=== PATIENT | female | born 1945 | race Caucasian/White ===

== ENCOUNTER 2020-04-30 08:28 | Outpatient (REF) | payer MEDICARE, SELFPAY ==
--- NOTE | 2020-04-30 08:34 | MM_ITS ---
EXAMINATION: MM SCREENING DIGITAL BREAST TOMOSYNTHESIS, BILATERAL CLINICAL INFORMATION: Screening. Asymptomatic. The lifetime risk of breast cancer based on the Tyrer-Cuzick Model is 4.3%. COMPARISON: Mammography: April 25, 2019 and studies dating back to August 03, 2013 TECHNIQUE: Digital breast tomosynthesis is performed in both the craniocaudal and mediolateral oblique views along with computer-aided detection (CAD). Synthesized 2D images are generated from the tomosynthesis. FINDINGS: There are scattered areas of fibroglandular density (ACR BI-RADS breast composition Category b). There are no significant masses, abnormal calcifications, or other abnormalities. MM/MM tomosynthesis screening BI IMPRESSION: There are no significant changes from prior study. ASSESSMENT: BI-RADS 1: Negative RECOMMENDATION: Routine annual mammography screening. This patient's information was entered into a reminder system with a target due date for their next mammogram.
== END 2020-04-30 08:29 | disposition home or self-care (01) ==
LOC: HO.MAMMO 08:28
PROVIDERS: PCP Internal Medicine; Visit Provider Internal Medicine
DX: Z12.31 Encounter for screening mammogram for malignant neoplasm of breast (principal)
CPT/HCPCS: 77063; 77067

== ENCOUNTER 2020-06-18 11:23 | Outpatient (REF) | payer MEDICARE, SELFPAY ==
[2020-06-18 13:55] LABS: Glucose Urine UA NEG (NEG); Leukocyte Esterase Urine NEG (NEG); Nitrite Urine NEG (NEG); Urine Blood NEG (NEG); Urine Ketones NEG (NEG); Urine Protein NEG (NEG-TRACE)
[2020-06-18 14:02] LABS: Appearance Urine CLEAR; Color Urine YELLOW
[2020-06-18 14:17] LABS: Estimated Average Glucose 148 mg/dL; Hemoglobin A1c % 6.8 %
[2020-06-18 14:21] LABS: Alanine Aminotransferase 30 U/L (0-31); Alkaline Phosphatase 80 U/L (39-117); Anion Gap 12 (12-20); Aspartate Amino Transferase 22 U/L (5-31); Bilirubin Total 0.5 mg/dL (0.0-1.0); Blood Urea Nitrogen 14 mg/dL (9-16); Calcium 9.3 mg/dL (8.4-10.2); Carbon Dioxide 28 mmol/L (22-29); Chloride 100 mmol/L (96-108); Estimated Glomerular Filt Rate > 60; Glucose Random 136 mg/dL (60-115); Potassium 4.3 mmol/l (3.3-5.1); Sodium 136 mmol/L (135-145); Total Protein 6.4 g/dL (6.5-8.0)
[2020-06-18 14:22] LABS: Creatinine Urine 66.71 mg/dL; Microalbum/Creatinine Ratio Ur 8.9 ug/mg cr
== END 2020-06-18 11:24 | disposition home or self-care (01) ==
LOC: HO.10HDL 11:23
PROVIDERS: PCP Internal Medicine; Visit Provider Internal Medicine
DX: E11.9 Type 2 diabetes mellitus without complications (principal); I10 Essential (primary) hypertension; I25.10 Atherosclerotic heart disease of native coronary artery without angina pectoris; N39.0 Urinary tract infection, site not specified
CPT/HCPCS: 80053; 81003; 82043; 83036; 87086

== ENCOUNTER 2020-07-08 09:41 | Outpatient (REF) | payer MEDICARE, SELFPAY ==
--- NOTE | 2020-07-08 | US_ITS ---
EXAMINATION: US RETROPERITONEAL COMPLETE (RENAL) CLINICAL INFORMATION: Urinary tract infection. COMPARISON: Renal ultrasound 03/27/2019 TECHNIQUE: Real-time imaging of the kidneys and bladder. FINDINGS: RIGHT KIDNEY: 14.6 x 5.1 x 5.3 cm (SAG x AP x TRV). The right kidney is larger than the left. The similar to previous exam. 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 Renal cortical thickness and echogenicity is normal. No calculi or focal parenchymal lesions. No hydronephrosis. LEFT KIDNEY: 11.7 x 5.4 x 5.0 cm (SAG x AP x TRV). The kidney is normal in size, contour, and echogenicity. Renal cortical thickness is normal. No calculi or focal parenchymal lesions. No hydronephrosis. BLADDER: Well distended and normal. Bilateral ureteral jets are demonstrated. Prevoid bladder volume is 220 mL. Postvoid bladder volume is 11.9 mL. 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 Otherwise unremarkable exam.
== END 2020-07-08 09:42 | disposition home or self-care (01) ==
LOC: HO.US 09:41
PROVIDERS: PCP Internal Medicine; Visit Provider Internal Medicine
DX: N39.0 Urinary tract infection, site not specified (principal)
CPT/HCPCS: 76770

== ENCOUNTER 2021-03-04 08:34 | Outpatient (REF) | payer MEDICARE, SELFPAY ==
[2021-03-04 11:34] LABS: MANUAL DIFF FLAG NO
[2021-03-04 11:50] LABS: Basophils Absolute Auto 0.1 X10*3/uL (0.0-0.2); Basophils Percent Auto 0.7 % (0-2); Eosinophils Absolute Auto 0.4 X10*3/uL (0.0-0.4); Eosinophils Percent Auto 5.5 % (0-4); Hematocrit 37.9 % (37-47); Hemoglobin 12.7 g/dl (12.0-16.0); Imm Gran Abs Auto 0.03 X10*3/uL (0.00-0.03); Imm Gran Pct Auto 0.4 % (0.0-0.4); Lymphocytes Absolute Auto 1.5 X10*3/uL (1.2-4.9); Lymphocytes Percent Auto 21.2 % (20-40); Mean Corpuscular HGB Conc 33.5 g/dl (31.0-35.0); Mean Corpuscular Hemoglobin 32.5 pg (27.0-33.0); Mean Corpuscular Volume 96.9 fL (80-98); Mean Platelet Volume 10.2 fL (9.4-12.3); Monocytes Absolute Auto 0.7 X10*3/uL (0.1-1.2); Monocytes Percent Auto 9.4 % (2-11); Neutrophils Absolute Auto 4.3 X10*3/uL (2.0-8.3); Neutrophils Percent Auto 62.8 % (45-73); Platelet Count 246 X10*3/uL (160-400); Red Blood Count 3.91 X10*6/uL (4.20-5.50); Red Cell Distribution Width 12.2 % (11.0-16.0); White Blood Count 6.9 X10*3/uL (4.8-10.8)
[2021-03-04 12:24] LABS: Alanine Aminotransferase 26 U/L (0-31); Alkaline Phosphatase 69 U/L (39-117); Anion Gap 12 (12-20); Aspartate Amino Transferase 20 U/L (5-31); Bilirubin Total 0.4 mg/dL (0.0-1.0); Blood Urea Nitrogen 17 mg/dL (9-16); Carbon Dioxide 26 mmol/L (22-29); Chloride 104 mmol/L (96-108); Cholesterol 113 mg/dL; Estimated Glomerular Filt Rate > 60; Glucose Fasting 147 mg/dL (60-99); HDL Cholesterol 42 mg/dL; LDL Cholesterol Calculated 55 mg/dl; Potassium 4.2 mmol/L (3.3-5.1); Sodium 138 mmol/L (135-145); Total Protein 6.4 g/dL (6.5-8.0); Triglycerides 81 mg/dL
[2021-03-04 12:54] LABS: Creatinine Urine 89.33 mg/dL; Microalbum/Creatinine Ratio Ur 43.6 ug/mg cr
[2021-03-04 13:22] LABS: Estimated Average Glucose 160 mg/dL; Hemoglobin A1c % 7.2 %
== END 2021-03-04 08:35 | disposition home or self-care (01) ==
LOC: HO.HMGCLDS 08:34
PROVIDERS: PCP Internal Medicine; Visit Provider Internal Medicine
DX: I10 Essential (primary) hypertension (principal); E78.00 Pure hypercholesterolemia, unspecified; E11.9 Type 2 diabetes mellitus without complications; M19.90 Unspecified osteoarthritis, unspecified site
CPT/HCPCS: 36415; 80053; 80061; 82043; 83036; 85025

== ENCOUNTER 2021-07-31 10:38 | Outpatient (REF) | payer MEDICARE, SELFPAY ==
[2021-07-31 14:17] LABS: Estimated Average Glucose 163 mg/dL; Hemoglobin A1c % 7.3 %
[2021-07-31 14:19] LABS: Alanine Aminotransferase 21 U/L (0-31); Alkaline Phosphatase 76 U/L (39-117); Anion Gap 12 (12-20); Aspartate Amino Transferase 17 U/L (5-31); Bilirubin Total 0.6 mg/dL (0.0-1.0); Blood Urea Nitrogen 16 mg/dL (9-16); Calcium 9.4 mg/dL (8.4-10.2); Carbon Dioxide 26 mmol/L (22-29); Chloride 102 mmol/L (96-108); Estimated Glomerular Filt Rate > 60; Glucose Random 144 mg/dL (60-115); Potassium 4.3 mmol/L (3.3-5.1); Sodium 136 mmol/L (135-145); Total Protein 6.6 g/dL (6.5-8.0)
[2021-07-31 14:47] LABS: Creatinine Urine 122.14 mg/dL; Microalbum/Creatinine Ratio Ur 30.2 ug/mg cr
== END 2021-07-31 10:39 | disposition home or self-care (01) ==
LOC: HO.HMGCLDS 10:38
PROVIDERS: PCP Internal Medicine; Visit Provider Internal Medicine
DX: E11.9 Type 2 diabetes mellitus without complications (principal); I25.10 Atherosclerotic heart disease of native coronary artery without angina pectoris; I10 Essential (primary) hypertension; K21.9 Gastro-esophageal reflux disease without esophagitis; E78.00 Pure hypercholesterolemia, unspecified
CPT/HCPCS: 36415; 80053; 82043; 83036

== ENCOUNTER 2021-11-17 11:20 | Outpatient (REF) | payer MEDICARE, SELFPAY ==
[2021-11-17 13:18] LABS: Appearance Urine HAZY; Color Urine STRAW; Glucose Urine UA NEG (NEG); Leukocyte Esterase Urine 3+ (NEG); Nitrite Urine POS (NEG); PH 5.5 (5.0-8.0); Specific Gravity - Urine 1.015 (1.005-1.025); UACC Culture Trigger YES; Urine Blood 2+ (NEG); Urine Ketones NEG (NEG); Urine Protein TRACE MG/DL (NEG-TRACE)
[2021-11-17 13:26] LABS: Anion Gap 14 (12-20); Blood Urea Nitrogen 15 mg/dL (9-16); Calcium 9.3 mg/dL (8.4-10.2); Carbon Dioxide 25 mmol/L (22-29); Chloride 100 mmol/L (96-108); Estimated Average Glucose 171 mg/dL; Estimated Glomerular Filt Rate > 60; Glucose Random 227 mg/dL (60-115); Hemoglobin A1c % 7.6 %; Potassium 4.4 mmol/L (3.3-5.1); Sodium 135 mmol/L (135-145)
[2021-11-17 14:13] LABS: Creatinine Urine 51.88 mg/dL; Microalbum/Creatinine Ratio Ur 204.3 ug/mg cr; WBC Urine TNTC /HPF (0-4)
[2021-11-17 14:14] LABS: Bacteria Urine 2+ /LPF
== END 2021-11-17 11:21 | disposition home or self-care (01) ==
LOC: HO.10HDL 11:20
PROVIDERS: Visit Provider Internal Medicine
DX: R30.0 Dysuria (principal); I10 Essential (primary) hypertension; E11.9 Type 2 diabetes mellitus without complications
CPT/HCPCS: 36415; 80048; 81001; 82043; 83036; 87086; 87088; 87186

== ENCOUNTER 2021-12-14 08:00 | Inpatient (IN) | payer MEDICARE, SELFPAY ==
[2021-12-14] VITALS (8 sets, daily range): BP systolic 160–205; BP diastolic 59–86; PULSE 59–84; RESP 15–18; TEMP 36.4–36.8; O2SAT 92–98; BMI 28.3
--- NOTE | ~2021-12-14 | MR_ITS ---
EXAMINATION: MR BRAIN WITHOUT CONTRAST CLINICAL INFORMATION: Vertigo. COMPARISON: Head CT 12/14/2021. TECHNIQUE: Multiplanar, multisequence imaging of the brain was performed without intravenous contrast. FINDINGS: There is no acute infarction, mass, hemorrhage, or extra-axial collection. The ventricles and sulci are commensurate with mild degree of brain parenchymal volume loss. Moderate patchy T2/FLAIR hyperintensity seen within the cerebral white matter, presumably reflecting chronic microangiopathy. No cerebellopontine angle lesion is seen. Small chronic lacunar infarcts are seen within the left and right cerebellar hemispheres. Chronic basal ganglia lacunar infarcts are also noted. The flow voids of the major intracranial arteries appear intact. The bones and extracranial soft tissues are unremarkable. Bilateral lens replacements are noted. MR/MR head/brain wo con IMPRESSION: No acute infarct, mass lesion, intracranial hemorrhage, or evidence of hydrocephalus. Chronic lacunar infarcts in the bilateral cerebellar hemispheres and basal ganglia. Background changes of moderate chronic microangiopathy.
--- NOTE | ~2021-12-14 | XR_ITS ---
EXAMINATION: XR KNEE, RIGHT CLINICAL INFORMATION: Knee pain COMPARISON: None TECHNIQUE: Four views of the right knee. FINDINGS: There is no visible acute fracture, dislocation or subluxation. There is diffuse osteopenia with heterogenous bone marrow involving the distal femur and proximal tibia. There is mild calcification of the menisci. The soft tissues are normal. There is soft tissue calcification mild joint effusion the suprapatellar bursa XR/XR knee RT 4V IMPRESSION: No acute fracture or dislocation. Mild degenerative calcification of the menisci. Heterogeneous bone marrow involving distal femur and proximal tibia likely significant osteoporosis or osteopenia. Soft tissue calcification in the suprapatellar bursa with mild suprapatellar joint effusion.
--- NOTE | ~2021-12-14 | CT_ITS ---
EXAMINATION: CT HEAD WITHOUT CONTRAST CLINICAL INFORMATION: Dizziness. COMPARISON: None TECHNIQUE: Contiguous axial imaging was performed from the skull base to vertex without intravenous administration of contrast. This CT examination was performed using dose optimization techniques as appropriate, variously including the following: *Automated exposure control *Adjustment of mA and/or kV according to patient size (this includes techniques or standardized protocols for targeted exams where dose is matched to indication/reason for exam; i.e. extremities or head) *Use of iterative reconstruction technique DLP: 685 mGy-cm FINDINGS: There is no evidence of acute intracranial hemorrhage or territorial infarction. No abnormal mass effect or midline shift is seen. Gomez to white matter differentiation is well preserved. No extra-axial fluid collections are identified. The ventricles are normal in size. Hypoattenuation of the periventricular white matter consistent with chronic microvascular ischemic disease. Subcutaneous hyperdense cyst overlying the left frontal lobe measuring 0.9 cm. The osseous structures and soft tissues are otherwise unremarkable. The mastoid air cells and visualized portions of the paranasal sinuses are well aerated. CT/CT head/brain wo con IMPRESSION: No acute intracranial hemorrhage or mass effect. Findings consistent with chronic microvascular ischemic disease.
--- NOTE | ~2021-12-14 | XR_ITS ---
EXAMINATION: XR CHEST CLINICAL INFORMATION: Dizziness. COMPARISON: Chest radiograph dated 08/08/2013. TECHNIQUE: 2 views of the chest were obtained. FINDINGS: Mild hypoinflation of the lungs without focal airspace consolidation. No pleural effusion or pneumothorax. Sternal wires and mediastinal surgical clips. Unremarkable cardiomediastinal silhouette. XR/XR chest 2V IMPRESSION: No acute cardiopulmonary findings.
--- NOTE | 2021-12-14 08:12 | ECG_ITS ---
Test Reason : DIZZINESS Blood Pressure : / mmHG Vent. Rate : 076 BPM Atrial Rate : 076 BPM P-R Int : 200 ms QRS Dur : 076 ms QT Int : 402 ms P-R-T Axes : 080 004 037 degrees QTc Int : 452 ms Normal sinus rhythm Cannot rule out Inferior infarct (cited on or before 08-SEP-2012) Abnormal ECG When compared with ECG of 08-SEP-2012 06:21, No significant change was found Referred By: Tammy Urrutia Electronically Signed By:Jerry Covington
--- NOTE | 2021-12-14 08:12 | ED.GENADULT ---
HPI - General Adult General Chief complaint: Dizziness Stated complaint: DIZZY THIS MORNING,RECENT DX UTI Time Seen by Provider: 12/14/21 08:11 Source: patient and EMS Mode of arrival: EMS Limitations: no limitations History of Present Illness HPI narrative: Patient is a 76 year old female presenting to the emergency department today with dizziness and nausea. Patient states that at 3am today, she woke up with dizziness and nausea. Patient states that the dizziness only occurs when she moves her head and is not present at all times. Patient denies any history of vertigo. Patient denies any lightheadedness, abdominal pain, vomiting, fever, chills, blurry vision, double vision, loss of vision, chest pain, difficulty breathing, shortness of breath, back pain, night sweats, pain with urination, increased urinary frequency, increased urinary urgency, blood in her urine or stool, syncope or a near syncopal episode, recent trauma or falls, bowel incontinence, bladder incontinence, bowel retention, bladder retention, or any other complaints at this time. Patient states that she has a history of high blood pressure and diabetes for which she has not taken either of her medications. Patient states that she was diagnosed with a UTI a few days ago and just started her antibiotic for it. Onset (ago): hour(s) Severity: mild Severity scale (1-10): 4 Relieving factors: none Exacerbating factors: movement Associated symptoms: nausea/vomiting Treatments prior to arrival: none Related Data Home Medications Medication Instructions Recorded Confirmed ascorbic acid (vitamin C) 500 mg 500 mg PO DAILY 12/14/21 12/14/21 tablet (Vitamin C) atorvastatin 80 mg tablet 1 tab PO BEDTIME 12/14/21 12/14/21 calcium carbonate 500 mg calcium 500 mg PO DAILY 12/14/21 12/14/21 (1,250 mg) tablet glucosamine sulfate 500 mg tablet 500 mg PO BID 12/14/21 12/14/21 (Glucosamine) metformin 500 mg tablet,extended 1 tab PO BID 12/14/21 12/14/21 release 24 hr metoprolol succinate 25 mg 1 tab PO DAILY 12/14/21 12/14/21 tablet,extended release 24 hr omeprazole 20 mg capsule,delayed 1 cap PO DAILY 12/14/21 12/14/21 release vit C 250 mg-E 90 mg-zinc 40 1 tab PO BID 12/14/21 12/14/21 mg-copper 1 gl-[id number] chew tablet (PreserVision AREDS-2) zolpidem 5 mg tablet 1 tab PO BEDTIME PRN Sleep 12/14/21 12/14/21 Allergies Allergy/AdvReac Type Severity Reaction Status Date / Time egg [Egg] Allergy Mild RASH Verified 12/14/21 08:11 Sulfa (Sulfonamide Allergy Unknown N/V Verified 12/14/21 08:11 Antibiotics) TACHYCARDIC Review of Systems Constitutional: Constitutional: Reports no additional constitutional complaints, Denies chills, Denies fever(s) and Denies night sweats Eyes: Eyes: Reports no additional eye complaints, Denies blurry vision, Denies change in vision, Denies diplopia, Denies eye discharge, Denies loss of vision and Denies eye pain ENT: Reports dizziness Cardiovascular: Cardiovascular: Reports no additional cardiovascular complaints, Denies chest pain, Denies lightheadedness, Denies Loss of Consciousness and Denies dyspnea Respiratory: Respiratory: Reports no additional respiratory complaints and Denies dyspnea Gastrointestinal: Gastrointestinal: Reports no additional gastrointestinal complaints, Denies abdominal pain, Denies melena, Denies hematochezia, Denies change in bowel habits, Denies change in stool character, Reports nausea and Reports vomiting Genitourinary: Genitourinary: Denies hematuria, Denies urinary frequency, Denies dysuria, Denies urinary incontinence, Denies urinary hesitancy and Denies urinary urgency Musculoskeletal: Musculoskeletal: Reports no additional musculoskeletal complaints, Denies numbness and Denies tingling Neurologic: Reports dizziness, Denies loss of vision, Denies numbness and Denies tingling Psychiatric: Psychiatric: Reports no additional psychiatric complaints Endocrine: Endocrine: Reports no additional endocrine complaints Hematologic/Lymphatic: Hematologic/Lymphatic: Reports no additional hematologic/lymphatic complaints Allergic/Immunologic: Allergic/Immunologic: Reports no additional allergic/immunologic complaints [facility] Past Medical History Attestation statement: The following information was validated with the patient. Source: old records reviewed Medical History HTN (hypertension) Surgical History History of quadruple bypass Social History Social History Alcohol intake: current Alcohol intake frequency: a few times a month Patient Tobacco Use Status: Never used Tobacco Use of substances other than those prescribed or required for medical reasons: No Advance Directives: Yes Advance Directives Information Provided: No Advance Directives on File: No Physical Exam ED Vital Signs: Vital Signs - 24 hr 12/14/21 08:12 12/14/21 09:02 12/14/21 10:12 Temperature 98.3 F 97.6 F Pulse Rate 83 78 59 Respiratory Rate 18 18 18 Blood Pressure 205/86 H 186/78 H 174/69 H Pulse Oximetry 98 95 96 Oxygen Delivery Method Room Air Room Air Room Air 12/14/21 12:00 12/14/21 13:51 Temperature 97.6 F 98.1 F Pulse Rate 75 76 Respiratory Rate 15 18 Blood Pressure 167/77 H 160/65 H Pulse Oximetry 94 95 Oxygen Delivery Method Room Air Room Air BMI result Body Mass Index 28.3 Const General: cooperative, no acute distress, alert and awake Nutritional Appearance: well nourished Orientation/consciousness: patient oriented x3 Limitations: no limitations HENMT Head: Yes normal to inspection and Yes atraumatic Ears: hearing grossly normal bilaterally and external ears normal General nose exam: Normal external nose present, no nasal discharge noted and no epistaxis Face and sinus: Yes normal facial exam, No abrasion and No laceration Mouth: Normal oral and palatal mucosa present, no drooling and no muffled voice Eyes General: appearance normal, both eyes and all related structures Periorbital: periorbital findings normal Eyelids: Yes eyelids normal Conjunctivae: conjunctivae normal Pupils: Equal, round and reactive pupils present EOM: EOMs intact bilaterally Neck Neck: Yes normal visual inspection, Yes full ROM and Yes no lymphadenopathy Chest Chest palpation & inspection: normal inspection of the chest Resp Effort & Inspection: normal respiratory effort and able to speak in complete sentences Auscultation: clear to auscultation bilaterally Cardio Rate: regular rate Rhythm: regular rhythm GI Inspection: Yes normal to inspection Neuro General: patient oriented x3 and moves all extremities Cranial nerves: Yes Equal, round and reactive pupils present Cognition (Neuro): normal cognition Motor exam (neuro): 5/5 motor strength present throughout Sensory Exam: Normal double simultaneous stimulation for sensation Coordination: [id number] test normal Extrem General: Yes normal to inspection, Yes full ROM and Yes capillary refill normal Psych Appearance: grossly normal Mental Status: mental status grossly normal Affect: normal affect Attitude: cooperative Thought process: Normal thought process present Thought content: Normal thought content present Insight: Good insight present (Psych) Medical Decision Making MDM Narrative Medical decision making narrative: Patient is a 76 year old female presenting to the emergency department today with dizziness. Patient's physical exam showed inability to ambulate secondary to profound dizziness but was otherwise unremarkable. Patient's blood work was unremarkable. Patient's EKG was unremarkable. Patient's chest x-ray and head CT showed no acute process. MRI machine currently being serviced and it is unclear when it will come back online. I explained my physical exam findings as well as all test results to the patient. I answered all questions asked by the patient. Patient received IV fluids and PO antivert however, she was still unable to ambulate secondary to the profound dizziness. I spoke to Dr. Martinez who agreed to hospital admission. Patient verbalized agreement and understanding with this treatment plan and admission. Differential Diagnosis Differential Diagnosis: BPPV, CVA, dizziness Medical Records Medical records reviewed: Yes I reviewed the patient's medical records. Lab Data Lab results reviewed: Yes I reviewed the patient's lab results. Result diagrams: 12/14/21 10:02 12/14/21 10:02 Labs: Lab Results 12/14/21 12/14/21 12/14/21 Range/Units 10:02 10:02 10:02 WBC 8.3 (4.8-10.8) X10*3/uL RBC 4.16 L (4.20-5.50) X10*6/uL Hgb 13.2 (12.0-16.0) g/dl Hct 38.8 (37.0-47.0) % MCV 93.3 (80.0-98.0) fL MCH 31.7 (27.0-33.0) pg MCHC 34.0 (31.0-35.0) g/dl RDW 12.2 (11.0-16.0) % Plt Count 246 (160-400) X10*3/uL MPV 9.7 (9.4-12.3) fL Immature Gran % (Auto) 0.5 H (0.0-0.4) % Neut % (Auto) 82.2 H (45-73) % Lymph % (Auto) 9.4 L (20-40) % [place] % (Auto) 6.2 (2-11) % Eos % (Auto) 1.3 (0-4) % Baso % (Auto) 0.4 (0-2) % Lymph # (Auto) 0.8 L (1.2-4.9) X10*3/uL [place] # (Auto) 0.5 (0.1-1.2) X10*3/uL Eos # (Auto) 0.1 (0.0-0.4) X10*3/uL Baso # (Auto) 0.0 (0.0-0.2) X10*3/uL Abs Immat Gran (auto) 0.04 H (0.00-0.03) X10*3/uL Absolute Neuts (auto) 6.8 (2.0-8.3) x10*3/uL Absolute Nucleated RBC 0.000 (0.0-0.012) X10*3/uL Nucleated RBC % (auto) 0.0 (0.0-0.2) /100WBC Sodium 135 (135-145) mmol/L Potassium 4.8 (3.3-5.1) mmol/L Chloride 101 (96-108) mmol/L Carbon Dioxide 26 (22-29) mmol/L Anion Gap 13 (12-20) BUN 16 (9-16) mg/dL Creatinine 0.72 (0.5-1.4) mg/dL Estim Creat Clear Calc 66.8 Estimated GFR > 60 Random Glucose 278 H (60-115) mg/dL Lactic Acid 1.5 (0.5-2.0) mmol/L Calcium 8.7 D (8.4-10.2) mg/dL Magnesium 2.1 (1.6-2.6) mg/dL Total Bilirubin 0.8 (0.0-1.0) mg/dL AST 16 (5-31) U/L ALT 24 (0-31) U/L Alkaline Phosphatase 87 (39-117) U/L Troponin I High Sens (<3.5-17.0) ng/L Total Protein 6.7 (6.5-8.0) g/dL Albumin 4.0 (3.5-5.0) g/dL COVID-19 ([facility]) (Negative) COVID-19 Clin Com Influenza Type A ([facility]) (Negative) Influenza Type B ([facility]) (Negative) Influenza A & B Note 12/14/21 12/14/21 12/14/21 Range/Units 10:02 10:04 10:04 WBC (4.8-10.8) X10*3/uL RBC (4.20-5.50) X10*6/uL Hgb (12.0-16.0) g/dl Hct (37.0-47.0) % MCV (80.0-98.0) fL MCH (27.0-33.0) pg MCHC (31.0-35.0) g/dl RDW (11.0-16.0) % Plt Count (160-400) X10*3/uL MPV (9.4-12.3) fL Immature Gran % (Auto) (0.0-0.4) % Neut % (Auto) (45-73) % Lymph % (Auto) (20-40) % [place] % (Auto) (2-11) % Eos % (Auto) (0-4) % Baso % (Auto) (0-2) % Lymph # (Auto) (1.2-4.9) X10*3/uL [place] # (Auto) (0.1-1.2) X10*3/uL Eos # (Auto) (0.0-0.4) X10*3/uL Baso # (Auto) (0.0-0.2) X10*3/uL Abs Immat Gran (auto) (0.00-0.03) X10*3/uL Absolute Neuts (auto) (2.0-8.3) x10*3/uL Absolute Nucleated RBC (0.0-0.012) X10*3/uL Nucleated RBC % (auto) (0.0-0.2) /100WBC Sodium (135-145) mmol/L Potassium (3.3-5.1) mmol/L Chloride (96-108) mmol/L Carbon Dioxide (22-29) mmol/L Anion Gap (12-20) BUN (9-16) mg/dL Creatinine (0.5-1.4) mg/dL Estim Creat Clear Calc Estimated GFR Random Glucose (60-115) mg/dL Lactic Acid (0.5-2.0) mmol/L Calcium (8.4-10.2) mg/dL Magnesium (1.6-2.6) mg/dL Total Bilirubin (0.0-1.0) mg/dL AST (5-31) U/L ALT (0-31) U/L Alkaline Phosphatase (39-117) U/L Troponin I High Sens < 3.5 (<3.5-17.0) ng/L Total Protein (6.5-8.0) g/dL Albumin (3.5-5.0) g/dL COVID-19 ([facility]) Negative (Negative) COVID-19 Clin Com See Note Influenza Type A ([facility]) Negative (Negative) Influenza Type B ([facility]) Negative (Negative) Influenza A & B Note See Note Imaging Data CT scan - head: Attestation: I personally reviewed and interpreted this imaging study as follows: My impression: No acute process. Radiologist's impression: EXAMINATION: CT HEAD WITHOUT CONTRAST CLINICAL INFORMATION: Dizziness.? COMPARISON: None TECHNIQUE: Contiguous axial imaging was performed from the skull base to vertex without intravenous administration of contrast. This CT examination was performed using dose optimization techniques as appropriate, variously including the following: *Automated exposure control *Adjustment of mA and/or kV according to patient size (this includes techniques or standardized protocols for targeted exams where dose is matched to indication/reason for exam; i.e. extremities or head) *Use of iterative reconstruction technique DLP: 685 mGy-cm FINDINGS: There is no evidence of acute intracranial hemorrhage or territorial infarction. No abnormal mass effect or midline shift is seen. Gomez to white matter differentiation is well preserved. No extra-axial fluid collections are identified. The ventricles are normal in size. Hypoattenuation of the periventricular white matter consistent with chronic microvascular ischemic disease. Subcutaneous hyperdense cyst overlying the left frontal lobe measuring 0.9 cm. The osseous structures and soft tissues are otherwise unremarkable. The mastoid air cells and visualized portions of the paranasal sinuses are well aerated. ? CT/CT head/brain wo con IMPRESSION: No acute intracranial hemorrhage or mass effect. ? Findings consistent with chronic microvascular ischemic disease. Dictated By: Zacarias Olivares MD Signed By: Electronically signed by Zacarias Olivares MD 12/14/21 0849 Chest x-ray: Attestation: I personally reviewed and interpreted this imaging study as follows: My impression: No acute process. Radiologist's impression: EXAMINATION: XR CHEST CLINICAL INFORMATION: Dizziness. COMPARISON: Chest radiograph dated 08/08/2013. TECHNIQUE: 2 views of the chest were obtained. FINDINGS: Mild hypoinflation of the lungs without focal airspace consolidation. No pleural effusion or pneumothorax. Sternal wires and mediastinal surgical clips. Unremarkable cardiomediastinal silhouette. XR/XR chest 2V IMPRESSION: No acute cardiopulmonary findings. Dictated By: Zacarias Olivares MD Signed By: Electronically signed by Zacarias Olivares MD 12/14/21 0849 ECG Data Attestation: I personally reviewed and interpreted this ECG as follows: Prior ECG tracings: available for review Interpretation: Vent. Rate: 076 BPM ? ? Atrial Rate: 076 BPM P-R Int: 200 ms? QRS Dur: 076 ms QT Int: 402 ms ? ? ? P-R-T Axes: 080 004 037 degrees QTc Int: 452 ms ? Normal sinus rhythm Cannot rule out Inferior infarct (cited on or before 08-SEP-2012) Abnormal ECG When compared with ECG of 08-SEP-2012 06:21, No significant change was found DD/ [id number] Discharge Plan Discharge Clinical Impression: Benign paroxysmal positional vertigo, Nausea & vomiting Patient Disposition: Admitted As Inpatient Prescriptions: No Action atorvastatin 80 mg tablet 1 tab PO BEDTIME omeprazole 20 mg capsule,delayed release(DR/EC) 1 cap PO DAILY zolpidem 5 mg tablet 1 tab PO BEDTIME PRN (Reason: Sleep) metoprolol succinate 25 mg tablet extended release 24 hr 1 tab PO DAILY metformin 500 mg tablet extended release 24 hr 1 tab PO BID glucosamine sulfate [Glucosamine] 500 mg Tablet 500 mg PO BID Rx Instructions: administer with meals calcium carbonate [Calcium 500] 500 mg calcium (1,250 mg) Tablet 500 mg PO DAILY ascorbic acid (vitamin C) [Vitamin C] 500 mg Tablet 500 mg PO DAILY PreserVision AREDS-2 250-90-40-1 mg Tablet,Chewable 1 tab PO BID Print Language: Andorran
[2021-12-14] MEDS: ondansetron HCL 4 MG/2 ML VIAL IVPUSH (08:59)
[2021-12-14] MEDS: Meclizine HCl 25 MG TABLET PO (09:01)
[2021-12-14] MEDS: Metoprolol Tartrate 25 MG TABLET PO (09:01)
--- NOTE | 2021-12-14 10:13 | PC.NURSE ---
pt unable to tolerate orthos. Too dizzy to sit on bedside. states headache remains unchanged but dizziness is slightly better.
[2021-12-14] MEDS: 0.9 % Sodium Chloride 1,000 ML 999 ML IVCONT (10:17)
[2021-12-14 10:18] LABS: MANUAL DIFF FLAG NO
[2021-12-14 10:19] LABS: Basophils Percent Auto 0.4 % (0-2); Eosinophils Absolute Auto 0.1 X10*3/uL (0.0-0.4); Eosinophils Percent Auto 1.3 % (0-4); Hematocrit 38.8 % (37.0-47.0); Hemoglobin 13.2 g/dl (12.0-16.0); Imm Gran Abs Auto 0.04 X10*3/uL (0.00-0.03); Imm Gran Pct Auto 0.5 % (0.0-0.4); Lymphocytes Absolute Auto 0.8 X10*3/uL (1.2-4.9); Lymphocytes Percent Auto 9.4 % (20-40); Mean Corpuscular Hemoglobin 31.7 pg (27.0-33.0); Mean Corpuscular Volume 93.3 fL (80.0-98.0); Mean Platelet Volume 9.7 fL (9.4-12.3); Monocytes Absolute Auto 0.5 X10*3/uL (0.1-1.2); Monocytes Percent Auto 6.2 % (2-11); Neutrophils Absolute Auto 6.8 x10*3/uL (2.0-8.3); Neutrophils Percent Auto 82.2 % (45-73); Platelet Count 246 X10*3/uL (160-400); Red Blood Count 4.16 X10*6/uL (4.20-5.50); Red Cell Distribution Width 12.2 % (11.0-16.0); White Blood Count 8.3 X10*3/uL (4.8-10.8)
[2021-12-14 10:34] LABS: Lactic Acid 1.5 mmol/L (0.5-2.0)
[2021-12-14 10:38] LABS: IDNOW Serial# 16C4AD1C; Influenza A Negative (Negative)
[2021-12-14 10:39] LABS: COVID-19 Test Negative (Negative); IDNOW Serial# 16C4AD1C; Influenza B2 Negative (Negative)
[2021-12-14 10:40] LABS: Alanine Aminotransferase 24 U/L (0-31); Alkaline Phosphatase 87 U/L (39-117); Anion Gap 13 (12-20); Aspartate Amino Transferase 16 U/L (5-31); Bilirubin Total 0.8 mg/dL (0.0-1.0); Blood Urea Nitrogen 16 mg/dL (9-16); Calcium 8.7 mg/dL (8.4-10.2); Carbon Dioxide 26 mmol/L (22-29); Chloride 101 mmol/L (96-108); Creatinine Clr Calc Pharmacy 66.8; Estimated Glomerular Filt Rate > 60; Glucose Random 278 mg/dL (60-115); Magnesium 2.1 mg/dL (1.6-2.6); Potassium 4.8 mmol/L (3.3-5.1); Sodium 135 mmol/L (135-145); Total Protein 6.7 g/dL (6.5-8.0)
[2021-12-14 10:43] LABS: Troponin-I High Sensitivity < 3.5 ng/L (<3.5-17.0)
[2021-12-14] MEDS: Metoclopramide HCl 10 MG/2 ML VIAL IVPUSH (12:02)
--- NOTE | 2021-12-14 12:08 | PC.NURSE ---
Addendum entered by Elise Rodriguez RN 12/14/21 12:11: marcos martin applied Original Note: patient a&ox3, was assisted oob to wheelchair with tech pt began having acute dizziness and feeling as if she wanted to vomit, pt was unable to use iman steady to go into bathroom or to return to bed, it took a 3 person assist to help the patient back into bed standing/pivot. 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
--- NOTE | 2021-12-14 13:13 | PHA.MEDREC ---
Pharmacy Consult ? Medication Reconciliation Pharmacy has completed the medication reconciliation.
--- NOTE | 2021-12-14 13:51 | PC.NURSE ---
patient a&ox3, vss, teletypesetter monitor nsr 70s, pure wick intact, call aparicio within reach will continue to monitor.
--- NOTE | 2021-12-14 15:42 | PM.IMHP ---
History of Present Illness Date of Service: 12/14/21 Attending physician on admission: Kusum Boyd Chief Complaint: vertiago 76-year-old female with history of diabetes, hypertension, hyperlipidemia, CABG, history of a flutter(2007) in the past which was treated with ablation and subsequently off anticoagulation( her banner painter is Dr. mitchell), patient came to the hospital because started to having dizziness episode this morning around 03:00 o'clock when she went to the bathroom, she says that she never had dizziness before in his her life, she described dizziness as spinning sensation, denies any headache or any blurry vision or lightheadedness or any seizure-like activities. patient was in [place] recently came last Wednesday and was feeling better until yesterday she noticed some burning sensation with the urine and discoloration and started her antibiotics. she has some nausea but no vomiting, no fever or abdominal pain or cough or phlegm or any weakness or numbness we tried to walk her she could able to take few steps but feels very unsteady. she denies any tinnitus or ear pain or any URI like symptoms. labs arzate: Hemoglobin 13.2 hematocrit 38 ,WBC 8.3, platelet 246 BUN 16 creatinine 0.72 fingersticks are running between 140-[address] head and chest x-ray negative,, MRI added in ED: Patient received Reglan, meclizine, Fioricet and subsequently was feeling slightly better- because they patient is still significantly unsteady so recommended admission for vertigo unclear etiology differential diagnosis from benign positional vertigo to posterior circulation CVA. social history: Lives alone, independent ADL arzate, no smoking or recreational drug use, ETOH use once or twice a week occasionally Surgical history: CABG 6 year ago Knee and shoulder surgery long time ago. Review of Systems Review of Systems: as above. Yes all other systems are reviewed and are negative [facility] Medical History HTN (hypertension) Pertinent family history: Patient lives alone, ADL independent family history: Has strong family history of cardiac disease, she has CABG 6 years ago. Also diabetes run in the family Surgical History History of quadruple bypass Social History Alcohol intake: current Alcohol intake frequency: a few times a month Patient Tobacco Use Status: Never used Tobacco Use of substances other than those prescribed or required for medical reasons: No Advance Directives: Yes Advance Directives Information Provided: No Advance Directives on File: No Meds Allergies Allergy/AdvReac Type Severity Reaction Status Date / Time egg [Egg] Allergy Mild RASH Verified 12/14/21 08:11 Sulfa (Sulfonamide Allergy Unknown N/V Verified 12/14/21 08:11 Antibiotics) TACHYCARDIC Active Medications: Current Medications Ascorbic Acid (Ascorbic Acid 500 Mg Tablet) 500 mg PO DAILY [facility] Aspirin (Aspirin Enteric Coated 81 Mg Tablet.) 81 mg PO DAILY [facility] Atorvastatin Calcium (Atorvastatin Calcium 80 Mg Tablet) 80 mg PO BEDTIME [facility] Calcium Carbonate (Calcium Carbonate 500 Mg Tablet) 500 mg PO DAILY [facility] Cefuroxime Axetil (Cefuroxime Axetil 250 Mg Tablet) 250 mg PO Q12H [facility] Meclizine HCl (Meclizine Hcl 12.5 Mg Tablet) 12.5 mg PO Q6H PRN PRN Reason: dizziness Metoprolol Succinate (Metoprolol Succinate Er 25 Mg Tab.Er.24h) 25 mg PO DAILY [facility]; Protocol Multivitamins/Vitamin C (Multivitamin Tablet) 1 tab PO DAILY [facility] Omeprazole (Omeprazole 20 Mg Capsule.) 20 mg PO DAILY@0630 [facility] Pharmacy Consult (Consult Rx Perform Med Rec) 1 each MISCELLANE ONCE PRN PRN Reason: Consult order Sodium Chloride (0.9 % Sodium Chloride Flush 3 Ml Syringe) 3 ml IVFLUSH QSHIFT [facility] Zolpidem Tartrate (Zolpidem Tartrate 5 Mg Tablet) 5 mg PO BEDTIME PRN PRN Reason: Sleep Home Medications Medication Instructions Recorded Confirmed Last Taken Type ascorbic acid (vitamin C) 500 mg 500 mg PO DAILY 12/14/21 12/14/21 Unknown History tablet (Vitamin C) atorvastatin 80 mg tablet 1 tab PO BEDTIME 12/14/21 12/14/21 12/13/21 History calcium carbonate 500 mg calcium 500 mg PO DAILY 12/14/21 12/14/21 12/13/21 History (1,250 mg) tablet glucosamine sulfate 500 mg tablet 500 mg PO BID 12/14/21 12/14/21 12/13/21 History (Glucosamine) metformin 500 mg tablet,extended 1 tab PO BID 12/14/21 12/14/21 12/13/21 History release 24 hr metoprolol succinate 25 mg 1 tab PO DAILY 12/14/21 12/14/21 12/13/21 History tablet,extended release 24 hr omeprazole 20 mg capsule,delayed 1 cap PO DAILY 12/14/21 12/14/21 12/13/21 History release vit C 250 mg-E 90 mg-zinc 40 1 tab PO BID 12/14/21 12/14/21 12/13/21 History mg-copper 1 [id number]-[id number] chew tablet (PreserVision AREDS-2) zolpidem 5 mg tablet 1 tab PO BEDTIME PRN Sleep 12/14/21 12/14/21 12/13/21 History Physical Exam Vital Signs and Narrative: Vital Signs: Last Vital Signs Temp 98.1 F 12/14/21 13:51 Pulse 76 12/14/21 13:51 Resp 18 12/14/21 13:51 BP 160/65 H 12/14/21 13:51 Pulse Ox 95 12/14/21 13:51 O2 Del Method 12/14/21 13:51 BMI result Body Mass Index 28.3 Appearance: Alert.? Oriented X3.? not in distress.? Eyes: Pupils equal, round and reactive to light.? Sclera nonicteric.? ENT: Pharynx normal.? Moist mucous membranes. cvs: rrr, [id number] , no murmur res: clear to auscultation ,no rhonchii or wheezing abd: no rebound or guarding ,nt, bs present. ext pulses present , no cyanosis. neuro: axo3 , nonfocal eomi perrla no nystgmus face symmetrical, hand to nose testfine motor and sensation intact, DTR also fine very unsteady with few steps. Results Labs CBC and Chem 7: 12/14/21 10:02 12/14/21 10:02 Labs: Laboratory Results - last 24 hr 12/14/21 12/14/21 12/14/21 10:02 10:02 10:02 MCV 93.3 MCH 31.7 MCHC 34.0 RDW 12.2 Plt Count 246 MPV 9.7 Immature Gran % (Auto) 0.5 H Neut % (Auto) 82.2 H Lymph % (Auto) 9.4 L Mcdowell % (Auto) 6.2 Eos % (Auto) 1.3 Baso % (Auto) 0.4 Lymph # (Auto) 0.8 L Mcdowell # (Auto) 0.5 Eos # (Auto) 0.1 Baso # (Auto) 0.0 Abs Immat Gran (auto) 0.04 H Absolute Neuts (auto) 6.8 Absolute Nucleated RBC 0.000 Nucleated RBC % (auto) 0.0 Anion Gap 13 Estim Creat Clear Calc 66.8 Estimated GFR > 60 Random Glucose 278 H Lactic Acid 1.5 Calcium 8.7 D Magnesium 2.1 Total Bilirubin 0.8 AST 16 ALT 24 Alkaline Phosphatase 87 Troponin I High Sens Total Protein 6.7 Albumin 4.0 COVID-19 ([facility]) COVID-19 Clin Com Influenza Type A ([facility]) Influenza Type B ([facility]) Influenza A & B Note 12/14/21 12/14/21 12/14/21 10:02 10:04 10:04 MCV MCH MCHC RDW Plt Count MPV Immature Gran % (Auto) Neut % (Auto) Lymph % (Auto) Mcdowell % (Auto) Eos % (Auto) Baso % (Auto) Lymph # (Auto) Mcdowell # (Auto) Eos # (Auto) Baso # (Auto) Abs Immat Gran (auto) Absolute Neuts (auto) Absolute Nucleated RBC Nucleated RBC % (auto) Anion Gap Estim Creat Clear Calc Estimated GFR Random Glucose Lactic Acid Calcium Magnesium Total Bilirubin AST ALT Alkaline Phosphatase Troponin I High Sens < 3.5 Total Protein Albumin COVID-19 ([facility]) Negative COVID-19 Clin Com See Note Influenza Type A ([facility]) Negative Influenza Type B ([facility]) Negative Influenza A & B Note See Note ECG Attestation: I personally reviewed and interpreted this ECG as follows: (nsr) Imaging Radiologist's Impressions: Impressions Chest X-Ray 12/14/21 08:29 IMPRESSION: No acute cardiopulmonary findings. Head CT 12/14/21 08:30 IMPRESSION: No acute intracranial hemorrhage or mass effect. Findings consistent with chronic microvascular ischemic disease. Assessment and Plan (1) Benign paroxysmal positional vertigo: Status: Acute (2) Nausea & vomiting: Status: Acute Plan 76-year-old female with history of diabetes, hypertension, hyperlipidemia, CABG, history of a flutter(2006) in the past which was treated with ablation and subsequently off anticoagulation( her banner painter is Dr. mitchell) came with with severe vertigo-unclear etiology. severe vertigo-unclear etiology. differential diagnosis: possible benign positional vertigo versus vestibular neuritis versus posterior circulation CVA monitor neuro checks, on tele EKG NSR added prn meclizine will add aspirin, lipid panel in the morning continue statin. CT head negative, MRI added neuro evaluation diabetes: Fingersticks running 180-220 range diabetes with sliding scale coverage hypertension: Continue home medication- metoprolol. History of CABG: added aspirin, continue statin and beta-criag history of a flutter status post ablation 6 years ago, off ac after ablation monitor on tele. hlp: continue statin dvt prophylax: s/c lovenox above management discussed the patient in detail length she understand and in agreement with above plan, time spent 70 minute, patient is DNR DNI. Due to severe vertigo and workup as well as neuro evaluation- may need 2 midnight stay. Quality Stroke Does the patient have a stroke diagnosis?: No VTE Prior VTE?: No VTE Risk Level:: Medical - moderate - high VTE Device Contraindication: N/A - Device Ordered VTE Drug Contraindication: N/A - Med Ordered
--- NOTE | 2021-12-14 15:45 | PC.NURSE ---
mri screening form completed and faxed to mri
[2021-12-14] MEDS: Aspirin Enteric Coated 81 MG TABLET.DR PO (16:31)
[2021-12-14] MEDS: Butalb/Acetamin/Caff 50/325/40 TABLET 1 TAB PO (16:31)
[2021-12-14] MEDS: 0.9 % Sodium Chloride Flush 3 ML SYRINGE IVFLUSH ×2 (16:32→22:09)
--- NOTE | 2021-12-14 16:34 | PC.NURSE ---
pt medicated per order
--- NOTE | 2021-12-14 18:24 | PC.NURSE ---
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
[2021-12-14] MEDS: Heparin Sodium,Porcine 5,000 UNIT/ML VIAL 5000 UNIT SUBCUT (19:13)
--- NOTE | 2021-12-14 20:14 | PC.NURSE ---
called floor to give report, nurse to call us back
[2021-12-14 21:28] LABS: Glucose, Whole Blood 229 mg/dL (60-115)
[2021-12-14] MEDS: Insulin Lispro 100 UNIT/ML 3 ML VIAL SUBCUT (22:08)
[2021-12-14] MEDS: Atorvastatin Calcium 80 MG TABLET PO (22:08)
[2021-12-15] VITALS (8 sets, daily range): BP systolic 145–188; BP diastolic 63–90; PULSE 66–87; RESP 16–19; TEMP 36.4–36.9; O2SAT 92–95
[2021-12-15] MEDS: Omeprazole 20 MG CAPSULE.DR PO (04:41)
[2021-12-15] MEDS: Heparin Sodium,Porcine 5,000 UNIT/ML VIAL 5000 UNIT SUBCUT ×2 (04:41→17:30)
[2021-12-15 05:26] LABS: Cholesterol 145 mg/dL; HDL Cholesterol 44 mg/dL; LDL Cholesterol Calculated 85 mg/dl; Triglycerides 84 mg/dL
[2021-12-15 07:13] LABS: Glucose, Whole Blood 200 mg/dL (60-115)
[2021-12-15] MEDS: 0.9 % Sodium Chloride Flush 3 ML SYRINGE IVFLUSH ×2 (08:29→16:48)
[2021-12-15] MEDS: Insulin Lispro 100 UNIT/ML 3 ML VIAL SUBCUT ×4 (08:30→21:58)
[2021-12-15] MEDS: Aspirin Enteric Coated 81 MG TABLET.DR PO (08:30)
[2021-12-15] MEDS: Metoprolol Succinate ER 25 MG TAB.ER.24H PO (08:31)
[2021-12-15] MEDS: Ascorbic Acid 500 MG TABLET PO (08:31)
[2021-12-15] MEDS: Multivitamin TABLET 1 TAB PO (08:31)
--- NOTE | 2021-12-15 09:59 | MHC.CM.PN ---
met with pt who lives alone pt had no services is independent and drives she does not anticipate needing servceis when dcd she may need assistance with transportation home pt is vax x4
--- NOTE | 2021-12-15 10:27 | P.CNNE_ITS ---
History of Present Illness Data of Consult Service Date: 12/15/21 Primary Care Provider: Kalin Salamanca MD [facility] Reason for consult: Dizziness 76 years old woman with hypertension who was in usual state of health recently came from [facility] and found herself dizzy or unsteady. There was no obvious cold or flu-like symptom or change in bowel bladder pattern abdominal pain or fall. There was no change in her speech or any focal weakness or numbness or visual symptom. Dizziness was described as unsteadiness. Review of Systems Review of Systems: As per HPI [facility] Past Medical History Medical History HTN (hypertension) Surgical History Surgical History History of quadruple bypass Social History Social History Household Members: None [facility] Do you presently have visiting nurse or other home services: No Alcohol intake: current Alcohol intake frequency: a few times a month Patient Tobacco Use Status: Never used Tobacco Advance Directives Date on File: 12/14/21 Meds Allergies Allergy/AdvReac Type Severity Reaction Status Date / Time egg [Egg] Allergy Mild RASH Verified 12/14/21 08:11 Sulfa (Sulfonamide Allergy Unknown N/V Verified 12/14/21 08:11 Antibiotics) TACHYCARDIC Active Medications: Current Medications Ascorbic Acid (Ascorbic Acid 500 Mg Tablet) 500 mg PO DAILY [facility] Last Admin: 12/15/21 08:31 Dose: 500 mg Aspirin (Aspirin Enteric Coated 81 Mg Tablet.) 81 mg PO DAILY [facility] Last Admin: 12/15/21 08:30 Dose: 81 mg Atorvastatin Calcium (Atorvastatin Calcium 80 Mg Tablet) 80 mg PO BEDTIME [facility] Last Admin: 12/14/21 22:08 Dose: 80 mg Calcium Carbonate (Calcium Carbonate 500 Mg Tablet) 500 mg PO DAILY [facility] Last Admin: 12/15/21 08:31 Dose: 500 mg Cefuroxime Axetil (Cefuroxime Axetil 250 Mg Tablet) 250 mg PO Q12H [facility] Last Admin: 12/15/21 04:41 Dose: 250 mg Dextrose (Dextrose 50 % 25 Gm/50 Ml Syringe) 25 gm IVPUSH Q15M PRN; Protocol PRN Reason: per Hypoglycemia Standing Ord. Glucose (Glucose Gel 15 Gm Gel..Gram.) 15 gm PO Q15M PRN; Protocol PRN Reason: per Hypoglycemia Standing Ord. Heparin Sodium (Porcine) (Heparin Sodium,Porcine 5,000 Unit/Ml Vial) 5,000 unit SUBCUT Q12H [facility] Last Admin: 12/15/21 04:41 Dose: 5,000 unit Insulin Human Lispro (Insulin Lispro 100 Unit/Ml 3 Ml Vial) 0 unit SUBCUT QIDACHS [facility]; Protocol Last Admin: 12/15/21 08:30 Dose: 2 unit Meclizine HCl (Meclizine Hcl 12.5 Mg Tablet) 12.5 mg PO Q6H PRN PRN Reason: dizziness Metoprolol Succinate (Metoprolol Succinate Er 50 Mg Tab.Er.24h) 50 mg PO DAILY [facility]; Protocol Multivitamins/Vitamin C (Multivitamin Tablet) 1 tab PO DAILY [facility] Last Admin: 12/15/21 08:31 Dose: 1 tab Omeprazole (Omeprazole 20 Mg Capsule.Dr) 20 mg PO DAILY@0630 [facility] Last Admin: 12/15/21 04:41 Dose: 20 mg Pharmacy Consult (Consult Rx Perform Med Rec) 1 each MISCELLANE ONCE PRN PRN Reason: Consult order Sodium Chloride (0.9 % Sodium Chloride Flush 3 Ml Syringe) 3 ml IVFLUSH QSHIFT [facility] Last Admin: 12/15/21 08:29 Dose: 3 ml Zolpidem Tartrate (Zolpidem Tartrate 5 Mg Tablet) 5 mg PO BEDTIME PRN PRN Reason: Sleep Home Medications Medication Instructions Recorded Confirmed Last Taken Type ascorbic acid (vitamin C) 500 mg 500 mg PO DAILY 12/14/21 12/14/21 Unknown History tablet (Vitamin C) atorvastatin 80 mg tablet 1 tab PO BEDTIME 12/14/21 12/14/21 12/13/21 History calcium carbonate 500 mg calcium 500 mg PO DAILY 12/14/21 12/14/21 12/13/21 History (1,250 mg) tablet glucosamine sulfate 500 mg tablet 500 mg PO BID 12/14/21 12/14/21 12/13/21 History (Glucosamine) metformin 500 mg tablet,extended 1 tab PO BID 12/14/21 12/14/21 12/13/21 History release 24 hr metoprolol succinate 25 mg 1 tab PO DAILY 12/14/21 12/14/21 12/13/21 History tablet,extended release 24 hr omeprazole 20 mg capsule,delayed 1 cap PO DAILY 12/14/21 12/14/21 12/13/21 History release vit C 250 mg-E 90 mg-zinc 40 1 tab PO BID 12/14/21 12/14/21 12/13/21 History mg-copper 1 jv-iwfony-wfvcst chew tablet (PreserVision AREDS-2) zolpidem 5 mg tablet 1 tab PO BEDTIME PRN Sleep 12/14/21 12/14/21 12/13/21 History Physical Exam Vital Signs: Vital Signs: Last Vital Signs Temp 97.6 F 12/15/21 07:29 Pulse 81 12/15/21 07:29 Resp 16 12/15/21 07:29 BP 175/75 H 12/15/21 07:29 Pulse Ox 92 12/15/21 07:29 O2 Del Method 12/15/21 07:29 BMI result Body Mass Index 28.3 Neuro: Other: She was alert and awake with normal spontaneity of speech fluency comprehension and affect. Pupils were 3 mm round reactive to light. Extraocular muscles were intact. Visual manning are full to confrontation. Face was symmetrical. Tongue was midline. There was no pronator drift though she had difficulty with left arm due to shoulder pain. [id number] testing was okay. Deep tendon reflexes were trace with flexor plantars. Speech was normal Results Labs CBC & Chem 7: 12/14/21 10:02 12/14/21 10:02 Labs: BMP 12/14/21 10:02 Sodium 135 Potassium 4.8 Chloride 101 Carbon Dioxide 26 BUN 16 Creatinine 0.72 Calcium 8.7 D Liver Function 12/14/21 Range/Units 10:02 Total Bilirubin 0.8 (0.0-1.0) mg/dL AST 16 (5-31) U/L ALT 24 (0-31) U/L Alkaline Phosphatase 87 (39-117) U/L Albumin 4.0 (3.5-5.0) g/dL Head CT revealed chronic moderately severe microvascular disease. Assessment and Plan (1) Dizziness: Status: Acute 76 years old woman with hypertension uncertain onset of unsteadiness with possibility of stroke. She has significant microvascular hypertension related disease on CT scan of brain. A noncontrast MRI of brain is recommended but otherwise treatment is blood pressure control, anti-platelet agent and statin. Procedures Date of Service Date of Service: 12/15/21
[2021-12-15 11:10] LABS: Glucose, Whole Blood 243 mg/dL (60-115)
--- NOTE | 2021-12-15 11:18 | HO.PM.IMPN ---
Subjective Subjective Date of Service: 12/15/21 Interval History: dizziness ? spining sensation vs lightheadness Review of Systems still symptomtaic denies any chest pain or shortness of breath or abdominal pain or fever chills Physical Exam Vital Signs: Vital Signs: Last Vital Signs Temp 97.6 F 12/15/21 07:29 Pulse 87 12/15/21 10:29 Resp 16 12/15/21 07:29 BP 188/90 H 12/15/21 10:29 Pulse Ox 92 12/15/21 07:29 O2 Del Method 12/15/21 07:29 BMI result Body Mass Index 28.3 Appearance: Alert.? Oriented X3.? not in distress.? Eyes: Pupils equal, round and reactive to light.? Sclera nonicteric.? ENT: Pharynx normal.? Moist mucous membranes. cvs: rrr, [id number] , no murmur res: clear to auscultation ,no rhonchii or wheezing abd: no rebound or guarding ,nt, bs present. ext pulses present , no cyanosis. neuro: axo3 , nonfocal eomi perrla no nystgmus ?face symmetrical, hand to nose testfine ? motor and sensation intact, DTR also fine ?very unsteady Objective Data Active Medications Ascorbic Acid (Ascorbic Acid 500 Mg Tablet) 500 mg PO DAILY COUNT [facility]CLUDES [facility] Last Admin: 12/15/21 08:31 Dose: 500 mg Documented By: JUAN A Aspirin (Aspirin Enteric Coated 81 Mg Tablet.) 81 mg PO DAILY COUNT INCLUDES [facility] Last Admin: 12/15/21 08:30 Dose: 81 mg Documented By: JUAN A Atorvastatin Calcium (Atorvastatin Calcium 80 Mg Tablet) 80 mg PO BEDTIME COUNT INCLUDES [facility] Last Admin: 12/14/21 22:08 Dose: 80 mg Documented By: KANDI Calcium Carbonate (Calcium Carbonate 500 Mg Tablet) 500 mg PO DAILY COUNT [facility]CLUDES [facility] Last Admin: 12/15/21 08:31 Dose: 500 mg Documented By: JUAN A Cefuroxime Axetil (Cefuroxime Axetil 250 Mg Tablet) 250 mg PO Q12H COUNT [facility]CLUDES [facility] Last Admin: 12/15/21 04:41 Dose: 250 mg Documented By: KANDI Dextrose (Dextrose 50 % 25 Gm/50 Ml Syringe) 25 gm IVPUSH Q15M PRN; Protocol PRN Reason: per Hypoglycemia Standing Ord. Glucose (Glucose Gel 15 Gm Gel..Gram.) 15 gm PO Q15M PRN; Protocol PRN Reason: per Hypoglycemia Standing Ord. Heparin Sodium (Porcine) (Heparin Sodium,Porcine 5,000 Unit/Ml Vial) 5,000 unit SUBCUT Q12H COUNT INCLUDES [facility] Last Admin: 12/15/21 04:41 Dose: 5,000 unit Documented By: KANDI Insulin Human Lispro (Insulin Lispro 100 Unit/Ml 3 Ml Vial) 0 unit SUBCUT QIDACHS COUNT INCLUDES [facility]; Protocol Last Admin: 12/15/21 08:30 Dose: 2 unit Documented By: JUAN A Meclizine HCl (Meclizine Hcl 12.5 Mg Tablet) 12.5 mg PO Q6H PRN PRN Reason: dizziness Metoprolol Succinate (Metoprolol Succinate Er 50 Mg Tab.Er.24h) 50 mg PO DAILY COUNT [facility]CLUDES [facility]; Protocol Multivitamins/Vitamin C (Multivitamin Tablet) 1 tab PO DAILY COUNT [facility]CLUDES [facility] Last Admin: 12/15/21 08:31 Dose: 1 tab Documented By: JUAN A Omeprazole (Omeprazole 20 Mg Capsule.Dr) 20 mg PO DAILY@0630 [facility] Last Admin: 12/15/21 04:41 Dose: 20 mg Documented By: KANDI Pharmacy Consult (Consult Rx Perform Med Rec) 1 each MISCELLANE ONCE PRN PRN Reason: Consult order Sodium Chloride (0.9 % Sodium Chloride Flush 3 Ml Syringe) 3 ml IVFLUSH QSHIFT COUNT INCLUDES THE [facility] Last Admin: 12/15/21 08:29 Dose: 3 ml Documented By: JUAN A Zolpidem Tartrate (Zolpidem Tartrate 5 Mg Tablet) 5 mg PO BEDTIME PRN PRN Reason: Sleep Labs CBC & Chem 7: 12/14/21 10:02 12/14/21 10:02 Labs: Laboratory Results - last 24 hr 12/14/21 12/15/21 12/15/21 21:26 04:37 07:09 POC Glucose 229 H 200 H Triglycerides 84 Cholesterol 145 D LDL Cholesterol, Calc 85 HDL Cholesterol 44 12/15/21 11:07 POC Glucose 243 H Triglycerides Cholesterol LDL Cholesterol, Calc HDL Cholesterol Assessment and Plan (1) Dizziness: Status: Acute (2) Orthostasis: Status: Acute Plan 76-year-old female with history of diabetes, hypertension, hyperlipidemia, CABG, history of a flutter(2006) in the past which was treated with ablation and subsequently off anticoagulation( her surveyor helper is Dr. mitchell)? came with? with? severe vertigo-unclear etiology. severe dizziness -unclear etiology. possible orthostasis vs ? chronic changes infract (brain) ?monitor neuro checks, on tele ?EKG NSR, seems possible orthostasis positive echo continue aspirin, lipid panel noted - continue statin. ?CT head negative, MRI done-Chronic lacunar infarcts in the bilateral cerebellar hemispheres and basal ganglia.Background changes of moderate chronic microangiopathy. no acute cva. ?neuro evaluation pending ?diabetes: ? Fingersticks running 180-220 range ?diabetes with sliding scale coverage ?hypertension :? Continue home medication- metoprolol. blood pressure drop with sitting from 188 to [id number] mmhg addded miguel fraire nephrology eval for possible orthstasis with supine htn-might be contributing to above symptoms. ? History of CABG:? added aspirin, continue statin and beta-craig ?history of a flutter status post ablation 6 years ago, off ac after ablation ?monitor on tele. hlp: continue statin dvt prophylax: s/c lovenox need for inpatient:dizziness ,orthostasis with supine htn Quality Stroke Does the patient have a stroke diagnosis?: No VTE Prior VTE?: No VTE Risk Level:: Medical - moderate - high VTE Device Contraindication: N/A - Device Ordered VTE Drug Contraindication: N/A - Med Ordered
--- NOTE | 2021-12-15 11:49 | P.CNNE_ITS ---
History of Present Illness Data of Consult Service Date: 12/15/21 Primary Care Provider: Kalin Salamanca MD [facility] Past Medical History Medical History HTN (hypertension) Surgical History Surgical History History of quadruple bypass Social History Social History Household Members: None [facility] Do you presently have visiting nurse or other home services: No Alcohol intake: current Alcohol intake frequency: a few times a month Patient Tobacco Use Status: Never used Tobacco Advance Directives Date on File: 12/14/21 service: No Meds Allergies Allergy/AdvReac Type Severity Reaction Status Date / Time egg [Egg] Allergy Mild RASH Verified 12/14/21 08:11 Sulfa (Sulfonamide Allergy Unknown N/V Verified 12/14/21 08:11 Antibiotics) TACHYCARDIC Active Medications: Current Medications Ascorbic Acid (Ascorbic Acid 500 Mg Tablet) 500 mg PO DAILY [facility] Last Admin: 12/15/21 08:31 Dose: 500 mg Aspirin (Aspirin Enteric Coated 81 Mg Tablet.Dr) 81 mg PO DAILY [facility] Last Admin: 12/15/21 08:30 Dose: 81 mg Atorvastatin Calcium (Atorvastatin Calcium 80 Mg Tablet) 80 mg PO BEDTIME [facility] Last Admin: 12/14/21 22:08 Dose: 80 mg Calcium Carbonate (Calcium Carbonate 500 Mg Tablet) 500 mg PO DAILY [facility] Last Admin: 12/15/21 08:31 Dose: 500 mg Cefuroxime Axetil (Cefuroxime Axetil 250 Mg Tablet) 250 mg PO Q12H [facility] Last Admin: 12/15/21 04:41 Dose: 250 mg Dextrose (Dextrose 50 % 25 Gm/50 Ml Syringe) 25 gm IVPUSH Q15M PRN; Protocol PRN Reason: per Hypoglycemia Standing Ord. Glucose (Glucose Gel 15 Gm Gel..Gram.) 15 gm PO Q15M PRN; Protocol PRN Reason: per Hypoglycemia Standing Ord. Heparin Sodium (Porcine) (Heparin Sodium,Porcine 5,000 Unit/Ml Vial) 5,000 unit SUBCUT Q12H [facility] Last Admin: 12/15/21 04:41 Dose: 5,000 unit Insulin Human Lispro (Insulin Lispro 100 Unit/Ml 3 Ml Vial) 0 unit SUBCUT QIDACHS [facility]; Protocol Last Admin: 12/15/21 08:30 Dose: 2 unit Meclizine HCl (Meclizine Hcl 12.5 Mg Tablet) 12.5 mg PO Q6H PRN PRN Reason: dizziness Metoprolol Succinate (Metoprolol Succinate Er 50 Mg Tab.Er.24h) 50 mg PO DAILY [facility]; Protocol Multivitamins/Vitamin C (Multivitamin Tablet) 1 tab PO DAILY [facility] Last Admin: 12/15/21 08:31 Dose: 1 tab Omeprazole (Omeprazole 20 Mg Capsule.Dr) 20 mg PO DAILY@0630 [facility] Last Admin: 12/15/21 04:41 Dose: 20 mg Pharmacy Consult (Consult Rx Perform Med Rec) 1 each MISCELLANE ONCE PRN PRN Reason: Consult order Sodium Chloride (0.9 % Sodium Chloride Flush 3 Ml Syringe) 3 ml IVFLUSH QSHIFT [facility] Last Admin: 12/15/21 08:29 Dose: 3 ml Zolpidem Tartrate (Zolpidem Tartrate 5 Mg Tablet) 5 mg PO BEDTIME PRN PRN Reason: Sleep Home Medications Medication Instructions Recorded Confirmed Last Taken Type ascorbic acid (vitamin C) 500 mg 500 mg PO DAILY 12/14/21 12/14/21 Unknown History tablet (Vitamin C) atorvastatin 80 mg tablet 1 tab PO BEDTIME 12/14/21 12/14/21 12/13/21 History calcium carbonate 500 mg calcium 500 mg PO DAILY 12/14/21 12/14/21 12/13/21 History (1,250 mg) tablet glucosamine sulfate 500 mg tablet 500 mg PO BID 12/14/21 12/14/21 12/13/21 History (Glucosamine) metformin 500 mg tablet,extended 1 tab PO BID 12/14/21 12/14/21 12/13/21 History release 24 hr metoprolol succinate 25 mg 1 tab PO DAILY 12/14/21 12/14/21 12/13/21 History tablet,extended release 24 hr omeprazole 20 mg capsule,delayed 1 cap PO DAILY 12/14/21 12/14/21 12/13/21 History release vit C 250 mg-E 90 mg-zinc 40 1 tab PO BID 12/14/21 12/14/21 12/13/21 History mg-copper 1 [id number] chew tablet (PreserVision AREDS-2) zolpidem 5 mg tablet 1 tab PO BEDTIME PRN Sleep 12/14/21 12/14/21 12/13/21 History Physical Exam Vital Signs: Vital Signs: Last Vital Signs Temp 97.6 F 12/15/21 07:29 Pulse 87 12/15/21 10:29 Resp 16 12/15/21 07:29 BP 188/90 H 12/15/21 10:29 Pulse Ox 92 12/15/21 07:29 O2 Del Method 12/15/21 07:29 BMI result Body Mass Index 28.3 Results Labs CBC & Chem 7: 12/14/21 10:02 12/14/21 10:02
[2021-12-15] MEDS: oxyCODONE HCl Immed Release 5 MG TABLET PO ×2 (15:41→20:21)
[2021-12-15 16:24] LABS: Glucose, Whole Blood 241 mg/dL (60-115)
--- NOTE | 2021-12-15 17:00 | CA_ITS ---
Transthoracic Echocardiogram Patient (Last, First, Middle): Pati Drummond, Gender: Female Date of : 1945 Age: 76 Procedure Date: 12/15/2021 Procedure Type: Transthoracic Echocardiogram Location: [facility] [place] Height: 162.56 cm Weight: 74.39 kg BSA: 1.80 m2 Heart Rate: bpm BP: 175 / 75 mmHg National Insurance Officer: ROBERT Beal MD: Kusum Boyd MD Manager Fund: Kenneth Kim MD Symptoms: dizziness Study Quality: Technically Difficult ECG Rhythm: Sinus Conclusions: - 1. Normal LV systolic function with impaired relaxation filling pattern with mild asymmetric septal hypertrophy 2. Mildly dilated left atrium 3. Normal cardiac valvular Doppler 4. Normal RV systolic pressure 5. No pericardial effusion Findings Left Ventricle Normal left ventricular size, thickness, and systolic function. The visually estimated ejection fraction is between 60-65%. Spectral Doppler is indicative of an impaired relaxation filling pattern. E/E prime ratio is between 8 and 15 consistent with indeterminate filling pressures. There is mild septal asymmetric hypertrophy. Right Ventricle Normal right ventricular cavity size and systolic function. Atria The left atrium is mildly dilated. Interatrial shunt cannot be excluded. The right atrium is normal in size. Aortic Valve There is mild calcification of the aortic valve. There is mild thickening of the aortic valve. There is no aortic valve stenosis. There is no aortic valve regurgitation. Mitral Valve There is mild anterior and posterior mitral leaflet thickening. There is mild mitral annular calcification. There is trace mitral valve regurgitation. There is no mitral valve stenosis. Pulmonic Valve The pulmonic valve was not well visualized. Tricuspid Valve Likely normal tricuspid valve structure and function. There is mild tricuspid valve regurgitation. The right ventricular systolic pressure is normal. The right ventricular systolic pressure is 25 mmHg. Normal right atrial pressure. There is no evidence of pulmonary hypertension. Great Vessels All visible segments of the aorta are normal in size. The pulmonary artery was not well visualized. Venous The inferior vena cava is normal in size and collapses greater than 50% with inspiration. Pericardium/Pleural There is no evidence of pericardial effusion. Prior Study Comparison No significant change compared to prior study dated: 01/12/2007. Measurements 2D Linear Measurements IVSd: 1.35 0.6-0.9/0.6-1.0 cm LVIDd: 3.74 3.9-5.3/4.2-5.9 cm LVIDd Index: 2.08 2.4-3.2/2.2-3.1 cm/m2 LVIDs: 2.45 2.0-3.6 cm LVPWd: 1.06 0.7-1.1 cm LA Diam: 3.80 2.7-3.8/3.0-4.0 cm LAIDs Index: 2.11 1.5-2.3 cm/m2 LV Mass: 187.51 67-162/88-224 g LV Mass Index: 104.17 43-95/49-115 g/m2 LVOT Diam: 2.10 3.0+(-)1.3 cm Mitral Valve MV Pk E: 0.83 MV PK A: 0.58 MV Decel Time: 209.00 E/A: 1.40 E'Lateral: 7.62 E'Medial: 6.20 E/E' Med: 13.30 E/E' Lat: 10.90 PHT: 61.00 MVA PHT: 3.61 Decel Isabela: 3.96 Aortic Valve AoV Pk Austin: 1.43 AoV Mn [place]: 1.01 AoV VTI: 0.30 AoV Pk Grad: 8.00 Aov Mn Grad: 5.00 QUINTIN Cont.VTI: 2.44 LVOT LVOT Pk [place]: 0.78 LVOT Mn [place]: 0.56 LVOT VTI: 0.21 LVOT Pk Grad: 2.00 LVOT Mn Grad: 1.00 LVOT Diam: 2.10 LVOT Area: 3.46 Diastolic Function MV Pk E: 0.83 MV Pk A: 0.58 E/A: 1.40 E'Medial: 6.20 E/E' Med: 13.30 E' Laterial: 7.62 E/E' Lat: 10.90 Right Ventricle TAPSE (mm): 16.90 TVS' Austin: 9.36 Tricuspid Valve TR Pk Austin: 2.32 TR Pk Grad: 22.00 RA Press: 3.00 RVSP: 25.00 Great Vessels Aorta Sinus of Valsalva: 3.41 2.0-3.5 cm Ao Asc: 3.40 2.1-3.4 cm Ao Arch: 2.50 Updated in Other Vendor System with Status of Final Kenneth Kim MD electronically signed on 12/15/2021 5:32:40 PM with status of Final
[2021-12-15] MEDS: Lidocaine 4 % Patch ADH..PATCH 1 PATCH TRANSDERMA (17:31)
[2021-12-15] MEDS: Atorvastatin Calcium 80 MG TABLET PO (20:22)
[2021-12-15] MEDS: Acetaminophen 325 MG TABLET 650 MG PO (20:24)
[2021-12-15 20:33] LABS: Glucose, Whole Blood 231 mg/dL (60-115)
[2021-12-15] MEDS: Zolpidem Tartrate 5 MG TABLET PO (21:58)
[2021-12-15] MEDS: HYDROmorphone HCl 0.5 MG/0.5 ML SYRINGE IVPUSH (22:21)
--- NOTE | 2021-12-15 23:52 | PM.EVENT ---
Event Note Date of Service: 12/15/21 Event Note: Severe right knee pain: No erythema or swelling noted. Patient denies any fall or trauma. Reports he has history of arthritis. Hyperalgesic on palpation. X-ray showed chronic degenerative changes and small suprapatellar effusion. Dilaudid p.r.n. for pain If not improving will defer to the day team to follow-up with orthopedics.
[2021-12-16] VITALS (9 sets, daily range): BP systolic 102–170; BP diastolic 45–75; PULSE 73–90; RESP 15–20; TEMP 36.3–37.2; O2SAT 93–97
[2021-12-16] MEDS: LORazepam 0.5 MG TABLET PO (00:29)
[2021-12-16] MEDS: HYDROmorphone HCl 1 MG/ML SYRINGE IVPUSH (00:33)
[2021-12-16] MEDS: 0.9 % Sodium Chloride Flush 3 ML SYRINGE IVFLUSH ×3 (00:33→16:38)
[2021-12-16] MEDS: Heparin Sodium,Porcine 5,000 UNIT/ML VIAL 5000 UNIT SUBCUT ×2 (05:35→19:06)
[2021-12-16] MEDS: Omeprazole 20 MG CAPSULE.DR PO (05:37)
--- NOTE | 2021-12-16 06:38 | PC.NURSE ---
ASSUMED CARE OF PT AT 1900 AT WHICH TIME PT WAS CRYING IN PAIN IN RIGHT KNEE. SHE STATES IT IS PROBABLY DUE TO IMMOBILITY. RANGE OF MOTION EXERCISES DONE, ICE PACK APPLIED AND MD CONTACTED. PT RECEIVED OXYCODONE 5 MG PO AND TYLENOL 650MG POWITH NO EFFECT.IN FACT, THE PAINGOT WORSE. MD CONTACTED AGAIN AND DILAUDIDE .5MG IV GIVEN. STILL NO EFFECT ONPAIN. PT SENT FOR XRAY. DR BALLARD GIVEN RESULTS. PT CRYING HYSTERICALLY IN PAIN. DR SOLANO CAME TO SEE PT. DILAUDID 1 MG IV AND ATIVAN .5 MG PO GIVEN TO PT WITH GOOD EFFECT. SHE FELL ASLEEP. THIS MORNING SHE IS AWAKE AND HAS SOME KNEE PAIN BUT NOT BAD LAST NIGHT. SHE WAS TRYING TO GET UP WITHOUT CALLING FOR HELP. BED ALARM SOUNDED. PT INSTRUCTED TO CALL FOR HELP.
[2021-12-16 07:05] LABS: Glucose, Whole Blood 260 mg/dL (60-115)
[2021-12-16] MEDS: Lidocaine 4 % Patch ADH..PATCH 1 PATCH TRANSDERMA (07:50)
[2021-12-16] MEDS: Multivitamin TABLET 1 TAB PO (07:51)
[2021-12-16] MEDS: Aspirin Enteric Coated 81 MG TABLET.DR PO (07:51)
[2021-12-16] MEDS: Ascorbic Acid 500 MG TABLET PO (07:51)
[2021-12-16] MEDS: Insulin Lispro 100 UNIT/ML 3 ML VIAL SUBCUT ×4 (07:52→21:40)
[2021-12-16] MEDS: Metoprolol Succinate ER 50 MG TAB.ER.24H PO (08:10)
[2021-12-16 11:12] LABS: Glucose, Whole Blood 187 mg/dL (60-115)
--- NOTE | 2021-12-16 11:28 | HO.PM.IMPN ---
Subjective Subjective Date of Service: 12/16/21 <Cathie Paniagua NP - Last Filed: 12/16/21 12:25> 01/04/22 <Quirino Grider MD - Last Filed: 01/04/22 14:46> Review of Systems Follow up orthostatic hypotension Laying in bed <Cathie Paniagua NP - Last Filed: 12/16/21 12:25> Physical Exam Vital Signs: Vital Signs: Last Vital Signs Temp 98.0 F 12/16/21 11:27 Pulse 90 12/16/21 11:27 Resp 20 12/16/21 11:27 BP 170/75 H 12/16/21 11:27 Pulse Ox 93 12/16/21 11:27 O2 Del Method 12/16/21 11:27 BMI result Body Mass Index 28.3 <Cathie Paniagua NP - Last Filed: 12/16/21 12:25> Appearing in no acute distress lung sounds are clear to auscultation heart regular rate rhythm, clear S1, S2 positive bowel sounds, abdomen is soft, nontender neuro patient is alert x3, no focal deficits <Cathie Paniagua NP - Last Filed: 12/16/21 12:25> Objective Data Active Medications Acetaminophen (Acetaminophen 325 Mg Tablet) 650 mg PO Q6H PRN PRN Reason: Pain, Moderate (Pain Scale 4-6 Last Admin: 12/15/21 20:24 Dose: 650 mg Documented By: QUITA Ascorbic Acid (Ascorbic Acid 500 Mg Tablet) 500 mg PO DAILY [facility] Last Admin: 12/16/21 07:51 Dose: 500 mg Documented By: JUAN A Aspirin (Aspirin Enteric Coated 81 Mg Tablet.) 81 mg PO DAILY [facility] Last Admin: 12/16/21 07:51 Dose: 81 mg Documented By: JUAN A Atorvastatin Calcium (Atorvastatin Calcium 80 Mg Tablet) 80 mg PO BEDTIME [facility] Last Admin: 12/15/21 20:22 Dose: 80 mg Documented By: QUITA Calcium Carbonate (Calcium Carbonate 500 Mg Tablet) 500 mg PO DAILY [facility] Last Admin: 12/16/21 07:51 Dose: 500 mg Documented By: JUAN A Cefuroxime Axetil (Cefuroxime Axetil 250 Mg Tablet) 250 mg PO Q12H [facility] Last Admin: 12/16/21 05:37 Dose: 250 mg Documented By: QUITA Dextrose (Dextrose 50 % 25 Gm/50 Ml Syringe) 25 gm IVPUSH Q15M PRN; Protocol PRN Reason: per Hypoglycemia Standing Ord. Glucose (Glucose Gel 15 Gm Gel..Gram.) 15 gm PO Q15M PRN; Protocol PRN Reason: per Hypoglycemia Standing Ord. Heparin Sodium (Porcine) (Heparin Sodium,Porcine 5,000 Unit/Ml Vial) 5,000 unit SUBCUT Q12H [facility] Last Admin: 12/16/21 05:35 Dose: 5,000 unit Documented By: QUITA Insulin Human Lispro (Insulin Lispro 100 Unit/Ml 3 Ml Vial) 0 unit SUBCUT QIDACHS [facility]; Protocol Last Admin: 12/16/21 07:52 Dose: 6 unit Documented By: JUAN A Lidocaine (Lidocaine 4 % Patch Adh..Patch) 1 patch TRANSDERMA DAILY [facility]; Protocol Last Admin: 12/16/21 07:50 Dose: 1 patch Documented By: JUAN A Meclizine HCl (Meclizine Hcl 12.5 Mg Tablet) 12.5 mg PO Q6H PRN PRN Reason: dizziness Metoprolol Succinate (Metoprolol Succinate Er 50 Mg Tab.Er.24h) 50 mg PO DAILY [facility]; Protocol Last Admin: 12/16/21 08:10 Dose: 50 mg Documented By: JUAN A Multivitamins/Vitamin C (Multivitamin Tablet) 1 tab PO DAILY [facility] Last Admin: 12/16/21 07:51 Dose: 1 tab Documented By: JUAN A Omeprazole (Omeprazole 20 Mg Capsule.Dr) 20 mg PO DAILY@0630 [facility] Last Admin: 12/16/21 05:37 Dose: 20 mg Documented By: QUITA Pharmacy Consult (Consult Rx Perform Med Rec) 1 each MISCELLANE ONCE PRN PRN Reason: Consult order Sodium Chloride (0.9 % Sodium Chloride Flush 3 Ml Syringe) 3 ml IVFLUSH QSHIFT [facility] Last Admin: 12/16/21 07:51 Dose: 3 ml Documented By: JUAN A Trolamine Salicylate (Trolamine Salicylate 10 % Cream 85 Gm Tube) 1 appl TOPICAL BID PRN; Protocol PRN Reason: knee pain Zolpidem Tartrate (Zolpidem Tartrate 5 Mg Tablet) 5 mg PO BEDTIME PRN PRN Reason: Sleep Last Admin: 12/15/21 21:58 Dose: 5 mg Documented By: QUITA <Cathie Paniagua NP - Last Filed: 12/16/21 12:25> Labs CBC & Chem 7: : 12/18/21 05:58 12/18/21 05:58 <Cathie Paniagua NP - Last Filed: 12/16/21 12:25> Labs: Laboratory Results - last 24 hr 12/15/21 12/15/21 12/16/21 16:14 20:28 06:59 POC Glucose 241 H 231 H 260 H 12/16/21 11:08 POC Glucose 187 H <Cathie Paniagua NP - Last Filed: 12/16/21 12:25> Microbiology Microbiology Results: Microbiology 12/14/21 10:10 Blood Culture - Preliminary Blood - Venous No growth after 24 hours. 12/14/21 10:03 Blood Culture - Preliminary Blood - Venous No growth after 24 hours. 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 mitchell)? came with? with? severe vertigo-unclear etiology. Severe dizziness -unclear etiology. possible orthostasis vs ? chronic changes infract (brain) monitor neuro checks, on tele EKG NSR, seems possible orthostasis positive echo EF 60-65% normal LV systolic function Head CT showing Chronic lacunar infarcts neuro following Diabetes ss, ada diet Hypertension Continue home medication- metoprolol. blood pressure drop with sitting from 188 to standing 146 mmhg added miguel stockings nephrology eval for possible orthostasis with supine htn-might be contributing to above symptoms. History of CABG added aspirin, continue statin and beta-craig HLD continue statin dvt prophylax: s/c lovenox Attending Dr. Grider DNR need for inpatient:dizziness ,orthostasis with supine htn <Cathie Paniagua NP - Last Filed: 12/16/21 12:25> Quality Stroke Does the patient have a stroke diagnosis?: No <Cathie Paniagua NP - Last Filed: 12/16/21 12:25> VTE Prior VTE?: No <Cathie Paniagua NP - Last Filed: 12/16/21 12:25> VTE Risk Level:: Medical - moderate - high <Cathie Paniagua NP - Last Filed: 12/16/21 12:25> VTE Device Contraindication: N/A - Device Ordered <Cathie Paniagua NP - Last Filed: 12/16/21 12:25> VTE Drug Contraindication: N/A - Med Ordered <Cathie Paniagua NP - Last Filed: 12/16/21 12:25>
--- NOTE | 2021-12-16 11:44 | CONS_ITS ---
DATE OF SERVICE: 12/15/2021 REASON FOR CONSULTATION: I was called to see this patient to assist in the management of hypertension. HISTORY OF PRESENT ILLNESS: To summarize, Pati is a 76-year-old woman with history of hypertension, diabetes mellitus, hyperlipidemia, CABG, coronary artery disease, who comes in because of vertigo. She is doing well per Neurology. In the mean time, she was found to have orthostatic blood pressure change and hence this consultation. She has normal renal function. ONGOING MEDICAL PROBLEMS: Include as above. SURGICAL HISTORY: Includes CABG 6 years ago. SOCIAL HISTORY: No history of any smoking or alcohol abuse. ALLERGIES: SHE IS ALLERGIC TO SULFA. HOME MEDICATIONS: Included vitamin C, calcium carbonate, atorvastatin, glucosamine, metformin, metoprolol, omeprazole, vitamin C, zolpidem. REVIEW OF SYSTEMS: Positive for dizziness. No headache, nausea, or vomiting. No abdominal pain or constipation. No fever. No weight loss. No history of falls. PHYSICAL EXAMINATION: GENERAL: On examination, Pati is an elderly woman, who appears comfortable at rest. Not in distress. NECK: Supple. No JVD. HEENT: Pupils reactive to light. LUNGS: Air entry equal. No rales. HEART: S1, S2 heard. No gallop or rub. ABDOMEN: Soft, nontender. EXTREMITIES: No dependent edema. No rash. No clubbing. VITAL SIGNS: All the blood pressure readings were reviewed. Today, blood pressure is 172/72. IMPRESSION: A 76-year-old woman with history of hypertension, currently has vertigo and has unsteadiness, most likely from a stroke. She does have mild orthostatic blood pressure changes. She could have supine hypertension with orthostatic hypotension. RECOMMENDATIONS: My recommendation will be to use GRAZYNA stockings. Keep head end elevated at 30 degrees. Avoid rapid change of posture. The goal is to maintain systolic blood pressure between 130 mmHg to 150 mmHg. Avoid rapidly acting intravenous agents. If the supine blood pressure stays above 180 mmHg, we can add short-acting PEGGY inhibitor at bedtime. There is no indication for midodrine at this time. We will check the cortisol levels. Mark Martinez MD BPA/MODL / [id number]
[2021-12-16 15:56] LABS: Glucose, Whole Blood 207 mg/dL (60-115)
[2021-12-16] MEDS: Acetaminophen 325 MG TABLET 650 MG PO (16:43)
[2021-12-16 19:52] LABS: Glucose, Whole Blood 153 mg/dL (60-115)
[2021-12-16] MEDS: Atorvastatin Calcium 80 MG TABLET PO (21:40)
[2021-12-16] MEDS: Zolpidem Tartrate 5 MG TABLET PO (21:40)
[2021-12-17] MEDS: 0.9 % Sodium Chloride Flush 3 ML SYRINGE IVFLUSH (00:57)
[2021-12-17] MEDS: Acetaminophen 325 MG TABLET 650 MG PO (01:01)
[2021-12-17 03:51] VITALS: BP 162/65; PULSE 77; RESP 18; TEMP 36.2; O2SAT 95
[2021-12-17] MEDS: Heparin Sodium,Porcine 5,000 UNIT/ML VIAL 5000 UNIT SUBCUT ×2 (05:10→17:12)
[2021-12-17] MEDS: Omeprazole 20 MG CAPSULE.DR PO (05:10)
[2021-12-17 07:18] LABS: Glucose, Whole Blood 156 mg/dL (60-115)
[2021-12-17 07:42] VITALS: BP 120/64; PULSE 76; RESP 18; TEMP 36.6; O2SAT 92
--- NOTE | 2021-12-17 08:06 | PM.CNOR ---
History of Present Illness HPI Consult date: 12/17/21 Chief complaint: vertigo Narrative: Orthopedics was consulted when patient complained of bilateral knee pain for the past ?few? days. She states that she cannot quite remember when her knee pain began. However, she states that beginning yesterday she had a very difficult time moving either knee. She denies any injury or trauma. X-rays were obtained and revealed left knee osteoarthritis. Review of Systems Review of Systems: Yes all other systems are reviewed and are negative PMF Past Medical History Medical History HTN (hypertension) Surgical History Surgical History History of quadruple bypass Social History Social History Household Members: None [facility] Do you presently have visiting nurse or other home services: No Alcohol intake: current Alcohol intake frequency: a few times a month Patient Tobacco Use Status: Never used Tobacco Advance Directives Date on File: 12/14/21 service: No Meds Allergies Allergy/AdvReac Type Severity Reaction Status Date / Time egg [Egg] Allergy Mild RASH Verified 12/14/21 08:11 Sulfa (Sulfonamide Allergy Unknown N/V Verified 12/14/21 08:11 Antibiotics) TACHYCARDIC Active Medications: Current Medications Acetaminophen (Acetaminophen 325 Mg Tablet) 650 mg PO Q6H PRN PRN Reason: Pain, Moderate (Pain Scale 4-6 Last Admin: 12/17/21 01:01 Dose: 650 mg Ascorbic Acid (Ascorbic Acid 500 Mg Tablet) 500 mg PO DAILY [facility] Last Admin: 12/16/21 07:51 Dose: 500 mg Aspirin (Aspirin Enteric Coated 81 Mg Tablet.) 81 mg PO DAILY [facility] Last Admin: 12/16/21 07:51 Dose: 81 mg Atorvastatin Calcium (Atorvastatin Calcium 80 Mg Tablet) 80 mg PO BEDTIME [facility] Last Admin: 12/16/21 21:40 Dose: 80 mg Calcium Carbonate (Calcium Carbonate 500 Mg Tablet) 500 mg PO DAILY [facility] Last Admin: 12/16/21 07:51 Dose: 500 mg Cefuroxime Axetil (Cefuroxime Axetil 250 Mg Tablet) 250 mg PO Q12H [facility] Last Admin: 12/17/21 05:10 Dose: 250 mg Dextrose (Dextrose 50 % 25 Gm/50 Ml Syringe) 25 gm IVPUSH Q15M PRN; Protocol PRN Reason: per Hypoglycemia Standing Ord. Glucose (Glucose Gel 15 Gm Gel..Gram.) 15 gm PO Q15M PRN; Protocol PRN Reason: per Hypoglycemia Standing Ord. Heparin Sodium (Porcine) (Heparin Sodium,Porcine 5,000 Unit/Ml Vial) 5,000 unit SUBCUT Q12H [facility] Last Admin: 12/17/21 05:10 Dose: 5,000 unit Insulin Human Lispro (Insulin Lispro 100 Unit/Ml 3 Ml Vial) 0 unit SUBCUT QIDACHS [facility]; Protocol Last Admin: 12/16/21 21:40 Dose: 2 unit Lidocaine (Lidocaine 4 % Patch Adh..Patch) 1 patch TRANSDERMA DAILY [facility]; Protocol Last Admin: 12/16/21 07:50 Dose: 1 patch Meclizine HCl (Meclizine Hcl 12.5 Mg Tablet) 12.5 mg PO Q6H PRN PRN Reason: dizziness Metoprolol Succinate (Metoprolol Succinate Er 50 Mg Tab.Er.24h) 50 mg PO DAILY [facility]; Protocol Last Admin: 12/16/21 08:10 Dose: 50 mg Multivitamins/Vitamin C (Multivitamin Tablet) 1 tab PO DAILY [facility] Last Admin: 12/16/21 07:51 Dose: 1 tab Omeprazole (Omeprazole 20 Mg Capsule.Dr) 20 mg PO DAILY@0630 [facility] Last Admin: 12/17/21 05:10 Dose: 20 mg Pharmacy Consult (Consult Rx Perform Med Rec) 1 each MISCELLANE ONCE PRN PRN Reason: Consult order Sodium Chloride (0.9 % Sodium Chloride Flush 3 Ml Syringe) 3 ml IVFLUSH QSHIFT [facility] Last Admin: 12/17/21 00:57 Dose: 3 ml Trolamine Salicylate (Trolamine Salicylate 10 % Cream 85 Gm Tube) 1 appl TOPICAL BID PRN; Protocol PRN Reason: knee pain Zolpidem Tartrate (Zolpidem Tartrate 5 Mg Tablet) 5 mg PO BEDTIME PRN PRN Reason: Sleep Last Admin: 12/16/21 21:40 Dose: 5 mg Home Medications Medication Instructions Recorded Confirmed Last Taken Type ascorbic acid (vitamin C) 500 mg 500 mg PO DAILY 12/14/21 12/14/21 Unknown History tablet (Vitamin C) atorvastatin 80 mg tablet 1 tab PO BEDTIME 12/14/21 12/14/21 12/13/21 History calcium carbonate 500 mg calcium 500 mg PO DAILY 12/14/21 12/14/21 12/13/21 History (1,250 mg) tablet glucosamine sulfate 500 mg tablet 500 mg PO BID 12/14/21 12/14/21 12/13/21 History (Glucosamine) metformin 500 mg tablet,extended 1 tab PO BID 12/14/21 12/14/21 12/13/21 History release 24 hr metoprolol succinate 25 mg 1 tab PO DAILY 12/14/21 12/14/21 12/13/21 History tablet,extended release 24 hr omeprazole 20 mg capsule,delayed 1 cap PO DAILY 12/14/21 12/14/21 12/13/21 History release vit C 250 mg-E 90 mg-zinc 40 1 tab PO BID 12/14/21 12/14/21 12/13/21 History mg-copper 1 [id number]-[id number] chew tablet (PreserVision AREDS-2) zolpidem 5 mg tablet 1 tab PO BEDTIME PRN Sleep 12/14/21 12/14/21 12/13/21 History Physical Exam Vital Signs: Vital Signs: Last Vital Signs Temp 97.8 F 12/17/21 07:42 Pulse 76 12/17/21 07:42 Resp 18 12/17/21 07:42 BP 120/64 12/17/21 07:42 Pulse Ox 92 12/17/21 07:42 O2 Del Method 12/17/21 07:42 BMI result Body Mass Index 28.3 Const: General: cooperative, healthy appearing and no acute distress Resp: Effort & Inspection: normal respiratory effort and able to speak in complete sentences Cardio: Rate: regular rate Peripheral pulses: Peripheral pulses 2+ throughout GI: Palpation (GI): Soft to palpation Skin: Lesions: no lesions Rashes: no rashes Extrem: Other: Bilateral knees mild to moderate joint effusions. No ecchymosis or erythema. Patient has significant pain with any range of motion movements. However reported no pain when Flattening the foot portion of the bed a bent to straight position. Extreme tenderness to palpation over the medial and lateral joint lines. Sensation intact bilat. Pedal pulse intact ilat. Results Labs Result Diagrams: 12/14/21 10:02 12/14/21 10:02 Labs: Abnormal lab results 12/16/21 12/16/21 12/16/21 Range/Units 11:08 15:52 19:45 POC Glucose 187 H 207 H 153 H (60-115) mg/dL 12/17/21 Range/Units 07:11 POC Glucose 156 H (60-115) mg/dL H & H 12/14/21 Range/Units 10:02 Hgb 13.2 (12.0-16.0) g/dl Hct 38.8 (37.0-47.0) % All other labs normal. Assessment and Plan (1) Osteoarthritis of knees, bilateral: Status: Acute (2) Bilateral knee effusions: Status: Acute Plan Ms. Drummond is a 76-year-old female who complains of a few days of bilateral knee pain. She denies any injury or trauma. Patient was admitted to the hospital for BPPV. She is concerned that her joint pain is relation to a COVID exposure that she had while visiting family in [place]. She reports that beginning yesterday her bilateral knee pain began to become more significant. She has a very difficult time with any active range of motion due to pain. X-rays obtained yesterday of the left knee were negative for any acute fracture dislocation. However were significant for osteoarthritis with a mild joint effusion. Orthopedic plan is to perform aspiration with cortisone injection in hopes to alleviate some pain and inflammation. Procedure note to follow. Procedures Date of Service Date of Service: 12/17/21
[2021-12-17 11:03] LABS: Glucose, Whole Blood 251 mg/dL (60-115)
[2021-12-17] MEDS: Ascorbic Acid 500 MG TABLET PO (11:09)
[2021-12-17] MEDS: Aspirin Enteric Coated 81 MG TABLET.DR PO (11:09)
[2021-12-17] MEDS: Multivitamin TABLET 1 TAB PO (11:09)
[2021-12-17 11:10] LABS: Cortisol Random 18.4 ug/dL
[2021-12-17] MEDS: Metoprolol Succinate ER 50 MG TAB.ER.24H PO (11:10)
[2021-12-17] MEDS: Insulin Lispro 100 UNIT/ML 3 ML VIAL SUBCUT ×4 (11:10→20:57)
[2021-12-17] MEDS: Lidocaine 4 % Patch ADH..PATCH 1 PATCH TRANSDERMA (11:11)
--- NOTE | 2021-12-17 11:17 | MHC.CM.PN ---
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
[2021-12-17 11:24] VITALS: BP 136/65; PULSE 74; RESP 20; TEMP 36.6; O2SAT 94
--- NOTE | 2021-12-17 11:43 | HO.PM.IMPN ---
Subjective Subjective Date of Service: 12/17/21 <Cathie Paniagua NP - Last Filed: 12/17/21 17:02> 01/04/22 <Quirino Grider MD - Last Filed: 01/04/22 14:48> Review of Systems Follow up vertigo and knee pain Unable to ambulate due to knee pain <Cathie Paniagua NP - Last Filed: 12/17/21 17:02> Physical Exam Vital Signs: Vital Signs: Last Vital Signs Temp 97.9 F 12/17/21 11:24 Pulse 74 12/17/21 11:24 Resp 20 12/17/21 11:24 BP 136/65 12/17/21 11:24 Pulse Ox 94 12/17/21 11:24 O2 Del Method 12/17/21 11:24 BMI result Body Mass Index 28.3 <Cathie Paniagua NP - Last Filed: 12/17/21 17:02> Appearing in no acute distress lung sounds are clear to auscultation heart regular rate rhythm, clear S1, S2 positive bowel sounds, abdomen is soft, nontender neuro patient is alert x3, no focal deficits MSK knee swelling bilat <Cathie Paniagua NP - Last Filed: 12/17/21 17:02> Objective Data Active Medications Acetaminophen (Acetaminophen 325 Mg Tablet) 650 mg PO Q6H PRN PRN Reason: Pain, Moderate (Pain Scale 4-6 Last Admin: 12/17/21 01:01 Dose: 650 mg Documented By: JOSUE Ascorbic Acid (Ascorbic Acid 500 Mg Tablet) 500 mg PO DAILY [facility] Last Admin: 12/17/21 11:09 Dose: 500 mg Documented By: JORDYN Aspirin (Aspirin Enteric Coated 81 Mg Tablet.) 81 mg PO DAILY [facility] Last Admin: 12/17/21 11:09 Dose: 81 mg Documented By: JORDYN Atorvastatin Calcium (Atorvastatin Calcium 80 Mg Tablet) 80 mg PO BEDTIME [facility] Last Admin: 12/16/21 21:40 Dose: 80 mg Documented By: ANGELINE Bupivacaine HCl (Bupivacaine Mpf 0.5% 10 Ml Vial) 4 ml INTRAARTIC ONCE ONE Stop: 12/17/21 10:41 Calcium Carbonate (Calcium Carbonate 500 Mg Tablet) 500 mg PO DAILY [facility] Last Admin: 12/17/21 11:10 Dose: 500 mg Documented By: JORDYN Cefuroxime Axetil (Cefuroxime Axetil 250 Mg Tablet) 250 mg PO Q12H [facility] Last Admin: 12/17/21 05:10 Dose: 250 mg Documented By: JOSUE Dextrose (Dextrose 50 % 25 Gm/50 Ml Syringe) 25 gm IVPUSH Q15M PRN; Protocol PRN Reason: per Hypoglycemia Standing Ord. Glucose (Glucose Gel 15 Gm Gel..Gram.) 15 gm PO Q15M PRN; Protocol PRN Reason: per Hypoglycemia Standing Ord. Heparin Sodium (Porcine) (Heparin Sodium,Porcine 5,000 Unit/Ml Vial) 5,000 unit SUBCUT Q12H [facility] Last Admin: 12/17/21 05:10 Dose: 5,000 unit Documented By: JOSUE Insulin Human Lispro (Insulin Lispro 100 Unit/Ml 3 Ml Vial) 0 unit SUBCUT QIDACHS [facility]; Protocol Last Admin: 12/17/21 11:10 Dose: 2 unit Documented By: JORDYN Lidocaine (Lidocaine 4 % Patch Adh..Patch) 1 patch TRANSDERMA DAILY [facility]; Protocol Last Admin: 12/17/21 11:11 Dose: 1 patch Documented By: JORDYN Meclizine HCl (Meclizine Hcl 12.5 Mg Tablet) 12.5 mg PO Q6H PRN PRN Reason: dizziness Metoprolol Succinate (Metoprolol Succinate Er 50 Mg Tab.Er.24h) 50 mg PO DAILY [facility]; Protocol Last Admin: 12/17/21 11:10 Dose: 50 mg Documented By: JORDYN Multivitamins/Vitamin C (Multivitamin Tablet) 1 tab PO DAILY [facility] Last Admin: 12/17/21 11:09 Dose: 1 tab Documented By: JORDYN Omeprazole (Omeprazole 20 Mg Capsule.Dr) 20 mg PO DAILY@0630 [facility] Last Admin: 12/17/21 05:10 Dose: 20 mg Documented By: JOSUE Pharmacy Consult (Consult Rx Perform Med Rec) 1 each MISCELLANE ONCE PRN PRN Reason: Consult order Sodium Chloride (0.9 % Sodium Chloride Flush 3 Ml Syringe) 3 ml IVFLUSH QSHIFT [facility] Last Admin: 12/17/21 11:10 Dose: Not Given Documented By: HO.N-SOFFA Non-Admin Reason: assessed Trolamine Salicylate (Trolamine Salicylate 10 % Cream 85 Gm Tube) 1 appl TOPICAL BID PRN; Protocol PRN Reason: knee pain Zolpidem Tartrate (Zolpidem Tartrate 5 Mg Tablet) 5 mg PO BEDTIME PRN PRN Reason: Sleep Last Admin: 12/16/21 21:40 Dose: 5 mg Documented By: ANGELINE <Cathie Paniagua NP - Last Filed: 12/17/21 17:02> Labs CBC & Chem 7: : 12/18/21 05:58 12/18/21 05:58 <Cathie Paniagua NP - Last Filed: 12/17/21 17:02> Labs: Laboratory Results - last 24 hr 12/16/21 12/16/21 12/17/21 15:52 19:45 07:11 POC Glucose 207 H 153 H 156 H Random Cortisol 12/17/21 12/17/21 10:05 10:56 POC Glucose 251 H Random Cortisol 18.4 <Cathie Paniagua NP - Last Filed: 12/17/21 17:02> Microbiology Microbiology Results: Microbiology 12/14/21 10:10 Blood Culture - Preliminary Blood - Venous No growth after 48 hours. 12/14/21 10:03 Blood Culture - Preliminary Blood - Venous No growth after 48 hours. 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 mitchell)? came with? with? severe vertigo-unclear etiology. Knee pain mild joint effusion Ortho to perform aspiration with cortisone injection Severe dizziness with supine htn and orthostasis monitor neuro checks, on tele EKG NSR, seems possible orthostasis positive echo EF 60-65% normal LV systolic function Head CT showing Chronic lacunar infarcts neuro following Diabetes ss, ada diet Hypertension Continue home medication- metoprolol. blood pressure drop with sitting from 188 to standing 146 mmhg added miguel franco nephrology rec HOB 30*, keep BP goal 130-150, if supine BP stays above 180 consider starting short acting PEGGY at bedtime, check cortisol History of CABG added aspirin, continue statin and beta-craig HLD continue statin dvt prophylax: s/c lovenox Attending Dr. Grider DNR ? need for inpatient:dizziness ,orthostasis with supine htn <Cathie Paniagua NP - Last Filed: 12/17/21 17:02> Quality Stroke Does the patient have a stroke diagnosis?: No <Cathie Paniagua NP - Last Filed: 12/17/21 17:02> VTE Prior VTE?: No <Cathie Paniagua NP - Last Filed: 12/17/21 17:02> VTE Risk Level:: Medical - moderate - high <Cathie Paniagua NP - Last Filed: 12/17/21 17:02> VTE Device Contraindication: N/A - Device Ordered <Cathie Paniagua NP - Last Filed: 12/17/21 17:02> VTE Drug Contraindication: N/A - Med Ordered <Cathie Paniagua NP - Last Filed: 12/17/21 17:02>
[2021-12-17] MEDS: Lidocaine HCl 1 % 20 ML VIAL SUBCUT (12:22)
[2021-12-17] MEDS: methylPREDNISolone acetate 40 MG VIAL INTRAARTIC (12:22)
--- NOTE | 2021-12-17 12:43 | PM.PRCOR ---
Brief Operative Note Date of procedure: 12/17/21 Pre-op diagnosis: bilat knee efussion Procedure: bilateral knee aspiration with cortisone injection. Aseptic technique used. Right knee 60cc hazy cloudy yellow aspirate obtained. Injection 8CC 1% plain lido with 40mg depomedrol Left knee 60cc hazy cloudy yellow aspirate obtained. Injection 8CC 1% plain lido with 40mg depomedrol Patient tolerated the procedure well with pain. No complications. Crown Assembly Machine Set Up Mechanic: Vicenta Hunter Condition: stable Disposition: no change
--- NOTE | 2021-12-17 13:54 | MHC.CM.PN ---
per rounds pt not ready for dc pt being mfollowed by cody negro pt being seenb by ortho due to knee pain
[2021-12-17 14:32] VITALS: BP 136/65; PULSE 74; O2SAT 94
[2021-12-17 14:56] VITALS: BP 118/74; PULSE 76; RESP 18; TEMP 36.2; O2SAT 94
[2021-12-17 16:19] LABS: Glucose, Whole Blood 164 mg/dL (60-115)
--- NOTE | 2021-12-17 18:51 | PC.NURSE ---
Pt c/o pain with movement and when knees are touched. Ortho ordered meds, meds were given to ortho and MD/PA administered to pt. per md placed absorbing dressing over drainage sites on b/l knees. pt having straw colored, bloody drainage from knees. specimen sent to lab per ortho order. safety and fall precautions maintained. call aparicio within reach. poc's maintianed. pt repo'ed q2.
[2021-12-17 20:04] LABS: Glucose, Whole Blood 251 mg/dL (60-115)
[2021-12-17] MEDS: Atorvastatin Calcium 80 MG TABLET PO (20:57)
[2021-12-17 23:39] VITALS: BP 160/78; PULSE 85; RESP 18; TEMP 36.6; O2SAT 92
[2021-12-18] MEDS: 0.9 % Sodium Chloride Flush 3 ML SYRINGE IVFLUSH (00:34)
[2021-12-18] MEDS: Zolpidem Tartrate 5 MG TABLET PO (00:34)
[2021-12-18 03:24] VITALS: BP 160/74; PULSE 83; RESP 18; TEMP 36.1; O2SAT 91
[2021-12-18 06:24] LABS: Hemoglobin 13.2 g/dl (12.0-16.0); Mean Corpuscular HGB Conc 34.7 g/dl (31.0-35.0); Mean Corpuscular Volume 92.2 fL (80.0-98.0); Mean Platelet Volume 9.9 fL (9.4-12.3); Platelet Count 240 X10*3/uL (160-400); Red Blood Count 4.12 X10*6/uL (4.20-5.50); Red Cell Distribution Width 12.1 % (11.0-16.0); White Blood Count 10.4 X10*3/uL (4.8-10.8)
[2021-12-18] MEDS: Heparin Sodium,Porcine 5,000 UNIT/ML VIAL 5000 UNIT SUBCUT (06:24)
[2021-12-18] MEDS: Omeprazole 20 MG CAPSULE.DR PO (06:24)
[2021-12-18 06:27] LABS: Anion Gap 13 (12-20); Blood Urea Nitrogen 17 mg/dL (9-16); Carbon Dioxide 24 mmol/L (22-29); Chloride 102 mmol/L (96-108); Creatinine Clr Calc Pharmacy 70.7; Estimated Glomerular Filt Rate > 60; Glucose Random 227 mg/dL (60-115); Potassium 4.4 mmol/L (3.3-5.1); Sodium 135 mmol/L (135-145)
[2021-12-18 07:46] LABS: Glucose, Whole Blood 225 mg/dL (60-115)
[2021-12-18 08:00] VITALS: BP 141/72; PULSE 84; RESP 20; TEMP 36.3; O2SAT 92
--- NOTE | 2021-12-18 08:49 | PM.EVENT ---
Event Note Date of Service: 12/18/21 Event Note: Joint fluid analysis of the right knee came back positive for gout. Patient is doing much better this morning after aspiration and cortisone injection in bilateral knees. She reports she is able to flex and extend both knees with much less discomfort. No further orthopedic treatment needed at this time. Patient should follow-up with PCP for possible future gout prevention medications after discharge.
[2021-12-18] MEDS: Multivitamin TABLET 1 TAB PO (09:06)
[2021-12-18] MEDS: Insulin Lispro 100 UNIT/ML 3 ML VIAL SUBCUT ×3 (09:06→17:10)
[2021-12-18] MEDS: Aspirin Enteric Coated 81 MG TABLET.DR PO (09:06)
[2021-12-18] MEDS: Metoprolol Succinate ER 50 MG TAB.ER.24H PO (09:06)
[2021-12-18] MEDS: Ascorbic Acid 500 MG TABLET PO (09:06)
[2021-12-18 09:34] VITALS: BP 141/72; PULSE 84; O2SAT 92
[2021-12-18 11:07] LABS: Glucose, Whole Blood 349 mg/dL (60-115)
[2021-12-18 12:00] VITALS: BP 141/72; PULSE 67; RESP 18; TEMP 36.4; O2SAT 93
--- NOTE | 2021-12-18 12:26 | PM.DS ---
DS: Providers Provider Date of Service: 12/18/21 Date of admission: 12/14/21 15:12 Date of discharge: 12/18/21 Primary care physician: Kalin Salamanca MD Consults: 12/14/21 15:13 Consult to Neurology Routine Consulting Provider: [facility] Reason for consultation: vertiago -possible posterior circulation cva Has provider been notified: No 12/15/21 10:52 Consult to Nephrology Routine Consulting Provider: Mark Martinez Reason for consultation: orthostatic hypotension with supine htn -symptomtaic Has provider been notified: No 12/15/21 23:54 Consult to Orthopedics Routine Consulting Provider: Rashi Patterson Reason for consultation: knee pain Attending physician on discharge: Rena Rodriguez Discharging clinician: Love Woodard DS: Diagnosis Discharge Diagnosis (1) Bilateral knee effusions: Status: Acute (2) Orthostasis: Status: Acute DS: Summary Hospital Course Hospital Course: From H&P on day of admission 76-year-old female with history of diabetes, hypertension, hyperlipidemia, CABG, history of a flutter(2006) in the past which was treated with ablation and subsequently off anticoagulation( 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 mitchell), patient came to the hospital because started to having dizziness episode this morning around 03:00 o'clock when she went to the bathroom, she says that she never had dizziness before in his her life, she described dizziness as spinning sensation, denies any headache or any blurry vision or lightheadedness or any seizure-like activities. ?patient was in [place] recently came last Wednesday and was feeling better until yesterday she noticed some burning sensation with the urine and discoloration and started her antibiotics. ?she has some nausea but no vomiting, no fever or abdominal pain or cough or phlegm or any weakness or numbness ?we tried to walk her she could able to take few steps but feels very unsteady. she denies any tinnitus or ear pain or any URI like symptoms. ?labs arzate:? Hemoglobin 13.2 hematocrit 38 ,WBC 8.3, platelet 246 ?BUN 16 creatinine 0.72 ?fingersticks are running between 140-220 range ?CT head and chest x-ray negative,, MRI added ?in ED:? Patient received Reglan, meclizine, Fioricet and subsequently was feeling slightly better-? because they patient is still significantly unsteady so recommended admission for vertigo unclear etiology differential diagnosis from benign positional vertigo to posterior circulation CVA. social history:? Lives alone, independent ADL arzate,? no smoking or recreational drug use, ETOH use once or twice a week occasionally Surgical history:? CABG 6 year ago Knee and shoulder surgery long time ago. Dizziness secondary to orthostatic hypotension. Initial brain CT showed no intracranial hemorrhage or mass effect, findings consistent with chronic microvascular ischemic disease. MRI of the brain was also obtained which showed chronic lacunar infarcts in the bilateral cerebellar hemispheres and basal ganglia as well as background changes of moderate chronic microangiopathy. She was seen in consultation by Neurology who recommended anti-platelet agent as well as statin. She was continued on her home dose of aspirin and statin. Due to positive orthostatic blood pressures she was seen by Nephrology who recommended had stockings, elevated head of bed and goal blood pressure of 130-150 systolic. Her dose of metoprolol was increased from 25 mg daily to 50 mg daily with adequate blood pressure control. Orthostatics on day of discharge have improved. She was evaluated by Physical therapy who recommended short-term rehab. Knee pain. Patient was noted to have bilateral knee pain and associated effusion. She was seen by Orthopedic surgery, both knees were aspirated and injected with cortisone. Aspirate grew intracellular calcium pyrophosphate crystals consistent with pseudogout. Her pain and range of motion in both knees improved significantly and she was able to tolerate ambulation better. Time Spent with Patient Time attestation: Total time spent providing and/or coordinating discharge services: Discharge coordination time: Greater than 30 minutes Quality: Safe Use of Opioids Does Pt have an Active Cancer Diagnosis on the Problem List?: No Quality: Stroke Does the patient have a stroke diagnosis?: No Physical Exam Vital Signs: Vital Signs: Last Vital Signs Temp 97.3 F 12/18/21 08:00 Pulse 84 12/18/21 09:34 Resp 20 12/18/21 08:00 BP 141/72 H 12/18/21 09:34 Pulse Ox 92 12/18/21 09:34 O2 Del Method 12/18/21 08:00 BMI result Body Mass Index 28.3 Const: General: cooperative, comfortable, no acute distress, alert and awake Nutritional Appearance: average body habitus Orientation/consciousness: patient oriented x3 Resp: Effort & Inspection: normal respiratory effort and able to speak in complete sentences Cardio: Rate: regular rate Heart sounds: S1 normal heart sound present and S2 normal heart sound present GI: Palpation (GI): Soft to palpation and nontender Neuro: General: patient oriented x3 Extrem: General: Yes no pedal edema DS: Data Data Completed and Pending Labs on day of discharge: Laboratory Results - last 24 hr 12/17/21 12/17/21 12/18/21 16:14 19:59 05:58 WBC 10.4 RBC 4.12 L Hgb 13.2 Hct 38.0 MCV 92.2 MCH 32.0 MCHC 34.7 RDW 12.1 Plt Count 240 MPV 9.9 Absolute Nucleated RBC 0.000 Nucleated RBC % (auto) 0.0 Sodium Potassium Chloride Carbon Dioxide Anion Gap BUN Creatinine Estim Creat Clear Calc Estimated GFR POC Glucose 164 H 251 H Random Glucose Calcium 12/18/21 12/18/21 12/18/21 05:58 07:40 11:00 WBC RBC Hgb Hct MCV MCH MCHC RDW Plt Count MPV Absolute Nucleated RBC Nucleated RBC % (auto) Sodium 135 Potassium 4.4 Chloride 102 Carbon Dioxide 24 Anion Gap 13 BUN 17 H Creatinine 0.68 Estim Creat Clear Calc 70.7 Estimated GFR > 60 POC Glucose 225 H 349 H Random Glucose 227 H Calcium 9.0 Preliminary micro results at discharge 12/17/21 12:10 Joint Fluid Culture - Preliminary Knee aspirate No growth after 1 day 12/14/21 10:10 Blood Culture - Preliminary Blood - Venous No growth after 48 hours. 12/14/21 10:03 Blood Culture - Preliminary Blood - Venous No growth after 48 hours. Discharge Plan Discharge Patient Disposition: [facility] Discharge Diagnosis: Orthostatic hypotension Supine hypertension Dizziness Pseudogout Referrals: [facility] [Other] - 1 Week Marlon Hayes [Outside] - 1 Week Kalin Salamanca MD [Primary Care Provider] - 1 Week Discharge Medications: New metoprolol succinate 50 mg Tablet Extended Release 24 Hr 50 mg PO DAILY Qty: 30 0RF Protocol: Hold for SBP/HR < HOLD for SBP < : 90 HOLD for HR < : 60 Continued atorvastatin 80 mg tablet 1 tab PO BEDTIME omeprazole 20 mg capsule,delayed release(DR/EC) 1 cap PO DAILY zolpidem 5 mg tablet 1 tab PO BEDTIME PRN (Reason: Sleep) metformin 500 mg tablet extended release 24 hr 1 tab PO BID glucosamine sulfate [Glucosamine] 500 mg Tablet 500 mg PO BID Rx Instructions: administer with meals calcium carbonate 500 mg calcium (1,250 mg) Tablet 500 mg PO DAILY ascorbic acid (vitamin C) [Vitamin C] 500 mg Tablet 500 mg PO DAILY PreserVision AREDS-2 250-90-40-1 mg Tablet,Chewable 1 tab PO BID Discontinued metoprolol succinate 25 mg tablet extended release 24 hr 1 tab PO DAILY Discharge Orders: Discharge Order (Routine); Ordered 12/18/21 Ordered By: Love Woodard Activity on Discharge: As tolerated Stand Alone Forms: Patient Portal Discharge page Print Language: Ecuadorean Care Plan Goals: See below Health Concerns: Orthostatic hypotension Supine hypertension Pseudogout Plan of Treatment: Goal to maintain systolic blood pressure between 130 and 150 systolic No indication for midodrine at this time Continue Santos stockings Recommend to keep HOB at 30 degrees Dose of metoprolol was increased to 50 mg daily Assessment: See discharge summary Discharge Date/Time: 12/18/21 17:45
[2021-12-18 12:27] VITALS: BP 131/65; BP 141/72; BP 149/104; PULSE 65; PULSE 67; PULSE 73
[2021-12-18 15:26] VITALS: BP 137/68; PULSE 76; RESP 18; TEMP 36.4; O2SAT 94
[2021-12-18 16:10] LABS: Glucose, Whole Blood 309 mg/dL (60-115)
--- NOTE | 2021-12-18 16:24 | MHC.CM.PN ---
PT CLEARED TO DC TO [facility] TODAY CM MET WITH PT AND INFORMED HER OF BED OFFERS SHE IS AWARE HER PREFERRED SNF, [facility], DID NOT OFFER AFTER DISCUSSING CHOICES, SHE HAS ACCEPTED [facility]. PT WILL DC TO [facility] TODAY AT 1730 HOURS VIA BLS
--- NOTE | 2021-12-18 18:09 | PC.NURSE ---
Addendum entered by Victor Manuel Cox RN 12/18/21 18:10: pt educated on discharge paperwork, discharge singed by pt Original Note: report given to RN prior to pt xfer to outside facility. EMS given paperwork and report. IV d/c'ed. All belongings with pt
== END 2021-12-18 17:45 | disposition skilled nursing facility (03) | DRG 312 ==
LOC: HO.ED 14:28 → HO.EDOVER 15:17 → HO.IMC 19:45
PROVIDERS: Internal Medicine; Nurse Practitioner Acute Care; Physician Assistant Medical; Admitting Provider Internal Medicine; Emergency Provider Emergency Medicine Emergency Medical Services; PCP Internal Medicine; Responsible Provider Physician Assistant Medical; Visit Provider Hospitalist
DX: I95.1 Orthostatic hypotension (principal); I10 Essential (primary) hypertension; E11.9 Type 2 diabetes mellitus without complications; Z66 Do not resuscitate; M10.9 Gout, unspecified; M17.0 Bilateral primary osteoarthritis of knee; I25.10 Atherosclerotic heart disease of native coronary artery without angina pectoris; E78.5 Hyperlipidemia, unspecified; Z20.822 Contact with and (suspected) exposure to COVID-19; Z95.1 Presence of aortocoronary bypass graft; Z88.2 Allergy status to sulfonamides; Z79.84 Long term (current) use of oral hypoglycemic drugs; Z79.899 Other long term (current) drug therapy
CPT/HCPCS: 36415; 70450; 70551; 71046; 73564; 80048; 80053; 80061; 82533; 82947; 83605; 83735; 84484; 85025; 85027; 87040; 87071; 87073; 87205; 87502; 87635; 89060; 93005; 93306; 96361; 96374; 96375; 97110; 97116; 97162; 97530; 99285; J1020; J1170; J2405; J2765

== ENCOUNTER 2022-02-24 10:33 | Outpatient (REF) | payer MEDICARE, SELFPAY ==
[2022-02-24 14:02] LABS: Estimated Average Glucose 200 mg/dL; Hemoglobin A1c % 8.6 %
[2022-02-24 14:02] LABS: Appearance Urine Clear; Color Urine Yellow; Glucose Urine UA Negative (Negative); Leukocyte Esterase Urine Small (1+) (Negative); Nitrite Urine Negative (Negative); PH 5.5 (5.0-9.0); Specific Gravity - Urine 1.015 (1.005-1.025); Urine Blood Negative (Negative); Urine Ketones Negative (Negative); Urine Protein Negative (Neg-Trace)
[2022-02-24 14:06] LABS: Alanine Aminotransferase 21 U/L (0-31); Alkaline Phosphatase 75 U/L (39-117); Anion Gap 15 (12-20); Aspartate Amino Transferase 15 U/L (5-31); Bilirubin Total 0.5 mg/dL (0.0-1.0); Blood Urea Nitrogen 13 mg/dL (9-16); Calcium 9.1 mg/dL (8.4-10.2); Carbon Dioxide 26 mmol/L (22-29); Chloride 100 mmol/L (96-108); Estimated Glomerular Filt Rate > 60; Glucose Random 237 mg/dL (60-115); Potassium 4.3 mmol/L (3.3-5.1); Sodium 137 mmol/L (135-145); Total Protein 6.6 g/dL (6.5-8.0)
[2022-02-24 14:28] LABS: Bacteria Urine None Seen (None Seen); Hyaline Casts Urine 0-2 /LPF (0-2); RBC Urine 0-2 /HPF (0-2); UACC Culture Trigger YES; WBC Urine 0-5 /HPF (0-5)
== END 2022-02-24 10:34 | disposition home or self-care (01) ==
LOC: HO.10HDL 10:33
PROVIDERS: Visit Provider Internal Medicine
DX: R30.0 Dysuria (principal); E11.9 Type 2 diabetes mellitus without complications; I10 Essential (primary) hypertension; I25.10 Atherosclerotic heart disease of native coronary artery without angina pectoris
CPT/HCPCS: 36415; 80053; 81001; 81003; 83036; 87086; 87147

== ENCOUNTER 2022-08-22 06:55 | Outpatient (REF) | payer MEDICARE, SELFPAY ==
[2022-08-22 11:10] LABS: MANUAL DIFF FLAG NO
[2022-08-22 12:14] LABS: Estimated Average Glucose 269 mg/dL
[2022-08-22 12:42] LABS: Basophils Absolute Auto 0.1 X10*3/uL (0.0-0.2); Basophils Percent Auto 0.9 % (0-2); Eosinophils Absolute Auto 0.5 X10*3/uL (0.0-0.4); Eosinophils Percent Auto 8.2 % (0-4); Hematocrit 40.5 % (37.0-47.0); Hemoglobin 13.7 g/dl (12.0-16.0); Imm Gran Abs Auto 0.02 X10*3/uL (0.00-0.03); Imm Gran Pct Auto 0.3 % (0.0-0.4); Lymphocytes Absolute Auto 1.8 X10*3/uL (1.2-4.9); Lymphocytes Percent Auto 31.9 % (20-40); Mean Corpuscular HGB Conc 33.8 g/dl (31.0-35.0); Mean Corpuscular Hemoglobin 32.1 pg (27.0-33.0); Mean Corpuscular Volume 94.8 fL (80.0-98.0); Mean Platelet Volume 10.6 fL (9.4-12.3); Monocytes Absolute Auto 0.5 X10*3/uL (0.1-1.2); Neutrophils Absolute Auto 2.9 x10*3/uL (2.0-8.3); Neutrophils Percent Auto 50.7 % (45-73); Platelet Count 249 X10*3/uL (160-400); Red Blood Count 4.27 X10*6/uL (4.20-5.50); Red Cell Distribution Width 12.3 % (11.0-16.0); White Blood Count 5.7 X10*3/uL (4.8-10.8)
[2022-08-22 13:03] LABS: Alanine Aminotransferase 24 U/L (0-31); Albumin Level 3.9 g/dL (3.5-5.0); Alkaline Phosphatase 72 U/L (39-117); Anion Gap 14 (12-20); Aspartate Amino Transferase 16 U/L (5-31); Bilirubin Total 0.9 mg/dL (0.0-1.0); Blood Urea Nitrogen 12 mg/dL (9-16); Calcium 9.3 mg/dL (8.4-10.2); Carbon Dioxide 28 mmol/L (22-29); Chloride 101 mmol/L (96-108); Cholesterol 130 mg/dL; Estimated Glomerular Filt Rate > 60; Glucose Fasting 305 mg/dL (60-99); HDL Cholesterol 41 mg/dL; LDL Cholesterol Calculated 70 mg/dl; Potassium 4.2 mmol/L (3.3-5.1); Sodium 139 mmol/L (135-145); Total Protein 6.1 g/dL (6.5-8.0); Triglycerides 95 mg/dL
[2022-08-22 13:17] LABS: Creatinine Urine 85.73 mg/dL; Microalbum/Creatinine Ratio Ur 15.1 ug/mg cr
== END 2022-08-22 06:56 | disposition home or self-care (01) ==
LOC: HO.HMGCLDS 06:55
PROVIDERS: PCP Internal Medicine; Visit Provider Internal Medicine
DX: Z00.00 Encounter for general adult medical examination without abnormal findings (principal); E11.9 Type 2 diabetes mellitus without complications
CPT/HCPCS: 36415; 80053; 80061; 82043; 83036; 85025

== ENCOUNTER 2022-09-28 13:29 | Outpatient (REF) | payer MEDICARE, SELFPAY ==
[2022-09-28 14:47] LABS: Estimated Average Glucose 209 mg/dL; Hemoglobin A1c % 8.9 %
[2022-09-28 14:52] LABS: Anion Gap 13 (12-20); Blood Urea Nitrogen 16 mg/dL (9-16); Calcium 9.2 mg/dL (8.4-10.2); Carbon Dioxide 26 mmol/L (22-29); Chloride 100 mmol/L (96-108); Estimated Glomerular Filt Rate > 60; Glucose Random 148 mg/dL (60-115); Potassium 4.2 mmol/L (3.3-5.1); Sodium 135 mmol/L (135-145)
== END 2022-09-28 13:30 | disposition home or self-care (01) ==
LOC: HO.HMGCLDS 13:29
PROVIDERS: PCP Internal Medicine; Visit Provider Internal Medicine
DX: E11.9 Type 2 diabetes mellitus without complications (principal); I10 Essential (primary) hypertension
CPT/HCPCS: 36415; 80048; 83036

== ENCOUNTER 2022-12-07 10:21 | Outpatient (REF) | payer MEDICARE, SELFPAY ==
[2022-12-07 13:32] LABS: Anion Gap 13 (12-20); Blood Urea Nitrogen 18 mg/dL (9-16); Calcium 9.4 mg/dL (8.4-10.2); Carbon Dioxide 26 mmol/L (22-29); Chloride 101 mmol/L (96-108); Estimated Glomerular Filt Rate > 60; Glucose Random 117 mg/dL (60-115); Potassium 4.4 mmol/L (3.3-5.1); Sodium 136 mmol/L (135-145)
[2022-12-07 13:54] LABS: Estimated Average Glucose 137 mg/dL; Hemoglobin A1c % 6.4 %
== END 2022-12-07 10:22 | disposition home or self-care (01) ==
LOC: HO.10HDL 10:21
PROVIDERS: Visit Provider Internal Medicine
DX: I10 Essential (primary) hypertension (principal); E11.9 Type 2 diabetes mellitus without complications
CPT/HCPCS: 36415; 80048; 83036

== ENCOUNTER 2022-12-22 11:41 | Outpatient (REF) | payer MEDICARE, SELFPAY ==
--- NOTE | ~2022-12-22 | XR_ITS ---
EXAMINATION: XR HAND, RIGHT CLINICAL INFORMATION: Right hand pain COMPARISON: 04/22/2012 TECHNIQUE: PA, lateral, and oblique views of the right hand. FINDINGS: There is no evidence of acute fracture or dislocation of the right hand. There has been progression in degenerative change involving the 1st carpometacarpal joint as well as the triscaphe joint. There is osteopenia of visualized bones of the hand. There has been some progression in degenerative change of the distal interphalangeal joints of the 4th and 5th fingers. There is question of an old healed scaphoid waist fracture. There is some calcification noted about the 1st metacarpal phalangeal joint no significant erosive changes are appreciated. XR/XR hand RT min 3V IMPRESSION: 1. Progression in degenerative change of the 1st carpometacarpal joint and triscaphe joint as well as 4th and 5th distal interphalangeal joints. 2. Question old healed fracture of the scaphoid waist.
[2022-12-22 13:47] LABS: Erythrocyte Sedimentation Rate 9 MM/HR (0-20)
[2022-12-22 13:49] LABS: C Reactive Protein < 0.04 mg/dL (< or = 0.50); Uric Acid 4.7 mg/dL (2.4-5.7)
== END 2022-12-22 11:42 | disposition home or self-care (01) ==
LOC: HO.XRAY 11:41
PROVIDERS: PCP Internal Medicine; Visit Provider Internal Medicine
DX: M79.641 Pain in right hand (principal)
CPT/HCPCS: 36415; 73130; 84550; 85652; 86140

== ENCOUNTER 2023-01-15 08:44 | Outpatient (AMB) | payer MEDICARE, SELFPAY ==
--- NOTE | 2023-01-15 08:47 | A.OFFVIS_ITS ---
Intake Intake Visit Reasons: mass on top of head Intake Note: Patient is seen in office for evaluation and treatment of a mass on top of the head. Patient c/o: onset a year, had some in the past removed by Dr Navarro, denies redness, discoloration, swelling, discharge, uncomfortable when bruising the hair Documentation Nurse Required: No Accompanied by: Self / Same As Patient Allergies egg [Egg] Allergy (Mild, Verified 01/15/23 09:03) RASH Sulfa (Sulfonamide Antibiotics) Allergy (Unknown, Verified 01/15/23 09:03) N/V TACHYCARDIC Medication List - Last Reconciled 01/15/23 by Roderick Martinez MD ascorbic acid (vitamin C) (Vitamin C) 500 mg PO DAILY aspirin (Adult Low Dose Aspirin) 81 mg PO DAILY atorvastatin 1 tab PO BEDTIME calcium carbonate 500 mg PO DAILY glipizide ER 5 mg PO BID glucosamine sulfate (Glucosamine) 500 mg PO BID metformin ER 1 tab PO BID metoprolol succinate ER 50 mg See Protocol PO DAILY omeprazole 1 cap PO DAILY vit C,K-Ig-zdmuf-lutein-zeaxan 250-90-40-1 mg (PreserVision AREDS-2) 1 tab PO BID zolpidem 1 tab PO BEDTIME PRN HPI HPI Comments History of Present Illness Details 78-year-old female patient presenting with a scalp lump noted to the left of midline in the frontal scalp. This is been present for several years and has gradually increased in size. She reports a previous history of scalp Pilar cyst which were excised by Dr. Navarro. She denies any bleeding, pain or other symptoms. She is requesting excision. [facility] Medical History HTN (hypertension) Osteoarthritis of knees, bilateral Surgical History History of eye surgery (2001) History of quadruple bypass History of total hysterectomy (07/15/01) S/P tonsillectomy and adenoidectomy Social History Household Members: None Housing: Condominium Do you presently have visiting nurse or other home services: No Alcohol intake: current Alcohol intake frequency: a few times a month Patient Tobacco Use Status: Never used Tobacco Advance Directives Date on File: 12/14/21 service: No Review of Systems Const All systems reviewed & are unremarkable except as noted in HPI and below Physical Exam HEENT Head images: 1. 1.5 cm Pilar cyst left frontal parietal scalp with a small blister noted on the surface of the skin. Assessment & Plan Assessment & Plan (1) Pilar cyst: Code(s): L72.11 - Pilar cyst Plan 78-year-old female patient presenting with a 1.5 cm Pilar cyst in the left scalp which is gradually increasing in size. Patient is requested excision and I recommended an excision under local anesthesia. After discussion of the procedure, risks, and alternatives, she consents to the surgery. Coding Level of Care Code New Pt Level 4 (31432) Diagnoses Pilar cyst L72.11
== END 2023-01-15 09:10 | disposition home or self-care (01) ==
PROVIDERS: PCP Internal Medicine; Visit Provider Surgery
DX: L72.11 Pilar cyst (principal)
CPT/HCPCS: 99204

== ENCOUNTER → 2023-01-15 08:44 | Outpatient (BNVA) | payer MEDICARE, SELFPAY | PROVIDERS: PCP Internal Medicine; Visit Provider Surgery | DX: L72.11 Pilar cyst (principal) | CPT/HCPCS: 99202 ==

== ENCOUNTER 2023-01-28 08:35 | Outpatient (REF) | payer MEDICARE, SELFPAY ==
--- NOTE | 2023-01-28 | EMG_ITS ---
Right median and ulnar motor and sensory studies were performed. Right radial sensory study was performed and paraspinal muscles were tested with a needle. IMPRESSION: 1. Aywk-dp-kbsgelbm right median neuropathy across carpal tunnel. 2. Xwra-cb-pmqrbtwh right ulnar neuropathy across cubital tunnel. MD BRYNN Thornton/TEJAS / [id number]
== END 2023-01-28 08:36 | disposition home or self-care (01) ==
LOC: HO.NEURO 08:35
PROVIDERS: PCP Internal Medicine; Visit Provider Internal Medicine
DX: M79.641 Pain in right hand (principal)
CPT/HCPCS: 95860; 95886; 95907; 95909

== ENCOUNTER 2023-02-01 11:42 | Outpatient (REF) | payer MEDICARE, SELFPAY ==
[2023-02-01 14:12] LABS: Appearance Urine Turbid; Color Urine Yellow; Glucose Urine UA >=1000 mg/dL (Negative); Leukocyte Esterase Urine Moderate (2+) (Negative); Nitrite Urine Negative (Negative); UMIC TRIGGER UACC YES; Urine Blood Small (1+) (Negative); Urine Ketones Negative (Negative); Urine Protein Trace mg/dL (Neg-Trace)
[2023-02-01 14:14] LABS: Bacteria Urine 4+ (None Seen); Hyaline Casts Urine 0-2 /LPF (0-2); Squamous Epithelial Cell Urine 0-2 /HPF (0-2); UACC Culture Trigger YES; WBC Urine >50 /HPF (0-5)
== END 2023-02-01 11:43 | disposition home or self-care (01) ==
LOC: HO.10HDL 11:42
PROVIDERS: Visit Provider Internal Medicine
DX: R30.0 Dysuria (principal)
CPT/HCPCS: 81001; 87086; 87088; 87186

== ENCOUNTER 2023-02-02 12:25 | Outpatient (REF) | payer MEDICARE, SELFPAY ==
[2023-02-02 12:46] VITALS: BP 177/74; PULSE 93; RESP 16; TEMP 36.4; O2SAT 98
[2023-02-02 12:51] VITALS: BMI 28.1
[2023-02-02 13:32] VITALS: BP 165/74; PULSE 93; RESP 16; O2SAT 94
--- NOTE | 2023-02-02 14:05 | P.OP_ITS ---
Operative Note Operative Note Date of Service: 02/02/23 Narrative: Preoperative diagnosis: Pilar cyst left scalp Postoperative diagnosis: Same Procedure: Excision of Pilar cyst left scalp Surgeon: Roderick Martinez MD Battery Assembler Dry Cell: None Anesthesia: Local Indications for procedure: 78-year-old female patient with a prior history of a scalp Pilar cyst in the left frontal scalp now with recurrent cyst at the same location. Cyst measures approximately 1.5 cm in diameter. Operative findings: Pilar cyst left frontal scalp. Specimen: Pilar cyst left scalp Estimated blood loss: 2 mL Complications: None Procedure details: Patient was brought to the minor surgery suite and placed in a sitting position. The site of surgery was confirmed by the patient in the left scalp. After assuring informed consent the skin was prepped with Betadine and draped in a sterile fashion. Local anesthesia was then infiltrated circumferentially around the cyst. Incision was then made with a scalpel an elliptical fashion oriented transversely. This carried out through subcutaneous tissue and around the cyst wall. Lesion was completely excised and sent to pathology for further examination. After assuring adequate hemostasis, the skin was closed using interrupted 3-0 Prolene sutures. Bacitracin was applied to the incision. The patient tolerated the procedure well. She was discharged to home in stable condition.
== END 2023-02-02 12:26 | disposition home or self-care (01) ==
LOC: HO.MS 12:25
PROVIDERS: PCP Internal Medicine; Visit Provider Surgery
PROC: (CPT 11422; principal; 2023-02-02 13:00)
DX: L72.11 Pilar cyst (principal)
CPT/HCPCS: 11422; 88304

== ENCOUNTER → 2023-02-02 12:25 | Outpatient (BNV) | payer MEDICARE, SELFPAY | PROVIDERS: PCP Internal Medicine; Visit Provider Surgery | DX: L72.11 Pilar cyst (principal) | CPT/HCPCS: 11421 ==

== ENCOUNTER 2023-02-12 08:44 | Outpatient (AMB) | payer MEDICARE, SELFPAY ==
--- NOTE | 2023-02-12 08:55 | MHC.OFFVIS ---
Intake Vital Signs 02/12/23 09:14 Height 5 ft Weight 161 lb 4 oz BMI 31.5 BP 166/72 H Blood Pressure Location Lt brachial Position Sitting Pulse 90 Intake Visit Reasons: S/P pilar cyst left scalp Intake Note: Patient is seen in office for post op assessment post excision of pilar cyst of the left scalp. 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 Accompanied by: Self / Same As Patient Allergies egg [Egg] Allergy (Mild, Verified 02/12/23 09:13) RASH Sulfa (Sulfonamide Antibiotics) Allergy (Unknown, Verified 02/12/23 09:13) N/V TACHYCARDIC environmental allergies Adverse Reaction (Verified 02/12/23 09:13) Cough Medication List - Last Reconciled 02/12/23 by Roderick Martinez MD ascorbic acid (vitamin C) (Vitamin C) 500 mg PO DAILY aspirin (Adult Low Dose Aspirin) 81 mg PO DAILY atorvastatin 1 tab PO BEDTIME calcium carbonate 500 mg PO DAILY glipizide ER 5 mg PO BID glucosamine sulfate (Glucosamine) 500 mg PO BID metformin ER 1 tab PO BID metoprolol succinate ER 50 mg See Protocol PO DAILY omeprazole 1 cap PO DAILY vit C,Y-Xy-pfukx-lutein-zeaxan 250-90-40-1 mg (PreserVision AREDS-2) 1 tab PO BID zolpidem 1 tab PO BEDTIME PRN HPI HPI Comments History of Present Illness Details Patient returns 1 week following excision of a left scalp Pilar cyst. Pathology confirmed a Pilar cyst. She denies any problems after the surgery and feels well today. She returns today for suture removal. ON LICENSE OF [facility] Medical History HTN (hypertension) Osteoarthritis of knees, bilateral Surgical History History of arthroscopy of left knee (03/08/03) History of arthroscopy of right knee (02/03/07) History of excision of mass (02/02/23) History of eye surgery (2001) History of quadruple bypass (05/22/15) History of total hysterectomy (07/15/01) S/P tonsillectomy and adenoidectomy Social History Household Members: None Housing: Condominium Do you presently have visiting nurse or other home services: No Alcohol intake: current Alcohol intake frequency: a few times a month Patient Tobacco Use Status: Never used Tobacco Advance Directives Date on File: 12/14/21 service: No Physical Exam Const General: no acute distress Nutritional Appearance: well nourished Orientation/consciousness: patient oriented x3 HEENT Other: Excision site in the left frontal scalp is clean, dry, and intact. Sutures removed the wounds found to be well healed. Head images: 1. 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 She returns today 1 week following excision. Pathology confirmed a Pilar cyst. Wounds are now well healed with no evidence of infection. She should follow up as needed. Coding Level of Care Code Global (59132) Diagnoses Pilar cyst L72.11
[2023-02-12 09:14] VITALS: BP 166/72; PULSE 90; BMI 31.5
== END 2023-02-12 09:16 | disposition home or self-care (01) ==
PROVIDERS: PCP Internal Medicine; Visit Provider Surgery
DX: L72.11 Pilar cyst (principal)
CPT/HCPCS: 99024

== ENCOUNTER → 2023-02-12 08:44 | Outpatient (BNVA) | payer MEDICARE, SELFPAY | PROVIDERS: PCP Internal Medicine; Visit Provider Surgery ==

== ENCOUNTER 2023-02-16 09:35 | Outpatient (AMB) | payer MEDICARE, SELFPAY ==
--- NOTE | 2023-02-16 10:02 | MHC.OFFVIS ---
Intake Vital Signs 02/16/23 10:03 Height 5 ft Weight 161 lb BMI 31.4 Intake Visit Reasons: New Problem RT Hand pain Intake Note: Pati 78 yr old right hand dominant female presents today for new problem visit for her right hand pain. States pain is mainly in her middle and ring finger. States she woke up with pain some time in December 2022 and had severe pain in her middle and ring finger. Seen with her PCP who Rx'd her Prednisone and ordered patient to have an EMG. Currently reports its a lot better today.No injury she can recall. EMG done. Allergies egg [Egg] Allergy (Mild, Verified 02/16/23 10:33) RASH Sulfa (Sulfonamide Antibiotics) Allergy (Unknown, Verified 02/16/23 10:33) N/V TACHYCARDIC environmental allergies Adverse Reaction (Verified 02/16/23 10:33) Cough HPI New Problem RT Hand pain HPI Details Pati is a 78 year old right hand dominant woman who presents with complaints of right middle & ring finger pain & a NCS. She says initially she had pain in her middle & ring fingers since 12/2022. She says she woke up with this pain and denies any known injury or swelling. Her PCP prescribed prednisone and ordered a NCS. Her symptoms improved within 5 days of starting her prednisone Dosepak Currently she says her pain has improved and she has no complaints today She denies any numbness or tingling and says she had no locking or catching. She is a Diabetic [facility] Medical History HTN (hypertension) Osteoarthritis of knees, bilateral Surgical History History of arthroscopy of left knee (03/08/03) History of arthroscopy of right knee (02/03/07) History of excision of mass (02/02/23) History of eye surgery (2001) History of quadruple bypass (05/22/15) History of total hysterectomy (07/15/01) S/P tonsillectomy and adenoidectomy Social History (Updated 02/16/23 @ 10:34 by Tati Barrett [facility] Household Members: None Housing: Condominium Do you presently have visiting nurse or other home services: No Alcohol intake: current Alcohol intake frequency: a few times a month Patient Tobacco Use Status: Never used Tobacco Advance Directives Date on File: 12/14/21 service: No Current occupational status: retired 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 Review of Systems Const All systems reviewed & are unremarkable except as noted in HPI and below Physical Exam Vital Signs: BMI result Body Mass Index 31.4 Const General: cooperative, healthy appearing and no acute distress Orientation/consciousness: patient oriented x3 HEENT Head: Yes normocephalic and Yes atraumatic Eyes EOM: EOMs intact bilaterally Resp Effort & Inspection: normal respiratory effort and able to speak in complete sentences Cardio Jugular venous distension: no JVD Skin General skin exam: turgor normal Rashes: no rashes Neuro General: patient oriented x3 Extrem Other: Evaluation of Right Upper Extremity: The patient is alert, oriented, and in no acute distress Neuro: Median, Ulnar, Radial nerves motor and sensory intact and sensation is normal to the tips of all digits Vascular: Cap refill brisk ROM: She can make a fist and extend all her digits No locking or catching Skin: No lacerations or abrasions. General: No Ecchymosis. No Erythema or evidence of infection. Radiographs: 3 views of the right hand were taken and viewed by me today in clinic. They show no fractures or dislocations. There is some middle & small finger DIP joint OA, as well as some basal joint OA. Nerve Conduction Study: IMPRESSION:? 1. Pzrt-vz-qrjconka right median neuropathy across carpal tunnel. 2. Yuiu-ie-rggkfpnp right ulnar neuropathy across cubital tunnel. Dakota Hill MD 01/28/2023 Psych Appearance: grossly normal Affect: normal affect Attitude: cooperative Assessment & Plan Assessment & Plan (1) Carpal tunnel syndrome of right wrist: Code(s): G56.01 - Carpal tunnel syndrome, right upper limb (2) Cubital tunnel syndrome on right: Code(s): G56.21 - Lesion of ulnar nerve, right upper limb (3) Pain of right middle finger: Code(s): M79.644 - Pain in right finger(s) (4) Pain in finger of right hand: Comment: Ring Code(s): M79.644 - Pain in right finger(s) Plan Assessment & Plan: 1. Right middle & ring finger pain Onset 12/2022 Resolved with a short course of Prednisone prescribed by her PCP No complains of pain today No complaints of locking, catching, or swelling No intervention warranted 2. Right Carpal tunnel syndrome, mild-moderate 3. Right Cubital tunnel syndrome, mild-moderate Relatively asymptomatic at this time I educated her about this condition, if she develops any numbness or tingling in her fingers that is intermittent, but daily, she can follow up to discuss treatment options No intervention indicated at this time She is happy with the current plan. She can follow up prn Scribed for Muriel Madison MD by Jimenez Sanches, emergency medical dispatcher, on 02/16/23 at 11:00 AM, EST. Coding Level of Care Code New Pt Level 3 (92867) Diagnoses Carpal tunnel syndrome of right wrist G56.01 Cubital tunnel syndrome on right G56.21 Pain of right middle finger M79.644 Pain in finger of right hand M79.644
[2023-02-16 10:03] VITALS: BMI 31.4
== END 2023-02-16 11:09 | disposition home or self-care (01) ==
PROVIDERS: PCP Internal Medicine; Visit Provider Orthopaedic Surgery
DX: G56.01 Carpal tunnel syndrome, right upper limb (principal); G56.21 Lesion of ulnar nerve, right upper limb; M79.644 Pain in right finger(s)
CPT/HCPCS: 99203

== ENCOUNTER → 2023-02-16 09:35 | Outpatient (BNVA) | payer MEDICARE, SELFPAY | PROVIDERS: PCP Internal Medicine; Visit Provider Orthopaedic Surgery | DX: G56.01 Carpal tunnel syndrome, right upper limb (principal); G56.21 Lesion of ulnar nerve, right upper limb; M79.644 Pain in right finger(s) | CPT/HCPCS: 99202 ==

== ENCOUNTER 2023-05-10 10:15 | Outpatient (REF) | payer MEDICARE, SELFPAY ==
[2023-05-10 10:39] LABS: MANUAL DIFF FLAG NO
[2023-05-10 10:48] LABS: Basophils Percent Auto 0.6 % (0-2); Eosinophils Absolute Auto 0.4 X10*3/uL (0.0-0.4); Hematocrit 36.9 % (37.0-47.0); Hemoglobin 12.4 g/dl (12.0-16.0); Imm Gran Abs Auto 0.02 X10*3/uL (0.00-0.03); Imm Gran Pct Auto 0.3 % (0.0-0.4); Lymphocytes Absolute Auto 1.7 X10*3/uL (1.2-4.9); Mean Corpuscular HGB Conc 33.6 g/dl (31.0-35.0); Mean Corpuscular Hemoglobin 32.2 pg (27.0-33.0); Mean Corpuscular Volume 95.8 fL (80.0-98.0); Mean Platelet Volume 9.6 fL (9.4-12.3); Monocytes Absolute Auto 0.6 X10*3/uL (0.1-1.2); Monocytes Percent Auto 8.6 % (2-11); Neutrophils Percent Auto 59.5 % (45-73); Platelet Count 238 X10*3/uL (160-400); Red Blood Count 3.85 X10*6/uL (4.20-5.50); White Blood Count 6.7 X10*3/uL (4.8-10.8)
[2023-05-10 10:51] LABS: Estimated Average Glucose 140 mg/dL; Hemoglobin A1C 152.3973 umol/L; Hemoglobin A1c % 6.5 % (<6.0)
[2023-05-10 11:20] LABS: Alanine Aminotransferase 18 U/L (0-31); Albumin Level 3.9 g/dL (3.5-5.0); Alkaline Phosphatase 58 U/L (39-117); Anion Gap 13 (12-20); Aspartate Amino Transferase 16 U/L (5-31); Bilirubin Total 0.4 mg/dL (0.0-1.0); Blood Urea Nitrogen 22 mg/dL (9-16); Calcium 9.3 mg/dL (8.4-10.2); Carbon Dioxide 26 mmol/L (22-29); Chloride 101 mmol/L (96-108); Estimated Glomerular Filt Rate > 60; Glucose Random 138 mg/dL (60-115); Potassium 4.1 mmol/L (3.3-5.1); Sodium 136 mmol/L (135-145); Total Protein 6.7 g/dL (6.5-8.0)
[2023-05-10 14:05] LABS: Creatinine Urine 203.75 mg/dL; Microalbum/Creatinine Ratio Ur 19.6 ug/mg cr (<30)
== END 2023-05-10 10:16 | disposition home or self-care (01) ==
LOC: HO.10HDL 10:15
PROVIDERS: Visit Provider Internal Medicine
DX: E11.9 Type 2 diabetes mellitus without complications (principal); I10 Essential (primary) hypertension; M19.90 Unspecified osteoarthritis, unspecified site; Z86.79 Personal history of other diseases of the circulatory system
CPT/HCPCS: 36415; 80053; 82043; 82550; 82570; 83036; 85025

== ENCOUNTER 2023-06-01 11:02 | Outpatient (REF) | payer MEDICARE, SELFPAY ==
--- NOTE | ~2023-06-01 | US_ITS ---
EXAMINATION: US EXTRACRANIAL CAROTID DUPLEX, BILATERAL CLINICAL INFORMATION: Right carotid nodule COMPARISON: None available. TECHNIQUE: Real-time ultrasound and Doppler techniques (integrating B-mode 2-D vascular images, Doppler spectral analysis and color-flow Doppler imaging) were utilized to interrogate the extracranial carotid arteries, the vertebral arteries and proximal subclavian arteries bilaterally. The degree of stenosis is determined by criteria similar to NASCET. FINDINGS: Right Side: 1. There is mild atherosclerotic plaque seen in the bifurcation/proximal ICA region. 2. The common carotid artery PSV proximally is 68 cm/s and distally 93 cm/s. 3. The proximal internal carotid artery velocities are 66 cm/s systolic and 13 cm/s diastolic. 4. The proximal external carotid artery PSV is 150 cm/s. 5. The vertebral artery shows antegrade flow. 6. The subclavian artery waveforms are normal. Left Side: 1. There is mild atherosclerotic plaque seen in the bifurcation/proximal ICA region. 2. The common carotid artery PSV proximally is 68 cm/s and distally 68 cm/s. 3. The proximal internal carotid artery velocities are 117 cm/s systolic and 17 cm/s diastolic. 4. The proximal external carotid artery PSV is 178 cm/s. 5. The vertebral artery shows antegrade flow. 6. The subclavian artery waveforms are normal. No abnormal mass lesion visualized. Area of clinical concern in the right neck appears to correlate with the right distal common carotid artery. US/US carotid duplex BI IMPRESSION: 1. RIGHT: Minimal, non-hemodynamically significant stenosis of the proximal right internal carotid artery corresponding to a 0-49% stenosis by velocity criteria. 2. LEFT: Minimal, non-hemodynamically significant stenosis of the proximal left internal carotid artery corresponding to a 0-49% stenosis by velocity criteria.
== END 2023-06-01 11:03 | disposition home or self-care (01) ==
LOC: HO.US 11:02
PROVIDERS: PCP Internal Medicine; Visit Provider Internal Medicine
DX: I65.21 Occlusion and stenosis of right carotid artery (principal)
CPT/HCPCS: 93880

== ENCOUNTER 2023-06-08 09:41 | Outpatient (REF) | payer MEDICARE, SELFPAY ==
[2023-06-08 14:10] LABS: Appearance Urine Turbid; Color Urine Yellow; Glucose Urine UA Negative (Negative); Leukocyte Esterase Urine Large (3+) (Negative); Nitrite Urine Negative (Negative); Specific Gravity - Urine 1.015 (1.005-1.025); UMIC TRIGGER UACC YES; Urine Blood Moderate (2+) (Negative); Urine Ketones Negative (Negative); Urine Protein 30 (1+) mg/dL (Neg-Trace)
[2023-06-08 14:17] LABS: Bacteria Urine None Seen (None Seen); Hyaline Casts Urine 0-2 /LPF (0-2); UACC Culture Trigger YES; WBC Urine >50 /HPF (0-5)
== END 2023-06-08 09:42 | disposition home or self-care (01) ==
LOC: HO.HMGCLDS 09:41
PROVIDERS: PCP Internal Medicine; Visit Provider Internal Medicine
DX: R30.0 Dysuria (principal)
CPT/HCPCS: 81001; 81003; 87086

== ENCOUNTER 2023-08-23 09:00 | Outpatient (RCR) | payer MEDICARE, SELFPAY ==
--- NOTE | 2023-08-09 13:34 | MHC.PT.EP ---
[facility] [place] Office [place] Office [place] Office [address] [phone] F: [phone] F: [phone] F: [phone] F: [phone] Physical Therapy Plan of Care Date of Evaluation: 08/09/23 Date of Surgery: Diagnosis: vertigo Assessment: Pt is a 78yo female who was referred to PT for BPPV, tested to be + for L BPPV and treated during session. Neck stiffness and reduced ROM is a complication during treatment of vertigo and may also need to be addressed as appropriate. Pt is motivated to participate and help reduce her dizziness. Frequency and Duration: The patient will be seen 2x/week, x 4 weeks Short Term Goals: 1. In 2 weeks, patient will have -Adi Hallpike test on left. 2. In 2 weeks, patient will be able to use gaze stabilization to complete transitional movements independently. 3. In 2 weeks, patient will be able to actively turns head 40 degrees rotation to the L. Fpc Goals: 1. In 4 weeks, patient will report minimal dizziness when walking and turning her head left and right. 2. In 4 weeks, patient will be I with VOR habituation exercises. 3. In 4 weeks, patient will score WNL for DGI. Treatment Plan: Modalities to reduce pain, spasms and effusion. Manual therapy to restore motion and function. Therapeutic exercise to improve strength and flexibility. Neuromuscular re-education for posture and balance. Therapeutic activities to return to functional activities of daily living. Electronically signed by: Corina Paige, PT, DPT Please sign and return to therapist. Thank you for your referral.
--- NOTE | 2024-01-19 11:03 | MHC.PT.DC ---
[facility] [place] Office [place] Office [place] Office [address] [phone] F: [phone] F: [phone] F: [phone] F: [phone] Physical Therapy Discharge Report Diagnosis: vertigo Date of Surgery: Date of Evaluation: 08/09/23 Date of Discharge: 08/23/23 Treatments to Date: 4 Cancellations to Date: No Shows to Date: Discharge Status: Achieved Goals Improved Function Independent with HEP Discharge Summary: Pt participated in Skilled PT for BPPV. Pt reports significantly improved function and decreased vertigo. Pt in agreement to have PT put on hold x 2 weeks, and she will call if she has any reoccurrence of vertigo. Pt did not have recurrence and will be D/C at this time with recommendation to continue vestibular exercises PRN. Electronically signed by: Corina Paige PT, DPT Please sign and return to therapist. Thank you for your referral.
== END 2024-01-19 11:04 | disposition home or self-care (01) ==
LOC: HO.PT 09:00
PROVIDERS: PCP Internal Medicine; Visit Provider Internal Medicine
DX: H81.13 Benign paroxysmal vertigo, bilateral (principal)
CPT/HCPCS: 95992; 97110; 97140; 97161

== ENCOUNTER 2024-01-12 10:01 | Outpatient (REF) | payer MEDICARE, SELFPAY ==
[2024-01-12 12:12] LABS: Appearance Urine Turbid; Color Urine Yellow; Glucose Urine UA Negative (Negative); Leukocyte Esterase Urine Large (3+) (Negative); Nitrite Urine Positive (Negative); PH 5.5 (5.0-9.0); UMIC TRIGGER UACC YES; Urine Blood Trace (Negative); Urine Ketones Trace mg/dL (Negative); Urine Protein 30 (1+) mg/dL (Neg-Trace)
[2024-01-12 13:18] LABS: Bacteria Urine 3+ (None Seen); Hyaline Casts Urine 0-2 /LPF (0-2); UACC Culture Trigger YES; WBC Urine >50 /HPF (0-5)
== END 2024-01-12 10:02 | disposition home or self-care (01) ==
LOC: HO.10HDLNP 10:01
PROVIDERS: Visit Provider Internal Medicine
DX: R30.0 Dysuria (principal)
CPT/HCPCS: 81001; 87086; 87088; 87186

== ENCOUNTER 2024-02-01 06:49 | Outpatient (REF) | payer MEDICARE, SELFPAY ==
[2024-02-01 10:20] LABS: MANUAL DIFF FLAG NO
[2024-02-01 10:24] LABS: Appearance Urine Turbid; Basophils Percent Auto 0.7 % (0-2); Color Urine Yellow; Eosinophils Absolute Auto 0.3 X10*3/uL (0.0-0.4); Eosinophils Percent Auto 5.4 % (0-4); Glucose Urine UA Negative (Negative); Hematocrit 37.1 % (37.0-47.0); Hemoglobin 12.8 g/dl (12.0-16.0); Imm Gran Abs Auto 0.02 X10*3/uL (0.00-0.03); Imm Gran Pct Auto 0.3 % (0.0-0.4); Leukocyte Esterase Urine Large (3+) (Negative); Lymphocytes Absolute Auto 1.9 X10*3/uL (1.2-4.9); Lymphocytes Percent Auto 31.4 % (20-40); Mean Corpuscular HGB Conc 34.5 g/dl (31.0-35.0); Mean Corpuscular Hemoglobin 32.7 pg (27.0-33.0); Mean Corpuscular Volume 94.9 fL (80.0-98.0); Mean Platelet Volume 10.1 fL (9.4-12.3); Monocytes Absolute Auto 0.5 X10*3/uL (0.1-1.2); Monocytes Percent Auto 8.5 % (2-11); Neutrophils Absolute Auto 3.3 x10*3/uL (2.0-8.3); Neutrophils Percent Auto 53.7 % (45-73); Nitrite Urine Negative (Negative); PH 6.5 (5.0-9.0); Platelet Count 249 X10*3/uL (160-400); Red Blood Count 3.91 X10*6/uL (4.20-5.50); Red Cell Distribution Width 12.5 % (11.0-16.0); UMIC TRIGGER UA YES; Urine Blood Trace (Negative); Urine Ketones Negative (Negative); Urine Protein 30 (1+) mg/dL (Neg-Trace); White Blood Count 6.1 X10*3/uL (4.8-10.8)
[2024-02-01 10:47] LABS: Bacteria Urine 4+ (None Seen); Squamous Epithelial Cell Urine 0-2 /HPF (0-2); WBC Urine >50 /HPF (0-5)
[2024-02-01 11:00] LABS: Alanine Aminotransferase 23 U/L (0-31); Albumin Level 4.1 g/dL (3.5-5.0); Alkaline Phosphatase 66 U/L (39-117); Anion Gap 15 (12-20); Aspartate Amino Transferase 18 U/L (5-31); Bilirubin Total 0.7 mg/dL (0.0-1.0); Blood Urea Nitrogen 13 mg/dL (9-16); Calcium 9.4 mg/dL (8.4-10.2); Carbon Dioxide 26 mmol/L (22-29); Chloride 103 mmol/L (96-108); Cholesterol 122 mg/dL (<200); Estimated Glomerular Filt Rate > 60; Glucose Fasting 162 mg/dL (60-99); HDL Cholesterol 40 mg/dL (>40); LDL Cholesterol Calculated 67 mg/dL (<100); Potassium 4.1 mmol/L (3.3-5.1); Sodium 140 mmol/L (135-145); Total Protein 6.8 g/dL (6.5-8.0); Triglycerides 78 mg/dL (<150)
[2024-02-01 11:14] LABS: Estimated Average Glucose 146 mg/dL; Hemoglobin A1c % 6.7 % (<6.0)
[2024-02-01 11:34] LABS: Creatinine Urine 89.81 mg/dL; Microalbum/Creatinine Ratio Ur 321.7 ug/mg cr (<30)
== END 2024-02-01 06:50 | disposition home or self-care (01) ==
LOC: HO.HMGCLDS 06:49
PROVIDERS: PCP Internal Medicine; Visit Provider Internal Medicine
DX: I25.10 Atherosclerotic heart disease of native coronary artery without angina pectoris (principal); I10 Essential (primary) hypertension; E11.9 Type 2 diabetes mellitus without complications; E78.00 Pure hypercholesterolemia, unspecified
CPT/HCPCS: 36415; 80053; 80061; 81001; 82043; 82570; 83036; 85025

== ENCOUNTER 2024-02-04 08:30 | Outpatient (RCR) | payer MEDICARE, SELFPAY ==
[2024-01-19 09:08] VITALS: BP 120/54; PULSE 65
--- NOTE | 2024-01-19 10:51 | MHC.PT.EP ---
[facility] [place] Office [place] Office [place] Office [address] [phone] F: [phone] F: [phone] F: [phone] F: [phone] Physical Therapy Plan of Care Date of Evaluation: 01/19/24 Date of Surgery: Diagnosis: Vertigo Assessment: Pt is a 79yo female returning to PT for treatment of BPPV. PT exam reveals + [place] Hallpike on L, treated with Erna maneuver. Skilled PT indicated for canalith repositioning, as well as oculomotor training, and habituation exercises to overall improve her dizziness symptoms, and reduce risk for falls. Frequency and Duration: The patient will be seen 2x/week, x 4 weeks Short Term Goals: 1. Negative Adi Hallpike bilaterally in 2 weeks. 2. Pt will complete daily HEP including oculomotor and VOR uptraining with use of handout, >75% compliance. Hand Candy Dipper Goals: 1. Pt will be able to ambulate x 40 feet with head turns both directions and no major LOB. 2. Pt will report reduction in bouncing off fernandez by 50% in 4 weeks. Treatment Plan: Modalities to reduce pain, spasms and effusion. Manual therapy to restore motion and function. Therapeutic exercise to improve strength and flexibility. Neuromuscular re-education for posture and balance. Therapeutic activities to return to functional activities of daily living. Electronically signed by: Corina Paige PT, DPT Please sign and return to therapist. Thank you for your referral.
--- NOTE | 2024-04-26 12:40 | MHC.PT.DC ---
[facility] [place] Office [place] Office [place] Office [address] [phone] F: [phone] F: [phone] F: [phone] F: [phone] Physical Therapy Discharge Report Diagnosis: Vertigo Date of Surgery: Date of Evaluation: 01/19/24 Date of Discharge: 04/26/24 Treatments to Date: 3 Cancellations to Date: No Shows to Date: Discharge Status: Achieved Goals Improved Function Patient Elected to Stop Discharge Summary: Pt is a 79yo female who was referred to PT for dizziness. Treated with canalith repositioning maneuvers, VOR uptraining and habituation exercises. Pt did not require additional treatments following 3rd session on 02/04/24. D/C at this time. Thank you for this referral. Electronically signed by: Corina Paige PT, DPT Please sign and return to therapist. Thank you for your referral.
== END 2024-04-26 12:41 | disposition home or self-care (01) ==
LOC: HO.PT 08:30
PROVIDERS: PCP Internal Medicine; Visit Provider Internal Medicine
DX: H83.03 Labyrinthitis, bilateral (principal); H81.93 Unspecified disorder of vestibular function, bilateral
CPT/HCPCS: 95992; 97110; 97161

== ENCOUNTER 2024-02-17 11:33 | Outpatient (REF) | payer MEDICARE, SELFPAY ==
[2024-02-17 13:25] LABS: Urine Cytology See Pathology rpt
[2024-02-17 13:38] LABS: Appearance Urine Cloudy; Color Urine Yellow; Glucose Urine UA Negative (Negative); Leukocyte Esterase Urine Large (3+) (Negative); Nitrite Urine Negative (Negative); PH 5.5 (5.0-9.0); Specific Gravity - Urine 1.015 (1.005-1.025); UMIC TRIGGER UACC YES; Urine Blood Trace (Negative); Urine Ketones Negative (Negative); Urine Protein 30 (1+) mg/dL (Neg-Trace)
[2024-02-17 13:41] LABS: Bacteria Urine None Seen (None Seen); Hyaline Casts Urine 0-2 /LPF (0-2); RBC Urine 0-2 /HPF (0-2); Squamous Epithelial Cell Urine 0-2 /HPF (0-2); UACC Culture Trigger YES; WBC Urine >50 /HPF (0-5)
== END 2024-02-17 11:34 | disposition home or self-care (01) ==
LOC: HO.HMGCLDS 11:33
PROVIDERS: PCP Internal Medicine; Visit Provider Internal Medicine
DX: R30.0 Dysuria (principal)
CPT/HCPCS: 81001; 87086; 87088; 87186; 88112

== ENCOUNTER 2024-08-01 10:54 | Outpatient (REF) | payer MEDICARE, SELFPAY ==
--- OUTSIDE RECORDS SUMMARY | 2024-08-01 11:48 | XMS_ITS | Clinical Summary ---
Author Organization 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 Name Role Phone Kalin Salamanca MD Primary Care Provider [phone] Social History Tobacco Use Types Packs/Day Years Used Date Smoking Tobacco: Never Assessed Comments Unknown Sex and Gender Information Value Date Recorded Sex Assigned at Not on file Legal Sex Female 8:01 AM EDT Gender Identity Not on file Sexual Orientation Not on file Plan of Treatment Health Maintenance Due Date Last Done Comments Pneumococcal Vaccine: 65+ Ye ars (1 of 1 - PCV) 2011 Influenza Vaccine (#1) 2024 Hepatitis B Vaccine Aged Out No longe r eligible based on patient's age to complete this topic Insurance MEDICARE [facility] MEDICARE [facility] Care Teams Mortar Mixer Operator Relationship Specialty Start Date End Date Kalin Salamanca MD [address] [place] [address] [id number] [place], [place] PCP - General Internal Medicine 12/16/21
[2024-08-01 13:19] LABS: MANUAL DIFF FLAG NO
[2024-08-01 13:33] LABS: Basophils Percent Auto 0.4 % (0-2); Eosinophils Absolute Auto 0.6 X10*3/uL (0.0-0.4); Eosinophils Percent Auto 8.9 % (0-4); Hematocrit 35.2 % (37.0-47.0); Imm Gran Abs Auto 0.02 X10*3/uL (0.00-0.03); Imm Gran Pct Auto 0.3 % (0.0-0.4); Lymphocytes Percent Auto 28.4 % (20-40); Mean Corpuscular HGB Conc 34.1 g/dl (31.0-35.0); Mean Corpuscular Hemoglobin 32.3 pg (27.0-33.0); Mean Corpuscular Volume 94.9 fL (80.0-98.0); Mean Platelet Volume 10.6 fL (9.4-12.3); Monocytes Absolute Auto 0.6 X10*3/uL (0.1-1.2); Monocytes Percent Auto 8.1 % (2-11); Neutrophils Absolute Auto 3.9 x10*3/uL (2.0-8.3); Neutrophils Percent Auto 53.9 % (45-73); Platelet Count 247 X10*3/uL (160-400); Red Blood Count 3.71 X10*6/uL (4.20-5.50); Red Cell Distribution Width 12.4 % (11.0-16.0); White Blood Count 7.2 X10*3/uL (4.8-10.8)
[2024-08-01 13:50] LABS: Estimated Average Glucose 157 mg/dL; Hemoglobin A1C 173.9661 umol/L; Hemoglobin A1c % 7.1 % (<6.0); Total Hemoglobin (HGBA1C) 3199.6132 umol/L
[2024-08-01 13:57] LABS: Alanine Aminotransferase 21 U/L (0-31); Albumin Level 3.9 g/dL (3.5-5.0); Alkaline Phosphatase 65 U/L (39-117); Anion Gap 15 (12-20); Aspartate Amino Transferase 25 U/L (5-31); Bilirubin Total 0.4 mg/dL (0.0-1.0); Blood Urea Nitrogen 19 mg/dL (9-16); Carbon Dioxide 25 mmol/L (22-29); Chloride 103 mmol/L (96-108); Estimated Glomerular Filt Rate > 60; Glucose Random 136 mg/dL (60-115); Potassium 4.1 mmol/L (3.3-5.1); Sodium 139 mmol/L (135-145); Total Protein 6.8 g/dL (6.5-8.0)
[2024-08-01 14:13] LABS: Creatinine Urine 232.26 mg/dL; Microalbum/Creatinine Ratio Ur 18.5 ug/mg cr (<30)
== END 2024-08-01 10:55 | disposition home or self-care (01) ==
LOC: HO.HMGCLDS 10:54
PROVIDERS: PCP Internal Medicine; Visit Provider Internal Medicine
DX: E11.9 Type 2 diabetes mellitus without complications (principal); I10 Essential (primary) hypertension; E78.00 Pure hypercholesterolemia, unspecified; I25.10 Atherosclerotic heart disease of native coronary artery without angina pectoris
CPT/HCPCS: 36415; 80053; 82043; 82570; 83036; 85025

== ENCOUNTER 2024-09-26 14:30 | Outpatient (REF) | payer MEDICARE, SELFPAY ==
[2024-09-26 16:33] LABS: Appearance Urine Turbid; Color Urine Yellow; Glucose Urine UA Negative (Negative); Leukocyte Esterase Urine Large (3+) (Negative); Nitrite Urine Positive (Negative); PH 5.5 (5.0-9.0); UMIC TRIGGER UACC YES; Urine Blood Moderate (2+) (Negative); Urine Ketones Trace mg/dL (Negative); Urine Protein 100 (2+) mg/dL (Neg-Trace)
[2024-09-26 16:50] LABS: Bacteria Urine 4+ (None Seen); Calcium Oxalate Crystals Urine Present; Hyaline Casts Urine 0-2 /LPF (0-2); UACC Culture Trigger YES; WBC Urine >50 /HPF (0-5)
--- OUTSIDE RECORDS SUMMARY | 2024-09-26 17:22 | XMS_ITS | Clinical Summary ---
Author Organization [facility] Facility Address [address] [address] Care Team Providers Care Shoe Ironer Name Role Phone Kalin Salamanca MD Primary Care Provider [phone] Social History Tobacco Use Types Packs/Day Years Used Date Smoking Tobacco: Never Assessed Comments Unknown Sex and Gender Information Value Date Recorded Sex Assigned at Not on file Legal Sex Female 8:01 AM EDT Gender Identity Not on file Sexual Orientation Not on file Plan of Treatment Health Maintenance Due Date Last Done Comments Pneumococcal Vaccine: 65+ Ye ars (1 - PCV) 2011 Influenza Vaccine (Season Ended) 2025 Hepatitis B Vaccine Aged Out No longe r eligible based on patient's age to complete this topic Insurance MEDICARE [facility] MEDICARE [facility] Care Teams Shoe Ironer Relationship Specialty Start Date End Date Kalin Salamanca MD [address] [place] [address] [id number] [place], [place] PCP - General Internal Medicine 12/16/21
== END 2024-09-26 14:31 | disposition home or self-care (01) ==
LOC: HO.HMGCLDS 14:30
PROVIDERS: PCP Internal Medicine; Visit Provider Internal Medicine
DX: R30.0 Dysuria (principal)
CPT/HCPCS: 81001; 87086; 87088; 87186

== ENCOUNTER 2024-11-09 09:33 | Outpatient (AMB) | payer MEDICARE, SELFPAY ==
--- NOTE | 2024-11-09 09:04 | A.OFFPC_ITS ---
Vital Signs 11/09/24 09:05 Height 5 ft 2 in Weight 160 lb BMI 29.3 BP 140/76 H Blood Pressure Location Lt brachial Position Sitting Pulse 67 Pulse Source Pulse Oximeter Temp 97.6 F Temp Source Axillary Pulse Oximetry (%) 96 Oxygen Delivery Method Room Air Intake Visit Reasons: Routine Firewall Administrator Required: No Accompanied by: Self / Same As Patient Allergies egg [Egg] Allergy (Mild, Verified 11/09/24 09:05) RASH Sulfa (Sulfonamide Antibiotics) Allergy (Unknown, Verified 11/09/24 09:05) N/V TACHYCARDIC environmental allergies Adverse Reaction (Verified 11/09/24 09:05) Cough Tobacco use date assessed: 11/09/24 Fall risk assessment: 1 Fall in past year Last assessed Fall Risk: 11/09/24 Dental Screening Dental Screen Date: 11/09/24 Did you have a dental visit in the last 12 months?: Yes Did you have a dental problem in the last 6 months where you did not have access to dental care?: No HPI HPI Comments History of Present Illness Details The patient is a 79 year old female with a past medical history of CAD s/p CABG, diabetes, hypertension, hyperlipidemia, GERD, insomnia, pseudogout, BPPV presenting for follow up. Last seen by PCP in [place]: On asa 81mg daily, metoprolol 25mg twice daily, lipitor 80mg daily. Follows with Jan-LUIS MANUEL. Denies chest pain, shortness of breath. Echo ordered for this year feb, seeing them in march Neuro: Saw Dr Mueller-BPPV. Doing vestibular therapy- [facility] [place] DM: On metformin 500mg twice daily, glipizide 5mg twice daily. A1C 7.1%. Sees Dr Elicia reed. due for a1c Colonoscopy 2017 Mammo-no longer doing. Last 2019 ROS CONSTITUTIONAL: Denies weight loss, fever and chills. HEENT: Denies changes in vision and hearing. RESPIRATORY: Denies SOB and cough. CV: Denies palpitations and CP GI: Denies abdominal pain, nausea, vomiting and diarrhea. : Denies dysuria and urinary frequency. MSK: Denies new myalgia and joint pain. SKIN: Denies rash and pruritus. NEUROLOGICAL: Denies headache PSYCHIATRIC: Denies recent changes in mood. PHYSICAL EXAM: GENERAL: Alert and oriented x 3. NAD EYES: EOMI. Anicteric. HENT: Moist mucous membranes. No scleral icterus. No cervical lymphadenopathy. LUNGS: Clear to auscultation bilaterally. CARDIOVASCULAR: Regular rate and rhythm. No murmur. No JVD. ABDOMEN: Soft, non-tender +bs EXTREMITIES: No edema. Non-tender. SKIN: No rashes or lesions. Warm. NEUROLOGIC: No focal neurological deficits. CN II-XII grossly intact PSYCHIATRIC: Cooperative. Appropriate mood and affect [facility] Medical History Osteoarthritis of knees, bilateral HTN (hypertension) Surgical History History of colonoscopy (~03/11/17) History of excision of mass (02/02/23) History of arthroscopy of right knee (02/03/07) History of arthroscopy of left knee (03/08/03) History of eye surgery (2001) History of total hysterectomy (07/15/01) S/P tonsillectomy and adenoidectomy History of quadruple bypass (05/22/15) Family History Mother No problems noted. Father No problems noted. 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 1. Little interest or pleasure in doing things: not at all 2. Feeling down, depressed, or hopeless: not at all 3. Trouble falling or staying asleep, or sleeping too much: not at all 4. Feeling tired or having little energy: not at all 5. Poor appetite or overeating: not at all 6. Feeling bad about yourself - or that you are a failure or have let yourself or your family down: not at all 7. Trouble concentrating on things, such as reading the newspaper or watching television: not at all 8. Moving or speaking so slowly that other people could have noticed. Or the opposite - being so fidgety or restless that you have been moving around a lot more than usual: not at all 9. Thoughts that you would be better off or of hurting yourself in some way: not at all Total score: 0 Source: Developed by Drs. Prashanth Rodriguez, Kayleen Curran, Girish Capps and colleagues, with an educational veronica from [employer]. Thrive Questionnaire Date Thrive assessed: 11/09/24 I am a: Patient Within the past 12 months, did the food you bought not last and you didn't have the money to get more?: Never true Within the past 12 months, did you worry whether your food would run out before you got money to buy more?: Never true Do you have trouble paying for medicines?: No Do you have trouble getting transportation to medical appointments?: No Do you have trouble paying your heating and electricity bill?: No Do you have trouble taking care of your child, family member or friend?: No Do you have trouble with day-to-day activities such as bathing, preparing meals, shopping, managing finances, etc.?: No Are you currently unemployed and looking for a job?: No Are you interested in more education?: No THRIVE Score: 0 AUDIT C Alcohol Use Questionnaire (AUDIT-C) 1. How often do you have a drink containing alcohol?: Monthly or less 2. How many drinks containing alcohol do you have on a typical day when you are drinking?: 1 or 2 3. How often do you have six or more drinks on one occasion?: Less than monthly Total Score: 2 GERALD-7 AMB Questionnaire GERALD-7 Date GERALD - 7 assessed: 11/09/24 Feeling nervous, anxious, or on edge: 0 = Not at all Not being able to stop or control worryin = Not at all Worrying too much about different things: 0 = Not at all Trouble relaxin = Not at all Being so restless that it is hard to sit still: 0 = Not at all Becoming easily annoyed or irritable: 0 = Not at all Feeling afraid as if something awful might happen: 0 = Not at all Total GERALD-7 score (0-4 normal; 5-9 mild; 10-14 moderate; 15-21 severe): 0 Source: Developed by Drs. Prashanth Rodriguez, Kayleen Curran, Girish Capps and colleagues, with an educational veronica from [employer]. Physical exam (Primary Care) Vital Signs: Last Vital Signs Temp 97.6 F 11/09/24 09:05 Pulse 67 11/09/24 09:05 BP 140/76 H 11/09/24 09:05 Pulse Ox 96 11/09/24 09:05 Oxygen Delivery Method Room Air 11/09/24 09:05 BMI result Body Mass Index 29.3 Tobacco/Smoking Status: Tobacco use Status Tobacco use date assessed 11/09/24 11/09/24 09:07 Patient Tobacco Use Status Former Tobacco user 11/09/24 09:51 e-Cigarette/Vaping Use Former Use 11/09/24 09:51 PHQ-9: PHQ-9 Score PHQ-9: Total score 0 11/09/24 09:51 Thrive Assessment: Date of Thrive Assessment Date Thrive assessed 11/09/24 11/09/24 09:07 Coding Level of Care Code Est Pt Level 4 (16406) Diagnoses Frequent UTI N39.0 Type 2 diabetes mellitus with hyperglycemia, without long-term current use of insulin E11.65 Diabetes mellitus terminal carman insulin use: without terminal carman use Diabetes mellitus complication status: with hyperglycemia Benign paroxysmal positional vertigo, unspecified laterality H81.10 Laterality: unspecified laterality Assessment & Plan Assessment & Plan (1) Frequent UTI: Code(s): N39.0 - Urinary tract infection, site not specified Category: Medical (2) Type 2 diabetes mellitus: Code(s): E11.9 - Type 2 diabetes mellitus without complications Category: Medical Qualifiers: Diabetes mellitus [facility] insulin use: without terminal carman use Diabetes mellitus complication status: with hyperglycemia Qualified Code(s): E11.65 - Type 2 diabetes mellitus with hyperglycemia (3) Benign paroxysmal positional vertigo: Code(s): H81.10 - Benign paroxysmal vertigo, unspecified ear Category: Medical Qualifiers: Laterality: unspecified laterality Qualified Code(s): H81.10 - Benign paroxysmal vertigo, unspecified ear Plan 79 y/o with diabetes Due for [id number]. last A1C 7.1%. Annual eye exams Insomnia-continue zolpidem Frequent UTI-UA/UCx ordered Orders: Orders Hemoglobin A1c 11/09/24 E11.9 - Type 2 diabetes mellitus without complications Comprehensive Met. Panel 11/09/24 E11.9 - Type 2 diabetes mellitus without complications Hemoglobin A1c 3 Months E11.9 - Type 2 diabetes mellitus without complications UA CC w/rflx Micro + Cult 11/09/24 N39.0 - Urinary tract infection, site not specified Comprehensive Met. Panel 3 Months E11.9 - Type 2 diabetes mellitus without co mplications Lipid Panel 11/09/24 E11.9 - Type 2 diabetes mellitus without complications Medications: New ciprofloxacin HCl 500 mg PO BID 14 tabs 1RF meclizine 25 mg PO TID PRN 30 tabs 3RF dizziness zolpidem 10 mg PO BEDTIME PRN 30 tabs 1RF sleep zolpidem 5 mg PO BEDTIME PRN 30 tabs 0RF sleep
[2024-11-09 09:05] VITALS: BP 140/76; PULSE 67; TEMP 36.4; O2SAT 96; BMI 29.3
== END 2024-11-09 10:29 | disposition home or self-care (01) ==
LOC: HO.HMCHD 09:34
PROVIDERS: PCP Internal Medicine; Visit Provider Internal Medicine
DX: N39.0 Urinary tract infection, site not specified (principal); E11.65 Type 2 diabetes mellitus with hyperglycemia; H81.10 Benign paroxysmal vertigo, unspecified ear

== ENCOUNTER → 2024-11-09 09:33 | Outpatient (BNVA) | payer MEDICARE, SELFPAY | PROVIDERS: PCP Internal Medicine; Visit Provider Internal Medicine | DX: Z13.89 Encounter for screening for other disorder (principal) | CPT/HCPCS: 99212 ==

== ENCOUNTER 2024-11-09 10:34 | Outpatient (REF) | payer MEDICARE, SELFPAY ==
--- OUTSIDE RECORDS SUMMARY | 2024-11-09 11:43 | XMS_ITS | Clinical Summary ---
Author Organization [facility] Facility Address [address] [address] Care Team Providers Care Legal Document Assistant Name Role Phone Kalin Salamanca MD Primary Care Provider [phone] Social History Tobacco Use Types Packs/Day Years Used Date Smoking Tobacco: Never Assessed Comments Unknown Sex and Gender Information Value Date Recorded Sex Assigned at Not on file Legal Sex Female 8:01 AM EDT Gender Identity Not on file Sexual Orientation Not on file Plan of Treatment Health Maintenance Due Date Last Done Comments Pneumococcal Vaccine: 50+ Ye ars (1 - PCV) 01/15/1996 Influenza Vaccine (Season Ended) 2025 Hepatitis B Vaccine Aged Out No longe r eligible based on patient's age to complete this topic Insurance Medicare [facility] Medicare [facility] Care Teams Legal Document Assistant Relationship Specialty Start Date End Date Kalin Salamanca MD [address] [place] [address] [address] [place], [place] PCP - General Internal Medicine 12/16/21
[2024-11-09 13:57] LABS: Estimated Average Glucose 154 mg/dL; Hemoglobin A1C 171.7674 umol/L; Total Hemoglobin (HGBA1C) 3230.7809 umol/L
[2024-11-09 14:05] LABS: Alanine Aminotransferase 35 U/L (0-31); Albumin Level 4.1 g/dL (3.5-5.0); Alkaline Phosphatase 75 U/L (39-117); Anion Gap 12 (12-20); Aspartate Amino Transferase 42 U/L (5-31); Bilirubin Total 0.5 mg/dL (0.0-1.0); Blood Urea Nitrogen 13 mg/dL (9-16); Calcium 9.6 mg/dL (8.4-10.2); Carbon Dioxide 27 mmol/L (22-29); Chloride 105 mmol/L (96-108); Cholesterol 133 mg/dL (<200); Estimated Glomerular Filt Rate > 60; Glucose Random 155 mg/dL (60-115); HDL Cholesterol 37 mg/dL (>40); LDL Cholesterol Calculated 69 mg/dL (<100); Potassium 4.2 mmol/L (3.3-5.1); Sodium 140 mmol/L (135-145); Total Protein 6.8 g/dL (6.5-8.0); Triglycerides 136 mg/dL (<150)
== END 2024-11-09 10:35 | disposition home or self-care (01) ==
LOC: HO.10HDL 10:34
PROVIDERS: Visit Provider Internal Medicine
DX: E11.9 Type 2 diabetes mellitus without complications (principal); N39.0 Urinary tract infection, site not specified
CPT/HCPCS: 36415; 80053; 80061; 83036; 99212

== ENCOUNTER 2024-12-18 08:46 | Outpatient (REF) | payer MEDICARE, SELFPAY ==
--- OUTSIDE RECORDS SUMMARY | 2024-12-18 09:09 | XMS_ITS | Patient Health Record ---
Author Organization [facility] Address [address] [place] [address] Care Team Providers Care Patternmaker Grader Name Role Phone Kalin Salamanca MD Primary Care Provider Prashanth Silverman Unavailable [phone] Allergies Allergen (clinical drug ingredient) Drug/Non Drug Allergy documented on EMR Reaction Allergy Type Onset Date Status Sulfa Unknown Drug Allergy Active eggs (uncoded) Unknown Allergy Activ e Reason For Referral No Information Medications Medication SIG (Take, Route, Frequency, Duration) Notes Start Date End Date Status Metoprolol Succinate ER 25 MG 1 tablet Orally Once a day Active Multivitamin & Mineral 1 1 tablet Orally once a day Active Aspirin 81 MG 1 tablet Orally Once a day Active Willis-3 650 1 capsule Orally Onc e a day Active Osteo Bi-Flex Regular Strength Active Atorvastatin Calcium 80 MG 1 tablet Oral ly Once a day Active Zolpidem Tartrate 5 MG 1 tablet at bedti me Orally Once a day Active Omeprazole 20 MG 1 capsule Orally Onc e a day Active Baby Aspirin 81 mg 1 tablet orally once a day Active Social History Tobacco Use: Social History Observation Description Date Details (start date - stop date) Never Smoker NA - NA Tobacco Use/Smoking Question Answer Notes Patient is a nonsmoker Alcohol Screen Question Answer Notes Did you have a drink contain ing alcohol in the past year? Yes How often did you have a dri nk containing alcohol in the past year? 2 to 4 times a month (2 points) How many drinks did you have on a typical day when you were drinking in the past year? 5 or 6 drinks (2 points) How often did you have 6 or more drinks on one occasion in the past year? Never (0 point) Points 4 Interpretation Positive Section Notes: Nonsmoker; no sig alcohol Problems Problem Type SNOMED Code ICD Code Onset Dates Problem Status W/U Status Risk Notes Problem 290271920 Encounter for screening for malignant neoplasm of colon (Z12.11) Active confirmed Problem 739714098 Aspirin long-term use (Z79.82) Active confirmed Problem 344661920 Pre-procedural examination (Z01.818) Active confirmed Plan Of Treatment Future Test Test Name Order Date COLONOSCOPY 12/15/2016 Insurance Providers Payer Name Payer Address Payer Phone Subscriber Number Group Number Insured Name Patient Relationship to Insured Coverage Start Date Coverage End Date MEDICARE OF [place] [address] [place] [address] [id number] MELODYMADDYVALENTINE JAMES Self - patient is the insured [employer] ATT[employer] CLAIMS [address] [place] [address] [id number] VALENTINE DRUMMOND Self - patient is the insured Medical (General) History Medical History History ICD Code CAD--angina--no AL--4V CABG-2014 Uterine cancer Seasonal allergies Ablation-irregular heart beat-successful Urinary incontinence-mild Denies AL,DM,CVA,Lung disease,renal dise ase GERD Screening colonoscopy in Mar was negative other than some mild diverticulosis and small internal hemorrhoids Surgical History Surgery Date(Month/Year) [facility] 07/15/2001 Bilateral cataracts - Dr. Ruchi Ortega 20 02 Rotator Cuff left - Dr. Banks 08/21/19 03 Torn cartilage -arthroscopic on left kne e -Dr. Banks 03/08/2003 Torn Cartilage- arthroscopic right knee- dr. Banks 02/03/2007 4V-CABG Dr. [facility] 05/22/2015
[2024-12-18 10:15] LABS: Appearance Urine Turbid; Color Urine Yellow; Glucose Urine UA 500 mg/dL (Negative); Leukocyte Esterase Urine Large (3+) (Negative); Nitrite Urine Negative (Negative); UMIC TRIGGER UACC YES; Urine Blood Small (1+) (Negative); Urine Ketones Trace mg/dL (Negative); Urine Protein 100 (2+) mg/dL (Neg-Trace)
[2024-12-18 10:21] LABS: Bacteria Urine 4+ (None Seen); Hyaline Casts Urine 0-2 /LPF (0-2); Squamous Epithelial Cell Urine 0-2 /HPF (0-2); UACC Culture Trigger YES; WBC Urine >50 /HPF (0-5)
== END 2024-12-18 08:47 | disposition home or self-care (01) ==
LOC: HO.HMGCLDS 08:46
PROVIDERS: PCP Internal Medicine; Visit Provider Internal Medicine
DX: N39.0 Urinary tract infection, site not specified (principal)
CPT/HCPCS: 81001; 87086; 87088; 87186

== ENCOUNTER 2025-01-03 09:00 | Outpatient (RCR) | payer MEDICARE, SELFPAY | END 2025-02-01 09:19 | disposition home or self-care (01) | LOC: HO.PT 09:00 | PROVIDERS: PCP Psychiatry & Neurology Neurology; Visit Provider Psychiatry & Neurology Neurology | DX: H81.11 Benign paroxysmal vertigo, right ear (principal) | CPT/HCPCS: 95992; 97112; 97161; 97535 ==

== ENCOUNTER 2025-01-17 08:40 | Outpatient (REF) | payer MEDICARE, SELFPAY ==
--- OUTSIDE RECORDS SUMMARY | 2025-01-17 08:58 | XMS_ITS | Clinical Summary ---
Author Organization [facility] Address [address] [place] [address] Phone Care Team Providers Care Door Machine Operator Name Role Phone Kalin Salamanca MD Primary Care Provider Jean Carlos Steele MD Unavailable [phone] Allergies Active Allergy Reactions Criticality Noted Date Comments Egg 04/14/2018 Sulfa (Sulfonamide Antibiotics) 03/28 Medications aspirin 81 MG EC tablet Take 1 tablet by mouth daily. Active omeprazole (PRILOSEC) 20 MG capsule Take 1 capsule by mouth daily. Active zolpidem (AMBIEN) 5 MG tablet 1 tablet once daily Active metFORMIN (GLUCOPHAGE) 500 MG tablet Take 500 mg by mouth 2 (two) times a day. Active calcium carb/vit D3/minerals (CALCIUM PLUS ORAL) Take by mouth. Activ e xxlyg-3d-nnp-ep a-fish oil 332.5-100-200 mg Cap Take by mouth. Activ e ascorbic acid (VITAMIN C ORAL) Take by mouth. Activ e vit C/E/Zn/coppr/rick tein/zeaxan (PRESERVISION AREDS-2 ORAL) Take by mouth. A ctive ciprofloxacin HCl (CIPRO) 500 MG tablet Take 500 mg by mouth 2 (two) times a day. Active cefuroxime (CEFTIN) 250 MG tablet 2 Active glucosamine 500 mg Cap Take 500 mg by mouth 3 (three) times a day. Active metoprolol succinate (TOPROL-XL) 25 MG 24 hr tabletIndicatio ns:Medication refill TAKE 1 TABLET BY MOUTH ONCE DAILY 90 tablet 3 2 Active Additional Information Patient taking differently: 2 times daily, Reported on 02/11/2023 glipiZIDE (GLUCOTROL XL) 5 MG 24 hr tablet Take 1 tablet by mouth 2 (two) times a day. 3 Active cyclobenzaprine (FLEXERIL) 10 MG tablet Take 1 tablet by mouth 2 (two) times a day. 3 Active atorvastatin (LIPITOR) 80 MG tabletIndicatio ns:Medication refill TAKE 1 TABLET BY MOUTH ONCE DAILY 90 tablet 3 3 Active LORazepam (ATIVAN) 0.5 MG tablet Take 0.5 mg by mouth nightly at bedtime as needed. 4 Active Active Problems Problem Noted Date Diagnosed Date Benign essential hypertension 07/28/2022 Assessment & Plan (07/28/2022 9:59 AM EST): Pressure is elevated today she is taking increased dose of metoprolol as advised when she was discharged from the hospital she should observe her blood pressure if necessary I will suggest that she should be started on a ARB History of coronary artery bypass surgery 2017 Overview (04/13/2018): CABG: JUDGE to LAD, vein grafts to first diagonal, first marginal, and PDA Assessment & Plan (07/28/2022 9:57 AM EST): Patient is doing well since her surgery she does not have any chest pain shortness of breath or palpitation we will continue her statin aspirin and beta-craig get an echocardiogram for LV wall motion and LVEF Mixed hyperlipidemia 04/08/2018 Assessment & Plan (07/28/2022 9:59 AM EST): He is on statin she has no side effects she should continue that and have a lipid profile and LFTs done with her PCP Status post ablation of accessory bypass tract 1 Assessment & Plan (07/28/2022 9:58 AM EST): 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 Not on desi e 10/23/2022 Are you concerned about learning? Not on file 10/23/2022 No 10/23/2022 No 10/23/2022 Digital Access Answer Date Recorded No 11/21/2022 No 11/21/2022 Reliable internet access at home? Not on file 11/21/2022 Device with a working camera? Not on file Comments Unknown Sex and Gender Information Value Date Recorded Sex Assigned at Not on file Legal Sex Female 10:08 PM EDT Gender Identity Not on file Sexual Orientation Not on file Last Filed Vital Signs Vital Sign Reading Time Taken Comments Blood Pressure 132/72 04/13/2024 9:28 AM EDT Pulse 76 04/13/2024 9:28 AM EDT Temperature - - Respiratory Rate - - Oxygen Saturation 97% 04/13/2024 9:28 AM EDT Inhaled Oxygen Concentration - - Weight 67.6 kg (149 lb) 04/13/2024 9:28 AM EDT Height 157.5 cm (5' 2 ) 04/13/2024 9:28 AM EDT Body Mass Index 27.25 04/13/2024 9:28 AM EDT Plan of Treatment Upcoming Encounters Date Type Department Care Team (Late st Contact Info) Description 04/13/2024 Procedure Pass Echo Lab [address] [place] [address] 03/27/2025 10:15 AM EDT Appointment Echo Lab [place] [address] [place] [address] Venkat Montoya MD [address] [facility], [address] [place] [phone] [email or web address] 04/02/2026 10:15 AM EDT Office Visit [facility] [address] [place] [address] [address]rd Floor, [address] [place], [place] [id number] Jean Carlos Ghotra DO [address] [facility] [address] [place] [id number] [email or web address] Health Maintenance Due Date Last Done Comments Adult Td,Tdap Booster 1946 CREATININE LEVEL 1946 LIPID PANEL 1946 DEPRESSION SCREENING 1958 SMOKING Hx and SMOKELESS TOBACCO SCREENING 1959 HEPATITIS C SCREENING 01/15/1964 ZOSTER VACCINES (1 of 2) 01/15/1996 OSTEOPOROSIS SCREENING INITIAL (ONE-TIME) 2011 PNEUMOCOCCAL VACCINES (50+ years) (2 of 2 - PPSV23) 03/17/2017 03/17/2016 RSV VACCINE (1 - 1-dose 75+ series) 2021 COVID-19 VACCINE ( - season) 2024 11/17/2021, 04/07/2021, 10/09/2020, Additional history exists BLOOD PRESSURE 10/12/2024 04/13/2024 HEPATITIS A VACCINES Aged Out No long er eligible based on patient's age to complete this topic HIB VACCINES Aged Out No longer eligi ble based on patient's age to complete this topic MENINGOCOCCAL VACCINES (ACWY) Aged Out No longer eligible based on patient's age to complete this topic MENINGOCOCCAL VACCINES (B) Aged Out N o longer eligible based on patient's age to complete this topic Medical Devices Not on file Insurance MEDICARE PART A & B [facility] MEDEX SUPPLEMENT MEDICARE PART A & B [facility] MEDEX SUPPLEMENT MEDICARE PART A & B [employer] MEDEX SUPPLEMENT MEDICARE PART A & B [place] MEDEX SUPPLEMENT MEDICARE PART A & B [employer] MED[employer] SUPPLEMENT MEDICARE PART A & B [employer] MED[employer] SUPPLEMENT MEDICARE PART A & B [employer] SUPPLEMENT MEDICARE PART A & B [employer] MEDEX SUPPLEMENT MEDICARE PART A & B [employer] MEDEX SUPPLEMENT Care Teams Door Machine Operator Relationship Specialty Start Date End Date Kalin Salamanca MD [address] [place] [address] [place] [address] PCP - General 04/15/17 Jean Carlos Steele MD [address] [place] [address] [place] [id number] [email or web address] LMR Provider 04/15/17 Additional Source Comments The information contained in this document represents components of the legal health record. It is not the complete legal health record.[facility]
--- OUTSIDE RECORDS SUMMARY | 2025-01-17 08:58 | XMS_ITS | Clinical Summary ---
Author Organization [facility] Facility Address [address] [address] Care Team Providers Care Flow Coordinator Name Role Phone Kalin Salamanca MD Primary Care Provider [phone] Social History Tobacco Use Types Packs/Day Years Used Date Smoking Tobacco: Never Assessed Comments Unknown Sex and Gender Information Value Date Recorded Sex Assigned at Not on file Legal Sex Female 8:01 AM EDT Gender Identity Not on file Sexual Orientation Not on file Plan of Treatment Health Maintenance Due Date Last Done Comments Pneumococcal Vaccine: 50+ Ye ars (1 of 1 - PCV) 01/15/1996 Influenza Vaccine (#1) 2025 Hepatitis B Vaccine Aged Out No longe r eligible based on patient's age to complete this topic Insurance Medicare [facility] Medicare [facility] Care Teams Flow Coordinator Relationship Specialty Start Date End Date Kalin Salamanca MD [address] [place] [address] [address] [place], [place] PCP - General Internal Medicine 12/16/21
--- OUTSIDE RECORDS SUMMARY | 2025-01-17 08:58 | XMS_ITS | Patient Health Record ---
Author [facility] Address [address] [place] [address] Care Team Providers Care Production Troubleshooter Name Role Phone Kalin Salamanca MD Primary Care Provider Wesley Campbell Unavailable [phone] Allergies Allergen (clinical drug ingredient) Drug/Non Drug Allergy documented on EMR Reaction Allergy Type Onset Date Status eggs (uncoded) Unknown Allergy Activ e sulfa upset stomach Drug Allergy Act rose Reason For Referral No Information Medications Medication SIG (Take, Route, Fr equency, Duration) Notes Start Date End Date Status Verapamil HCl Active Metoprolol Succinate ER Active Flecainide Acetate A ctive Zolpidem Tartrate Ac tive Lipitor Active Omeprazole Active Meloxicam Active Problems Problem Type SNOMED Code ICD Code Onset Dates Problem Status W/U Status Risk Notes Problem Onychomycosis (571333750) Onychomycosis (110.1) Active confirmed Problem Pain in limb (29640338) Pain in Limb (729.5) Active confirmed Problem Congenital pes planus (07701503) Flat Foot, Congenital (754.61) Active confirmed Problem Ingrowing nail (184434788) Ingrowing Nail (703.0) Active confirmed Plan Of Treatment Pending Test Test Name Order Date X ray : Foot, left 2V 04/20/2013 [id number] NAIL, 1-01/09/2013 [id number] NAIL, -04/20/2013 [id number] NAIL, -04/14/2012 [id number] NAIL, -07/14/2012 [id number] NAIL, -10/17/2012 [id number] NAIL, - 08/21/2013 [id number] Plate 10/17/201254047,H2104-ADA TENDON SHEATH/LIGAMENT 1 50,[id number] TENDON SHEATH/LIGAMENT 1 07/18/2012 Insurance Providers Payer Name Payer Address Payer Phone Subscriber Number Group Number Insured Name Patient Relationship to Insured Coverage Start Date Coverage End Date Medicare National Govt [employer] [facility] [address] [place] [address] [id number] DestinchristinaPati davies Self - patient is the insured 1 [employer] [address] [place] [address] [id number] DestinchristinaPati davies Self - patient is the insured Medical (General) History Medical History History ICD Code Arthritis back, hip, knee pain cholesterol cancer high blood pressure reflux measles mumps chicken pox Surgical History Surgery Date(Month/Year) rotator cuff tear repair 2002 cataract surgery 2001 hysterectomy, total with bilateral salpi gabriel-oophorectomy (BSO) 2002 Torn cartilage 2002, 2006 Hospitalization History Reason Date(Month/Year) Patient went to [facility] for irregular hea rt beat. 07/2012
--- OUTSIDE RECORDS SUMMARY | 2025-01-17 08:58 | XMS_ITS | Patient Health Record ---
Author Organization [facility] Address [address] [place] [address] Care Team Providers Care Swimmer Name Role Phone Jadyn (RETIRED) Kalin LINARES Primary Care Provide r Prashanth Wall [phone] Allergies Allergen (clinical drug ingredient) Drug/Non Drug [...] 1 tablet Orally Once a day Active [place]-3 650 1 capsule Orally Onc e a [...] Problem Status W/U Status Risk Notes Problem 570016921 Encounter for screening for malignant neoplasm of colon (Z12.11) Active confirmed Problem 603209490 Aspirin long-term use (Z79.82) Active confirmed Problem [id number] Pre-procedural examination (Z01.818) Active confirmed Plan Of Treatment Future Test Test Name Order Date COLONOSCOPY 12/15/2016 Insurance Providers Payer Name Payer Address Payer Phone Subscriber Number Group Number Insured Name Patient Relationship to Insured Coverage Start Date Coverage End Date MEDICARE OF [place] [address] [place] [address] [phone] [id number] MELODYANA VALENTINE Self - patient is the insured [employer] CLAIM[employer] [address] [place] [phone] [id number] MELODYANA VALENTINE Self - patient is the insured Medical (General) History Medical History History ICD Code 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 Ruchi Ortega 20 02 Rotator Cuff left - Dr. Banks 08/21/19 03 Torn cartilage -arthroscopic on left kne e -Dr. Banks 03/08/2003 Torn Cartilage- arthroscopic right knee- dr. Banks 02/03/2007 4V-CABG Dr. Pisano-[facility] 05/22/2015
[2025-01-17 10:17] LABS: Appearance Urine Cloudy; Glucose Urine UA Negative (Negative); PH 5.5 (5.0-9.0); Specific Gravity - Urine 1.020 (1.005-1.025); UMIC TRIGGER UACC YES
[2025-01-17 10:27] LABS: UACC Culture Trigger YES
== END 2025-01-17 08:41 | disposition home or self-care (01) ==
LOC: HO.HMGCLDS 08:40
PROVIDERS: PCP Internal Medicine; Visit Provider Internal Medicine
DX: N39.0 Urinary tract infection, site not specified (principal)
CPT/HCPCS: 81001; 87086

== ENCOUNTER 2025-01-18 09:05 | Emergency (ER) | payer MEDICARE, SELFPAY ==
--- NOTE | ~2025-01-18 | XR_ITS ---
EXAMINATION: XR KNEE, RIGHT CLINICAL INFORMATION: pain COMPARISON: 12/15/2021. TECHNIQUE: Four views of the right knee. FINDINGS: There is mild osteopenia diffusely. There is a benign enchondroma in the distal metadiaphysis of the femur, unchanged. There is chondrocalcinosis in the medial and lateral compartments. There is mild medial and lateral compartment arthritis, with more pronounced patellofemoral compartment arthropathy. This likely reflects CPPD. There is a suprapatellar joint effusion. Soft tissues demonstrate vascular calcifications. XR/XR knee RT 3V IMPRESSION: 1. No acute abnormalities of the right knee. 2. 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 3. Mild osteopenia. 4. Stable enchondroma distal femoral metadiaphysis. Electronically signed by: Trav Duenas MD 01/18/2025 10:04 AM EDT
[2025-01-18 09:19] VITALS: BP 140/69; BP 155/75; PULSE 96; RESP 20; TEMP 36.7; O2SAT 97; BMI 27.6
--- NOTE | 2025-01-18 09:21 | PC.NURSE ---
pt comes to ED after waking up today unable to able weight on her right leg. She reports right knee pain and swelling. LAst night she got up a couple of times to go to the bathroom and states she did not have pain but was hobbling to the bathroom. This morning she noticed right knee was swollen and so painful she could not walk. In ED R. knee is noticeable swollen, no redness. lateral tenderness.
--- NOTE | 2025-01-18 09:36 | ED.GENADULT ---
HPI - General Adult General Chief complaint: Extremity Injury, Lower Stated complaint: R KNEE PAIN/SWELLING,UNABLE TO BEAR ,NO NEW INJURY Time Seen by Provider: 01/18/25 09:36 Source: patient and EMS Mode of arrival: EMS Limitations: no limitations History of Present Illness ED Provider: Tammy Urrutia PA-C HPI narrative: Patient is a 80 year old assigned female at with a history of gout, CAD, DM, and BPPV presenting to the emergency department today with right knee pain and swelling. Patient states that she woke up this morning with right knee pain and swelling that is new for her. Patient denies any dizziness, lightheadedness, abdominal pain, nausea, vomiting, fever, chills, blurry vision, double vision, loss of vision, chest pain, difficulty breathing, shortness of breath, back pain, night sweats, pain with urination, increased urinary frequency, increased urinary urgency, blood in her urine or stool, syncope or a near syncopal episode, recent trauma or falls, bowel incontinence, bladder incontinence, or any other complaints at this time. Relieving factors: none Exacerbating factors: movement Associated symptoms: denies other symptoms Treatments prior to arrival: none Related Data Home Medications ?Medication ?Instructions ?Recorded ?Confirmed ascorbic acid (vitamin C) 500 mg 500 mg PO DAILY 12/14/21 01/18/25 tablet (Vitamin C) glucosamine sulfate 500 mg tablet 500 mg PO BID 12/14/21 01/18/25 (Glucosamine) metformin 500 mg tablet,extended 1 tab PO BID 12/14/21 01/18/25 release 24 hr omeprazole 20 mg capsule,delayed 1 cap PO DAILY 12/14/21 01/18/25 release vit C 250 mg-E 90 mg-zinc 40 1 tab PO BID 12/14/21 01/18/25 mg-copper 1 [id number] chew tablet (PreserVision AREDS-2) aspirin 81 mg tablet,delayed 81 mg PO DAILY 01/15/23 01/18/25 release (Adult Low Dose Aspirin) glipizide 5 mg tablet, extended 5 mg PO BID 01/15/23 01/18/25 release 24 hr metoprolol succinate 25 mg 25 mg PO BID 01/18/25 01/18/25 tablet,extended release 24 hr Previous Rx's ?Medication ?Instructions ?Recorded atorvastatin 80 mg tablet 80 mg PO BEDTIME #90 tabs 04/30/25 zolpidem 5 mg tablet 5 mg PO BEDTIME PRN sleep #30 tabs 01/01/25 colchicine 0.6 mg capsule See Rx Instructions .Route 01/19/25 .COMPLEX #3 caps cefuroxime axetil 250 mg tablet 250 mg PO Q12H #10 tabs 01/22/25 Allergies Allergy/AdvReac Type Severity Reaction Status Date / Time egg (Egg) Allergy Mild RASH Verified 01/18/25 09:21 Sulfa (Sulfonamide Allergy Unknown N/V Verified 11/09/24 09:05 Antibiotics) TACHYCARDIC environmental allergies AdvReac Cough Verified 11/09/24 09:05 Review of Systems Constitutional: Constitutional: Reports no additional constitutional complaints, Denies chills, Denies fever(s) and Denies night sweats Eyes: Eyes: Reports no additional eye complaints, Denies blurry vision, Denies change in vision, Denies diplopia, Denies eye discharge, Denies loss of vision and Denies eye pain ENT: Denies dizziness Cardiovascular: Cardiovascular: Reports no additional cardiovascular complaints, Denies chest pain, Denies lightheadedness, Denies Loss of Consciousness and Denies dyspnea Respiratory: Respiratory: Reports no additional respiratory complaints and Denies dyspnea Gastrointestinal: Gastrointestinal: Reports no additional gastrointestinal complaints, Denies abdominal pain, Denies melena, Denies hematochezia, Denies change in bowel habits and Denies change in stool character Genitourinary: Genitourinary: Denies hematuria, Denies urinary frequency, Denies dysuria, Denies urinary incontinence, Denies urinary hesitancy and Denies urinary urgency Musculoskeletal: Musculoskeletal: Reports no additional musculoskeletal complaints, Denies numbness and Denies tingling Comments: right knee swelling right knee pain Neurologic: Denies dizziness, Denies loss of vision, Denies numbness and Denies tingling Psychiatric: Psychiatric: Reports no additional psychiatric complaints Endocrine: Endocrine: Reports no additional endocrine complaints Hematologic/Lymphatic: Hematologic/Lymphatic: Reports no additional hematologic/lymphatic complaints Allergic/Immunologic: Allergic/Immunologic: Reports no additional allergic/immunologic complaints PMFSH Past Medical History Attestation statement: The following information was validated with the patient. Source: old records reviewed and nursing notes reviewed Medical History Osteoarthritis of knees, bilateral HTN (hypertension) Surgical History History of colonoscopy (~03/11/17) History of excision of mass (02/02/23) History of arthroscopy of right knee (02/03/07) History of arthroscopy of left knee (03/08/03) History of eye surgery (2001) History of total hysterectomy (07/15/01) S/P tonsillectomy and adenoidectomy 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 Father No problems noted. 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 Cognitive needs: No Hearing needs: No Vision needs: Yes (rx glasses) Physical Exam ED Vital Signs: Vital Signs - 24 hr 01/18/25 14:00 01/18/25 14:09 01/18/25 20:00 Temperature 98 F 98.6 F Pulse Rate 86 109 H Respiratory Rate 18 16 Blood Pressure 156/79 H 176/98 H Pulse Oximetry 93 92 93 Oxygen Delivery Method Room Air Room Air 01/19/25 06:00 01/19/25 08:00 01/19/25 08:12 Temperature 97.2 F 98.1 F Pulse Rate 77 82 82 Respiratory Rate 18 16 Blood Pressure 160/78 H 184/93 H 184/93 H Pulse Oximetry 94 96 Oxygen Delivery Method Room Air Room Air 01/19/25 09:38 01/19/25 10:05 01/19/25 12:37 Temperature 97.6 F Pulse Rate 74 Respiratory Rate 16 Blood Pressure 139/62 139/62 169/69 H Pulse Oximetry 96 Oxygen Delivery Method Room Air 01/19/25 12:47 Temperature 97.6 F Pulse Rate 74 Respiratory Rate 16 Blood Pressure 169/69 H Pulse Oximetry 96 Oxygen Delivery Method Room Air BMI result Body Mass Index 27.6 Const General: cooperative, no acute distress, alert and awake Nutritional Appearance: well nourished Orientation/consciousness: patient oriented x3 HENMT Head: Yes normal to inspection and Yes atraumatic Ears: hearing grossly normal bilaterally and external ears normal General nose exam: Normal external nose present, no nasal discharge noted and no epistaxis Face and sinus: Yes normal facial exam, No abrasion and No laceration Mouth: Normal oral and palatal mucosa present, no drooling and no muffled voice Eyes General: appearance normal, both eyes and all related structures Periorbital: periorbital findings normal Eyelids: Yes eyelids normal Conjunctivae: conjunctivae normal Pupils: Equal, round and reactive pupils present EOM: EOMs intact bilaterally Neck Neck: Yes normal visual inspection, Yes full ROM and Yes no lymphadenopathy Resp Effort & Inspection: normal respiratory effort and able to speak in complete sentences Neuro General: patient oriented x3, moves all extremities and CN's II-XI intact bilaterally Cranial nerves: Yes Equal, round and reactive pupils present Cognition (Neuro): normal cognition Extrem Other: right knee swelling pain with right knee ROM mild warmth to right knee no erythema General: Yes capillary refill normal Psych Appearance: grossly normal Mental Status: mental status grossly normal Affect: normal affect Attitude: cooperative Thought process: Normal thought process present Thought content: Normal thought content present Insight: Good insight present (Psych) Course Course Course Narrative: 01/18/2025 1419 Tammy Urrutia PA-C ---> Informed by the patient that yesterday she was seen by her PCP and informed she has a UTI. She wants to be sure to be started on antibiotic while here. UA ordered. Cefuroxime ordered. Reevaluation(s) Reevaluation #1: 9:37 PM 01/18/2025 ([place] GUARDADO): This provider was notified by case management and RN in overflow that the patient is having increased pain in the knee which is likely secondary to gout. The patient unfortunately however does not qualify for rehab, but does not feel her pain is well controlled enough to return home safely. The patient's medication regimen was reviewed, patient was prescribed indomethacin but only for severe pain so it has not been given. The patient has indomethacin was changed from prn to q.6 hours, we will receive a dose now and again at 06:00. Additionally the patient's prednisone was written for 20 mg b.i.d., this was updated to 40 mg q.d., patient will receive 40 mg at 06:00. Patient has been ordered for repeat PT evaluation tomorrow morning, to assess if pain management with indomethacin and prednisone will facilitate safe plan for discharge home with in-home PT. Reevaluation #2: Time: 11:43 Date: 01/19/25 Provider: Iva Mcintosh CNP Patient in physician observation for case management needs, plan of care has been established today for discharge home with VNA services for nursing/physical therapy. She has been having pain management for gout flare with indomethacin as well as prednisone as per narrative above. On evaluation, she has had some episodes of hyperglycemia as high as 465 yesterday, subsequently in the 200s, this afternoon was noted to be 396. She is a diabetic who takes oral anti hyperglycemics. She has never checked a blood sugar in the past and she does not have a glucometer at home. Given this, do not feel that it would be arzate for her to be discharged on the prednisone, in addition to her age would recommend alternative treatment from indomethacin. While in the emergency department patient received colchicine 1.2 mg followed by 0.6 mg 1 hour later. Reviewed with the patient repeating this regimen in 3 days colchicine 1.2 mg orally followed by colchicine 0.6 mg 1 hour later on Wednesday01/22/2025. Patient is agreeable with plan of care. End physician observation time 15:00. Time: 10:58 Additional Reevaluation(s): 01/22/25 the patient's urine culture grew E coli sensitive to cefuroxime. I called the patient and she reports still having UTI symptoms, I called in a 5 day supply of cefuroxime. She reports that she follows up with her PCP tomorrow Medications Administered Discontinued Medications Generic Name Dose Route Start Last Admin Trade Name Freq PRN Reason Stop Dose Admin Acetaminophen 975 mg 01/18/25 21:15 01/18/25 23:17 Acetaminophen 325 Mg Tablet PO 01/18/25 21:16 975 mg ONCE ONE Administration Ascorbic Acid 500 mg 01/19/25 09:00 01/19/25 08:11 Ascorbic Acid 500 Mg Tablet PO 500 mg DAILY YARED Administration Aspirin 81 mg 01/19/25 09:00 01/19/25 08:11 Aspirin Enteric Coated 81 Mg Tablet.Dr PO 81 mg DAILY YARED Administration Atorvastatin Calcium 80 mg 01/18/25 21:00 01/18/25 20:52 Atorvastatin Calcium 80 Mg Tablet PO 80 mg BEDTIME YARED Administration Cefuroxime Axetil 250 mg 01/18/25 21:00 01/19/25 08:11 Cefuroxime Axetil 250 Mg Tablet PO 01/25/25 20:59 250 mg BID YARED Administration Colchicine 1.2 mg 01/19/25 13:19 01/19/25 14:04 Colchicine 0.6 Mg Tablet PO 01/19/25 13:20 1.2 mg ONCE ONE Administration Colchicine 0.6 mg 01/19/25 14:30 01/19/25 15:05 Colchicine 0.6 Mg Tablet PO 0.6 mg ONCE YARED Administration Glipizide 5 mg 01/18/25 21:00 01/19/25 09:58 Glipizide Xl 5 Mg Tab.Er.24 PO 5 mg BID YARED Administration Indomethacin 25 mg 01/18/25 21:45 01/19/25 12:26 Indomethacin 25 Mg Capsule PO 25 mg RQ6H YARED Administration Insulin Human Lispro 5 unit 01/19/25 13:19 01/19/25 13:26 Insulin Lispro 100 Unit/Ml 3 Ml Vial SUBCUT 01/19/25 13:20 5 unit ONCE ONE Administration Ketorolac Tromethamine 15 mg 01/18/25 10:33 01/18/25 11:00 Ketorolac Tromethamine 15 Mg/Ml Vial IM 01/18/25 10:34 15 mg ONCE ONE Administration Metformin HCl 500 mg 01/19/25 09:00 01/19/25 08:11 Metformin Hcl Er 500 Mg Tab.Er.24h PO 500 mg BID YARED Administration Metformin HCl 500 mg 01/18/25 17:00 01/18/25 17:00 Metformin Hcl Er 500 Mg Tab.Er.24h PO 01/18/25 17:01 500 mg ONCE ONE Administration Methylprednisolone Sodium Succinate 60 mg 01/18/25 10:33 01/18/25 11:02 Methylprednisolone Sod Succ 125 Mg/2 Ml Vial IM 01/18/25 10:34 60 mg ONCE ONE Administration Metoprolol Succinate 25 mg 01/18/25 21:00 01/19/25 08:12 Metoprolol Succinate Er 25 Mg Tab.Er.24h PO 25 mg BID YARED Administration Protocol Omeprazole 20 mg 01/19/25 06:30 01/19/25 06:30 Omeprazole 20 Mg Capsule. PO 20 mg DAILY@0630 YARED Administration Prednisone 20 mg 01/18/25 21:00 01/18/25 20:52 Prednisone 20 Mg Tablet PO 01/25/25 20:59 20 mg BID YARED Administration Prednisone 40 mg 01/19/25 06:00 01/19/25 08:06 Prednisone 20 Mg Tablet PO 01/26/25 05:59 Not Given DAILY YARED Medical Decision Making Medical Decision Making MDM Narrative: Patient is a 80 year old assigned female at with a history of gout, CAD, DM, and BPPV presenting to the emergency department today with right knee pain and swelling. Patient's physical exam was as noted in the physical exam portion of this note and most consistent with gout. Patient's blood work was unremarkable. Patient's right knee x-ray showed evidence of gout but otherwise unremarkable. I spoke with the orthopedic team who agreed the presentation is most likely gout. I explained my physical exam findings as well as all test results to the patient. I answered all questions asked by the patient. Unfortunately, patient states that she is unable to tolerate walking enough to go home at this time. Patient will remain in the department to be evaluated by the case management and physical therapy team. Pain medication ordered. Observation began at 1151 on 01/18/2025. Differential Diagnosis Differential Diagnoses: The differential diagnosis associated with the presentation includes Gout Bursitis Knee pain Knee strain Admission/Observation Consideration of admission/observation: Escalation of care including admission/observation considered Patient would have been admitted to the hospital had her work up had any findings where hospital admission was appropriate and her clinical presentation warranted hospital admission. Consult Healthcare Provider Management of the patient was discussed with: [employer] (spoke with the orthopedic team as noted in the MDM Rationale portion of this note. ) Lab Data [facility] Lab Attestation statement: I reviewed the patient's lab results. My interpretation of these results are in the MDM Rationale portion of this note. 01/18/25 09:43 01/18/25 09:43 Labs: Lab Results 01/18/25 01/18/25 01/18/25 Range/Units 09:43 12:17 16:00 WBC 9.9 (4.8-10.8) X10*3/uL RBC 3.68 L (4.20-5.50) X10*6/uL Hgb 12.0 (12.0-16.0) g/dl Hct 34.4 L (37.0-47.0) % MCV 93.5 (80.0-98.0) fL MCH 32.6 (27.0-33.0) pg MCHC 34.9 (31.0-35.0) g/dl RDW 11.9 (11.0-16.0) % Plt Count 193 (160-400) X10*3/uL MPV 9.3 L (9.4-12.3) fL Immature Gran % (Auto) 0.4 (0.0-0.4) % Neut % (Auto) 81.0 H (45-73) % Lymph % (Auto) 9.3 L (20-40) % Nobles % (Auto) 8.2 (2-11) % Eos % (Auto) 0.8 (0-4) % Baso % (Auto) 0.3 (0-2) % Lymph # (Auto) 0.9 L (1.2-4.9) X10*3/uL Nobles # (Auto) 0.8 (0.1-1.2) X10*3/uL Eos # (Auto) 0.1 (0.0-0.4) X10*3/uL Baso # (Auto) 0.0 (0.0-0.2) X10*3/uL Abs Immat Gran (auto) 0.04 H (0.00-0.03) X10*3/uL Absolute Neuts (auto) 8.1 (2.0-8.3) x10*3/uL Absolute Nucleated RBC 0.000 (0.0-0.012) X10*3/uL Nucleated RBC % (auto) 0.0 (0.0-0.2) /100WBC ESR 16 (0-20) MM/HR Sodium 139 (135-145) mmol/L Potassium 4.3 (3.3-5.1) mmol/L Chloride 106 (96-108) mmol/L Carbon Dioxide 27 (22-29) mmol/L Anion Gap 10 L (12-20) BUN 15 (9-16) mg/dL Creatinine 0.62 (0.5-1.4) mg/dL Estim Creat Clear Calc 69.4 Estimated GFR > 60 POC Glucose (60-115) mg/dL Random Glucose 257 H (60-115) mg/dL Calcium 8.8 D (8.4-10.2) mg/dL Total Bilirubin 0.6 (0.0-1.0) mg/dL AST 27 (5-31) U/L ALT 23 (0-31) U/L Alkaline Phosphatase 79 (39-117) U/L C-Reactive Protein 0.20 (< or = 0.50) mg/dL Total Protein 6.6 (6.5-8.0) g/dL Albumin 4.0 (3.5-5.0) g/dL Urine Color Yellow Urine Appearance Cloudy Urine pH 6.0 (5.0-9.0) Ur Specific Lynden 1.020 (1.005-1.025) Urine Protein 30 (1+) H (Neg-Trace) mg/dL Urine Glucose (UA) >=1000 H (Negative) mg/dL Urine Ketones Negative (Negative) mg/dL Urine Blood Trace H (Negative) Urine Nitrite Positive H (Negative) Ur Leukocyte Esterase Moderate (2+) H (Negative) Urine RBC 0-2 (0-2) /HPF Urine WBC >50 H (0-5) /HPF Ur Squamous Epith Cells 0-2 (0-2) /HPF Urine Bacteria 4+ (None Seen) Hyaline Casts 0-2 (0-2) /LPF Influenza Type A (PCR) NEGATIVE (Negative) Influenza Type B (PCR) NEGATIVE (Negative) RSV RNA Qual (PCR) NEGATIVE (Negative) SARS-CoV-2 RNA (RT-PCR) NEGATIVE (Negative) 01/18/25 01/18/25 01/19/25 Range/Units 16:39 22:56 07:33 WBC (4.8-10.8) X10*3/uL RBC (4.20-5.50) X10*6/uL Hgb (12.0-16.0) g/dl Hct (37.0-47.0) % MCV (80.0-98.0) fL MCH (27.0-33.0) pg MCHC (31.0-35.0) g/dl RDW (11.0-16.0) % Plt Count (160-400) X10*3/uL MPV (9.4-12.3) fL Immature Gran % (Auto) (0.0-0.4) % Neut % (Auto) (45-73) % Lymph % (Auto) (20-40) % Nobles % (Auto) (2-11) % Eos % (Auto) (0-4) % Baso % (Auto) (0-2) % Lymph # (Auto) (1.2-4.9) X10*3/uL Nobles # (Auto) (0.1-1.2) X10*3/uL Eos # (Auto) (0.0-0.4) X10*3/uL Baso # (Auto) (0.0-0.2) X10*3/uL Abs Immat Gran (auto) (0.00-0.03) X10*3/uL Absolute Neuts (auto) (2.0-8.3) x10*3/uL Absolute Nucleated RBC (0.0-0.012) X10*3/uL Nucleated RBC % (auto) (0.0-0.2) /100WBC ESR (0-20) MM/HR Sodium (135-145) mmol/L Potassium (3.3-5.1) mmol/L Chloride (96-108) mmol/L Carbon Dioxide (22-29) mmol/L Anion Gap (12-20) BUN (9-16) mg/dL Creatinine (0.5-1.4) mg/dL Estim Creat Clear Calc Estimated GFR POC Glucose 465 H* 296 H 261 H (60-115) mg/dL Random Glucose (60-115) mg/dL Calcium (8.4-10.2) mg/dL Total Bilirubin (0.0-1.0) mg/dL AST (5-31) U/L ALT (0-31) U/L Alkaline Phosphatase (39-117) U/L C-Reactive Protein (< or = 0.50) mg/dL Total Protein (6.5-8.0) g/dL Albumin (3.5-5.0) g/dL Urine Color Urine Appearance Urine pH (5.0-9.0) Ur Specific Lynden (1.005-1.025) Urine Protein (Neg-Trace) mg/dL Urine Glucose (UA) (Negative) mg/dL Urine Ketones (Negative) mg/dL Urine Blood (Negative) Urine Nitrite (Negative) Ur Leukocyte Esterase (Negative) Urine RBC (0-2) /HPF Urine WBC (0-5) /HPF Ur Squamous Epith Cells (0-2) /HPF Urine Bacteria (None Seen) Hyaline Casts (0-2) /LPF Influenza Type A (PCR) (Negative) Influenza Type B (PCR) (Negative) RSV RNA Qual (PCR) (Negative) SARS-CoV-2 RNA (RT-PCR) (Negative) 01/19/25 01/19/25 Range/Units 12:43 14:55 WBC (4.8-10.8) X10*3/uL RBC (4.20-5.50) X10*6/uL Hgb (12.0-16.0) g/dl Hct (37.0-47.0) % MCV (80.0-98.0) fL MCH (27.0-33.0) pg MCHC (31.0-35.0) g/dl RDW (11.0-16.0) % Plt Count (160-400) X10*3/uL MPV (9.4-12.3) fL Immature Gran % (Auto) (0.0-0.4) % Neut % (Auto) (45-73) % Lymph % (Auto) (20-40) % Nobles % (Auto) (2-11) % Eos % (Auto) (0-4) % Baso % (Auto) (0-2) % Lymph # (Auto) (1.2-4.9) X10*3/uL Nobles # (Auto) (0.1-1.2) X10*3/uL Eos # (Auto) (0.0-0.4) X10*3/uL Baso # (Auto) (0.0-0.2) X10*3/uL Abs Immat Gran (auto) (0.00-0.03) X10*3/uL Absolute Neuts (auto) (2.0-8.3) x10*3/uL Absolute Nucleated RBC (0.0-0.012) X10*3/uL Nucleated RBC % (auto) (0.0-0.2) /100WBC ESR (0-20) MM/HR Sodium (135-145) mmol/L Potassium (3.3-5.1) mmol/L Chloride (96-108) mmol/L Carbon Dioxide (22-29) mmol/L Anion Gap (12-20) BUN (9-16) mg/dL Creatinine (0.5-1.4) mg/dL Estim Creat Clear Calc Estimated GFR POC Glucose 396 H* 333 H (60-115) mg/dL Random Glucose (60-115) mg/dL Calcium (8.4-10.2) mg/dL Total Bilirubin (0.0-1.0) mg/dL AST (5-31) U/L ALT (0-31) U/L Alkaline Phosphatase (39-117) U/L C-Reactive Protein (< or = 0.50) mg/dL Total Protein (6.5-8.0) g/dL Albumin (3.5-5.0) g/dL Urine Color Urine Appearance Urine pH (5.0-9.0) Ur Specific Lynden (1.005-1.025) Urine Protein (Neg-Trace) mg/dL Urine Glucose (UA) (Negative) mg/dL Urine Ketones (Negative) mg/dL Urine Blood (Negative) Urine Nitrite (Negative) Ur Leukocyte Esterase (Negative) Urine RBC (0-2) /HPF Urine WBC (0-5) /HPF Ur Squamous Epith Cells (0-2) /HPF Urine Bacteria (None Seen) Hyaline Casts (0-2) /LPF Influenza Type A (PCR) (Negative) Influenza Type B (PCR) (Negative) RSV RNA Qual (PCR) (Negative) SARS-CoV-2 RNA (RT-PCR) (Negative) Independent Interpretation I performed an independent interpretation of an: Plain X-Ray Interpretation: My interpretation is in agreement with the radiologist's impression of this imaging study. EXAMINATION: XR KNEE, RIGHT CLINICAL INFORMATION: pain COMPARISON: 12/15/2021. TECHNIQUE: Four views of the right knee. FINDINGS: There is mild osteopenia diffusely. There is a benign enchondroma in the distal metadiaphysis of the femur, unchanged. There is chondrocalcinosis in the medial and lateral compartments. There is mild medial and lateral compartment arthritis, with more pronounced patellofemoral compartment arthropathy. This likely reflects CPPD. There is a suprapatellar joint effusion. Soft tissues demonstrate vascular calcifications. XR/XR knee RT 3V IMPRESSION: 1. No acute abnormalities of the right knee. 2. 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 3. Mild osteopenia. 4. Stable enchondroma distal femoral metadiaphysis. Electronically signed by: Trav Duenas MD 01/18/2025 10:04 AM EDT Dictated By: Trav Duenas MD Signed By: Electronically signed by Trav Duenas MD 01/18/25 1004 Radiology Impression Discussion of test interpretation with radiology: I have reviewed the radiologist's reading. Independent Historian Clinical information obtained from an independent historian. History obtained from or confirmed by: EMS (EMS provided additional history and confirmed the history provided by the patient. ) Critical Care Time Critical Care Time Critical Care Time: Yes Total Critical Care Time: 33 Attestation: I spent 33 minutes of Critical Care Time with this patient. This does not include time spent on separately reported billable procedures. Discharge Plan Discharge Clinical Impression: Gout attack Patient Disposition: Home, Self-Care Instructions: Low Purine Diet (ED), Gout (ED) Additional Instructions: You were evaluated in the emergency department, surfaces has been established free to be discharged home with visiting nurse services for correction as well as physical therapy. Regarding your gout, medications are being prescribed to help manage the acute pain that you are having as well as the inflammation. You received the 1st 2 doses of colchicine in the emergency department. This is a long-acting medication over the next few days. In 3 days on Wednesday01/22/2025 please repeat this dosing; you will take colchicine 1.2 mg orally and 1 hour later you will take colchicine 0.6 mg orally. Persistently elevated blood sugars you should seek re-evaluation with primary care doctor and/or return to the emergency department especially if you are symptomatic. Additionally, a prescription for indomethacin his being sent to your pharmacy to take every 6 hours over the next 5 days. No you may return to emergency department any new or worsening symptoms or concerns. Prescriptions: New colchicine 0.6 mg capsule See Rx Instructions .ROUTE .COMPLEX Qty: 3 0RF Rx Instructions: On 01/22/2025 take colchicine 1.2 mg (2 capsules) and 1 hour later take colchicine 0.6 mg (1 capsule) cefuroxime axetil 250 mg tablet 250 mg PO Q12H Qty: 10 0RF No Action atorvastatin 80 mg tablet 80 mg PO BEDTIME Qty: 90 1RF zolpidem 5 mg tablet 5 mg PO BEDTIME PRN (Reason: sleep) Qty: 30 0RF omeprazole 20 mg capsule,delayed release(DR/EC) 1 cap PO DAILY metformin 500 mg tablet extended release 24 hr 1 tab PO BID glucosamine sulfate [Glucosamine] 500 mg Tablet 500 mg PO BID Rx Instructions: administer with meals ascorbic acid (vitamin C) [Vitamin C] 500 mg Tablet 500 mg PO DAILY Patient Comments: Per pt last took on Wednesday01/16/25 PreserVision AREDS-2 250-90-40-1 mg Tablet,Chewable 1 tab PO BID metoprolol succinate 25 mg tablet extended release 24 hr 25 mg PO BID aspirin [Adult Low Dose Aspirin] 81 mg tablet,delayed release (DR/EC) 81 mg PO DAILY glipizide 5 mg tablet extended release 24hr 5 mg PO BID Referrals: Terry Terry [Outside] Referral Note: Agency will call to arrange visit. Fallon Simon MD [Primary Care Provider, Endocrinology] Interventions: ED Discharge Assessment Last Done: 01/19/25 12:47 Discharge Date/Time: 01/19/25 16:33 Print Language: Slovenian
[2025-01-18 09:47] LABS: MANUAL DIFF FLAG NO
[2025-01-18 09:49] LABS: Hematocrit 34.4 % (37.0-47.0); Hemoglobin 12.0 g/dl (12.0-16.0); Imm Gran Abs Auto 0.04 X10*3/uL (0.00-0.03); Imm Gran Pct Auto 0.4 % (0.0-0.4); Lymphocytes Absolute Auto 0.9 X10*3/uL (1.2-4.9); Mean Corpuscular HGB Conc 34.9 g/dl (31.0-35.0); Mean Corpuscular Hemoglobin 32.6 pg (27.0-33.0); Mean Corpuscular Volume 93.5 fL (80.0-98.0); NRBC Abs Auto 0.000 X10*3/uL (0.0-0.012); NRBC Pct Auto 0.0 /100WBC (0.0-0.2); Platelet Count 193 X10*3/uL (160-400); Red Blood Count 3.68 X10*6/uL (4.20-5.50); White Blood Count 9.9 X10*3/uL (4.8-10.8)
[2025-01-18 10:03] LABS: Alanine Aminotransferase 23 U/L (0-31); Albumin Level 4.0 g/dL (3.5-5.0); Alkaline Phosphatase 79 U/L (39-117); Anion Gap 10 (12-20); Aspartate Amino Transferase 27 U/L (5-31); Blood Urea Nitrogen 15 mg/dL (9-16); Calcium 8.8 mg/dL (8.4-10.2); Carbon Dioxide 27 mmol/L (22-29); Chloride 106 mmol/L (96-108); Creatinine Clr Calc Pharmacy 69.4; Estimated Glomerular Filt Rate > 60; Potassium 4.3 mmol/L (3.3-5.1); Sodium 139 mmol/L (135-145); Total Protein 6.6 g/dL (6.5-8.0)
--- OUTSIDE RECORDS SUMMARY | 2025-01-18 10:06 | XMS_ITS | Patient Health Record ---
Author Organization [facility] Address [address] [place] [address] Care Team Providers Care Vice President Of Finance Name Role Phone Kalin Salamanca MD Primary Care Provider Wesley Campbell Unavailable [phone] Allergies Allergen (clinical drug ingredient) Drug/Non Drug [...] Status W/U Status Risk Notes Problem Onychomycosis (596547679) Onychomycosis (110.1) Active confirmed Problem Pain in limb (07806663) Pain in Limb (729.5) Active confirmed Problem Congenital pes planus (56856299) Flat Foot, Congenital (754.61) Active confirmed Problem Ingrowing nail (537937216) Ingrowing Nail (703.0) Active confirmed Plan Of Treatment Pending Test Test Name Order Date X ray : Foot, left 2V 04/20/2013 [id number] NAIL, 1-01/09/2013 [id number] NAIL, -04/20/2013 [id number] NAIL, -04/14/2012 [id number] NAIL, -07/14/2012 [id number] NAIL, -10/17/2012 [id number] NAIL, - 08/21/2013 [id number] Plate 10/17/201244783,G7850-BMB TENDON SHEATH/LIGAMENT 1 50,[id number]-KKH TENDON SHEATH/LIGAMENT 1 07/18/2012 Insurance Providers Payer Name Payer Address Payer Phone Subscriber Number Group Number Insured Name Patient Relationship to Insured Coverage Start Date Coverage End Date Medicare National Govt SvVive Unique [facility] [address] [place] [address] [id number] DestinchristinaPati davies Self - patient is the insured 1 [employer] Blue Shield [address] [place] [address] [id number] DestinchristinaPati davies Self - patient is the insured Medical (General) History Medical History History ICD Code Arthritis back, hip, knee pain cholesterol cancer high blood pressure reflux measles mumps chicken pox Surgical History Surgery Date(Month/Year) rotator cuff tear repair 2002 cataract surgery 2001 hysterectomy, total with bilateral salpi gabriel-oophorectomy (BSO) 2002 Torn cartilage 2002, 2006 Hospitalization History Reason Date(Month/Year) Patient went to [facility] ER for irregular hea rt beat. 07/2012
--- OUTSIDE RECORDS SUMMARY | 2025-01-18 10:08 | XMS_ITS | Clinical Summary ---
Author Organization [facility] Facility Address [address] [address] Care Team Providers Care Cisco Certified Internetwork Expert Name Role Phone Kalin Salamanca MD Primary Care Provider [phone] Social History Tobacco Use Types Packs/Day Years [...] age to complete this topic Insurance Medicare [facility] Medicare [facility] Care Teams Cisco Certified Internetwork Expert Relationship Specialty Start Date End Date Kalin Salamanca MD [address] [place] [address] [address] [place], [place] PCP - General Internal Medicine 12/16/21
--- OUTSIDE RECORDS SUMMARY | 2025-01-18 10:08 | XMS_ITS | Patient Health Record ---
Author Organization [facility] Address [address] [place] [address] Care Team Providers Care Plastics Spreading Machine Operator Name Role Phone Jadyn (RETIRED) Kalin LINARES Primary Care Provide r Prashanth Wall [phone] Allergies Allergen (clinical drug ingredient) Drug/Non Drug [...] 1 tablet Orally Once a day Active Waldron-3 650 1 capsule Orally Onc e a [...] Problem Status W/U Status Risk Notes Problem 305018651 Encounter for screening for malignant neoplasm of colon (Z12.11) Active confirmed Problem 186451316 Aspirin long-term use (Z79.82) Active confirmed Problem 021401178 Pre-procedural examination (Z01.818) Active confirmed Plan Of Treatment Future Test Test Name Order Date COLONOSCOPY 12/15/2016 Insurance Providers Payer Name Payer Address Payer Phone Subscriber Number Group Number Insured Name Patient Relationship to Insured Coverage Start Date Coverage End Date MEDICARE OF [place] [address] [place] [address] [id number] MELODYANA VALENTINE Self - patient is the insured MEDEX ATTN CLAIMS [address] [place] [address] [phone] [id number] MELODYANA VALENTINE Self - patient is the insured Medical (General) History Medical History History ICD Code CAD--angina--no ND--4V CABG-2014 Uterine cancer Seasonal allergies Ablation-irregular heart beat-successful Urinary incontinence-mild Denies ND,DM,CVA,Lung disease,renal dise ase GERD Screening colonoscopy in Mar was negative other than some mild diverticulosis and small internal hemorrhoids Surgical History Surgery Date(Month/Year) [facility] 07/15/2001 Bilateral cataracts - Dr. Ruchi Ortega 20 02 Rotator Cuff left - Dr. Banks 08/21/19 03 Torn cartilage -arthroscopic on left kne e -Dr. Banks 03/08/2003 Torn Cartilage- arthroscopic right knee- dr. Banks 02/03/2007 4V-CABG Dr. [facility] 05/22/2015
[2025-01-18 10:15] VITALS: BP 138/64; PULSE 93; RESP 16; TEMP 37.1; O2SAT 95
[2025-01-18 12:04] VITALS: BP 90/73; PULSE 90; RESP 12; TEMP 36.8; O2SAT 94
[2025-01-18 13:06] LABS: Resp Syncy Virus RNA Qual PCR NEGATIVE (Negative); SARS COV2 PCR INHOUSE NEGATIVE (Negative)
[2025-01-18 14:00] VITALS: BP 156/79; PULSE 86; RESP 18; TEMP 36.6; O2SAT 93
[2025-01-18 14:09] VITALS: O2SAT 92
--- NOTE | 2025-01-18 15:08 | PHA.MEDREC ---
Pharmacy Consult ? Medication Reconciliation Pharmacy has reviewed the medication reconciliation done by nursing and also spoke to patient to confirm medication list. Per patient, she has not started taking ciprofloxacin yet, she is still taking metformin ER 500 mg bid, she takes metoprolol ER 25 mg bid and zolpidem 5 mg at bed time prn sleep. Last dose of medications was wednesday01/16/25 (except she took zolpidem last night 01/17/25).
[2025-01-18 16:12] LABS: Appearance Urine Cloudy; Glucose Urine UA >=1000 mg/dL (Negative); PH 6.0 (5.0-9.0); Specific Gravity - Urine 1.020 (1.005-1.025); UMIC TRIGGER UACC YES
[2025-01-18 16:55] LABS: Glucose, Whole Blood 465 mg/dL (60-115)
[2025-01-18 17:07] LABS: UACC Culture Trigger YES
[2025-01-18 20:00] VITALS: BP 176/98; PULSE 109; RESP 16; TEMP 37; O2SAT 93
[2025-01-18] MEDS: Metoprolol Succinate ER 25 MG TAB.ER.24H PO (20:52)
--- NOTE | 2025-01-18 21:16 | MHC.CM.ED ---
CM met with patient to discuss discharge planning at 1800. Pt is A&Ox4. She lives alone. Has a walker that she does not use. Still drives. Goes to cardiac rehab and vestibular therapy at [facility]. Awoke today with knee swelling and pain. Cannot bear weight on the R leg. Pt normally very active and independent. Pt has hx gout, vertigo CAD and DM. Medical work-up complete. Concerning for GOUT. Acute rehabs denied patient d/t lack of medical complexity. Pt does not have a qualifying Stay. Discussed options for private pay STR and home PT with [facility]. Patient states she cannot stand/walk and cannot go home. Discussed her case with primary RN and provider. Pt does have medications ordered for gout flare. Will have another PT assessment in the am to see if patient can stand/walk. Will make referral for [facility] and home PT with [facility]. Pt will remain overnight. Address, PCP and Insurances verified. HCP reviewed, completed and signed. Copies given. Uploaded into Care [employer] and [facility] Expanse. CM will follow for d/c planning in the morning.
[2025-01-18 23:03] LABS: Glucose, Whole Blood 296 mg/dL (60-115)
[2025-01-19] VITALS (7 sets, daily range): BP systolic 139–184; BP diastolic 62–93; PULSE 74–82; RESP 16–18; TEMP 36.2–36.7; O2SAT 94–96
[2025-01-19 07:57] LABS: Glucose, Whole Blood 261 mg/dL (60-115)
[2025-01-19] MEDS: Aspirin Enteric Coated 81 MG TABLET.DR PO (08:11)
[2025-01-19] MEDS: Metoprolol Succinate ER 25 MG TAB.ER.24H PO (08:12)
--- NOTE | 2025-01-19 10:43 | MHC.CM.ED ---
Patient remains in ER overflow. Physical therapy re-evaluated patient. Home with therapy is recommended. [facility] is not able to provide PT until next week. Referral broadcasted in [facility]. Terry is able to accept patient. Met with patient in regards to discharge planning. Patient agrreable to [facility]. Jhonatan MACHADO booked for 1pm. Referral made to [facility] to see if patient can get meals on wheels. Nedra RN and Iva SCIENCE INSTRUCTOR aware. Continue to monitor for d/c needs.
--- NOTE | 2025-01-19 14:06 | PC.NURSE ---
Pt's colchicine given when it arrived from pharmacy.
--- NOTE | 2025-01-19 15:00 | PC.NURSE ---
Pt repeat POC 333. Dr Hinojosa and DENAE Mcintosh notified and awaiting orders.
--- NOTE | 2025-01-19 15:40 | PC.NURSE ---
No new orders received from DENAE Mcintosh, states t encourage po fluids for pt for home- to to be given those instructions by RN caring for her now.
--- NOTE | 2025-01-19 16:36 | MHC.CM.ED ---
Pt d/c home via BLS with [facility]. Pt tells CM her knee is much improved.
[2025-01-19 17:30] LABS: Glucose, Whole Blood 396 mg/dL (60-115)
[2025-01-19 17:30] LABS: Glucose, Whole Blood 333 mg/dL (60-115)
== END 2025-01-19 16:33 | disposition home or self-care (01) ==
PROVIDERS: Physician Assistant Medical; Emergency Provider Emergency Medicine; PCP Internal Medicine
DX: M10.9 Gout, unspecified (principal); M25.561 Pain in right knee; I10 Essential (primary) hypertension; M17.0 Bilateral primary osteoarthritis of knee
CPT/HCPCS: 36415; 73562; 80053; 81001; 82947; 85025; 85652; 86140; 87086; 87088; 87186; 87637; 96372; 97116; 97161; 97530; 99285; J1885; J2919

== ENCOUNTER → 2025-01-18 09:33 | Outpatient (BNV) | payer MEDICARE, SELFPAY | PROVIDERS: PCP Internal Medicine; Visit Provider Radiology Diagnostic Radiology | DX: M25.561 Pain in right knee (principal) | CPT/HCPCS: 73562 ==

== ENCOUNTER 2025-01-30 10:15 | Outpatient (REF) | payer MEDICARE, SELFPAY ==
--- OUTSIDE RECORDS SUMMARY | 2025-01-30 10:49 | XMS_ITS | Patient Health Record ---
Author Organization [facility] Address [address] [place] [address] Care Team Providers Care Fan Blade Truer Name Role Phone Kalin Salamanca MD Primary Care Provider Wesley Campbell Unavailable [phone] Allergies Allergen (clinical drug ingredient) Drug/Non Drug [...] Status W/U Status Risk Notes Problem Onychomycosis (189715046) Onychomycosis (110.1) Active confirmed Problem Pain in limb (94606740) Pain in Limb (729.5) Active confirmed Problem Congenital pes planus (34265133) Flat Foot, Congenital (754.61) Active confirmed Problem Ingrowing nail (575678393) Ingrowing Nail (703.0) Active confirmed Plan Of Treatment Pending Test Test Name Order Date X ray : Foot, left 2V 04/20/2013 [id number] NAIL, -01/09/2013 88723-[id number] NAIL, -04/20/2013 58973-[id number] NAIL, -04/14/2012 [id number] NAIL, -07/14/2012 [id number] NAIL, -10/17/2012 [id number] NAIL, - 08/21/2013 74142-Hdaruxzb Plate 10/17/201262327,T2743-HQY TENDON SHEATH/LIGAMENT 1 50,K0669-EIC TENDON SHEATH/LIGAMENT 1 07/18/2012 Insurance Providers Payer Name Payer Address Payer Phone Subscriber Number Group Number Insured Name Patient Relationship to Insured Coverage Start Date Coverage End Date Medicare National Govt SvSportsCstr [facility] [address] [place] [address] [id number] DestinchristinaPati davies Self - patient is the insured 1 [employer] Blue Shield [address] [place] [address] [id number] DestinchristinaPati davies Self - patient is the insured Medical (General) History Medical History History ICD Code Arthritis back, hip, knee pain cholesterol cancer high blood pressure reflux measles mumps chicken pox Surgical History Surgery Date(Month/Year) rotator cuff tear repair 2002 cataract surgery 2001 hysterectomy, total with bilateral salpi gabriel-oophorectomy (BSO) 2002 Torn cartilage 2002, 2006 Hospitalization History Reason Date(Month/Year) Patient went to [facility] for irregular hea rt beat. 07/2012
--- OUTSIDE RECORDS SUMMARY | 2025-01-30 10:50 | XMS_ITS | Clinical Summary ---
Author Organization [facility] Facility Address [address] [address] Care Team Providers Care It Desktop Support Technician Name Role Phone Kalin Salamanca MD Primary Care Provider [phone] Social History Tobacco Use Types Packs/Day Years [...] age to complete this topic Insurance Medicare [facility] Medicare [facility] Care Teams It Desktop Support Technician Relationship Specialty Start Date End Date Kalin Salamanca MD [address] [place] [address] DRIVE [address] [place], [place] PCP - General Internal Medicine 12/16/21
--- OUTSIDE RECORDS SUMMARY | 2025-01-30 10:50 | XMS_ITS | Clinical Summary ---
Author Organization [facility] Address [address] [place] [address] Phone Care Team Providers Care Packer Denture Name Role Phone Kalin Salamanca MD Primary Care Provider Jean Carlos Steele MD Unavailable [phone] Allergies Active Allergy Reactions Criticality Noted Date [...] PLUS ORAL) Take by mouth. Activ e najzc-8o-ujp-ep a-fish oil 332.5-100-200 mg Cap Take by [...] Info) Description 04/13/2024 Procedure Pass Echo [facility] [address] [place] [address] 03/27/2025 10:15 AM EDT Appointment Echo Lab [address] [place] [address] [place] [address] Venkat Montoya MD [address] [facility], [address] [place] [address] [phone] [email or web address] 04/02/2026 10:15 AM EDT Office Visit [facility] [address] [place] [address] [address]rd Floor, [address] [place], [place] [id number] Jean Carlos Ghotra DO [address] [facility] [address] [place] [id number] [email or web address] Health Maintenance Due Date Last Done Comments [...] file Insurance MEDICARE PART A & B [facility] MEDEX SUPPLEMENT MEDICARE PART A & B [facility] MEDEX SUPPLEMENT MEDICARE PART A & B [employer] MED[employer] SUPPLEMENT MEDICARE PART A & B [employer] MED[employer] SUPPLEMENT MEDICARE PART A & B [employer] MEDEX SUPPLEMENT MEDICARE PART A & B [employer] MEDEX SUPPLEMENT MEDICARE PART A & B [employer] MEDEX SUPPLEMENT MEDICARE PART A & B [employer] MED[employer] SUPPLEMENT MEDICARE PART A & B [employer] MEDEX SUPPLEMENT Care Teams Packer Denture Relationship Specialty Start Date End Date Kalin Salamanca MD [address] [place] [address] [place] [address] PCP - General 04/15/17 Jean Carlos Steele MD [address] [place] [address] [place] [id number] [email or web address] Historical LMR Provider 04/15/17 Additional Source Comments The information contained in this document represents components of the legal health record. It is not the complete legal health record.[facility]
--- OUTSIDE RECORDS SUMMARY | 2025-01-30 10:50 | XMS_ITS | Patient Health Record ---
Author Organization [facility] Address [address] [place] [address] Care Team Providers Care Industrial Training Specialist Name Role Phone Jadyn (RETIRED) Kalin LINARES Primary Care Provide r Prashanth Wall [phone] Allergies Allergen (clinical drug ingredient) Drug/Non Drug [...] 1 tablet Orally Once a day Active Auburn-3 650 1 capsule Orally Onc e a [...] Problem Status W/U Status Risk Notes Problem 269143850 Encounter for screening for malignant neoplasm of colon (Z12.11) Active confirmed Problem 041285053 Aspirin long-term use (Z79.82) Active confirmed Problem 155185733 Pre-procedural examination (Z01.818) Active confirmed Plan Of Treatment Future Test Test Name Order Date COLONOSCOPY 12/15/2016 Insurance Providers Payer Name Payer Address Payer Phone Subscriber Number Group Number Insured Name Patient Relationship to Insured Coverage Start Date Coverage End Date MEDICARE OF [place] [address] [place] [address] [phone] [id number] MELODYANA VALENTINE Self - patient is the insured MEDEX ATTN CLAIMS [address] [place] [address] [id number] MELODYANA VALENTINE Self - patient is the insured Medical (General) History Medical History History ICD Code CAD--angina--no NM--4V CABG-2014 Uterine cancer Seasonal allergies Ablation-irregular heart beat-successful Urinary incontinence-mild Denies NM,DM,CVA,Lung disease,renal dise ase GERD Screening colonoscopy in Mar was negative other than some mild diverticulosis and small internal hemorrhoids Surgical History Surgery Date(Month/Year) [facility] 07/15/2001 Bilateral cataracts - Dr. Ruchi Ortega 20 02 Rotator Cuff left - Dr. Banks 08/21/19 03 Torn cartilage -arthroscopic on left kne e -Dr. Banks 03/08/2003 Torn Cartilage- arthroscopic right knee- dr. Banks 02/03/2007 4V-CABG Dr[facility] 05/22/2015
[2025-01-30 14:12] LABS: Hemoglobin A1C 181.6104 umol/L; Total Hemoglobin (HGBA1C) 3195.1442 umol/L
[2025-01-30 14:21] LABS: Alanine Aminotransferase 35 U/L (0-31); Albumin Level 4.0 g/dL (3.5-5.0); Alkaline Phosphatase 74 U/L (39-117); Anion Gap 13 (12-20); Aspartate Amino Transferase 32 U/L (5-31); Blood Urea Nitrogen 14 mg/dL (9-16); Calcium 9.0 mg/dL (8.4-10.2); Carbon Dioxide 25 mmol/L (22-29); Chloride 103 mmol/L (96-108); Estimated Glomerular Filt Rate > 60; Potassium 4.1 mmol/L (3.3-5.1); Sodium 137 mmol/L (135-145); Total Protein 6.5 g/dL (6.5-8.0)
== END 2025-01-30 10:16 | disposition home or self-care (01) ==
LOC: HO.HMGCLDS 10:15
PROVIDERS: PCP Internal Medicine; Visit Provider Internal Medicine
DX: E11.9 Type 2 diabetes mellitus without complications (principal)
CPT/HCPCS: 36415; 80053; 83036

== ENCOUNTER 2025-02-13 16:03 | Outpatient (AMB) | payer MEDICARE, SELFPAY ==
--- NOTE | 2025-02-13 16:17 | A.OFFPC_ITS ---
Vital Signs 02/13/25 16:22 Height 5 ft 2.5 in Weight 70.76 kg BMI 28.1 BP 130/58 L Respiration 14 Pulse 85 Pulse Source Pulse Oximeter Temp 97.6 F Temp Source Temporal Artery Scan Pulse Oximetry (%) 97 Oxygen Delivery Method Room Air Intake Visit Reasons: [facility] d/c Wire Coiler Required: No Accompanied by: Self / Same As Patient Allergies egg (Egg) Allergy (Mild, Verified 02/13/25 16:17) RASH Sulfa (Sulfonamide Antibiotics) Allergy (Unknown, Verified 02/13/25 16:17) N/V TACHYCARDIC environmental allergies Adverse Reaction (Verified 02/13/25 16:17) Cough Medication List - Last Reconciled 02/13/25 by GEO Starkey ascorbic acid (vitamin C) (Vitamin C) 500 mg PO DAILY aspirin (Adult Low Dose Aspirin) 81 mg PO DAILY atorvastatin 80 mg PO BEDTIME glipizide ER 5 mg PO BID glucosamine sulfate (Glucosamine) 500 mg PO BID metformin ER 1 tab PO BID metoprolol succinate ER 25 mg PO BID omeprazole 1 cap PO DAILY vit C,E-Gg-xpqrg-lutein-zeaxan 250-90-40-1 mg (PreserVision AREDS-2) 1 tab PO BID zolpidem 5 mg PO BEDTIME PRN Tobacco use date assessed: 11/09/24 Dental Screening Dental Screen Date: 11/09/24 HPI HPI Comments History of Present Illness Details The patient is a 79 year old female with a past medical history of CAD s/p CABG, diabetes, hypertension, hyperlipidemia, GERD, insomnia, pseudogout, BPPV presenting for follow up. Last seen by PCP in [place]: On asa 81mg daily, metoprolol 25mg twice daily, lipitor 80mg daily. Follows with Jan-LUIS MANUEL. Denies chest pain, shortness of breath. Echo ordered for this year feb, seeing them in march Neuro: Saw Dr Mueller-BPPV. Doing vestibular therapy- [facility] DM: On metformin 500mg twice daily, glipizide 5mg twice daily. A1C 7.1%. Sees Dr Eliica reed. due for a1c Colonoscopy 2016 Mammo-no longer doing. Last 2019 ROS CONSTITUTIONAL: Denies weight loss, fever and chills. HEENT: Denies changes in vision and hearing. RESPIRATORY: Denies SOB and cough. CV: Denies palpitations and CP GI: Denies abdominal pain, nausea, vomiting and diarrhea. : Denies dysuria and urinary frequency. MSK: Denies new myalgia and joint pain. SKIN: Denies rash and pruritus. NEUROLOGICAL: Denies headache PSYCHIATRIC: Denies recent changes in mood. PHYSICAL EXAM: GENERAL: Alert and oriented x 3. NAD EYES: EOMI. Anicteric. HENT: Moist mucous membranes. No scleral icterus. No cervical lymphadenopathy. LUNGS: Clear to auscultation bilaterally. CARDIOVASCULAR: Regular rate and rhythm. No murmur. No JVD. ABDOMEN: Soft, non-tender +bs EXTREMITIES: No edema. Non-tender. SKIN: No rashes or lesions. Warm. NEUROLOGIC: No focal neurological deficits. CN II-XII grossly intact PSYCHIATRIC: Cooperative. Appropriate mood and affect [facility] Medical History (Updated 02/13/25 @ 17:06 by GEO Starkey) Osteoarthritis of knees, bilateral HTN (hypertension) Surgical History History of colonoscopy (~03/11/17) History of excision of mass (02/02/23) History of arthroscopy of right knee (02/03/07) History of arthroscopy of left knee (03/08/03) History of eye surgery (2001) History of total hysterectomy (07/15/01) S/P tonsillectomy and adenoidectomy History of quadruple bypass (05/22/15) Family History Mother No problems noted. Father No problems noted. 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 Cognitive needs: No Hearing needs: No Vision needs: Yes (rx glasses) Questionnaire Thrive Questionnaire Date Thrive assessed: 11/09/24 GERALD-7 AMB Questionnaire GERALD-7 Date GERALD - 7 assessed: 11/09/24 Source: Developed by DrsAlie Rodriguez, Kayleen Curran, Girish Capps and colleagues, with an educational veronica from [employer]. Physical exam (Primary Care) Vital Signs: Last Vital Signs Temp 97.6 F 02/13/25 16:22 Pulse 85 02/13/25 16:22 Resp 14 02/13/25 16:22 BP 130/58 L 02/13/25 16:22 Pulse Ox 97 02/13/25 16:22 Oxygen Delivery Method Room Air 02/13/25 16:22 BMI result Body Mass Index 28.1 Tobacco/Smoking Status: Tobacco use Status Tobacco use date assessed 11/09/24 02/13/25 16:20 Patient Tobacco Use Status Former Tobacco user 02/13/25 16:20 e-Cigarette/Vaping Use Former Use 02/13/25 16:20 Thrive Assessment: Date of Thrive Assessment Date Thrive assessed 11/09/24 02/13/25 16:20 Coding Level of Care Code Est Pt Level 4 (95940) Complex EM visit Add On G2211 Diagnoses HTN (hypertension) I10 CAD (coronary artery disease) of artery bypass graft I25.810 Type 2 diabetes mellitus with hyperglycemia, without long-term current use of insulin E11.65 Diabetes mellitus snf insulin use: without director long term care use Diabetes mellitus complication status: with hyperglycemia Assessment & Plan Assessment & Plan (1) HTN (hypertension): Code(s): I10 - Essential (primary) hypertension Category: Medical Plan: Controlled continue current therapies (2) CAD (coronary artery disease) of artery bypass graft: Code(s): I25.810 - Atherosclerosis of coronary artery bypass graft(s) without angina pectoris Category: Medical Plan: Stable. Continue current therapies and folow wiht cards as scheduled (3) Type 2 diabetes mellitus: Code(s): E11.9 - Type 2 diabetes mellitus without complications Category: Medical Qualifiers: Diabetes mellitus director long term care insulin use: without director long term care use Diabetes mellitus complication status: with hyperglycemia Qualified Code(s): E11.65 - Type 2 diabetes mellitus with hyperglycemia Plan: Reasonably controlled for age. Continue current therapies Plan Follow up in 4 months, labs to be completed prior to visit Orders: Orders Basic Metabolic Panel 4 Months E11.65 - Type 2 diabetes mellitus with hyperglycemia, I10 - Essential (primary) hypertension, I25.810 - Atherosclerosis of coronary artery bypass graft(s) without angina pectoris Hemoglobin A1c 4 Months E11.65 - Type 2 diabetes mellitus with hyperglycemia, I10 - Essential (primary) hypertension, I25.810 - Atherosclerosis of coronary artery bypass graft(s) without angina pectoris Liver Panel 4 Months E11.65 - Type 2 diabetes mellitus with hyperglycemia, I10 - Essential (primary) hypertension, I25.810 - Atherosclerosis of coronary artery bypass graft(s) without angina pectoris Lipid Panel 4 Months E11.65 - Type 2 diabetes mellitus with hyperglycemia, I10 - Essential (primary) hypertension, I25.810 - Atherosclerosis of coronary artery bypass graft(s) without angina pectoris
[2025-02-13 16:22] VITALS: BP 130/58; PULSE 85; RESP 14; TEMP 36.4; O2SAT 97; BMI 28.1
--- OUTSIDE RECORDS SUMMARY | 2025-02-13 17:34 | XMS_ITS | Patient Health Record ---
Author Organization [facility] Address [address] [place] [address] Care Team Providers Care Patient Safety Tech Name Role Phone Jadyn (RETIRED) Kalin LINARES Primary Care Provide r Prashanth Wall [phone] Allergies Allergen (clinical drug ingredient) Drug/Non Drug [...] 1 tablet Orally Once a day Active Halifax-3 650 1 capsule Orally Onc e a [...] Problem Status W/U Status Risk Notes Problem 611678314 Encounter for screening for malignant neoplasm of colon (Z12.11) Active confirmed Problem 165799759 Aspirin long-term use (Z79.82) Active confirmed Problem 129820855 Pre-procedural examination (Z01.818) Active confirmed Plan Of Treatment Future Test Test Name Order Date COLONOSCOPY 12/15/2016 Insurance Providers Payer Name Payer Address Payer Phone Subscriber Number Group Number Insured Name Patient Relationship to Insured Coverage Start Date Coverage End Date MEDICARE OF [place] [address] [place] [address] [phone] [id number] MELODYANA VALENTINE Self - patient is the insured MEDEX ATTN CLAIMS [address] [place] [address] [phone] [id number] MELODYANA VALENTINE Self - patient is the insured Medical (General) History Medical History History ICD Code CAD--angina--no [place]--4V CABG-2014 Uterine cancer Seasonal allergies Ablation-irregular heart beat-successful Urinary incontinence-mild Denies [place],DM,CVA,Lung disease,renal dise ase GERD Screening colonoscopy in Mar was negative other than some mild diverticulosis and small internal hemorrhoids Surgical History Surgery Date(Month/Year) [facility] 07/15/2001 Bilateral cataracts - Dr. Ruchi Ortega 20 02 Rotator Cuff left - Dr. Banks 08/21/19 03 Torn cartilage -arthroscopic on left kne e -Dr. Banks 03/08/2003 Torn Cartilage- arthroscopic right knee- dr. Banks 02/03/2007 4V-CABG Dr. [facility] 05/22/2015
--- OUTSIDE RECORDS SUMMARY | 2025-02-13 17:34 | XMS_ITS | Patient Health Record ---
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) Flat Foot, Congenital (754.61) Active confirmed Problem Ingrowing nail (047113677) Ingrowing Nail (703.0) Active confirmed Plan Of Treatment Pending Test Test Name Order Date X ray : Foot, left 2V 04/20/2013 [id number] NAIL, 1-01/09/2013 50014-[id number] NAIL, -04/20/2013 [id number] NAIL, -04/14/2012 [id number] NAIL, -07/14/2012 [id number] NAIL, -10/17/2012 [id number] NAIL, - 08/21/2013 94081-Dvwtebdb Plate 10/17/201290239,K0298-FQB TENDON SHEATH/LIGAMENT 1 50,Q3461-NSY TENDON SHEATH/LIGAMENT 1 07/18/2012 Insurance Providers Payer Name Payer Address Payer Phone Subscriber Number Group Number Insured Name Patient Relationship to Insured Coverage Start Date Coverage End Date Medicare National Govt [employer] [facility] [address] [place] [address] [phone] [id number] DestinchristinaPati davies Self - patient is the insured 1 [employer]ex Blue Shield [address] [place] [address] [id number] DestinchristinaPati davies Self - patient is the insured Medical (General) History Medical History History ICD Code Arthritis back, hip, knee pain cholesterol cancer high blood pressure reflux measles mumps chicken pox Surgical History Surgery Date(Month/Year) rotator cuff tear repair 2002 cataract surgery 2001 hysterectomy, total with bilateral salpi gabriel-oophorectomy (BSO) 2002 Torn cartilage 2002, 2006 Hospitalization History Reason Date(Month/Year) Patient went to [facility] for irregular hea rt beat. 07/2012
--- OUTSIDE RECORDS SUMMARY | 2025-02-13 17:34 | XMS_ITS ---
Author Organization [facility] Care Team Providers Care Audit Spec Name Role Phone Kalin Salamanca Unavailable Unavailable Lesli, Yamileth Unavailable Unavailable Levheim, Ashanti Unavailable Unavailable Allergies and adverse reactions Code CodeSystem Substance Reaction Severity StartDate Concern Status 941892031 SNOMED CT Sulfa Antibiotics Itching of skin (code- 829445954, SNOMED CT) Moderate 12/18/2021 active Egg Itching of skin (code- 493750382, SNOMED CT) Moderate 12/18/2021 active Care Team Name Role Address Phone Organization Dates Kalin Salamanca [address], [address], [place], [address], [place] (Office): : [facility] 12/18/2021 - 12/27/2021 Yamileth Ballesteros [address] [facility] [address], [place], [address], [place]Office[place] : [facility] 12/18/2021 - 12/27/2021 Ashanti Lele [address] [facility] [address], [place], [address], [place] (Office): [facility] 12/18/2021 - 12/27/2021 Immunizations Immunization Status Vaccine Details Vaccine Code CodeSystem Josh e Notes PCV13 (Pneumococcal Conjugate)Vaccine completed pneumococcal conjugate vaccine, 13 valent 133 CVX created date: 12/22/2021 administered date: 03/17/2016 SARS-COV-2 (COVID-19) completed SARS-COV-2 (COVID-19) vaccine, mRNA, spike protein, LNP, preservative free, 30 mcg/0.3mL dose Mfg: Pfiizer Step 2 of Multi-step with next step required 208 CVX created date: 12/22/2021 administered date: 10/09/2020 SARS-COV-2 (COVID-19) completed SARS-COV-2 (COVID-19) vaccine, mRNA, spike protein, LNP, preservative free, 30 mcg/0.3mL dose Mfg: Pfizer Step 1 of Multi-step with next step required 208 CVX created date: 12/22/2021 administered date: 09/17/2020 Pfizer Covid-19 Booster (SARS-COV-2) vaccine completed SARS-COV-2 (COVID-19) vaccine, mRNA, spike protein, LNP, preservative free, 30 mcg/0.3mL dose Mfg: [email or web address].ma 208 CVX created date: 12/22/2021 administered date: 11/17/2021 Pfizer Covid-19 Booster (SARS-COV-2) vaccine completed SARS-COV-2 (COVID-19) vaccine, mRNA, spike protein, LNP, preservative free, 30 mcg/0.3mL dose Mfg: Chilltime 208 CVX created date: 12/22/2021 administered date: 04/07/2021 Mental Status Section Date Assessment Total Score Description 12/27/2021 BIMS 15 cognitively int act CAM 0 No delirium ind icated PHQ-9 01 minimal depress ion 12/24/2021 BIMS 15 cognitively int act CAM 0 No delirium ind icated PHQ-9 01 minimal depress ion Problems Problem # Description Date of onset Resolved Date Code CodeSystem Concern Status 1 ATAXIA FOLLOWING CEREBRAL INFARCTION [address] active 2 ESSENTIAL (PRIMARY) HYPERTENSION [address] active 3 HYPERLIPIDEMIA, UNSPECIFIED [address] active 4 ORTHOSTATIC HYPOTENSION [address] active 5 OTHER LACK OF COORDINATION [address] active 6 TYPE 2 DIABETES MELLITUS WITHOUT COMPLICATIONS [address] active 7 UNSPECIFIED ATRIAL FLUTTER [address] active 8 UNSPECIFIED PROTEIN-CALORIE MALNUTRITION [address] active 9 URINARY TRACT INFECTION, SITE NOT SPECIFIED [address] active 10 VERTIGO OF CENTRAL ORIGIN [address] active Reason for Referral No Reasons for Referral Entered Social History Social History Observation Description Start Date End Date Code Code System Current Smoking Status Tobacco smoking consumption unknown 194885572 SNOMED CT Sex Assigned At Female 1945 25190-5 [facility] Gender Identity Vital Signs Code Code System Vitals Name Values and Units Timing Information 8462-4 [facility] Blood Pressure-Diastolic Value=70 Un its=mmHg 12/27/2021 8480-6 [facility] Blood Pressure-Systolic Rvsub=639 Un its=mmHg 12/27/2021 8867-4 [facility] Heart rate Value=60.0 Units=/min 07/2021 26619-1 [facility] Pain Level Value=0.0 12/27/2021 9279-1 [facility] Respiratory Rate Value=18.0 Units=/m in 12/26/2021 8310-5 [facility] Body Temperature Value=96.8 Units= F 12/26/2021 51783-7 [facility] O2 % BldC Oximetry Value=93.0 Units= % 12/26/2021 33716-6 [facility] Weight Tpytu=020.0 Units=Lbs 8302-2 [facility] Height Value=65.0 Units=Inches 12/18/2021
--- OUTSIDE RECORDS SUMMARY | 2025-02-13 17:34 | XMS_ITS | Clinical Summary ---
Author Organization [facility] Address [address] [place] [address] Phone Care Team Providers Care Bug Trimmer Name Role Phone Kalin Salamanca MD Primary Care Provider Jean Carlos Steele MD Unavailable [phone] Allergies Active Allergy Reactions Criticality Noted Date [...] PLUS ORAL) Take by mouth. Activ e tmxzn-8u-pnq-ep a-fish oil 332.5-100-200 mg Cap Take by [...] Info) Description 04/13/2024 Procedure Pass Echo Lab [address] [place] [address] 03/27/2025 10:15 AM EDT Appointment Echo Lab [place] [address] [place] [address] Venkat Montoya MD [address] [facility], [address] [place] [address] [phone] [email or web address] 04/02/2026 10:15 AM EDT Office Visit [facility] [address] [place] [address] 3rd Floor, [address] [place], [place] [phone] Jean Carlos Ghotra DO [address] [facility] [address] [place] [address] [email or web address] Health Maintenance Due Date Last Done Comments [...] file Insurance MEDICARE PART A & B [facility] MEDEX SUPPLEMENT MEDICARE PART A & B [facility] MEDEX SUPPLEMENT MEDICARE PART A & B [employer] MEDEX SUPPLEMENT MEDICARE PART A & B [employer] MEDEX SUPPLEMENT MEDICARE PART A & B [employer] MEDEX SUPPLEMENT MEDICARE PART A & B [employer] MEDEX SUPPLEMENT MEDICARE PART A & B [employer] MEDEX SUPPLEMENT MEDICARE PART A & B [employer] MEDEX SUPPLEMENT MEDICARE PART A & B [employer] MEDEX SUPPLEMENT Care Teams Bug Trimmer Relationship Specialty Start Date End Date Kalin Salamanca MD [address] [place] [address] [place] [address] PCP - General 04/15/17 Jean Carlos Steele MD [address] [place] [address] [place] [address] [email or web address] Historical LMR Provider 04/15/17 Additional Source Comments The information contained in this document represents components of the legal health record. It is not the complete legal health record.[facility]
--- OUTSIDE RECORDS SUMMARY | 2025-02-13 17:35 | XMS_ITS | Clinical Summary ---
Author Organization [facility] Address [address] [address] Care Team Providers Care Hematologist Oncologist Name Role Phone Kalin Salamanca MD Primary Care Provider [phone] Social History Tobacco Use Types Packs/Day Years [...] age to complete this topic Insurance Medicare [facility] Medicare [facility] Care Teams Hematologist Oncologist Relationship Specialty Start Date End Date Kalin Salamanca MD [address] [place] [address] [address] [place], [place] PCP - General Internal Medicine 12/16/21
== END 2025-02-13 17:18 | disposition home or self-care (01) ==
LOC: HO.HMCHD 16:04
PROVIDERS: PCP Internal Medicine; Visit Provider Physician Assistant
DX: I10 Essential (primary) hypertension (principal); I25.810 Atherosclerosis of coronary artery bypass graft(s) without angina pectoris; E11.65 Type 2 diabetes mellitus with hyperglycemia

== ENCOUNTER → 2025-02-13 16:03 | Outpatient (BNVA) | payer MEDICARE, SELFPAY | PROVIDERS: PCP Internal Medicine; Visit Provider Physician Assistant | DX: I10 Essential (primary) hypertension (principal); I25.810 Atherosclerosis of coronary artery bypass graft(s) without angina pectoris; E11.65 Type 2 diabetes mellitus with hyperglycemia | CPT/HCPCS: 99212 ==

== ENCOUNTER 2025-03-01 04:06 | Emergency (ER) | payer MEDICARE, SELFPAY ==
[2025-03-01] VITALS (7 sets, daily range): BP systolic 125–180; BP diastolic 47–76; PULSE 68–113; RESP 15–20; TEMP 36.3–37.1; O2SAT 94–98; BMI 31.7
--- NOTE | ~2025-03-01 | CT_ITS ---
CLINICAL HISTORY: question occult fracture CT LEFT LOWER EXTREMITY WITHOUT CONTRAST COMPARISON: Left knee x-rays 03/01/2025. FINDINGS: The left knee was scanned. Osteopenia lowers the sensitivity of the examination. No definitive evidence of an acute fracture or dislocation. Mild tricompartmental degenerative changes are present. Large suprapatellar joint effusion is noted. Several small loose bodies are suspected within the joint effusion on sagittal image 37. Solano's cyst is noted. Chondrocalcinosis is noted. Sclerotic changes are noted within the distal femoral diametaphysis, thought to most likely represent an enchondroma. Vascular calcifications are present. Subcutaneous edema/stranding is noted anteriorly. IMPRESSION: 1. No definite acute fracture or dislocation. 2. Degenerative changes are noted. A large suprapatellar joint effusion is noted. 3. Additional findings are detailed above. This document has been electronically signed by: Rayray Reeder M.D. on 03/01/2025 23:17:36
--- NOTE | ~2025-03-01 | XR_ITS ---
CLINICAL HISTORY: fall LEFT KNEE X-RAYS COMPARISON: Right knee x-rays 01/18/2025. FINDINGS: A total of 2 views of the left knee were obtained. No definite evidence of an acute fracture or dislocation within the left knee. A small suprapatellar joint effusion is present. There are moderate degenerative changes in the patellofemoral joint. There are mild degenerative changes in the lateral compartment. Probable enchondroma is noted in the distal femoral diaphysis. Vascular calcifications are present. IMPRESSION: 1. No definite acute fracture or dislocation. 2. Degenerative changes are noted. There is a small suprapatellar effusion. 3. Probable enchondroma in the distal femoral diaphysis. This document has been electronically signed by: Rayray Reeder M.D. on 03/01/2025 05:47:27
--- NOTE | ~2025-03-01 | XR_ITS ---
EXAMINATION: XR PELVIS CLINICAL INFORMATION: fall, pain COMPARISON: None available. TECHNIQUE: AP view of the pelvis. FINDINGS: Bony pelvis is intact. Degenerative changes in the symphysis pubis. Multilevel lower lumbar spondylosis. Foreshortening of the right femoral neck likely positioning. No acute cortical disruption or gross malalignment in either hip. Vascular calcifications. XR/XR pelvis 1-2V IMPRESSION: No acute fracture, pelvis. Atherosclerosis disease. Electronically signed by: Austin Ramos MD 03/01/2025 07:15 AM EDT
--- NOTE | ~2025-03-01 | XR_ITS ---
EXAMINATION: XR HIP, LEFT CLINICAL INFORMATION: fall, pain COMPARISON: None available. TECHNIQUE: AP and oblique views of the left hip. FINDINGS: No acute cortical disruption or malalignment. No lytic or blastic lesions. Vascular calcifications. Osteopenia versus osteoporosis. XR/XR hip LT min 2V IMPRESSION: No acute fracture or dislocation, left hip. Atherosclerosis disease, peripheral. Electronically signed by: Austin Ramos MD 03/01/2025 07:16 AM EDT
--- OUTSIDE RECORDS SUMMARY | 2025-03-01 04:15 | XMS_ITS | Patient Health Record ---
Author Organization [facility] [employer] Address [address] [place] [address] Care Team Providers Care Painting Machine Operator Name Role Phone Kalin Salamanca MD Primary Care Provider Wesley Campbell Unavailable [phone] Allergies Allergen (clinical drug ingredient) Drug/Non Drug [...] Status W/U Status Risk Notes Problem Onychomycosis (107087448) Onychomycosis (110.1) Active confirmed Problem Pain in limb (04447451) Pain in Limb (729.5) Active confirmed Problem Congenital pes planus (29410915) Flat Foot, Congenital (754.61) Active confirmed Problem Ingrowing nail (674358586) Ingrowing Nail (703.0) Active confirmed Plan Of Treatment Pending Test Test Name Order Date X ray : Foot, left 2V 04/20/2013 98045-[id number] NAIL, 1-01/09/2013 97048-[id number] NAIL, -04/20/2013 48194-YPRDDJU NAIL, -04/14/2012 01848-[id number] NAIL, -07/14/2012 29314-[id number] NAIL, -10/17/2012 47364-VNKTUPY NAIL, - 08/21/2013 76294-Anffabwo Plate 10/17/201255349,K8503-YNW TENDON SHEATH/LIGAMENT 1 50,J7920-FPP TENDON SHEATH/LIGAMENT 1 07/18/2012 Insurance Providers Payer Name Payer Address Payer Phone Subscriber Number Group Number Insured Name Patient Relationship to Insured Coverage Start Date Coverage End Date Medicare National Govt [facility] [address] [place] [address] [phone] [id number] DestinchristinaPati davies Self - patient is the insured 1 [employer]ex Blue Shield [address] [place] [address] [id number] DestinchristinaPati davies Self - patient is the insured Medical (General) History Medical History History ICD Code Arthritis back, hip, knee pain cholesterol cancer high blood pressure reflux measles mumps chicken pox Surgical History Surgery Date(Month/Year) rotator cuff tear repair 2002 cataract surgery 2001 hysterectomy, total with bilateral salpi gabriel-oophorectomy (BSO) 2002 Torn cartilage 2002, 2006 Hospitalization History Reason Date(Month/Year) Patient went to [facility] for irregular hea rt beat. 07/2012
--- OUTSIDE RECORDS SUMMARY | 2025-03-01 04:15 | XMS_ITS | Clinical Summary ---
Author Organization [facility] Address [address] [address] Care Team Providers Care Attenuator Name Role Phone Kalin Salamanca MD Primary Care Provider [phone] Social History Tobacco Use Types Packs/Day Years [...] age to complete this topic Insurance Medicare [facility] Medicare [facility] Care Teams Attenuator Relationship Specialty Start Date End Date Kalin Salamanca MD [address] [place] [address] [address] [place], [place] PCP - General Internal Medicine 12/16/21
--- OUTSIDE RECORDS SUMMARY | 2025-03-01 04:15 | XMS_ITS | Patient Health Record ---
Author Organization [facility] Address [address] [place] [address] Care Team Providers Care Right Of Way Agent Name Role Phone Jadyn (RETIRED) Kalin LINARES Primary Care Provide r Prashanth Wall [phone] Allergies Allergen (clinical drug ingredient) Drug/Non Drug [...] 1 tablet Orally Once a day Active Viburnum-3 650 1 capsule Orally Onc e a [...] Problem Status W/U Status Risk Notes Problem 749617238 Encounter for screening for malignant neoplasm of colon (Z12.11) Active confirmed Problem 359977658 Aspirin long-term use (Z79.82) Active confirmed Problem 282611971 Pre-procedural examination (Z01.818) Active confirmed Plan Of Treatment Future Test Test Name Order Date COLONOSCOPY 12/15/2016 Insurance Providers Payer Name Payer Address Payer Phone Subscriber Number Group Number Insured Name Patient Relationship to Insured Coverage Start Date Coverage End Date MEDICARE OF [place] [address] [place] [address] [id number] MELODYANA VALENTINE Self - patient is the insured MEDEX ATTN CLAIMS [address] [place] [address] [id number] MELODYANA VALENTINE Self - patient is the insured Medical (General) History Medical History History ICD Code 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 Ruchi Ortega 20 02 Rotator Cuff left - Dr. Banks 08/21/19 03 Torn cartilage -arthroscopic on left kne e -Dr. Banks 03/08/2003 Torn Cartilage- arthroscopic right knee- dr. Banks 02/03/2007 4V-CABG Dr. [facility] 05/22/2015
--- OUTSIDE RECORDS SUMMARY | 2025-03-01 04:15 | XMS_ITS | Clinical Summary ---
Author Organization [facility] Address [address] [place] [address] Phone Care Team Providers Care Show Host Name Role Phone Kalin Salamanca MD Primary Care Provider Jean Carlos Steele MD Unavailable [phone] Allergies Active Allergy Reactions Criticality Noted Date [...] PLUS ORAL) Take by mouth. Activ e deczu-3m-vjb-ep a-fish oil 332.5-100-200 mg Cap Take by [...] Info) Description 04/13/2024 Procedure Pass Echo Lab [address] [place] [address] 03/27/2025 10:15 AM EDT Appointment Echo Lab [place] [address] [place] [address] Venkat Montoya MD 22 [facility], [address] [place] [phone] [email or web address] 04/02/2026 10:15 AM EDT Office Visit [facility] [address] [place] [address] [address]rd Floor, [address] [place], [place] [phone] Jean Carlos Ghotra DO [address] [place] [address] [email or web address] Health Maintenance Due Date Last Done Comments Adult Td,Tdap Booster 1945 CREATININE LEVEL 1945 LIPID PANEL 1946 DEPRESSION SCREENING 1958 SMOKING Hx and SMOKELESS TOBACCO SCREENING 1959 HEPATITIS C SCREENING 01/15/1964 ZOSTER VACCINES (1 of 2) 01/15/1996 OSTEOPOROSIS SCREENING INITIAL (ONE-TIME) 2011 PNEUMOCOCCAL VACCINES (50+ years) (2 of 2 - PPSV23) 03/17/2017 03/17/2016 RSV VACCINE (1 - 1-dose 75+ series) 2021 BLOOD PRESSURE 10/12/2024 04/13/2024 INFLUENZA VACCINE (#1) 2025 COVID-19 VACCINE ( season) 2025 11/17/2021, 04/07/2021, 10/09/2020, Additional history exists HEPATITIS A VACCINES Aged Out No long [...] file Insurance MED[place] [id number] [facility] MEDEX SUPPLEMENT MEDICARE PART A & B [facility] MEDEX SUPPLEMENT MEDICARE PART A & B Member Subscriber Plan / Payer ( fective 2010-Present) Name:Valentine Drummond Member ID:[id number] Relation to Subscriber:Self Name:Valentine Drummond Subscriber ID:[id number] Payer ID:[id number] Group ID:Not on file Type:Medicare Address: [employer] [address] [place] [phone] [employer] MEDEX SUPPLEMENT [employer] MEDEX SUPPLEMENT MEDICARE PART A & B [employer] MEDEX SUPPLEMENT MEDICARE PART A & B [employer] MEDEX SUPPLEMENT MEDICARE PART A & B [employer] MEDEX SUPPLEMENT MEDICARE PART A & B [employer] MEDEX SUPPLEMENT MEDICARE PART A & B Member Subscriber Plan / Payer ( fective 2010-Present) Name:Valentine Drummond Member ID:[id number] Relation to Subscriber:Self Name:Valentine Drummond Subscriber ID:[id number] Payer ID:[id number] Group ID:Not on file Type:Medicare Address: [facility] [employer] [facility] [employer] [facility] [address] [place] [phone] [employer] MEDEX SUPPLEMENT Care Teams Show Host Relationship Specialty Start Date End Date Kalin Salamanca MD [address] [place] [address] [place] [address] PCP - General 04/15/17 Jean Carlos Steele MD [address] [place] [address] [place] [address] [email or web address] Historical LMR Provider 04/15/17 Additional Source Comments The information contained in this document represents components of the legal health record. It is not the complete legal health record.[facility]
--- OUTSIDE RECORDS SUMMARY | 2025-03-01 04:15 | XMS_ITS | Encounter Summary ---
Author Organization [facility] Address [address] [place] [address] [place] [address] Phone Care Team Providers Care Vegetable Farming Supervisor Name Role Phone Kalin Salamanca MD Primary Care Provider Jean Carlos Steele MD Unavailable [phone] Encounter Details Date Type Department Care Team (Late st Contact Info) Description 07/28/2022 Procedure Pass Echo Lab [address] [place] [address] Social History Tobacco Use Types Packs/Day Years Used Date Smoking Tobacco: Former Smokeless Tobacco: Never Comments Unknown Sex and Gender Information Value Date Recorded Sex Assigned at Not on file Legal Sex Female 10:08 PM EDT Gender Identity Not on file Sexual Orientation Not on file documented as of this encounter Plan of Treatment Upcoming Encounters Date Type Department Care Team (Late st Contact Info) Description 04/13/2024 Procedure Pass Echo Lab [address] [place] [address] 03/27/2025 10:15 AM EDT Appointment Echo Lab [address] [place] [address] Venkat Montoya MD 22 [facility], [address] [place] [address] [email or web address] 04/02/2026 10:15 AM EDT Office Visit [facility] [address] [place] [address] [address]rd Floor, [address] [place] [address] Jean Carlos Ghotra DO [address] [facility] [address] [place] [address] [email or web address] documented as of this encounter Visit Diagnoses Not on filedocumented in this encounter Care Teams Vegetable Farming Supervisor Relationship Specialty Start Date End Date Kalin Salamanca MD [address] [place] [address] [place] [address] PCP - General 04/15/17 Jean Carlos Steele MD [address] [place] [address] [place] [address] [email or web address] Historical LMR Provider 04/15/17 documented as of this encounter Additional Source Comments The information contained in this document represents components of the legal health record. It is not the complete legal health record.[facility]
[2025-03-01 04:21] LABS: Glucose, Whole Blood 158 mg/dL (60-115)
--- NOTE | 2025-03-01 05:09 | PC.NURSE ---
pt biba from home, a&ox4, respirations even and unlabored. pt reports x2 falls at home, landed on knees both time, reports after second fall she landed on left knee, unable to stand after. denies loc/headstrike/thinners. pt assisted onto bedpan at this time, purewick placed and pt medicated per aug.
[2025-03-01 05:14] LABS: Appearance Urine Clear; Glucose Urine UA Negative (Negative); Hematocrit 32.3 % (37.0-47.0); Hemoglobin 11.3 g/dl (12.0-16.0); Imm Gran Abs Auto 0.03 X10*3/uL (0.00-0.03); Imm Gran Pct Auto 0.3 % (0.0-0.4); Lymphocytes Absolute Auto 1.3 X10*3/uL (1.2-4.9); MANUAL DIFF FLAG NO; Mean Corpuscular HGB Conc 35.0 g/dl (31.0-35.0); Mean Corpuscular Hemoglobin 32.8 pg (27.0-33.0); Mean Corpuscular Volume 93.9 fL (80.0-98.0); NRBC Abs Auto 0.000 X10*3/uL (0.0-0.012); NRBC Pct Auto 0.0 /100WBC (0.0-0.2); PH 6.5 (5.0-9.0); Platelet Count 222 X10*3/uL (160-400); Red Blood Count 3.44 X10*6/uL (4.20-5.50); Specific Gravity - Urine 1.010 (1.005-1.025); UMIC TRIGGER UACC YES; White Blood Count 10.4 X10*3/uL (4.8-10.8)
--- NOTE | 2025-03-01 05:28 | ED.FALL ---
HPI - Fall General Chief Complaint: Fall Stated Complaint: Fall Time Seen by Provider: 03/01/25 04:41 Source: patient and EMS Mode of arrival: EMS Limitations: other History of Present Illness ED Provider: Dr. Arlet Glover HPI Narrative: patient comes to the emergency room complaining of knee pain that started today after sustaining 2 falls. Patient states that she believes that her shoes are getting stuck to the ground and making her trip. Patient states that the 1st time today she tripped in her kitchen, she was able to get up. Patient states that she spent pretty much the whole afternoon putting ice in her left knee. Patient states that later at night, she was able to get out of the couch, she walked to the bathroom, then patient fell again landing on her left knee again. This time, patient was not able to get up and walk. Patient denies history of blood thinners. Patient states that she did not hit her head or lost consciousness. Patient was awake the whole time. Related Data Home Medications ?Medication ?Instructions ?Recorded ?Confirmed ascorbic acid (vitamin C) 500 mg 500 mg PO DAILY 12/14/21 03/01/25 tablet (Vitamin C) glucosamine sulfate 500 mg tablet 500 mg PO BID 12/14/21 03/01/25 (Glucosamine) metformin 500 mg tablet,extended 1 tab PO BID 12/14/21 03/01/25 release 24 hr omeprazole 20 mg capsule,delayed 1 cap PO DAILY 12/14/21 03/01/25 release vit C 250 mg-E 90 mg-zinc 40 1 tab PO BID 12/14/21 03/01/25 mg-copper 1 [id number] chew tablet (PreserVision AREDS-2) aspirin 81 mg tablet,delayed 81 mg PO DAILY 01/15/23 03/01/25 release (Adult Low Dose Aspirin) glipizide 5 mg tablet, extended 5 mg PO BID 01/15/23 03/01/25 release 24 hr metoprolol succinate 25 mg 25 mg PO BID 01/18/25 03/01/25 tablet,extended release 24 hr Previous Rx's ?Medication ?Instructions ?Recorded atorvastatin 80 mg tablet 80 mg PO BEDTIME #90 tabs 10/25/24 zolpidem 5 mg tablet 5 mg PO BEDTIME PRN sleep #30 tabs 02/08/25 Allergies Allergy/AdvReac Type Severity Reaction Status Date / Time egg (Egg) Allergy Mild RASH Verified 03/01/25 04:14 Sulfa (Sulfonamide Allergy Unknown N/V Verified 03/01/25 04:14 Antibiotics) TACHYCARDIC environmental allergies AdvReac Cough Verified 03/01/25 04:14 Review of Systems Review of Systems: Constitutional : No Weight loss, No Fever, No Chills, No Night Sweats, No Fatigue, No Malaise ENT/Mouth : No Hearing loss, No Ear Pain, No Nasal Congestion, No Sinus Pain, No Hoarseness, No sore throat, No Rhinorrhea, No Swallowing Difficulty Eyes: No Eye Pain, No Swelling, No Redness, No Foreign Body, No Discharge, No Vision Changes Cardiovascular : No Chest Pain, No SOB, No Dyspnea on Exertion, No Orthopnea, No Edema, No Palpitations Respiratory : No Cough, No Sputum, No Wheezing, No Smoke Exposure, No Dyspnea Gastrointestinal : No Nausea, No Vomiting, No Diarrhea, No Constipation, No abdominal Pain, No Hematochezia, No Melena Genitourinary : no irregular bleeding, No Dysuria, No Urinary Frequency, No Hematuria, No Urinary Incontinence, No Urgency, No Flank Pain, No Urinary Flow Changes, No Hesitancy Musculoskeletal : Complaining of leftknee pain No Myalgias, No Joint Swelling Skin : No Skin Lesions, No rash Neuro : No Weakness, No Numbness, No Paresthesias, No Loss of Consciousness, No Dizziness, No Headache Psych : No Anxiety/Panic, No Depression, No SI/HI/AH/VH, No Social Issues, Heme/Lymph: No Bruising, No Bleeding,No Lymphadenopathy Endocrine : No Polyuria, No Polydipsia, No Temperature Intolerance [facility] Past Medical History Medical History Osteoarthritis of knees, bilateral HTN (hypertension) Surgical History History of colonoscopy (~03/11/17) History of excision of mass (02/02/23) History of arthroscopy of right knee (02/03/07) History of arthroscopy of left knee (03/08/03) History of eye surgery (2001) History of total hysterectomy (07/15/01) S/P tonsillectomy and adenoidectomy 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 Father No problems noted. 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 Oriented X3. No acute distress. Eyes: Pupils equal, round and reactive to light. ENT: Pharynx normal. Neck: Normal inspection. Neck supple. No lymph nodes noted. No crepitus CVS: Normal heart rate and rhythm. Pulses normal. Normal S1 and S2 Respiratory: No respiratory distress. Breath sounds normal. No Wheezing. No rales Abdomen: Soft and nontender. No rigidity. No distention. Skin: Skin warm and dry. Normal skin color. Normal skin turgor. Extremities: No lower extremity edema. No Lacerations. No Rash patient has ecchymosis around the left knee, seems that she is starting to develop an effusion in the knee. No lacerations. Patient is unable to flex the left hip due to pain Neuro: Oriented X 3. No motor deficit. No sensory deficit. Moving all extremities. No slurred speech. CN 2 through 12 grossly intact Psych: calm, cooperative, normal affect Vital Signs: Vital Signs: Last Vital Signs Temp 97.5 F 03/06/25 08:03 Pulse 60 03/06/25 08:50 Resp 18 03/06/25 08:03 BP 178/62 H 03/06/25 08:50 Pulse Ox 92 03/06/25 08:03 O2 Del Method Room Air 03/06/25 08:03 BMI result Body Mass Index 31.7 Course Reevaluation(s) Reevaluation #1: Physician observation continued. Uneventful night. Vital signs stable. No complaints from nursing overnight. Med reconciliation reviewed and done. Pending disposition. Will continue to monitor. Reevaluation #2: GEO Gonzales 03/03 insert physician observation Time: 10:14 Date: 03/04/25 Provider: GEO Crain Patient in physician observation for case management needs. No acute events reported overnight.? Pending PT/CM. Will continue to monitor. Time: 18:43 Date: 03/05/25 Provider: GEO Crain Patient in physician observation for case management needs. No acute events reported overnight.? Pending case management disposition. Anticipate discharge home tomorrow with [facility] and physical therapy via BLS. We will continue to monitor. Time: 08:27 Date: 03/06/25 Provider: GEO Clifton I have reviewed all work up results. labs unremarkable. UA w/o infection. neg viral serology. xrs negative for any acute osseous process. PT evaluated patient and is recommending brief STR. CM has discussed w/ patient - patient unable to pay for STR. She will be discharged home with VNA. stable at this time. agreeable with disposition. Medications Administered Generic Name Dose Route Start Last Admin Trade Name Freq PRN Reason Stop Dose Admin Acetaminophen 975 mg 03/05/25 21:00 03/06/25 05:05 Acetaminophen 325 Mg Tablet PO 975 mg Q8H YARED Administration Ascorbic Acid 500 mg 03/05/25 09:00 03/06/25 08:50 Ascorbic Acid 500 Mg Tablet PO 500 mg DAILY YARED Administration Aspirin 81 mg 03/05/25 09:00 03/06/25 08:50 Aspirin Enteric Coated 81 Mg Tablet. PO 81 mg DAILY YARED Administration Atorvastatin Calcium 80 mg 03/01/25 21:00 03/05/25 21:00 Atorvastatin Calcium 80 Mg Tablet PO 80 mg BEDTIME YARED Administration Docusate Sodium 100 mg 03/03/25 21:50 03/06/25 08:49 Docusate Sodium 100 Mg Capsule PO 100 mg BID YARED Administration Glipizide 5 mg 03/01/25 12:45 03/06/25 08:50 Glipizide Xl 5 Mg Tab.Er.24 PO 5 mg BID YARED Administration Ibuprofen 600 mg 03/01/25 20:56 03/05/25 05:36 Ibuprofen 600 Mg Tablet PO 600 mg Q8H PRN Administration Pain, Moderate(Pain Scale 4-6) Metformin HCl 500 mg 03/01/25 21:00 03/06/25 08:50 Metformin Hcl Er 500 Mg Tab.Er.24h PO 500 mg BID YARED Administration Metoprolol Succinate 25 mg 03/01/25 12:45 03/06/25 08:50 Metoprolol Succinate Er 25 Mg Tab.Er.24h PO 25 mg BID YARED Administration Protocol Omeprazole 20 mg 03/02/25 06:30 03/06/25 05:05 Omeprazole 20 Mg Capsule.Dr PO 20 mg DAILY@0630 YARED Administration Oxycodone HCl 5 mg 03/01/25 12:34 03/05/25 09:07 Oxycodone Hcl Immed Release 5 Mg Tablet PO 5 mg Q6H PRN Administration Pain, Moderate(Pain Scale 4-6) Polyethylene Glycol 17 gm 03/03/25 21:47 03/05/25 09:10 Polyethylene Glycol 3350 17 Gm Powd.Pack PO 17 gm BID PRN Administration Constipation Prednisone 20 mg 03/02/25 19:00 03/06/25 08:50 Prednisone 20 Mg Tablet PO 20 mg DAILY YARED Administration Zolpidem Tartrate 5 mg 03/01/25 12:33 03/01/25 21:10 Zolpidem Tartrate 5 Mg Tablet PO 5 mg BEDTIME PRN Administration Sleep Discontinued Medications Generic Name Dose Route Start Last Admin Trade Name Freq PRN Reason Stop Dose Admin Acetaminophen 975 mg 03/02/25 01:00 03/02/25 01:01 Acetaminophen 325 Mg Tablet PO 975 mg Q8H PRN Administration Pain, Mild 1-3,fever,headache Acetaminophen 975 mg 03/02/25 19:00 03/05/25 13:29 Acetaminophen 325 Mg Tablet PO 975 mg Q8H YARED Administration Lidocaine 1 patch 03/01/25 20:56 03/01/25 21:12 Lidocaine 4 % Patch Adh..Patch TRANSDERMA 03/01/25 20:57 1 patch ONCE ONE Administration Protocol Lidocaine HCl 5 ml 03/02/25 18:04 03/02/25 20:52 Lidocaine Hcl 1 % 20 Ml Vial INFILTRATI 03/02/25 18:05 5 ml ONCE ONE Administration Ondansetron HCl 4 mg 03/01/25 05:47 03/01/25 05:51 Ondansetron Odt 4 Mg Tab.Rapdis TRANSLINGU 03/01/25 05:48 4 mg ONCE ONE Administration Oxycodone HCl 5 mg 03/01/25 07:59 03/01/25 08:04 Oxycodone Hcl Immed Release 5 Mg Tablet PO 03/01/25 08:00 5 mg ONCE ONE Administration Oxycodone HCl 5 mg 03/01/25 17:27 03/01/25 17:35 Oxycodone Hcl Immed Release 5 Mg Tablet PO 03/01/25 17:28 5 mg ONCE ONE Administration Oxycodone HCl 5 mg 03/02/25 13:34 03/02/25 13:43 Oxycodone Hcl Immed Release 5 Mg Tablet PO 03/02/25 13:35 5 mg ONCE ONE Administration Tramadol HCl 50 mg 03/01/25 04:52 03/01/25 05:02 Tramadol Hcl 50 Mg Tablet PO 03/01/25 04:53 50 mg ONCE ONE Administration Procedures Joint Aspiration/Injection Joint Asp./Inject. 1: Time Out Performed: Yes Side of body: left Joint Aspirated: knee Ultrasound Guidance: Yes Skin Prep: Chlorhexidine Local Anesthetic: lidocaine 1% Amount of anesthesia used (mL): 5 Needle Size Used: 18G Fluid Obtained: turbid Total fluid obtained (mL): 50 Patient Tolerated Procedure: no complications Complications: none Additional Comments: 50 CC serosanguanous drainage Medical Decision Making Medical Decision Making MDM Narrative: my interpretation of labs: No significant abnormality in patient's hematology, or chemistry. urinalysis negative for UTI X-rays of the knees hip and pelvis pending patient was given p.o. tramadol, made her very nauseous, no guarding Zofran. Overall, patient lives by herself, she is unable to stand and walk. She will need PT and case management, but 1st, we are waiting for the x-rays of the hip to make sure that she does not have a fracture there. sign-out given to my colleague Dr. Alejandro Differential Diagnosis Differential Diagnoses: The differential diagnosis associated with the presentation includes ( Multiple falls, UTI, hip contusion, hip fracture, dislocation, patellar contusion, knee effusion) Admission/Observation Consideration of admission/observation: Escalation of care including admission/observation considered ( patient can not go home by herself, unable to walk, patient will need PT/case management consult) Lab Data MDM Lab Attestation statement: I reviewed the patient's lab results. 03/01/25 05:09 03/01/25 05:09 Labs: Lab Results 03/01/25 03/01/25 03/02/25 Range/Units 04:17 05:09 18:45 WBC 10.4 (4.8-10.8) X10*3/uL RBC 3.44 L (4.20-5.50) X10*6/uL Hgb 11.3 L (12.0-16.0) g/dl Hct 32.3 L (37.0-47.0) % MCV 93.9 (80.0-98.0) fL MCH 32.8 (27.0-33.0) pg MCHC 35.0 (31.0-35.0) g/dl RDW 12.3 (11.0-16.0) % Plt Count 222 (160-400) X10*3/uL MPV 9.4 (9.4-12.3) fL Immature Gran % (Auto) 0.3 (0.0-0.4) % Neut % (Auto) 75.1 H (45-73) % Lymph % (Auto) 12.7 L (20-40) % [place] % (Auto) 9.6 (2-11) % Eos % (Auto) 2.0 (0-4) % Baso % (Auto) 0.3 (0-2) % Lymph # (Auto) 1.3 (1.2-4.9) X10*3/uL [place] # (Auto) 1.0 (0.1-1.2) X10*3/uL Eos # (Auto) 0.2 (0.0-0.4) X10*3/uL Baso # (Auto) 0.0 (0.0-0.2) X10*3/uL Abs Immat Gran (auto) 0.03 (0.00-0.03) X10*3/uL Absolute Neuts (auto) 7.8 (2.0-8.3) x10*3/uL Absolute Nucleated RBC 0.000 (0.0-0.012) X10*3/uL Nucleated RBC % (auto) 0.0 (0.0-0.2) /100WBC Sodium 140 (135-145) mmol/L Potassium 4.3 (3.3-5.1) mmol/L Chloride 106 (96-108) mmol/L Carbon Dioxide 24 (22-29) mmol/L Anion Gap 14 (12-20) BUN 14 (9-16) mg/dL Creatinine 0.72 (0.5-1.4) mg/dL Estim Creat Clear Calc 61.5 Estimated GFR > 60 POC Glucose 158 H (60-115) mg/dL Random Glucose 203 H (60-115) mg/dL Calcium 9.1 (8.4-10.2) mg/dL Total Bilirubin 0.7 (0.0-1.0) mg/dL Direct Bilirubin 0.2 (0.0-0.5) mg/dL AST 28 (5-31) U/L ALT 29 (0-31) U/L Alkaline Phosphatase 72 (39-117) U/L Total Protein 6.2 L (6.5-8.0) g/dL Albumin 3.9 (3.5-5.0) g/dL Urine Color Yellow Urine Appearance Clear Urine pH 6.5 (5.0-9.0) Ur Specific [place] 1.010 (1.005-1.025) Urine Protein Negative (Neg-Trace) mg/dL Urine Glucose (UA) Negative (Negative) mg/dL Urine Ketones Negative (Negative) mg/dL Urine Blood Negative (Negative) Urine Nitrite Negative (Negative) Ur Leukocyte Esterase Trace H (Negative) Urine RBC 0-2 (0-2) /HPF Urine WBC 0-5 (0-5) /HPF Ur Squamous Epith Cells 3-5 (0-2) /HPF Urine Bacteria None Seen (None Seen) Hyaline Casts 0-2 (0-2) /LPF Synovial Source left knee Synovial WBC 36.900 X10*3/uL Synovial RBC 0.025 X10*6/uL Synovial Neutrophils 88 % Synovial Lymphocytes 1 % Synovial Monocytes 6 % Synovial Other Cells 5 Synovial Glucose 77 Synovial Total Protein 3.9 Influenza Type A (PCR) (Negative) Influenza Type B (PCR) (Negative) RSV RNA Qual (PCR) (Negative) SARS-CoV-2 RNA (RT-PCR) (Negative) 03/03/25 03/03/25 03/03/25 Range/Units 07:15 09:04 11:43 WBC (4.8-10.8) X10*3/uL RBC (4.20-5.50) X10*6/uL Hgb (12.0-16.0) g/dl Hct (37.0-47.0) % MCV (80.0-98.0) fL MCH (27.0-33.0) pg MCHC (31.0-35.0) g/dl RDW (11.0-16.0) % Plt Count (160-400) X10*3/uL MPV (9.4-12.3) fL Immature Gran % (Auto) (0.0-0.4) % Neut % (Auto) (45-73) % Lymph % (Auto) (20-40) % [place] % (Auto) (2-11) % Eos % (Auto) (0-4) % Baso % (Auto) (0-2) % Lymph # (Auto) (1.2-4.9) X10*3/uL [place] # (Auto) (0.1-1.2) X10*3/uL Eos # (Auto) (0.0-0.4) X10*3/uL Baso # (Auto) (0.0-0.2) X10*3/uL Abs Immat Gran (auto) (0.00-0.03) X10*3/uL Absolute Neuts (auto) (2.0-8.3) x10*3/uL Absolute Nucleated RBC (0.0-0.012) X10*3/uL Nucleated RBC % (auto) (0.0-0.2) /100WBC Sodium (135-145) mmol/L Potassium (3.3-5.1) mmol/L Chloride (96-108) mmol/L Carbon Dioxide (22-29) mmol/L Anion Gap (12-20) BUN (9-16) mg/dL Creatinine (0.5-1.4) mg/dL Estim Creat Clear Calc Estimated GFR POC Glucose 244 H 291 H (60-115) mg/dL Random Glucose (60-115) mg/dL Calcium (8.4-10.2) mg/dL Total Bilirubin (0.0-1.0) mg/dL Direct Bilirubin (0.0-0.5) mg/dL AST (5-31) U/L ALT (0-31) U/L Alkaline Phosphatase (39-117) U/L Total Protein (6.5-8.0) g/dL Albumin (3.5-5.0) g/dL Urine Color Urine Appearance Urine pH (5.0-9.0) Ur Specific [place] (1.005-1.025) Urine Protein (Neg-Trace) mg/dL Urine Glucose (UA) (Negative) mg/dL Urine Ketones (Negative) mg/dL Urine Blood (Negative) Urine Nitrite (Negative) Ur Leukocyte Esterase (Negative) Urine RBC (0-2) /HPF Urine WBC (0-5) /HPF Ur Squamous Epith Cells (0-2) /HPF Urine Bacteria (None Seen) Hyaline Casts (0-2) /LPF Synovial Source Synovial WBC X10*3/uL Synovial RBC X10*6/uL Synovial Neutrophils % Synovial Lymphocytes % Synovial Monocytes % Synovial Other Cells Synovial Glucose Synovial Total Protein Influenza Type A (PCR) NEGATIVE (Negative) Influenza Type B (PCR) NEGATIVE (Negative) RSV RNA Qual (PCR) NEGATIVE (Negative) SARS-CoV-2 RNA (RT-PCR) NEGATIVE (Negative) 03/03/25 03/03/25 03/04/25 Range/Units 15:17 21:29 07:24 WBC (4.8-10.8) X10*3/uL RBC (4.20-5.50) X10*6/uL Hgb (12.0-16.0) g/dl Hct (37.0-47.0) % MCV (80.0-98.0) fL MCH (27.0-33.0) pg MCHC (31.0-35.0) g/dl RDW (11.0-16.0) % Plt Count (160-400) X10*3/uL MPV (9.4-12.3) fL Immature Gran % (Auto) (0.0-0.4) % Neut % (Auto) (45-73) % Lymph % (Auto) (20-40) % [place] % (Auto) (2-11) % Eos % (Auto) (0-4) % Baso % (Auto) (0-2) % Lymph # (Auto) (1.2-4.9) X10*3/uL [place] # (Auto) (0.1-1.2) X10*3/uL Eos # (Auto) (0.0-0.4) X10*3/uL Baso # (Auto) (0.0-0.2) X10*3/uL Abs Immat Gran (auto) (0.00-0.03) X10*3/uL Absolute Neuts (auto) (2.0-8.3) x10*3/uL Absolute Nucleated RBC (0.0-0.012) X10*3/uL Nucleated RBC % (auto) (0.0-0.2) /100WBC Sodium (135-145) mmol/L Potassium (3.3-5.1) mmol/L Chloride (96-108) mmol/L Carbon Dioxide (22-29) mmol/L Anion Gap (12-20) BUN (9-16) mg/dL Creatinine (0.5-1.4) mg/dL Estim Creat Clear Calc Estimated GFR POC Glucose 270 H 285 H 139 H (60-115) mg/dL Random Glucose (60-115) mg/dL Calcium (8.4-10.2) mg/dL Total Bilirubin (0.0-1.0) mg/dL Direct Bilirubin (0.0-0.5) mg/dL AST (5-31) U/L ALT (0-31) U/L Alkaline Phosphatase (39-117) U/L Total Protein (6.5-8.0) g/dL Albumin (3.5-5.0) g/dL Urine Color Urine Appearance Urine pH (5.0-9.0) Ur Specific [place] (1.005-1.025) Urine Protein (Neg-Trace) mg/dL Urine Glucose (UA) (Negative) mg/dL Urine Ketones (Negative) mg/dL Urine Blood (Negative) Urine Nitrite (Negative) Ur Leukocyte Esterase (Negative) Urine RBC (0-2) /HPF Urine WBC (0-5) /HPF Ur Squamous Epith Cells (0-2) /HPF Urine Bacteria (None Seen) Hyaline Casts (0-2) /LPF Synovial Source Synovial WBC X10*3/uL Synovial RBC X10*6/uL Synovial Neutrophils % Synovial Lymphocytes % Synovial Monocytes % Synovial Other Cells Synovial Glucose Synovial Total Protein Influenza Type A (PCR) (Negative) Influenza Type B (PCR) (Negative) RSV RNA Qual (PCR) (Negative) SARS-CoV-2 RNA (RT-PCR) (Negative) 03/04/25 03/04/25 03/05/25 Range/Units 16:20 19:06 07:30 WBC (4.8-10.8) X10*3/uL RBC (4.20-5.50) X10*6/uL Hgb (12.0-16.0) g/dl Hct (37.0-47.0) % MCV (80.0-98.0) fL MCH (27.0-33.0) pg MCHC (31.0-35.0) g/dl RDW (11.0-16.0) % Plt Count (160-400) X10*3/uL MPV (9.4-12.3) fL Immature Gran % (Auto) (0.0-0.4) % Neut % (Auto) (45-73) % Lymph % (Auto) (20-40) % [place] % (Auto) (2-11) % Eos % (Auto) (0-4) % Baso % (Auto) (0-2) % Lymph # (Auto) (1.2-4.9) X10*3/uL [place] # (Auto) (0.1-1.2) X10*3/uL Eos # (Auto) (0.0-0.4) X10*3/uL Baso # (Auto) (0.0-0.2) X10*3/uL Abs Immat Gran (auto) (0.00-0.03) X10*3/uL Absolute Neuts (auto) (2.0-8.3) x10*3/uL Absolute Nucleated RBC (0.0-0.012) X10*3/uL Nucleated RBC % (auto) (0.0-0.2) /100WBC Sodium (135-145) mmol/L Potassium (3.3-5.1) mmol/L Chloride (96-108) mmol/L Carbon Dioxide (22-29) mmol/L Anion Gap (12-20) BUN (9-16) mg/dL Creatinine (0.5-1.4) mg/dL Estim Creat Clear Calc Estimated GFR POC Glucose 302 H 275 H 115 (60-115) mg/dL Random Glucose (60-115) mg/dL Calcium (8.4-10.2) mg/dL Total Bilirubin (0.0-1.0) mg/dL Direct Bilirubin (0.0-0.5) mg/dL AST (5-31) U/L ALT (0-31) U/L Alkaline Phosphatase (39-117) U/L Total Protein (6.5-8.0) g/dL Albumin (3.5-5.0) g/dL Urine Color Urine Appearance Urine pH (5.0-9.0) Ur Specific [place] (1.005-1.025) Urine Protein (Neg-Trace) mg/dL Urine Glucose (UA) (Negative) mg/dL Urine Ketones (Negative) mg/dL Urine Blood (Negative) Urine Nitrite (Negative) Ur Leukocyte Esterase (Negative) Urine RBC (0-2) /HPF Urine WBC (0-5) /HPF Ur Squamous Epith Cells (0-2) /HPF Urine Bacteria (None Seen) Hyaline Casts (0-2) /LPF Synovial Source Synovial WBC X10*3/uL Synovial RBC X10*6/uL Synovial Neutrophils % Synovial Lymphocytes % Synovial Monocytes % Synovial Other Cells Synovial Glucose Synovial Total Protein Influenza Type A (PCR) (Negative) Influenza Type B (PCR) (Negative) RSV RNA Qual (PCR) (Negative) SARS-CoV-2 RNA (RT-PCR) (Negative) 03/05/25 03/05/25 Range/Units 11:08 19:54 WBC (4.8-10.8) X10*3/uL RBC (4.20-5.50) X10*6/uL Hgb (12.0-16.0) g/dl Hct (37.0-47.0) % MCV (80.0-98.0) fL MCH (27.0-33.0) pg MCHC (31.0-35.0) g/dl RDW (11.0-16.0) % Plt Count (160-400) X10*3/uL MPV (9.4-12.3) fL Immature Gran % (Auto) (0.0-0.4) % Neut % (Auto) (45-73) % Lymph % (Auto) (20-40) % [place] % (Auto) (2-11) % Eos % (Auto) (0-4) % Baso % (Auto) (0-2) % Lymph # (Auto) (1.2-4.9) X10*3/uL [place] # (Auto) (0.1-1.2) X10*3/uL Eos # (Auto) (0.0-0.4) X10*3/uL Baso # (Auto) (0.0-0.2) X10*3/uL Abs Immat Gran (auto) (0.00-0.03) X10*3/uL Absolute Neuts (auto) (2.0-8.3) x10*3/uL Absolute Nucleated RBC (0.0-0.012) X10*3/uL Nucleated RBC % (auto) (0.0-0.2) /100WBC Sodium (135-145) mmol/L Potassium (3.3-5.1) mmol/L Chloride (96-108) mmol/L Carbon Dioxide (22-29) mmol/L Anion Gap (12-20) BUN (9-16) mg/dL Creatinine (0.5-1.4) mg/dL Estim Creat Clear Calc Estimated GFR POC Glucose 213 H 231 H (60-115) mg/dL Random Glucose (60-115) mg/dL Calcium (8.4-10.2) mg/dL Total Bilirubin (0.0-1.0) mg/dL Direct Bilirubin (0.0-0.5) mg/dL AST (5-31) U/L ALT (0-31) U/L Alkaline Phosphatase (39-117) U/L Total Protein (6.5-8.0) g/dL Albumin (3.5-5.0) g/dL Urine Color Urine Appearance Urine pH (5.0-9.0) Ur Specific [place] (1.005-1.025) Urine Protein (Neg-Trace) mg/dL Urine Glucose (UA) (Negative) mg/dL Urine Ketones (Negative) mg/dL Urine Blood (Negative) Urine Nitrite (Negative) Ur Leukocyte Esterase (Negative) Urine RBC (0-2) /HPF Urine WBC (0-5) /HPF Ur Squamous Epith Cells (0-2) /HPF Urine Bacteria (None Seen) Hyaline Casts (0-2) /LPF Synovial Source Synovial WBC X10*3/uL Synovial RBC X10*6/uL Synovial Neutrophils % Synovial Lymphocytes % Synovial Monocytes % Synovial Other Cells Synovial Glucose Synovial Total Protein Influenza Type A (PCR) (Negative) Influenza Type B (PCR) (Negative) RSV RNA Qual (PCR) (Negative) SARS-CoV-2 RNA (RT-PCR) (Negative) Independent Interpretation I performed an independent interpretation of an: Plain X-Ray Radiology Impression Discussion of test interpretation with radiology: I have reviewed the radiologist's reading. Radiologist Impression: FINDINGS: A total of 2 views of the left knee were obtained. No definite evidence of an acute fracture or dislocation within the left knee. A small suprapatellar joint effusion is present. There are moderate degenerative changes in the patellofemoral joint. There are mild degenerative changes in the lateral compartment. Probable enchondroma is noted in the distal femoral diaphysis. Vascular calcifications are present. IMPRESSION: 1. No definite acute fracture or dislocation. 2. Degenerative changes are noted. There is a small suprapatellar effusion. 3. Probable enchondroma in the distal femoral diaphysis. Critical Care Time Critical Care Time Critical Care Time: Yes Total Critical Care Time: 35 Attestation: I have personally provided critical care time. Time includes review of lab data, radiology results, discussion with consultants, and monitoring for potential decompensation. Intervention performed as documented. Discharge Plan Discharge Clinical Impression: Multiple falls Patient Disposition: Home, Self-Care Additional Instructions: You were evaluated in the ED after having multiple falls at home. Your workup is reassuring You were evaluated by physical therapy, recommending short-term rehab. After discussion with case management, you are being discharged home with [facility]NA services. Follow up with outpatient providers as needed. Return with any new or worsening symptoms. In the case of an emergency call 911 Prescriptions: No Action atorvastatin 80 mg tablet 80 mg PO BEDTIME Qty: 90 1RF zolpidem 5 mg tablet 5 mg PO BEDTIME PRN (Reason: sleep) Qty: 30 0RF omeprazole 20 mg capsule,delayed release(DR/EC) 1 cap PO DAILY metformin 500 mg tablet extended release 24 hr 1 tab PO BID glucosamine sulfate [Glucosamine] 500 mg Tablet 500 mg PO BID Rx Instructions: administer with meals ascorbic acid (vitamin C) [Vitamin C] 500 mg Tablet 500 mg PO DAILY PreserVision AREDS-2 250-90-40-1 mg Tablet,Chewable 1 tab PO BID metoprolol succinate 25 mg tablet extended release 24 hr 25 mg PO BID aspirin [Adult Low Dose Aspirin] 81 mg tablet,delayed release (DR/EC) 81 mg PO DAILY glipizide 5 mg tablet extended release 24hr 5 mg PO BID Referrals: Terry Terry [Outside] Print Language: Bolivian
[2025-03-01 05:32] LABS: Alanine Aminotransferase 29 U/L (0-31); Albumin Level 3.9 g/dL (3.5-5.0); Alkaline Phosphatase 72 U/L (39-117); Anion Gap 14 (12-20); Aspartate Amino Transferase 28 U/L (5-31); Blood Urea Nitrogen 14 mg/dL (9-16); Calcium 9.1 mg/dL (8.4-10.2); Carbon Dioxide 24 mmol/L (22-29); Chloride 106 mmol/L (96-108); Creatinine Clr Calc Pharmacy 61.5; Estimated Glomerular Filt Rate > 60; Potassium 4.3 mmol/L (3.3-5.1); Sodium 140 mmol/L (135-145); Total Protein 6.2 g/dL (6.5-8.0)
--- NOTE | 2025-03-01 06:08 | PC.NURSE ---
pt reporting increased nausea, pt medicated per mar
--- NOTE | 2025-03-01 06:45 | PC.NURSE ---
pt reporting left knee pain after xray, ice pack given at this time.
[2025-03-01] MEDS: oxyCODONE HCl Immed Release 5 MG TABLET PO ×3 (08:04→17:35)
--- NOTE | 2025-03-01 14:01 | PHA.MEDREC ---
Pharmacy Consult ? Medication Reconciliation Pharmacy has reviewed the medication reconciliation done by nursing. Also spoke to patient and she confirmed she's still taking metformin ER 500 mg bid (last fill was 07/15/24 for 90 day supply) and omeprazole 20 mg daily (last fill was 05/06/24 for 70 day supply).
[2025-03-01] MEDS: Metoprolol Succinate ER 25 MG TAB.ER.24H PO ×2 (14:15→20:24)
--- NOTE | 2025-03-01 17:38 | PC.NURSE ---
Pt tearful and reports severe left knee pain. Significant swelling/hematoma to same. MD at bedside to see pt. Pain med ordered and given per AUG. CT of left knee ordered. Plan of care ongoing
--- NOTE | 2025-03-01 18:09 | MHC.CM.ED ---
Addendum entered by Aracelis Perez 03/01/25 22:49: Pt to CT scan for L knee. Awaiting results to upload into care port. Addendum entered by Aracelis Perez 03/01/25 21:23: Attempted to meet with patient again, she remains in pain. Still cannot participate in CM interview, despite pain medication. Pt cannot concentrate to answer questions. L knee is edematous. CT scan is still pending. CM spoke with Charge nurse. Per xray, scan should be soon. Pt will need acute referrals for PT. Will place consults. Addendum entered by Aracelis Perez 03/01/25 18:48: CM attempted to meet with patient, however she is still c/o pain. Awaiting CT of L knee. CM informed patient that she would have the CT scan, that PT recommends STR and CM would speak with her when she was more comfortable. Pt unable to participate in CM interview due to pain. Original Note: Received CM consult at 1730. Pt being medicated for severe knee pain. Awaiting CT of Knee. Will meet with patient in regards to discharge planning when patient is more comfortable. Pt is aware. PT is recommending STR. Pt does not have a Q.S.
--- NOTE | 2025-03-01 20:48 | PC.NURSE ---
Addendum entered by Lexie Carrillo RN 03/01/25 22:21: Patient back from CT Addendum entered by Lexie Carrillo RN 03/01/25 22:03: Patient off to CT knee LT with transporter at this time Addendum entered by Lexie Carrillo RN 03/01/25 21:57: Order for lidocaine patch to left knee, prn ibuprofen 600mg q8hr and prn tylenol 975 mg q8hr. (To alternate q4hr for pain management) Original Note: Took over patient's care at 1900. Patient alert, oriented, cooperative. Patient is reporting 10/10 left knee pain, last received 5 mg oxycodone and reported it did not help much with the pain, pt is asking for something stronger to manage pain, bp elevated 180/60, hr 113. ED provider notified, awaiting orders.
[2025-03-01] MEDS: Lidocaine 4 % Patch ADH..PATCH 1 PATCH TRANSDERMA (21:12)
[2025-03-02 04:22] VITALS: BP 187/76; PULSE 72; RESP 14; TEMP 36.5; O2SAT 96
--- NOTE | 2025-03-02 07:11 | PC.NURSE ---
Addendum entered by Neva Layton RN 03/02/25 08:28: Patient is a 79 year old female with a past medical history of CAD s/p CABG, diabetes, hypertension, hyperlipidemia, GERD, insomnia, pseudogout, BPPV presenting to the ED with c/o left knee pain s/p falls x 2. Patient unable to get up post second fall. CT shows degeneratvie changes and a suprapatetelar joint effusion. Patient unable to participate in CM eval secondary to pain. Alert and oriented. Lungs essentially clear bilat. Respirations even and non-labored. Abdomen soft, distended non-tender with positive bowel sounds. Purewick patend and draining esha urine. left knee with small amount of swelling. Positive pedal pulses noted. Original Note: Medical History Osteoarthritis of knees, bilateral HTN (hypertension)
[2025-03-02 08:00] VITALS: BP 160/65; PULSE 72; RESP 18; TEMP 36.1; O2SAT 96
[2025-03-02] MEDS: Metoprolol Succinate ER 25 MG TAB.ER.24H PO ×2 (08:14→20:28)
[2025-03-02] MEDS: oxyCODONE HCl Immed Release 5 MG TABLET PO ×2 (08:22→13:43)
--- NOTE | 2025-03-02 08:36 | MHC.CM.ED ---
Addendum entered by Cheryl Constantino 03/02/25 14:44: [facility] is not able to offer a bed. [facility] is still reviewing but requesting additional PT note due to poor pain control on 03/01. Updated PT eval sent to [facility]. Original Note: Patient remains in ER overflow. [facility] is unable to offer a bed. Clinical updates sent to [facility] and [facility]. Continue to monitor for d/c needs.
[2025-03-02 12:00] VITALS: BP 160/83; PULSE 85; RESP 18; TEMP 36.4; O2SAT 95
--- NOTE | 2025-03-02 13:47 | PC.NURSE ---
PT eval perfomed
[2025-03-02 13:56] VITALS: BP 160/83; PULSE 85; O2SAT 95
--- NOTE | 2025-03-02 18:01 | MHC.CM.ED ---
Addendum entered by Aracelis Perez 03/02/25 19:57: Pt had L knee aspiration by Dr. Hardy. PO steroids ordered. Repeat PT ordered to assess patients ability to safely go home. Will need home PT. Pt will remain overnight. Original Note: CM met with patient to discuss discharge planning. Pt continues to have pain in L knee and back pain, appears spasm like, but is able to speak with CM today. Pt lives in her own apartment. She has no services. She uses no DME regularly. She does have a walker in her home. She still drives, shops and cooks. She is unable to ambulate with a walker in the overflow. She barely moves in the bed. She was able to participate in PT, but was not mobile due to pain. Acute rehabs denied admission. Discussed with patient the options to private pay for STR, or go home with VNA/Home PT. Pt states she does not have the funds to pay for rehab, she does not have family that can help her, and she cannot ambulate with a walker. Dr. Oshea spoke with CM about possibly tapping her knee with the large effusion for comfort. DAJA spoke with Dr. Hardy about above situation. Awaiting provider re-assessment. There is not a safe discharge for this patient at this time. She will remain in overflow tonight.
[2025-03-02 19:20] LABS: Source Synovial Fluid left knee
[2025-03-02 19:56] VITALS: BP 112/57; PULSE 97; RESP 20; TEMP 37.1; O2SAT 93
[2025-03-02 20:03] LABS: MN% 6.9 %; PMN% 93.1 %
[2025-03-02 20:04] LABS: RBC Synovial Fluid 0.025 X10*6/uL
[2025-03-02] MEDS: Lidocaine HCl 1 % 20 ML VIAL 5 ML INFILTRATI (20:52)
[2025-03-02 21:41] LABS: Lymphocytes Synovial Fluid 1 %; Monocytes Synovial Fluid 6 %; Neutrophils Synovial Fluid 88 %
[2025-03-02 21:42] LABS: BF Shift QC OK YES; Other Cells Synovial Fluid 5
--- NOTE | 2025-03-03 00:56 | PC.NURSE ---
Assumed care of patient at 1900. Patient pleasant , calm and cooperative. Denies pain at this time. Has been sleeping .Compliant with meds. No c/o pain. Safety precautions in place. Bed alarm on , call aparicio within reach.
[2025-03-03] MEDS: oxyCODONE HCl Immed Release 5 MG TABLET PO ×2 (05:07→20:43)
[2025-03-03 05:11] VITALS: BP 134/60; PULSE 86; RESP 18; TEMP 36.7; O2SAT 94
[2025-03-03 08:41] LABS: Resp Syncy Virus RNA Qual PCR NEGATIVE (Negative); SARS COV2 PCR INHOUSE NEGATIVE (Negative)
[2025-03-03] MEDS: Metoprolol Succinate ER 25 MG TAB.ER.24H PO ×2 (08:58→20:44)
[2025-03-03 09:08] LABS: Glucose, Whole Blood 244 mg/dL (60-115)
--- NOTE | 2025-03-03 11:45 | PC.NURSE ---
pt stated she wants hospital staff checking her POC while on prednisone. currently doesnt have POC orders. MD was informed ?'ing adding POC QIDACHS w/ sliding scale
[2025-03-03 11:47] LABS: Glucose, Whole Blood 291 mg/dL (60-115)
[2025-03-03 15:23] VITALS: BP 124/70; PULSE 82; RESP 16; TEMP 37.1; O2SAT 93
[2025-03-03 15:24] LABS: Glucose, Whole Blood 270 mg/dL (60-115)
[2025-03-03 20:00] VITALS: BP 123/59; PULSE 68; RESP 16; TEMP 36.7; O2SAT 95
[2025-03-03 21:32] LABS: Glucose, Whole Blood 285 mg/dL (60-115)
--- NOTE | 2025-03-04 02:33 | PC.NURSE ---
Patient c/o constipation . Provider notified, bowel meds ordered/administered.
[2025-03-04 06:06] VITALS: BP 129/63; PULSE 68; RESP 16; TEMP 36.7; O2SAT 95
--- NOTE | 2025-03-04 06:19 | MHC.EDTECH ---
Pt was cleaned and repositioned with new purewick placed. Call paaricio within reach.
[2025-03-04 07:28] LABS: Glucose, Whole Blood 139 mg/dL (60-115)
[2025-03-04] MEDS: oxyCODONE HCl Immed Release 5 MG TABLET PO (07:35)
[2025-03-04 08:11] VITALS: BP 132/73; PULSE 84; RESP 18; TEMP 37.2; O2SAT 93
[2025-03-04 09:06] VITALS: BP 132/73; PULSE 84
[2025-03-04] MEDS: Metoprolol Succinate ER 25 MG TAB.ER.24H PO ×2 (09:06→20:01)
--- NOTE | 2025-03-04 10:48 | PC.NURSE ---
Care of Pt assumed at change of shift. Pt alerts staff of new onset pain to R knee. She reports after a bed change on the overnight shift, her R knee began to feel sore and inflamed. Pt is tearful in describing this and fears she will need to have her R drained for fluids as well. R knee is unremarkable in presentation. No evidence of swelling, erythema, structural deformity or ecchymosis. Patella appears midline and skin is healthy in color and consistent with LLE. Pt medicated with PRN Oxy and provided with warm compress. Pt unable to determine if repositioning would be helpful and she continues to be emotionally distressed and is encouraged not let her emotions get the best of her. This RN follows up with Pt some time after medicating her and she reports the Oxycodone was helpful although her R knee still feels sore. Pt given PRN Motrin at this time and is scheduled for 1100 Tylenol dose. GEO Ramos made aware of Pts complaint as well as the need for a code status to be added to her EMR. Pt resting quietly at this time with lights dim. Will continue to monitor.
--- NOTE | 2025-03-04 13:32 | MHC.EDTECH ---
PT assisted to the chair in room. 1 assist with walker. New purewick in place.
[2025-03-04 14:16] VITALS: BP 131/62; PULSE 79; RESP 18; TEMP 36.8; O2SAT 92
[2025-03-04 16:23] LABS: Glucose, Whole Blood 302 mg/dL (60-115)
[2025-03-04 19:10] LABS: Glucose, Whole Blood 275 mg/dL (60-115)
[2025-03-04 19:58] VITALS: BP 140/60; PULSE 79; RESP 18; TEMP 36.6; O2SAT 93
[2025-03-05 05:58] VITALS: BP 162/78; PULSE 71; RESP 18; TEMP 36.8; O2SAT 95
[2025-03-05 07:34] LABS: Glucose, Whole Blood 115 mg/dL (60-115)
--- NOTE | 2025-03-05 08:00 | MHC.EDTECH ---
pt had a little redness on her bottom and underneath left breast barrier cream was applied
--- NOTE | 2025-03-05 08:00 | MHC.EDTECH ---
pt was assisted with a bed bath and setup with teeth brushing and complete lien change and was assisted to the recliner with a walker.
--- NOTE | 2025-03-05 08:00 | MHC.EDTECH ---
pt ate 100% breakfast
[2025-03-05 08:11] LABS: Glucose Synovial Fluid 77; Total Protein Synovial Fluid 3.9
[2025-03-05 09:07] VITALS: BP 150/63; PULSE 87
[2025-03-05] MEDS: oxyCODONE HCl Immed Release 5 MG TABLET PO (09:07)
[2025-03-05] MEDS: Metoprolol Succinate ER 25 MG TAB.ER.24H PO ×2 (09:07→21:00)
[2025-03-05] MEDS: Aspirin Enteric Coated 81 MG TABLET.DR PO (09:08)
[2025-03-05 11:16] LABS: Glucose, Whole Blood 213 mg/dL (60-115)
[2025-03-05 11:58] VITALS: BP 174/89; PULSE 71; RESP 20; TEMP 36.3; O2SAT 94
--- NOTE | 2025-03-05 12:53 | MHC.EDTECH ---
pt ate 100% lunch
[2025-03-05 14:00] VITALS: BP 139/58; PULSE 68; RESP 20; TEMP 36.6; O2SAT 94
--- NOTE | 2025-03-05 14:55 | MHC.EDTECH ---
pt voided 300ml in the purwick
--- NOTE | 2025-03-05 15:41 | MHC.CM.ED ---
Patient remains in ER overflow. Physical therapy still recommending STR. Met with patient in regards to discharge planning. Patient is not able to privately pay for STR. Will d/c home with new VNA. Agreeable to referral to [facility] for [facility] and any additional services. Jhonatan MACHADO booked for tomorrow 03/06 at 10am. [facility] with chart. Patient, Sofy ALONSO and Fani GUARDADO aware. Continue to monitor for d/c needs.
[2025-03-05 20:00] LABS: Glucose, Whole Blood 231 mg/dL (60-115)
[2025-03-05 20:56] VITALS: BP 192/91; PULSE 85; RESP 17; TEMP 36.6; O2SAT 97
[2025-03-05 21:47] VITALS: BP 145/61; PULSE 71; RESP 18; O2SAT 95
[2025-03-06 05:39] VITALS: BP 176/82; PULSE 63; RESP 14; TEMP 36; O2SAT 95
[2025-03-06 08:03] VITALS: BP 178/62; PULSE 59; RESP 18; TEMP 36.4; O2SAT 92
[2025-03-06 08:50] VITALS: BP 178/62; PULSE 60
[2025-03-06] MEDS: Metoprolol Succinate ER 25 MG TAB.ER.24H PO (08:50)
[2025-03-06] MEDS: Aspirin Enteric Coated 81 MG TABLET.DR PO (08:50)
--- NOTE | 2025-03-06 10:26 | PC.NURSE ---
Report given to EMS for transport home; pt has all belongings with her
[2025-03-06 10:28] VITALS: BP 156/82; PULSE 62; RESP 12; TEMP 36.3; O2SAT 96
== END 2025-03-06 10:30 | disposition home or self-care (01) ==
PROVIDERS: Emergency Medicine; Physician Assistant; Student in an Organized Health Care Education/Training Program; Emergency Provider Emergency Medicine; PCP Physician Assistant
DX: S89.92XA Unspecified injury of left lower leg, initial encounter (principal); M25.562 Pain in left knee; M17.0 Bilateral primary osteoarthritis of knee; I10 Essential (primary) hypertension; W01.0XXA Fall on same level from slipping, tripping and stumbling without subsequent striking against object, initial encounter; R26.81 Unsteadiness on feet; Z91.81 History of falling; Y93.89 Activity, other specified; Y92.89 Other specified places as the place of occurrence of the external cause; Y99.8 Other external cause status; Z79.899 Other long term (current) drug therapy; Z03.818 Encounter for observation for suspected exposure to other biological agents ruled out; Z87.891 Personal history of nicotine dependence
CPT/HCPCS: 20610; 36415; 72170; 73502; 73560; 73700; 80048; 80076; 81001; 82945; 82947; 84157; 85025; 87070; 87073; 87205; 87637; 89051; 89060; 97116; 97161; 97530; 99285; J2003

== ENCOUNTER → 2025-03-01 04:35 | Outpatient (BNV) | payer MEDICARE, SELFPAY | PROVIDERS: Emergency Provider Emergency Medicine; PCP Physician Assistant; Visit Provider Radiology Diagnostic Radiology | DX: M25.552 Pain in left hip (principal); I70.202 Unspecified atherosclerosis of native arteries of extremities, left leg; W19.XXXA Unspecified fall, initial encounter | CPT/HCPCS: 72170; 73502 ==

== ENCOUNTER 2025-03-28 09:55 | Outpatient (REF) | payer MEDICARE, SELFPAY ==
--- OUTSIDE RECORDS SUMMARY | 2025-03-27 09:45 | XMS_ITS | Encounter Summary ---
Author Organization [facility] Address [address] [place] [id number] Phone Care Team Providers Care Perfume Maker Name Role Phone Kalin Salamanca MD Primary Care Provider Jean Carlos Steele MD Unavailable [phone] Reason for Referral * Outpatient Procedure - Closed Specialty Diagnoses / Procedures Referred By Christiano coello Referred To Contact Diagnoses Coronary artery disease involving [place] coronary artery of [place] heart without angina pectoris Procedures Adult Echo TTE Venkat Montoya MD Phone: tel: fax: [email or web address] Referral ID Status Reason Start Date Expiration Date Visits Re quested Visits Authorized [id number] Closed 04/13/2024 1 1 Reason for Visit * Outpatient Procedure - Closed Specialty Diagnoses / Procedures Referred By Christiano coello Referred To Contact Diagnoses Coronary artery disease involving [place] coronary artery of [place] heart without angina pectoris Procedures Adult Echo TTE Venkat Montoya MD Phone: tel: fax: [email or web address] Referral ID Status Reason Start Date Expiration Date Visits Re quested Visits Authorized [id number] Closed 04/13/2024 1 1 Encounter Details Date Type Department Care Team (Latest Contact Info) Description 03/27/2025 9:45 AM EDT - 03/27/2025 11:59 PM EDT Hospital Encounter Echo Lab [address] [place] [address] Venkat Montoya MD [address] [facility], [address] [place] [address] [email or web address] Ar[place] Discharge Disposition: Home or Self Care Social History Tobacco Use Types Packs/Day Years Used Date Smoking Tobacco: Former Smokeless Tobacco: Never Education Answer Date Recorded Are you interested [...] on file documented as of this encounter Medications at Time of Discharge ascorbic acid (VITAMIN C ORAL) Take by mouth. aspirin 81 MG EC tablet Take 1 tablet by mouth daily. atorvastatin (LIPITOR) 80 MG tabletIndications :Medication refill TAKE 1 TABLET BY MOUTH ONCE DAILY 90 tablet 3 04/26/2023 calcium carb/vit D3/minerals (CALCIUM PLUS ORAL) Take by mouth. cefuroxime (CEFTIN) 250 MG tablet 07/18/2021 ciprofloxacin HCl (CIPRO) 500 MG tablet Take 500 mg by mouth 2 (two) times a day. cyclobenzaprine (FLEXERIL) 10 MG tablet Take 1 tablet by mouth 2 (two) times a day. 02/01/2023 glipiZIDE (GLUCOTROL XL) 5 MG 24 hr tablet Take 1 tablet by mouth 2 (two) times a day. 12/24/2022 glucosamine 500 mg Cap Take 500 mg by mouth 3 (three) times a day. LORazepam (ATIVAN) 0.5 MG tablet Take 0.5 mg by mouth nightly at bedtime as needed. 01/10/2024 metFORMIN (GLUCOPHAGE) 500 MG tablet Take 500 mg by mouth 2 (two) times a day. metoprolol succinate (TOPROL-XL) 25 MG 24 hr tabletIndications :Medication refill TAKE 1 TABLET BY MOUTH ONCE DAILY 90 tablet 3 10/14/2021 [id number]- fish oil 332.5-100-200 mg Cap Take by mouth. omeprazole (PRILOSEC) 20 MG capsule Take 1 capsule by mouth daily. vit C/E/Zn/coppr/lute in/zeaxan (PRESERVISION AREDS-2 ORAL) Take by mouth. zolpidem (AMBIEN) 5 MG tablet 1 tablet once daily documented as of this encounter Plan of Treatment Upcoming Encounters Date Type Department Care Team (Late st Contact Info) Description 04/02/2026 10:15 AM EDT Office Visit [facility] [address] [facility] [address], [address] [place] [address] Jean Carlos Ghotra DO [address] [place] [address] [place] [address] [phone] [email or web address] documented as of this encounter Procedures Procedure Name Priority Date/Time Associated Diagnosis Comments TTE COMPREHENSIVE Routine 03/27/2025 10: 39 AM EDT Coronary artery disease involving [place] coronary artery of [place] heart without angina pectoris documented in this encounter Results * TTE COMPREHENSIVE (03/27/2025 10:39 AM EDT) Height 158 cm Weight 68 kg Systolic BP 134 mmHg Diastolic BP 80 mmHg Interventricular Septum Thickness 15 6 - 11 mm Left Ventricle Internal Diameter End Diastole 31 37 - 52 mm Left Ventricle Internal Diameter End Systole 22 <35 mm Left Ventricular Outflow Tract Diameter 26.0 mm Left Ventricular Posterior Wall Thickness 9 6 - 11 mm Left Ventricle Ea Lateral Wave Speed 9.9 cm/s Left Ventricle Ea Septal Wave Speed 6.1 cm/s Ejection Fraction 57 50 - 75 Percent Left Atrium Dimension Anterior-Posterior 45 15 - 40 mm Aortic Valve Mean Gradient 3 mmHg Aortic Valve Time Velocity Integral 260.0 mm Aortic Valve Peak Velocity 1.2 m/s Aortic Valve Peak Gradient 6 mmHg Aortic Arch Diameter 24 mm Aortic Sinus Diameter 36 <40 mm Ascending Aorta Diameter 35 <36 mm Inferior Vena Cava Diameter 16 <21 mm Mitral Valve Deceleration Time 239 ms Left Ventricle A Wave Speed 83.9 cm/s Left Ventricle E Wave Speed 60.6 cm/s Pulmonary Valve Peak Velocity 1.0 m/s Pulmonary Valve Peak Gradient 4 mmHg Right Ventricle Basal Diameter 35 25 - 41 mm Tricuspid Valve Peak Velocity 2.8 m/s Raw LV EF% 50 % MV E/E' Tissue Velocity Lateral 6.12 Relative Wall Thickness 0.58 0.22 - 0.42 MV E/A ratio 0.7 MV E/e' septal 9.93 Left Ventricle E/e' Average 8.0 Aortic Valve Prosthetic Peak Gradient 6 mmHg Aorta Sinus Index by Height 2.28 cm/m Aorta Sinus CSA index by Height 6.44 cm2/m Asc Aorta CSA Index by Height 6.09 cm2/m Right Ventricle to Right Atrium Pressure Gradient 31 mmHg Right Ventricle Peak Systolic Pressure (Assuming RAP 10) 41 mmHg MGB CV ECHO TV RVSP (ASSUMING RAP OF 5) 36 mmHg RVSP (Exclusive of RAP) 31 mmHg Pulmonic Valve Prosthetic Peak Gradient 4 mmHg Echo E/Ea 9.93 Body Surface Area 1.69 m2 Left Ventricle indexed to BSA 67.6 g/m2 Aortic Valve Prosthetic Mean Gradient 3 mmHg Aortic Valve Sinus Index by BSA 21 mm/m2 Ascending Aorta Index 21 mm/m2 Ascending Aorta Index 21 mm Aortic Sinus Index 21 mm Ascending Aorta Diameter 21 mm Aortic Valve Sinus Index 1 21 19 - 27 mm AO ASC DIAM BSA INDEX 20.71 Left Atrial Volume Index 29 16 - 34 mL/m2 Right Ventricle Peak Systolic Pressure 34 mmHg Right Ventricle TAPSE 13 >=17 mm Right Ventricle Pulse Doppler S Wave 10.0 >=9.5 cm/s Left Atrial Volume 49 mL Left Atrial Volume Index by Height 31 mL/m Right Atrium Area 12 cm2 Right Atrium Area index 7 cm2/m2 Right Atrium Pressure Estimated 3 mmHg Anatomical Region Laterality Modality Heart Ultrasound Narrative 03/27/2025 11:10 AM EDT Images from the original result were not included. 1. The indication for the study is coronary artery disease. The left ventricular ejection fraction is normal at 55 to 60%. Left ventricular thickness is normal and regional wall motion is normal. 2. Normal RV size and function. 3. Trileaflet aortic valve there is no evidence of aortic stenosis, the ascending aortic root measures 35 mm. 4. Trace mitral and mild tricuspid insufficiency, the PA pressure is normal on the study. 5. Normal pericardium and when compared to the prior echo, no change. Left Ventricle The left ventricle is normal in size. There is LV hypertrophy with upper septal predominance. The interventricular septal thickness is 15 mm. There is normal left ventricular systolic function. The LV ejection fraction is 57% (calculated via biplane measurement). There are no wall motion abnormalities. The E/A ratio is 0.7. The e' septal wave velocity is 6.1 cm/s. The e' lateral wave velocity is 9.9 cm/s. The average E/e' ratio is 8.0. Right Ventricle The right ventricle is normal in size. The RV basal dimension is 35 mm. There is normal right ventricular systolic function. TAPSE is 13 mm. RV S' wave is 10.0 cm/s. Left Atrium The left atrium is normal in size. The left atrial anterior-posterior dimension is 45 mm. The left atrial volume is 49 mL. There are normal flow patterns in the pulmonary vein. Right Atrium The right atrium is normal in size. The right atrial area is 12 cm2. The IVC is normal in size with normal inspiratory collapse. This is consistent with normal RA pressure. The IVC diameter is 16 mm (normal: <= 21 mm). Hepatic veins are normal in size. Mitral Valve There is mitral valve thickening. There is no mitral stenosis. There is trace mitral regurgitation. Tricuspid Valve The tricuspid valve appears normal. There is no tricuspid stenosis. There is mild tricuspid regurgitation. The RV systolic pressure was calculated at 34 mmHg (using TR peak velocity of 2.8 m/s and assuming an RA pressure of 3 mmHg). Aortic Valve The aortic valve is tricuspid. There is leaflet thickening without stenosis. The aortic valve peak velocity is 1.2 m/s. The peak and mean aortic valve gradients are 6 mmHg and 3 mmHg respectively. There is trace to mild aortic regurgitation. The aortic sinuses are dilated. The aortic sinus diameter is 36 mm. The aortic sinus index by BSA is 21 mm/m2. The ascending aorta is dilated. The ascending aortic diameter is 35 mm. The ascending aorta index by BSA is 21 mm/m2. The aortic arch diameter is 24 mm. Pulmonic Valve The pulmonic valve appears normal. Pericardium There is no pericardial effusion. There are no pleural effusions. General Findings The image quality was adequate. Technique(s) used in the evaluation: Color flow Doppler and Spectral Doppler. The predominant rhythm during the study was sinus. Comparison Findings Compared to prior study on 01/29/2023, IAS/IVS The interatrial septum appears normal. There is no evidence of patent foramen ovale (PFO). The interventricular septum appears normal. There is no evidence of a ventricular septal defect. Venkat Montoya MD CV ECHO ORDERABLES Final Result documented in this encounter Visit Diagnoses Diagnosis Coronary artery disease involving [place] coronary artery of [place] heart without angina pectoris documented in this encounter Care Teams Perfume Maker Relationship Specialty Start Date End Date Kalin Salamanca MD [address] [place] [address] [place] [address] PCP - General 04/15/17 Jean Carlos Steele MD [address] [place] [address] [place] [id number] [email or web address] LMR Provider 04/15/17 documented as of this encounter Additional Source Comments The information contained in this document represents components of the legal health record. It is not the complete legal health record.[facility]
--- OUTSIDE RECORDS SUMMARY | 2025-03-28 11:01 | XMS_ITS | Patient Health Record ---
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, Congenital (754.61) Active confirmed Problem Ingrowing nail (326322186) Ingrowing Nail (703.0) Active confirmed Plan Of Treatment Pending Test Test Name Order Date X ray : Foot, left 2V 04/20/2013 [id number] NAIL, 1-01/09/2013 [id number] NAIL, -04/20/2013 [id number] NAIL, -04/14/2012 [id number] NAIL, -07/14/2012 [id number] NAIL, -10/17/2012 [id number] NAIL, - 08/21/2013 [id number] Plate 10/17/201239706,[id number] TENDON SHEATH/LIGAMENT 1 50,[id number] TENDON SHEATH/LIGAMENT 1 07/18/2012 Insurance Providers Payer Name Payer Address Payer Phone Subscriber Number Group Number Insured Name Patient Relationship to Insured Coverage Start Date Coverage End Date Medicare National Govt [email or web address] [facility] [address] [place] [address] [id number] DestinchristinaPati davies Self - patient is the insured 1 [employer] [address] [place] [address] [id number] DestinchristinaPati davies Self - patient is the [...] Reason Date(Month/Year) Patient went [place] [facility] [place] hea rt beat. 07/2012
--- OUTSIDE RECORDS SUMMARY | 2025-03-28 11:01 | XMS_ITS ---
Author Organization [facility] Care Team Providers Care Animation Producer Name Role Phone Kalin Salamanca Unavailable Unavailable Lesli, Yamileth Unavailable Unavailable Levheim, Ashanti Unavailable Unavailable Allergies and adverse reactions Code CodeSystem Substance Reaction Severity StartDate Concern Status 411962357 SNOMED CT Sulfa Antibiotics Itching of skin (code- 617576657, SNOMED CT) Moderate 12/18/2021 active Egg Itching of skin (code- 304347445, SNOMED CT) Moderate 12/18/2021 active Care Team Name Role Address Phone Organization Dates Kalin Salamanca [address], [address], [place], [address], [place] (Office): : [facility] 12/18/2021 - 12/27/2021 Yamileth Ballesteros [address] [facility] [address], [place], [address], [place] (Office[place] : [facility] 12/18/2021 - 12/27/2021 Ashanti Lele [address] [facility] [address], [place], [address], [place] (Office): [facility] 12/18/2021 - 12/27/2021 Immunizations Immunization Status [...] LNP, preservative free, 30 mcg/0.3mL dose Mfg: [id number] CVX created date: 12/22/2021 administered date: 11/17/2021 Pfizer Covid-19 Booster (SARS-COV-2) vaccine completed SARS-COV-2 (COVID-19) vaccine, mRNA, spike protein, LNP, preservative free, 30 mcg/0.3mL dose Mfg: myZamana 208 CVX created date: 12/22/2021 administered date: [...] Status 1 ATAXIA FOLLOWING CEREBRAL INFARCTION [address] active 2 ESSENTIAL (PRIMARY) HYPERTENSION [address] active 3 HYPERLIPIDEMIA, UNSPECIFIED [address] active 4 ORTHOSTATIC HYPOTENSION [address] active 5 OTHER LACK OF COORDINATION [address] active 6 TYPE 2 DIABETES MELLITUS WITHOUT COMPLICATIONS [address] active 7 UNSPECIFIED ATRIAL FLUTTER [address] active 8 UNSPECIFIED PROTEIN-CALORIE MALNUTRITION [address] active 9 URINARY TRACT INFECTION, SITE NOT SPECIFIED [address] active 10 VERTIGO OF CENTRAL ORIGIN [address] active Reason for Referral No Reasons for Referral Entered Social History Social History Observation Description Start Date End Date Code Code System Current Smoking Status Tobacco smoking consumption unknown 127267716 SNOMED CT Sex Assigned At Female 1945 99879-2 [facility] Gender Identity Sexual Orientation Vital Signs Code Code System Vitals Name Values and Units Timing Information 8462-4 [facility] Blood Pressure-Diastolic Value=70 Un its=mmHg 12/27/2021 8480-6 [facility] Blood Pressure-Systolic Rzyus=238 Un its=mmHg 12/27/2021 8867-4 [facility] Heart rate Value=60.0 Units=/min 07/2021 50560-8 [facility] Pain Level Value=0.0 12/27/2021 9279-1 [facility] Respiratory Rate Value=18.0 Units=/m in 12/26/2021 8310-5 [facility] Body Temperature Value=96.8 Units= F 12/26/2021 36420-5 [facility] O2 % BldC Oximetry Value=93.0 Units= % 12/26/2021 86515-3 [facility] Weight Hzspx=163.0 Units=Lbs 8302-2 [facility] Height Value=65.0 Units=Inches 12/18/2021
--- OUTSIDE RECORDS SUMMARY | 2025-03-28 11:01 | XMS_ITS | Patient Health Record ---
Author Organization [facility] Address [address] [place] [address] Care Team Providers Care Docket Specialist Name Role Phone Jadyn (RETIRED) Kalin LINARES Primary Care Provide r Prashanth Wall [phone] Allergies Allergen (clinical drug ingredient) Drug/Non Drug [...] 1 tablet Orally Once a day Active [place]-3 650 1 capsule Orally Onc e a [...] Problem Status W/U Status Risk Notes Problem 477253179 Encounter for screening for malignant neoplasm of colon (Z12.11) Active confirmed Problem 921764412 Aspirin long-term use (Z79.82) Active confirmed Problem 091609783 Pre-procedural examination (Z01.818) Active confirmed Plan Of Treatment Future Test Test Name Order Date COLONOSCOPY 12/15/2016 Insurance Providers Payer Name Payer Address Payer Phone Subscriber Number Group Number Insured Name Patient Relationship to Insured Coverage Start Date Coverage End Date MEDICARE OF [place] [address] [place] [address] [phone] [id number] MELODYANA VALENTINE Self - patient is the insured MEDEX ATTN CLAIMS [address] [place] [address] [id number] MELODYANA VALENTINE Self - patient is the insured Medical (General) History Medical History History ICD Code CAD--angina--no [place]--4V CABG-2014 Uterine cancer Seasonal allergies Ablation-irregular heart beat-successful Urinary incontinence-mild Denies [place],DM,CVA,Lung disease,renal dise ase GERD Screening colonoscopy in Mar was negative other than some mild diverticulosis and small internal hemorrhoids Surgical History Surgery Date(Month/Year) [facility]2001 Bilateral cataracts - Dr. Ruchi Ortega 20 02 Rotator Cuff left - Dr. Banks 08/21/19 03 Torn cartilage -arthroscopic on left kne e -Dr. Banks 03/08/2003 Torn Cartilage- arthroscopic right knee- dr. Banks 02/03/2007 4V-CABG Dr. [facility]ano[facility] 05/22/2015
--- OUTSIDE RECORDS SUMMARY | 2025-03-28 11:01 | XMS_ITS | Encounter Summary ---
Author Organization [facility] Address [address] [facility] [address] [place] [address] Phone Care Team Providers Care Textile Knitter Name Role Phone Kalin Salamanca MD Primary Care Provider Jean Carlos Steele MD Unavailable [phone] Encounter Details Date Type Department Care Team (Late st Contact Info) Description 07/28/2022 Procedure Pass Echo Lab [address] [place] [address] Social History Tobacco Use Types Packs/Day Years [...] Description 04/02/2026 10:15 AM EDT Office Visit [facility] [address] [place] [address] Dr [address] Floor, [address] [place] [address] Jean Carlos Ghotra DO [address] [facility] [address] [place] [address] documented as of this encounter Visit Diagnoses Not on filedocumented in this encounter Care Teams Textile Knitter Relationship Specialty Start Date End Date Kalin Salamanca MD [address] [place] [address] [place] [address] PCP - General 04/15/17 Jean Carlos Steele MD [address] [place] [address] Dr Stewart, [place]QU[place] [address] [email or web address] Historical LMR Provider 04/15/17 documented as of this encounter Additional Source Comments The information contained in this document represents components of the legal health record. It is not the complete legal health record.[facility]
--- OUTSIDE RECORDS SUMMARY | 2025-03-28 11:01 | XMS_ITS | Clinical Summary ---
Author Organization [facility] Address [address] [address] Care Team Providers Care Cold Mill Operator Name Role Phone Kalin Salamanca MD Primary Care Provider [phone] Social History Tobacco Use Types Packs/Day Years [...] age to complete this topic Insurance Medicare [facility] Medicare [facility] Care Teams Cold Mill Operator Relationship Specialty Start Date End Date Kalin Salamanca MD [address] [place] [address] [address] [place], [place] PCP - General Internal Medicine 12/16/21
--- OUTSIDE RECORDS SUMMARY | 2025-03-28 11:01 | XMS_ITS | Clinical Summary ---
Author Organization [facility] Address [address] [address] Phone Care Team Providers Care Film Reader Name Role Phone Kalin Salamanca MD Primary Care Provider Jean Carlos Steele MD Unavailable [phone] Allergies Active Allergy Reactions Criticality Noted Date [...] PLUS ORAL) Take by mouth. Activ e ywipe-5v-shj-ep a-fish oil 332.5-100-200 mg Cap Take by [...] continue her beta-craig SVT (supraventricular tachycardia) 04/08/2018 Encounters Date Type Department Care Team Description 03/27/2025 9:45 AM EDT - 03/27/2025 11:59 PM EDT Hospital Encounter Echo Lab [address] [place] [address] Venkat Montoya MD Arrived Discharge Disposition: Home or Self Care 04/13/2024 Procedure Pass Echo Lab [address] [place] [address] from Last 3 Months Social History Tobacco Use Types Packs/Day Years [...] Description 04/02/2026 10:15 AM EDT Office Visit [facility] [address] [place] [address] [address]rd Floor, [address] [place] [address] Jean Carlos Ghotra DO [address] [address] Health Maintenance Due Date Last Done Comments Adult Td,Tdap Booster 1945 CREATININE LEVEL 1946 DEPRESSION SCREENING 1958 SMOKING Hx and SMOKELESS TOB ACCO SCREENING 1959 HEPATITIS C SCREENING 01/15/1964 ZOSTER VACCINES (1 of 2) 01/15/1996 OSTEOPOROSIS SCREENING INITI AL (ONE-TIME) 2011 PNEUMOCOCCAL VACCINES (50+ y ears) (2 of 2 - PPSV23) 03/17/2017 03/17/2016 RSV VACCINE (1 - 1-dose 75+ series) 2021 BLOOD PRESSURE 10/12/2024 04/13/2024 INFLUENZA VACCINE (#1) 2025 COVID-19 VACCINE (2 - 2024-2 6 season) 2025 09/17/2020 HEPATITIS A VACCINES Aged Out No long [...] this topic Medical Devices Not on file Procedures Procedure Name Priority Date/Time Associated Diagnosis Comments TTE COMPREHENSIVE Routine 03/27/2025 10: 39 AM EDT Coronary artery disease involving paimiut coronary artery of paimiut heart without angina pectoris from Last 3 Months Results * TTE COMPREHENSIVE (03/27/2025 10:39 AM [...] no evidence of a ventricular septal defect. us Venkat Montoya MD CV ECHO ORDERABLES Final Result from Last 3 Months Insurance MEDICARE PART A & B BLUE CROSS MEDEX SUPPLE[facility] Address: [facility] [address] [place] [address] MEDICARE PART A & B [employer] MEDEX SUPPLEMENT MEDICARE PART A & B [employer] MEDEX SUPPLEMENT MEDICARE PART A & B [employer] MEDEX SUPPLEMENT MEDICARE PART A & B [employer] MEDEX SUPPLEMENT MEDICARE PART A & B [facility] MEDEX SUPPLEMENT MEDICARE PART A & B [employer] MEDEX SUPPLEMENT MEDICARE PART A & B [employer] MEDEX SUPPLEMENT MEDICARE PART A & B [employer] MEDEX SUPPLEMENT Care Teams Film Reader Relationship Specialty Start Date End Date Kalin Salamanca MD [address] [place] [address] [place] [address] PCP - General 04/15/17 Jean Carlos Steele MD [address] [place] [address] [place] [address] [email or web address] Historical LMR Provider 04/15/17 Additional Source Comments The information contained in this document represents components of the legal health record. It is not the complete legal health record.[facility]
--- OUTSIDE RECORDS SUMMARY | 2025-03-28 11:01 | XMS_ITS | Encounter Summary ---
Author Organization [facility] Address [address] [facility] [address] [place] [address] Phone Care Team Providers Care Orchard Hand Name Role Phone Kalin Salamanca MD Primary Care Provider Jean Carlos Steele MD Unavailable [phone] Encounter Details Date Type Department Care Team (Late st Contact Info) Description 04/13/2024 Procedure Pass Echo Lab [address] [place] [address] Social History Tobacco Use Types Packs/Day Years [...] Description 04/02/2026 10:15 AM EDT Office Visit [facility] [address] Floor, [address] [place] [address] Jean Carlos Ghotra, DO [address] [facility] [address] [place] [address] [email or web address] documented as of this encounter Visit Diagnoses Not on filedocumented in this encounter Care Teams Orchard Hand Relationship Specialty Start Date End Date Kalin Salamanca MD [address] [place] [address] [place] [address] PCP - General 04/15/17 Jean Carlos Steele MD [address] [place] [address] [place] [address] [email or web address] Historical LMR Provider 04/15/17 documented as of this encounter Additional Source Comments The information contained in this document represents components of the legal health record. It is not the complete legal health record.[facility]
[2025-03-28 13:34] LABS: Appearance Urine Turbid; Glucose Urine UA 250 mg/dL (Negative); PH 6.0 (5.0-9.0); Specific Gravity - Urine 1.015 (1.005-1.025); UMIC TRIGGER UACC YES
[2025-03-28 13:42] LABS: UACC Culture Trigger YES
--- OUTSIDE RECORDS SUMMARY | 2025-05-04 20:00 | XMS_ITS | Clinical Summary ---
Author Organization Unknown Care Team Providers Care Rope Cleaner Name Role Phone ZEB CHAPMAN Unavailable Unavailable YAHIR RN, CHAIM Unavailable Unavailable CRISTÓBAL PT, BERNA Unavailable Unavailable Payers Payer Name Policy Type Policy Number Effective Date Expira tion Date MEDICARE - 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 Active 06-28 00:00: 00 TYPE 2 DIABETES MELLITUS WITHOUT COMPLICATION S Active 06-28 00:00: 00 ESSENTIAL (PRIMARY) HYPERTENSION Active 06-28 00:00: 00 ATHSCL HEART DISEASE OF [place] CORONARY ARTERY W/O ANG PCTRS Active 06-28 00:00: 00 GOUT, UNSPECIFIED Active 06-28 00:00: 00 ACQUIRED ABSENCE OF OTHER ORGANS Active 06-28 00:00: 00 PERSONAL HISTORY OF NICOTINE DEPENDENCE Active 06-28 00:00: 00 HISTORY OF FALLING Active 06-28 00:00: 00 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 Ordering Clinician Indication Dosage Frequency Signature (SIG) Comments Components aspirin 81 mg tablet 03-07 00:00: 00 Yes [id number] 1 tablet DAILY 1 tablet DAILY (route: oral) Med Classific ation: Hematolog ical Agents atorvastati n 80 mg tablet 03-07 00:00: 00 Yes [id number] 1 tablet DAILY 1 tablet DAILY (route: oral) Med Classific ation: Cardiovas cular Therapy Agents Calcium 600-D3 Plus (mag-zinc) 600 mg calcium-20 mcg-50 mg tablet 03-07 00:00: 00 Yes [id number] 1 tablet DAILY 1 tablet DAILY (route: oral) Med Classific ation: Electroly te Balance-N utritiona l Products Claritin 10 mg tablet 03-07 00:00: 00 Yes [id number] 1 tablet DAILY 1 tablet DAILY (route: oral) Med Classific ation: Respirato ry Therapy Agents cranberry 450 mg tablet 03-07 00:00: 00 Yes [id number] 1 tablet DAILY 1 tablet DAILY (route: oral) Med Classific ation: Alternati ve Therapy glipizide 5 mg tablet 03-07 00:00: 00 Yes [id number] 1 tablet 2 TIMES DAILY 1 tablet 2 TIMES DAILY (route: oral) Med Classific ation: Endocrine glucosamine HCl 1,500 mg tablet 03-07 00:00: 00 Yes [id number] 1 tablet DAILY 1 tablet DAILY (route: oral) Med Classific ation: Alternati ve Therapy metformin 500 mg tablet 03-07 00:00: 00 Yes [id number] 1 tablet 2 TIMES DAILY 1 tablet 2 TIMES DAILY (route: oral) Med Classific ation: Endocrine metoprolol succinate ER 25 mg tablet,exte nded release 24 hr 03-07 00:00: 00 Yes [id number] 1 tablet 2 TIMES DAILY 1 tablet 2 TIMES DAILY (route: oral) Med Classific ation: Cardiovas cular Therapy Agents omega-3 600 mg-dha-epa- other omega-3s-fi sh oil 1,000 mg capsule 03-07 00:00: 00 Yes [id number] 2 capsule DAILY 2 capsule DAILY (route: oral) Med Classific ation: Cardiovas cular Therapy Agents omeprazole 20 mg capsule,del ayed release 03-07 00:00: 00 Yes [id number] 1 capsule DAILY 1 capsule DAILY (route: oral) Med Classific ation: Gastroint estinal Therapy Agents PreserVisio n AREDS 2 Plus Multivit 200 mcg-15 mcg-5 mg-1 mg capsule 03-07 00:00: 00 Yes [id number] 2 capsule DAILY 2 capsule DAILY (route: oral) Med Classific ation: Electroly te Balance-N utritiona l Products Vitamin C 500 mg tablet 03-07 00:00: 00 Yes [id number] 1 tablet DAILY 1 tablet DAILY (route: oral) Med Classific ation: Electroly te Balance-N utritiona l Products Immunizations Ordered Immunization Name Filled Immunization Name Date Status Comments Refusal Reason COVID BOOSTER, COVID BOOSTER 2024-03-03 00:00:00 INFLUENZA, TIV (INACTIVATED) 2024-03-03 00:00:00 Vital Signs Vital Name Observation Time Observation Value Commen ts Temperature 2025-03-21 11:05:00.000 98 [degF] Temperature 2025-03-21 09:11:00.000 97.5 [degF] Temperature 2025-03-15 11:14:00.000 98.3 [degF] Temperature 2025-03-15 10:22:00.000 97 [degF] Temperature 2025-03-07 11:24:00.000 98.2 [degF] BMI (%) 2025-03-07 11:24:00.000 28 kg/m2 Height 2025-03-07 11:24:00.000 62 [in_us] Pulse 2025-03-21 11:05:00.000 74 /min Pulse 2025-03-21 09:11:00.000 70 /min Pulse 2025-03-15 11:14:00.000 72 /min Pulse 2025-03-15 10:22:00.000 74 /min Pulse 2025-03-07 11:24:00.000 68 /min O2 Saturation (%) 2025-03-21 11:05:00.000 97 % O2 Saturation (%) 2025-03-21 09:11:00.000 97 % O2 Saturation (%) 2025-03-15 11:14:00.000 96 % O2 Saturation (%) 2025-03-15 10:22:00.000 97 % O2 Saturation (%) 2025-03-07 11:24:00.000 95 % Respirations 2025-03-21 11:05:00.000 18 /min Respirations 2025-03-21 09:11:00.000 18 /min Respirations 2025-03-15 11:14:00.000 18 /min Respirations 2025-03-15 10:22:00.000 18 /min Respirations 2025-03-07 11:24:00.000 18 /min Weight (lbs) 2025-03-21 09:11:00.000 154 [lb_av] Weight (lbs) 2025-03-15 10:22:00.000 153 [lb_av] Weight (lbs) 2025-03-07 11:24:00.000 154 [lb_av] Systolic Blood Pressure 2025-03-21 11:05:00.000 124 mm [Hg] Systolic Blood Pressure 2025-03-21 09:11:00.000 122 mm [Hg] Systolic Blood Pressure 2025-03-15 11:14:00.000 126 mm [Hg] Systolic Blood Pressure 2025-03-15 10:22:00.000 134 mm [Hg] Systolic Blood Pressure 2025-03-07 11:24:00.000 140 mm [Hg] Diastolic Blood Pressure 2025-03-21 11:05:00.000 74 mm [Hg] Diastolic Blood Pressure 2025-03-21 09:11:00.000 58 mm [Hg] Diastolic Blood Pressure 2025-03-15 11:14:00.000 76 mm [Hg] Diastolic Blood Pressure 2025-03-15 10:22:00.000 74 mm [Hg] Diastolic Blood Pressure 2025-03-07 11:24:00.000 78 mm [Hg] Plan of Treatment Planned Activity Planned Date Details Comments Future Scheduled Test SKILLED NU RSE TO EVALUATE PATIENT, IDENTIFY PRIMARY AND CO-MORBID CONDITIONS CODED PER CODING GUIDELINES, AND DEVELOP PATIENT SPECIFIC PLAN OF CARE THAT INCLUDES PATIENT GOAL FOR HOME HEALTH. [code = SKILLED NURSE TO EVALUATE PATIENT, IDENTIFY PRIMARY AND CO-MORBID CONDITIONS CODED PER CODING GUIDELINES, AND DEVELOP PATIENT SPECIFIC PLAN OF CARE THAT INCLUDES PATIENT GOAL FOR HOME HEALTH.] Future Scheduled Test SKILLED NU RSE TO PROVIDE TEACHING/REINFORCEMENT RELATED TO URINARY INCONTINENCE. [code = SKILLED NURSE TO PROVIDE TEACHING/REINFORCEMENT RELATED TO URINARY INCONTINENCE.] Future Scheduled Test SKILLED NU RSE FOR O/A, TEACHING, AND MANAGEMENT OF CAD. [code = SKILLED NURSE FOR O/A, TEACHING, AND MANAGEMENT OF CAD.] Future Scheduled Test PHYSICAL T HERAPIST TO EVALUATE PATIENT FOR ENDURANCE [code = PHYSICAL THERAPIST TO EVALUATE PATIENT FOR ENDURANCE] Future Scheduled Test SKILLED NU RSE TO PROVIDE TEACHING ON SIGNS AND SYMPTOMS AND MANAGEMENT OF HYPERTENSION. [code = SKILLED NURSE TO PROVIDE TEACHING ON SIGNS AND SYMPTOMS AND MANAGEMENT OF HYPERTENSION.] Future Scheduled Test SKILLED NU RSE FOR O/A AND TEACHING OF DIABETIC MANAGEMENT INCLUDING BLOOD SUGAR MONITORING/USE OF GLUCOMETER, DIABETIC DIET, LOWER EXTREMITY SKIN INSPECTION, PROPER SKIN/FOOT CARE, AND SIGNS AND SYMPTOMS HYPO/HYPERGLYCEMIA TO REPORT. [code = SKILLED NURSE FOR O/A AND TEACHING OF DIABETIC MANAGEMENT INCLUDING BLOOD SUGAR MONITORING/USE OF GLUCOMETER, DIABETIC DIET, LOWER EXTREMITY SKIN INSPECTION, PROPER SKIN/FOOT CARE, AND SIGNS AND SYMPTOMS HYPO/HYPERGLYCEMIA TO REPORT.] Future Scheduled Test SKILLED NU RSE FOR O/A AND SKILLED TEACHING RELATED TO SIGNS AND SYMPTOMS AND MANAGEMENT OF BILATERAL OSTEOARTHRITIS OF KNEE [code = SKILLED NURSE FOR O/A AND SKILLED TEACHING RELATED TO SIGNS AND SYMPTOMS AND MANAGEMENT OF BILATERAL OSTEOARTHRITIS OF KNEE] Future Scheduled Test VIRTUAL SIT FREQUENCY: PRN VIRTUAL VISITS MAY BE PERFORMED UTILIZING TELECOMMUNICATIONS SYSTEM TO OPTIMIZE SKILLED SERVICES FURNISHED ON THE PLAN OF CARE. SKILLED NURSE TO ESTABLISH SUPPORT MEASURES TO MINIMIZE RISK OF REHOSPITALIZATION, AND INSTRUCT PATIENT/CAREGIVER ON METHODS TO REDUCE AVOIDABLE HOSPITALIZATION. [code = VIRTUAL VISIT FREQUENCY: PRN VIRTUAL VISITS MAY BE PERFORMED UTILIZING TELECOMMUNICATIONS SYSTEM TO OPTIMIZE SKILLED SERVICES FURNISHED ON THE PLAN OF CARE. SKILLED NURSE TO ESTABLISH SUPPORT MEASURES TO MINIMIZE RISK OF REHOSPITALIZATION, AND INSTRUCT PATIENT/CAREGIVER ON METHODS TO REDUCE AVOIDABLE HOSPITALIZATION.] Future Scheduled Test PATIENT JAMISON S A RISK OF HOSPITALIZATION AND ED USE. SKILLED NURSE TO ESTABLISH SUPPORT MEASURES TO MINIMIZE RISK OF HOSPITALIZATION AND ED USE, AND INSTRUCT PATIENT/CAREGIVER ON METHODS TO REDUCE AVOIDABLE HOSPITALIZATION AND ED USE. [code = PATIENT HAS A RISK OF HOSPITALIZATION AND ED USE. SKILLED NURSE TO ESTABLISH SUPPORT MEASURES TO MINIMIZE RISK OF HOSPITALIZATION AND ED USE, AND INSTRUCT PATIENT/CAREGIVER ON METHODS TO REDUCE AVOIDABLE HOSPITALIZATION AND ED USE.] Future Scheduled Test SKILLED NU RSE TO PROVIDE INSTRUCTION TO PATIENT/CAREGIVER RELATED TO DISCHARGE PLANNING. [code = SKILLED NURSE TO PROVIDE INSTRUCTION TO PATIENT/CAREGIVER RELATED TO DISCHARGE PLANNING.] Future Scheduled Test SKILLED NU RSE TO PERFORM ENVIRONMENTAL SAFETY RISK ASSESSMENT AND FALL RISK ASSESSMENT AND PROVIDE INSTRUCTION TO IMPLEMENT ENVIRONMENTAL SAFETY AND FALL PREVENTION STRATEGIES THROUGHOUT THE CERTIFICATION PERIOD. SKILLED NURSE WILL MAINTAIN SITUATIONAL AWARENESS AND WILL NOTIFY CLINICAL ONCOLOGY NURSE AND PHYSICIAN/PROVIDER WITH ANY CHANGE IN CONDITION. [code = SKILLED NURSE TO PERFORM ENVIRONMENTAL SAFETY RISK ASSESSMENT AND FALL RISK ASSESSMENT AND PROVIDE INSTRUCTION TO IMPLEMENT ENVIRONMENTAL SAFETY AND FALL PREVENTION STRATEGIES THROUGHOUT THE CERTIFICATION PERIOD. SKILLED NURSE WILL MAINTAIN SITUATIONAL AWARENESS AND WILL NOTIFY CLINICAL ONCOLOGY NURSE AND PHYSICIAN/PROVIDER WITH ANY CHANGE IN CONDITION.] Future Scheduled Test SKILLED NU RSE FOR OBSERVATION AND ASSESSMENT OF PATIENT S PAIN LEVEL AND EFFECTIVENESS OF PAIN MANAGEMENT REGIMEN. SKILLED NURSE TO INSTRUCT PATIENT/CAREGIVER REGARDING PHARMACOLOGIC AND NON-PHARMACOLOGIC PAIN CONTROL MEASURES. SKILLED NURSE TO REPORT TO PHYSICIAN IF PAIN LEVEL IS OUTSIDE OF ESTABLISHED PARAMETERS. [code = SKILLED NURSE FOR OBSERVATION AND ASSESSMENT OF PATIENT S PAIN LEVEL AND EFFECTIVENESS OF PAIN MANAGEMENT REGIMEN. SKILLED NURSE TO INSTRUCT PATIENT/CAREGIVER REGARDING PHARMACOLOGIC AND NON-PHARMACOLOGIC PAIN CONTROL MEASURES. SKILLED NURSE TO REPORT TO PHYSICIAN IF PAIN LEVEL IS OUTSIDE OF ESTABLISHED PARAMETERS.] Future Scheduled Test SKILLED NU RSE TO ASSESS PATIENT'S SKIN INTEGRITY AND INSTRUCT PATIENT/CAREGIVER ON MEASURES TO PREVENT PRESSURE ULCERS. [code = SKILLED NURSE TO ASSESS PATIENT'S SKIN INTEGRITY AND INSTRUCT PATIENT/CAREGIVER ON MEASURES TO PREVENT PRESSURE ULCERS.] Future Scheduled Test SKILLED NU RSE TO REVIEW PATIENT MEDICATIONS (PRESCRIPTION/OTC). INSTRUCT PATIENT/CAREGIVER ON ALL MEDICATIONS INCLUDING PURPOSE, WHEN TO TAKE, IMPORTANCE OF MEDICATION ADHERENCE, MONITORING OF EFFECTIVENESS, ADVERSE DRUG REACTIONS, POSSIBLE SIDE EFFECTS, AND WHEN TO NOTIFY AGENCY OR PHYSICIAN/PROVIDER OF ANY CONCERNS. [code = SKILLED NURSE TO REVIEW PATIENT MEDICATIONS (PRESCRIPTION/OTC). INSTRUCT PATIENT/CAREGIVER ON ALL MEDICATIONS INCLUDING PURPOSE, WHEN TO TAKE, IMPORTANCE OF MEDICATION ADHERENCE, MONITORING OF EFFECTIVENESS, ADVERSE DRUG REACTIONS, POSSIBLE SIDE EFFECTS, AND WHEN TO NOTIFY AGENCY OR PHYSICIAN/PROVIDER OF ANY CONCERNS.] Future Scheduled Test PHYSICAL T HERAPIST TO EVALUATE PATIENT SECONDARY TO FUNCTIONAL DEFICITS/SAFETY CONCERNS. PHYSICAL THERAPIST TO ASSESS BEST PRACTICE INTERVENTIONS TO ASSIST PATIENTS TO IMPROVE OR STABILIZE MEDICAL STATUS AND PREVENT RE-HOSPITALIZATION. MEASURES INCLUDING REVIEW AND IDENTIFICATION OF CONCERNS FOR THE FOLLOWING AREAS: DRUG REGIMEN, DIABETIC FOOT CARE, ENVIRONMENTAL SAFETY ISSUES AND FALLS, PRESSURE ULCERS, PAIN, AND DISEASE MANAGEMENT. PHYSICAL THERAPY TO ESTABLISH /UPGRADE/DOWNGRADE THERAPEUTIC EXERCISE PROGRAM AND INSTRUCT PATIENT/CAREGIVER ON EXERCISE PRECAUTIONS WITH WRITTEN HOME PROGRAM. MAY INCLUDE PROM, AAROM, AROM, RROM APPROPRIATE TO IMPROVE FUNCTIONAL STRENGTH AND RANGE OF MOTION. PHYSICAL THERAPY TO INSTRUCT PATIENT/CAREGIVER ON SAFE TRANSFER TECHNIQUES USING PROPER BODY MECHANICS AND EQUIPMENT. PHYSICAL THERAPY TO INSTRUCT PATIENT/CAREGIVER ON GAIT TRAINING TECHNIQUES USING APPROPRIATE ASSISTIVE DEVICE, PROPER BODY MECHANICS TO IMPROVE MOBILITY, AND PREVENT INJURY OF PATIENT AND/OR CAREGIVER. PHYSICAL THERAPY TO ASSESS AND RECOMMEND HOME SAFETY ADAPTATIONS AND EDUCATE PATIENT /CAREGIVER ON FALL PREVENTION STRATEGIES. PHYSICAL THERAPY FOR OBSERVATION AND ASSESSMENT OF PAIN, EFFECTIVENESS OF PAIN MANAGEMENT REGIMEN AND SKILLED TEACHING RELATED TO PAIN MANAGEMENT. THERAPIST TO REPORT INCREASED PAIN LEVEL TO PHYSICIAN FOR PROMPT INTERVENTION. PHYSICAL THERAPY TO INSTRUCT PATIENT/CAREGIVER ON BALANCE AND BALANCE STRATEGIES TO IMPROVE SAFE MOBILITY AND REDUCE RISK FOR FALL AND INJURY SUMMARY OF THERAPY EVAL/ASSESSMENT FINDINGS AND REASON(S) SKILLS OF A THERAPIST ARE INDICATED: PHYSICAL THERAPY EVALUATION (03/15/28) PATIENT IS A 80 YO FEMALE WITH PHYSICAL THERAPY REFERRAL AFTER EXPERIENCING 2 FALLS IN 1 DAY AND HOSPITALIZATION 03/01 - 03/05/25, DX: BILAT KNEE OA, LEFT PATELLAR EFFUSION WITH DRAINAGE. HOSPITAL RECOMMENDED SHORT TERM REHAB HOWEVER PATIENT D/C HOME. PATIENT ADVISED TO FOLLOW UP WITH OUTPATIENT PT. PRIOR HOSPITALIZATION 01/18 - 01/19/25 DUE TO R KNEE PAIN AND SWELLING DUE TO PATIENT UNABLE TO WEIGHT BEAR, DX: GOUT, UTI, WHEN D/C FROM THIS HOSPITALIZATION, REHAB RECOMMENDED PATIENT REPORTED PAIN WAS NOT WELL CONTROLLED ENOUGH TO RETURN HOME SAFETY, HOWEVER PATIENT DID NOT QUALIFY FOR REHAB. PAST MD HX: DM, OA, GOUT, BURSITIS, KNEE PAIN, KNEE STRAIN, HTN. PATIENT REPORTS CABG X 4. FALL HISTORY: 2 FALLS ON 03/01/25 WHEN PATIENT STATED SHOES GETTING STUCK WHEN AMB TO KITCHEN, THEN LATER IN DAY WHEN PATIENT AMB TO BATHROOM. PATIENT DRAGGED SELF TO PHONE TO CALL EMS. PATIENT LIVES ALONE IN APARTMENT WITHOUT ANY COMMUNITY SERVICES, 4 STAIRS WITH RAIL, 1 THRESHOLD STEP TO NEGOTIATE. PLOF: PATIENT INDEP, DROVE, ATTENDE [facility] CARDIAC 3X WK AT [facility] CLOF: DME: FWW SAFETY RECOMMENDATIONS: PATIENT REPORTS FEAR OF FALLING, DUE TO FALL HISTORY ADVISED PATIENT TO USE FWW. RECOMMENDED GRAB BARS INSTALLATION FOR SHOWER WITH PATIENT REPORTING SHE WOULD CONTACT MAINTAINANCE. RECOMMEND HANDICAPPED PLACARD ACQUISITION. RECOMMEND LIFE ALERT ACQUISITION AND TO CARRY CELLPHONE WHEN AMB UNTIL LIFT ALERT ACQUIRED. PATIENT REPORTS AT [place] HOSPITALIZATION FOLLOWUP VISIT ON 03/14/25, PA INFORMED PATIENT DID NOT NEED REFERRAL TO OUTPATIENT ORTHO. PATIENT REPORTS ATTEMPTED TO USE [facility] TRANSPORTATION FOR 03/15 [place] APPT, HOWEVER SCHEDULING ERROR OCCURED WITH NEPHEW DRIVING. PATIENT REPORTS 2/10 LEFT KNEE PAIN AT REST, UP TO 5/10 LEFT KNEE PAIN WITH AMB. BILAT LE ROM WFL, BILAT LE STRENGTH HIPS: 4+/5, KNEES L: 4-/5, R: 4+/5, ANKLES BILAT 4+/5. INSTRUCTED PATIENT IN BILAT LE SEATED THER EXER: PLANTAR/DORSIFLEX, ANKLE CIRCLES, HIP FLEX, KNEE EXT. DISPENSED HEP. PATIENT INDEP WITH BED MOBILITY. PATIENT COMPLETED SIT -->STAND WITH FWW MOD I. PATIENT AMB 40' WITH FWW AND SUPERVISION, VERBAL CUES TO KEEP AD CLOSE TO BODY. PATIENT DEMO BILAT RECIPROCAL STEP LENGTHS AND ADEQUATE FEET CLEARANCE WITH DECREASED LEFT KNEE FLEX WITH SWING PHASE. TINETTI = , FALL RISK. PATIENT ASCENDED/DESCENDED 1 THRESHOLD STEP WITH FWW AND SUPERVISION, VERBAL CUES FOR SEQUENCING AD. PATIENT PRESENTS WITH THE FOLLOWING DEFICITS: LEFT KNEE PAIN, LEFT KNEE WEAKNESS, DECREASED ENDURANCE, RESULTING IN DIFFICULTY WITH AMB AND STAIR NEGOTIATION. [facility]ED [facility] FREQ 1X4WKS TO ADDRESS DEFICITS, MAX SAFETY AND FUNCTIONAL LEVEL IN HOME ENVIRONMENT WITH THER EXER, ESTABLISH HEP, CAR TRANSFERS, GAIT TRAINING, STAIR NEGOTIATION, BALANCE ACTIVITY. PATIENT INFORMED ABOUT PHYSICAL THERAPY POC INCLUDING FREQ, VERBALIZED ACCEPTANCE. MD NOTIFIED ABOUT PATIENT STATUS AND POC. DUE TO PLOF AND PATIENT MOTIVATION, PATIENT IS A GOOD CANDIDATE FOR SKILLED [facility]. PATIENT IS CURRENTLY HOMEBOUND LEFT KNEE PAIN AND WEAKNESS LIMITS ABILITY TO AMB. [code = PHYSICAL THERAPIST TO EVALUATE PATIENT SECONDARY TO FUNCTIONAL DEFICITS/SAFETY CONCERNS. PHYSICAL THERAPIST TO ASSESS BEST PRACTICE INTERVENTIONS TO ASSIST PATIENTS TO IMPROVE OR STABILIZE MEDICAL STATUS AND PREVENT RE-HOSPITALIZATION. MEASURES INCLUDING REVIEW AND IDENTIFICATION OF CONCERNS FOR THE FOLLOWING AREAS: DRUG REGIMEN, DIABETIC FOOT CARE, ENVIRONMENTAL SAFETY ISSUES AND FALLS, PRESSURE ULCERS, PAIN, AND DISEASE MANAGEMENT. PHYSICAL THERAPY TO ESTABLISH /UPGRADE/DOWNGRADE THERAPEUTIC EXERCISE PROGRAM AND INSTRUCT PATIENT/CAREGIVER ON EXERCISE PRECAUTIONS WITH WRITTEN HOME PROGRAM. MAY INCLUDE PROM, AAROM, AROM, RROM APPROPRIATE TO IMPROVE FUNCTIONAL STRENGTH AND RANGE OF MOTION. PHYSICAL THERAPY TO INSTRUCT PATIENT/CAREGIVER ON SAFE TRANSFER TECHNIQUES USING PROPER BODY MECHANICS AND EQUIPMENT. PHYSICAL THERAPY TO INSTRUCT PATIENT/CAREGIVER ON GAIT TRAINING TECHNIQUES USING APPROPRIATE ASSISTIVE DEVICE, PROPER BODY MECHANICS TO IMPROVE MOBILITY, AND PREVENT INJURY OF PATIENT AND/OR CAREGIVER. PHYSICAL THERAPY TO ASSESS AND RECOMMEND HOME SAFETY ADAPTATIONS AND EDUCATE PATIENT /CAREGIVER ON FALL PREVENTION STRATEGIES. PHYSICAL THERAPY FOR OBSERVATION AND ASSESSMENT OF PAIN, EFFECTIVENESS OF PAIN MANAGEMENT REGIMEN AND SKILLED TEACHING RELATED TO PAIN MANAGEMENT. THERAPIST TO REPORT INCREASED PAIN LEVEL TO PHYSICIAN FOR PROMPT INTERVENTION. PHYSICAL THERAPY TO INSTRUCT PATIENT/CAREGIVER ON BALANCE AND BALANCE STRATEGIES TO IMPROVE SAFE MOBILITY AND REDUCE RISK FOR FALL AND INJURY SUMMARY OF THERAPY EVAL/ASSESSMENT FINDINGS AND REASON(S) SKILLS OF A THERAPIST ARE INDICATED: PHYSICAL THERAPY EVALUATION (03/15/28) PATIENT IS A 80 YO FEMALE WITH PHYSICAL THERAPY REFERRAL AFTER EXPERIENCING 2 FALLS IN 1 DAY AND HOSPITALIZATION 03/01 - 03/05/25, DX: BILAT KNEE OA, LEFT PATELLAR EFFUSION WITH DRAINAGE. HOSPITAL RECOMMENDED SHORT TERM REHAB HOWEVER PATIENT D/C HOME. PATIENT ADVISED TO FOLLOW UP WITH OUTPATIENT PT. PRIOR HOSPITALIZATION 01/18 - 01/19/25 DUE TO R KNEE PAIN AND SWELLING DUE TO PATIENT UNABLE TO WEIGHT BEAR, DX: GOUT, UTI, WHEN D/C FROM THIS HOSPITALIZATION, REHAB RECOMMENDED PATIENT REPORTED PAIN WAS NOT WELL CONTROLLED ENOUGH TO RETURN HOME SAFETY, HOWEVER PATIENT DID NOT QUALIFY FOR REHAB. PAST MD HX: DM, OA, GOUT, BURSITIS, KNEE PAIN, KNEE STRAIN, HTN. PATIENT REPORTS CABG X 4. FALL HISTORY: 2 FALLS ON 03/01/25 WHEN PATIENT STATED SHOES GETTING STUCK WHEN AMB TO KITCHEN, THEN LATER IN DAY WHEN PATIENT AMB TO BATHROOM. PATIENT DRAGGED SELF TO PHONE TO CALL EMS. PATIENT LIVES ALONE IN APARTMENT WITHOUT ANY COMMUNITY SERVICES, 4 STAIRS WITH RAIL, 1 THRESHOLD STEP TO NEGOTIATE. PLOF: PATIENT INDEP, DROVE, ATTENDE [employer] [facility] [employer] CARDIAC 3X WK AT [facility] CLOF: DME: FWW SAFETY RECOMMENDATIONS: PATIENT REPORTS FEAR OF FALLING, DUE TO FALL HISTORY ADVISED PATIENT TO USE FWW. RECOMMENDED GRAB BARS INSTALLATION FOR SHOWER WITH PATIENT REPORTING SHE WOULD CONTACT MAINTAINANCE. RECOMMEND HANDICAPPED PLACARD ACQUISITION. RECOMMEND LIFE ALERT ACQUISITION AND TO CARRY CELLPHONE WHEN AMB UNTIL LIFT ALERT ACQUIRED. PATIENT REPORTS AT PA HOSPITALIZATION FOLLOWUP VISIT ON 03/14/25, PA INFORMED PATIENT DID NOT NEED REFERRAL TO OUTPATIENT ORTHO. PATIENT REPORTS ATTEMPTED TO USE [facility] TRANSPORTATION FOR 03/15 [place] APPT, HOWEVER SCHEDULING ERROR OCCURED WITH NEPHEW DRIVING. PATIENT REPORTS 2/10 LEFT KNEE PAIN AT REST, UP TO 5/10 LEFT KNEE PAIN WITH AMB. BILAT LE ROM WFL, BILAT LE STRENGTH HIPS: 4+/5, KNEES L: 4-/5, R: 4+/5, ANKLES BILAT 4+/5. INSTRUCTED PATIENT IN BILAT LE SEATED THER EXER: PLANTAR/DORSIFLEX, ANKLE CIRCLES, HIP FLEX, KNEE EXT. DISPENSED HEP. PATIENT INDEP WITH BED MOBILITY. PATIENT COMPLETED SIT -->STAND WITH FWW MOD I. PATIENT AMB 40' WITH FWW AND SUPERVISION, VERBAL CUES TO KEEP AD CLOSE TO BODY. PATIENT DEMO BILAT RECIPROCAL STEP LENGTHS AND ADEQUATE FEET CLEARANCE WITH DECREASED LEFT KNEE FLEX WITH SWING PHASE. TINETTI = , FALL RISK. PATIENT ASCENDED/DESCENDED 1 THRESHOLD STEP WITH FWW AND SUPERVISION, VERBAL CUES FOR SEQUENCING AD. PATIENT PRESENTS WITH THE FOLLOWING DEFICITS: LEFT KNEE PAIN, LEFT KNEE WEAKNESS, DECREASED ENDURANCE, RESULTING IN DIFFICULTY WITH AMB AND STAIR NEGOTIATION. SKILLED [facility] PH[facility] FREQ 1X4WKS TO ADDRESS DEFICITS, MAX SAFETY AND FUNCTIONAL LEVEL IN HOME ENVIRONMENT WITH THER EXER, ESTABLISH HEP, CAR TRANSFERS, GAIT TRAINING, STAIR NEGOTIATION, BALANCE ACTIVITY. PATIENT INFORMED ABOUT PHYSICAL THERAPY POC INCLUDING FREQ, VERBALIZED ACCEPTANCE. MD NOTIFIED ABOUT PATIENT STATUS AND POC. DUE TO PLOF AND PATIENT MOTIVATION, PATIENT IS A GOOD CANDIDATE FOR SKILLED [facility]. PATIENT IS CURRENTLY HOMEBOUND LEFT KNEE PAIN AND WEAKNESS LIMITS ABILITY TO AMB.] Goal Patient Goal - T O GET BACK TO PRIOR FUNCTION Goal Provider Goal - A PLAN OF CARE WILL BE ESTABLISHED THAT MEETS PATIENT'S SNF NEEDS AND INCLUDES PATIENT GOAL FOR HOME HEALTH. Goal Provider Goal - PATIENT / CAREGIVER WILL VERBALIZE UNDERSTANDING OF EFFECTS OF URINARY INCONTINENCE BY THE END OF THE CERTIFICATION PERIOD. Goal Provider Goal - PATIENT/CAREGIVER WILL VERBALIZE/DEMONSTRATE MANAGEMENT OF CARDIAC DISEASE PROCESS AND EXACERBATIONS WILL BE IDENTIFIED AND PROMPTLY REPORTED THROUGHOUT THE CERTIFICATION PERIOD. Goal Provider Goal - A PHYSICAL THERAPY EVALUATION TO BE COMPLETED WITH RECOMMENDATIONS AND/OR WRITTEN PLAN OF TREATMENT ESTABLISHED FOR PHYSICIAN S SIGNATURE. Goal Provider Goal - PATIENT/CAREGIVER WILL VERBALIZE SIGNS AND SYMPTOMS OF HYPERTENSION AND WILL BE ABLE TO DEMONSTRATE ABILITY TO MANAGE EXACERBATION BY END OF THE EPISODE. Goal Provider Goal - PATIENT/CAREGIVER WILL VERBALIZE/DEMONSTRATE KNOWLEDGE OF DIABETIC MANAGEMENT. CHANGES IN DIABETIC STATUS WILL BE IDENTIFIED AND REPORTED TO PHYSICIAN FOR PROMPT INTERVENTION THROUGHOUT THE CERTIFICATION PERIOD. Goal Provider Goal - PATIENT/CAREGIVER WILL VERBALIZE UNDERSTANDING OF BILATERAL OSTEOARTHRITIS OF KNEES MUSCULOSKELETAL DISEASE INCLUDING SIGNS AND SYMPTOMS, MANAGEMENT, AND PRESCRIBED TREATMENT REGIMEN BY END OF EPISODE. Goal Provider Goal - PATIENT/CAREGIVER WILL UTILIZE VIRTUAL VISITS TO ACHIEVE GOALS OUTLINED ON THE PLAN OF CARE. PATIENT WILL HAVE SUPPORT MEASURES ESTABLISHED TO PREVENT HOSPITALIZATION AND PATIENT/CAREGIVER WILL VERBALIZE/DEMONSTRATE METHODS TO REDUCE AVOIDABLE HOSPITALIZATION THROUGHOUT THE CERTIFICATION PERIOD. Goal Provider Goal - PATIENT WILL HAVE SUPPORT MEASURES ESTABLISHED TO PREVENT HOSPITALIZATION AND ED USE AND PATIENT/CAREGIVER WILL VERBALIZE/DEMONSTRATE METHODS TO REDUCE AVOIDABLE HOSPITALIZATION AND ED USE BY END OF EPISODE. Goal Provider Goal - PATIENT/CAREGIVER WILL VERBALIZE UNDERSTANDING OF DISCHARGE PLANNING INSTRUCTIONS BY DATE OF DISCHARGE. Goal Provider Goal - PATIENT/CAREGIVER WILL VERBALIZE/DEMONSTRATE EFFECTIVE ENVIRONMENTAL SAFETY AND FALL PREVENTION STRATEGIES, WILL REMAIN SAFE IN THE COMMUNITY, AND WILL BE FREE OF DANGER TO SELF AND OTHERS THROUGHOUT THE CERTIFICATION PERIOD. Goal Provider Goal - PATIENT/CAREGIVER WILL DEMONSTRATE UNDERSTANDING OF PHARMACOLOGIC AND NONPHARMACOLOGIC PAIN CONTROL MEASURES AND PATIENT WILL HAVE IMPROVEMENT IN PAIN INTERFERING WITH ACTIVITY EVIDENCED BY PAIN AT A LEVEL THAT IS ACCEPTABLE TO THE PATIENT AND PAIN LEVEL WITHIN ESTABLISHED PARAMETERS BY END OF CERTIFICATION PERIOD. Goal Provider Goal - PATIENT/CAREGIVER WILL VERBALIZE UNDERSTANDING OF PRESSURE ULCER PREVENTION BY END OF THE EPISODE. Goal Provider Goal - PATIENT/CAREGIVER WILL VERBALIZE UNDERSTANDING OF EDUCATION PROVIDED ON MEDICATIONS BY THE END OF THE CERTIFICATION PERIOD. Goal Provider Goal - PHYSICAL THERAPY EVALUATION TO BE COMPLETED WITH RECOMMENDATIONS AND/OR WRITTEN TREATMENT PLAN OF CARE ESTABLISHED FOR THE PHYSICIAN S SIGNATURE PATIENT/CAREGIVER VERBALIZES UNDERSTANDING OF THE INITIAL BEST PRACTICE RECOMMENDATIONS. PHYSICIAN TO BE NOTIFIED APPROPRIATE FOR ANY CHANGES OR COMPLICATIONS THROUGHOUT THE CERTIFICATION PERIOD. PATIENT/CAREGIVER WILL PERFORM THERAPEUTIC EXERCISE/S AND DEMONSTRATE PARTICIPATION IN A HOME PROGRAM. PATIENT/CAREGIVER WILL DEMONSTRATE SAFE TRANSFERS USING APPROPRIATE ASSISTIVE DEVICE, BODY MECHANICS AND EQUIPMENT. PATIENT/CAREGIVER WILL DEMONSTRATE IMPROVED GAIT TECHNIQUES TO MINIMIZE RISK OF INJURY. PATIENT/CAREGIVER WILL DEMONSTRATE/VERBALIZE UNDERSTANDING OF RECOMMENDATIONS TO INCREASE SAFETY IN THE HOME AND FALL PREVENTION. INCREASED PAIN OR INEFFECTIVE PAIN CONTROL MEASURES WILL BE IDENTIFIED AND PROMPTLY REPORTED TO THE PHYSICIAN. PATIENT/CAREGIVER WILL DEMONSTRATE EFFECTIVE PAIN MANAGEMENT. PATIENT/CAREGIVER WILL DEMONSTRATE IMPROVED BALANCE AND REDUCE THE RISK OF FALLS AND INJURY. Encounters Start Date/Time End Date/Time Encounter Type Admission Type Attending [facility] Care Department Encounter ID Discharge Date Discharge Status Discharge Condition Discharge Reason Percent Goals Met 2025-03-07 00:00:00 2025-05-05 00:00:00 Outpatient CHAIM AKERS [facility] [id number] 50.00
== END 2025-03-28 09:56 | disposition home or self-care (01) ==
LOC: HO.HMGCLDS 09:55
PROVIDERS: PCP Physician Assistant; Visit Provider Physician Assistant
DX: R30.0 Dysuria (principal)
CPT/HCPCS: 81001; 87086; 87088; 87186

== ENCOUNTER 2025-04-24 11:05 | Outpatient (AMB) | payer MEDICARE, SELFPAY ==
--- NOTE | 2025-04-24 10:16 | A.OFFPC_ITS ---
Vital Signs 04/24/25 11:29 Height 5 ft 2.6 in Weight 67.132 kg BMI 26.6 BP 112/58 L Blood Pressure Location Lt brachial Position Sitting Respiration 18 Pulse 92 Pulse Source Pulse Oximeter Temp 97.7 F Temp Source Temporal Artery Scan Pulse Oximetry (%) 96 Oxygen Delivery Method Room Air Intake Visit Reasons: HFU/ was seen for UTI Box Lining Machine Feeder Required: No Accompanied by: Friend Allergies egg (Egg) Allergy (Mild, Verified 04/24/25 10:17) RASH Sulfa (Sulfonamide Antibiotics) Allergy (Unknown, Verified 04/24/25 10:17) N/V TACHYCARDIC environmental allergies Adverse Reaction (Verified 04/24/25 10:17) Cough Medication List - Last Reconciled 04/24/25 by GEO Starkey ascorbic acid (vitamin C) (Vitamin C) 500 mg PO DAILY aspirin (Adult Low Dose Aspirin) 81 mg PO DAILY atorvastatin 80 mg PO BEDTIME cephalexin 500 mg PO QID glipizide ER 5 mg PO BID glucosamine sulfate (Glucosamine) 500 mg PO BID metformin ER 1 tab PO BID metoprolol succinate ER 25 mg PO BID omeprazole 1 cap PO DAILY vit C,A-Uz-jzyua-lutein-zeaxan 250-90-40-1 mg (PreserVision AREDS-2) 1 tab PO BID zolpidem 5 mg PO BEDTIME PRN Tobacco use date assessed: 11/09/24 Dental Screening Dental Screen Date: 11/09/24 HPI HPI Comments History of Present Illness Details he patient is a 79 year old female with a past medical history of CAD s/p CABG, diabetes, hypertension, hyperlipidemia, GERD, insomnia, pseudogout, BPPV presenting for follow up. Presents to the office today accompanied by her friend, Viv. CV: On asa 81mg daily, metoprolol 25mg twice daily, lipitor 80mg daily. Follows with [facility]. Denies chest pain, shortness of breath. Echo ordered for this year feb, seeing them in march Neuro: Saw Dr Mueller-BPPV. Doing vestibular therapy- [facility] DM: On metformin 500mg twice daily, glipizide 5mg twice daily. A1C 7.1%. Sees Dr Elicia reed. due for a1c Concerns: 04/18 experienced an episode of confusio n/erratic behavior. She reports that she feels behavior started to be atypical on 04/18. She reports that she has urinary urgency at baseline and will wake up to the bathroom about 3 times per night. Got night, she had also been experiencing some dysuria with behavior change from baseline. The following morning, behavior changes continued. She states she had made breakfast but then did not consume this and did not take her medication. She then drove to picking table worker her friend and stopped it a coffee shop which she never does. Her and her friend then went to the store shopping. Her friend reports that she suddenly lost the ability to hold up her head, was unable to stand, was mumbling incoherently, and was flailing her arms and legs. This lasted for about 30 seconds but the incoherent mumbling lasted about 15 minutes. EMS was called and she was transferred to [facility] ED. At the ED, vitals were stable. She did have a mild leukocytosis but hematology studies otherwise unremarkable. Chemistries with renal function consistent with baseline, electrolyte levels normal. Urinalysis was indicative of infection but no urine culture was sent. She was given 1 dose of IV ceftriaxone in the ED and was discharged home with Keflex q.i.d. times 10 days which he has been taking as prescribed. There has been no recurrence of the behavioral changes/confusion. The patient reports that she does not recall much of the episode but does recall not being able to hold up her head. She has no known history of CVA, seizure disorder. Does have history of recurrent UTI but has never experienced encephalopathy or behavioral changes with this. Does not follow with Urology BPPV- symptoms had previously been resolved following physical therapy for Erna maneuver. She states over last couple days, she has been experiencing recurrence of vertigo with head movements, particularly at bedtime. Swelling left 2nd D IP with mild tenderness to palpation Health maintenance: Colonoscopy 2016 Mammo-no longer doing. Last 2019 ROS: see hpi EXAM: Constitutional - Awake and Alert, No apparent distress Eyes - PERRL Cardiovascular - S1S2, RRR, No edema Respiratory - Normal lung expansion, Normal respiratory effort, No respiratory distress, CTA bilaterally Extremities - no calf tenderness bilaterally, no swelling Skin - Warm/Dry. Verruca vulgaris Left 2nd DIP. Swelling over the joing as well Neurological - Alert & oriented x3 Psychological - Appropriate affect [facility] Medical History (Updated 04/24/25 @ 12:18 by GEO Starkey) Urinary urgency History of recent fall Left knee pain Osteoarthritis of knees, bilateral HTN (hypertension) Surgical History History of colonoscopy (~03/11/17) History of excision of mass (02/02/23) History of arthroscopy of right knee (02/03/07) History of arthroscopy of left knee (03/08/03) History of eye surgery (2001) History of total hysterectomy (07/15/01) S/P tonsillectomy and adenoidectomy History of quadruple bypass (05/22/15) Family History Mother No problems noted. Father No problems noted. 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 Cognitive needs: Yes (walker) Hearing needs: No Vision needs: Yes (rx glasses) Questionnaire Thrive Questionnaire Date Thrive assessed: 11/09/24 GERALD-7 AMB Questionnaire GERALD-7 Date GERALD - 7 assessed: 11/09/24 Source: Developed by Drs. Prashanth Rodriguez, Kayleen Curran, Girish Capps and colleagues, with an educational veronica from [employer]. Physical exam (Primary Care) Vital Signs: Last Vital Signs Temp 97.7 F 04/24/25 11:29 Pulse 92 04/24/25 11:29 Resp 18 04/24/25 11:29 BP 112/58 L 04/24/25 11:29 Pulse Ox 96 04/24/25 11:29 Oxygen Delivery Method Room Air 04/24/25 11:29 BMI result Body Mass Index 26.6 Tobacco/Smoking Status: Tobacco use Status Tobacco use date assessed 11/09/24 04/24/25 10:17 Patient Tobacco Use Status Former Tobacco user 04/24/25 10:17 e-Cigarette/Vaping Use Former Use 04/24/25 10:17 Thrive Assessment: Date of Thrive Assessment Date Thrive assessed 11/09/24 04/24/25 10:17 Coding Level of Care Code Est Pt Level 4 (00659) Complex EM visit Add On G2211 Diagnoses UTI (urinary tract infection) N39.0 Benign paroxysmal positional vertigo, unspecified laterality H81.10 Laterality: unspecified laterality HTN (hypertension) I10 Assessment & Plan Assessment & Plan (1) UTI (urinary tract infection): Code(s): N39.0 - Urinary tract infection, site not specified Category: Medical Plan: Reviewed urinalysis from [facility]. Acute metabolic encephalopathy secondary to UTI has resolved without any recurrence. Continue cephalexin as prescribed. Given ongoing urinary frequency, recheck UA with culture. However, she does have history of recurrent UTIs and urinary urgency. Referred to Urology for further assessment and management. Advised to present for urinalysis as soon as symptoms recur to prevent more serious infection. Reviewed ED provider note, CBC, BMP, urinalysis (2) Benign paroxysmal positional vertigo: Code(s): H81.10 - Benign paroxysmal vertigo, unspecified ear Category: Medical Qualifiers: Laterality: unspecified laterality Qualified Code(s): H81.10 - Benign paroxysmal vertigo, unspecified ear Plan: Can use meclizine as previously prescribed at bedtime. Referred back to physical therapy (3) HTN (hypertension): Code(s): I10 - Essential (primary) hypertension Category: Medical Plan: Controlled. Continue Toprol. Low-sodium diet Plan Follow-up as scheduled. Labs to be completed today as well as several days prior to next visit Uric acid level ordered to better assess swelling and tenderness over the left 2nd DIP Orders: Orders UA ClnCatch+Micro w/rflx Cult Today N39.0 - Urinary tract infection, site not specified, R39.15 - Urgency of urination PT Evaluation and Treatment Today H81.10 - Benign paroxysmal vertigo, unspecified ear Uric Acid Today M79.89 - Other specified soft tissue disorders Referrals Urology Referral N39.0 - Urinary tract infection, site not specified, R30.0 - Dysuria, R39.15 - Urgency of urination
[2025-04-24 11:29] VITALS: BP 112/58; PULSE 92; RESP 18; TEMP 36.5; O2SAT 96; BMI 26.6
== END 2025-04-24 13:16 | disposition home or self-care (01) ==
LOC: HO.HMCHD 11:05
PROVIDERS: PCP Physician Assistant; Visit Provider Physician Assistant
DX: N39.0 Urinary tract infection, site not specified (principal); H81.10 Benign paroxysmal vertigo, unspecified ear; I10 Essential (primary) hypertension

== ENCOUNTER 2025-04-24 12:30 | Outpatient (REF) | payer MEDICARE, SELFPAY ==
[2025-04-24 13:16] LABS: Appearance Urine Clear; Glucose Urine UA Negative (Negative); PH 5.5 (5.0-9.0); Specific Gravity - Urine 1.020 (1.005-1.025); UMIC TRIGGER UACC YES
[2025-04-24 13:45] LABS: Uric Acid 5.2 mg/dL (2.4-5.7)
[2025-04-24 14:11] LABS: UACC Culture Trigger YES
--- OUTSIDE RECORDS SUMMARY | 2025-04-24 15:47 | XMS_ITS | Patient Health Record ---
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) Active confirmed Problem Ingrowing nail (623831842) Ingrowing Nail (703.0) Active confirmed Plan Of Treatment Pending Test Test Name Order Date X ray : Foot, left 2V 04/20/2013 [id number] NAIL, 1-01/09/2013 [id number] NAIL, -04/20/2013 [id number] NAIL, -5 04/14/2012 [id number] NAIL, -07/14/2012 [id number] NAIL, -10/17/2012 [id number] NAIL, 1-5 08/21/2013 [id number] Plate 10/17/201208223,G7900-ZMP TENDON SHEATH/LIGAMENT 1 50,G1612-TMW TENDON SHEATH/LIGAMENT 1 07/18/2012 Insurance Providers Payer Name Payer Address Payer Phone Subscriber Number Group Number Insured Name Patient Relationship to Insured Coverage Start Date Coverage End Date Medicare National Govt [employer] [facility] [address] [place] [address] [id number] Pati Drummond Self - patient is the insured 1 [employer] [address] [place] [address] [phone] [id number] DestinchristinaPati davies Self - patient is the insured Medical (General) History Medical History History ICD Code Arthritis back, hip, knee pain cholesterol cancer high blood pressure reflux measles mumps chicken pox Surgical History Surgery Date(Month/Year) rotator cuff tear repair 2003 cataract surgery 2001 hysterectomy, total with bilateral salpi gabriel-oophorectomy (BSO) 2002 Torn cartilage 2002, 2006 Hospitalization History Reason Date(Month/Year) Patient went to [facility] for irregular hea rt beat. 07/2012
--- OUTSIDE RECORDS SUMMARY | 2025-04-24 15:47 | XMS_ITS | Encounter Summary ---
Author Organization [facility] Address [address] [place] [address] Phone Care Team Providers Care Roads Supervisor Name Role Phone Kalin Salamanca MD Primary Care Provider Jean Carlos Steele MD Unavailable [phone] Encounter Details Date Type Department Care Team (Late st Contact Info) Description 04/13/2024 Procedure Pass Echo Lab [address] [place] [address] Social History Tobacco Use Types Packs/Day Years [...] as of this encounter Plan of Treatment Not on file documented as of this encounter Visit Diagnoses Not on filedocumented in this encounter Care Teams Roads Supervisor Relationship Specialty Start Date End Date Kalin Salamanca MD [address] [place] [address] [place] [address] PCP - General 04/15/17 Jean Carlos Steele MD [address] [place] [address] Dr UrbanDEQUAN gale [address] [email or web address] Historical LMR Provider 04/15/17 documented as of this encounter Additional Source Comments The information contained in this document represents components of the legal health record. It is not the complete legal health record.[facility]
--- OUTSIDE RECORDS SUMMARY | 2025-04-24 15:47 | XMS_ITS | Encounter Summary ---
Author Organization [facility] Address [address] [address] Phone Care Team Providers Care Driver'S License Examiner Name Role Phone Kalin Salamanca MD Primary Care Provider Jean Carlos Steele MD Unavailable [phone] Encounter Details Date Type Department Care Team (Late st Contact Info) Description 07/28/2022 Procedure Pass Echo Lab [place] [place] [address] Social History Tobacco Use Types Packs/Day Years [...] on filedocumented in this encounter Care Teams Driver'S License Examiner Relationship Specialty Start Date End Date Kalin Salamanca MD [address] [place] [address] [place] [id number] PCP - General 04/15/17 Jean Carlos Steele MD [address] [place] [address] [place] [phone] [email or web address] Historical LMR Provider 04/15/17 documented as of this encounter Additional Source Comments The information contained in this document represents components of the legal health record. It is not the complete legal health record.[facility]
--- OUTSIDE RECORDS SUMMARY | 2025-04-24 15:47 | XMS_ITS | Clinical Summary ---
Author Organization [facility] Facility Address [address] [address] Care Team Providers Care Medic Technician Name Role Phone Kalin Salamanca MD Primary Care Provider [phone] Social History Tobacco Use Types Packs/Day Years [...] age to complete this topic Insurance Medicare [facility] Medicare [facility] Care Teams Medic Technician Relationship Specialty Start Date End Date Kalin Salamanca MD [address] [place] [address] [address] [place], [place] PCP - General Internal Medicine 12/16/21
--- OUTSIDE RECORDS SUMMARY | 2025-04-24 15:47 | XMS_ITS | Patient Health Record ---
Author Organization [facility] Address [address] [place] [address] Care Team Providers Care Payroll And Benefits Specialist Name Role Phone Jadyn (RETIRED) Kalin LINARES Primary Care Provide r Prashanth Wall [phone] Allergies Allergen (clinical drug ingredient) Drug/Non Drug [...] 1 tablet Orally Once a day Active [place]-3 650 1 capsule Orally Onc e a [...] Problem Status W/U Status Risk Notes Problem Screening for malignant neoplasm of colon (564485968) Encounter for screening for malignant neoplasm of colon (Z12.11) Active confirmed Problem Long-term current use of aspirin (50769409351753 3) Aspirin long-term use (Z79.82) Active confirmed Problem Pre-procedure evaluation check (667776766) Pre-procedural examination (Z01.818) Active confirmed Plan Of Treatment Future Test Test Name Order Date COLONOSCOPY 12/15/2016 Insurance Providers Payer Name Payer Address Payer Phone Subscriber Number Group Number Insured Name Patient Relationship to Insured Coverage Start Date Coverage End Date MEDICARE OF [place] [address] [place] [address] [id number] MELODYMADDYVALENTINE JAMES Self - patient is the insured [employer] ATT[employer] CLAIMS [address] [place] [address] [id number] MELODYMADDYVALENTINE JAMES Self - patient is the insured Medical (General) History Medical History History ICD Code 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 Ruchi Ortega 20 02 Rotator Cuff left - Dr. Banks 08/21/19 03 Torn cartilage -arthroscopic on left kne e -Dr. Banks 03/08/2003 Torn Cartilage- arthroscopic right knee- dr. Banks 02/03/2007 4V-CABG [facility] 05/22/2015
== END 2025-04-24 12:31 | disposition home or self-care (01) ==
LOC: HO.10HDL 12:30
PROVIDERS: Visit Provider Physician Assistant
DX: I10 Essential (primary) hypertension (principal); M79.89 Other specified soft tissue disorders; H81.10 Benign paroxysmal vertigo, unspecified ear; N39.0 Urinary tract infection, site not specified; R30.0 Dysuria; R39.15 Urgency of urination; Z79.84 Long term (current) use of oral hypoglycemic drugs
CPT/HCPCS: 36415; 81001; 84550; 87086; 99212

== ENCOUNTER 2025-05-15 13:55 | Outpatient (REF) | payer MEDICARE, SELFPAY ==
[2025-05-15 16:49] LABS: Appearance Urine Turbid; Glucose Urine UA Negative (Negative); PH 5.5 (5.0-9.0); Specific Gravity - Urine 1.015 (1.005-1.025); UMIC TRIGGER UACC YES
[2025-05-15 16:57] LABS: UACC Culture Trigger YES
--- OUTSIDE RECORDS SUMMARY | 2025-05-16 07:45 | XMS_ITS | Clinical Summary ---
Author Organization [facility] Facility Address [address] [address] Care Team Providers Care Regional Loss Prevention Manager Name Role Phone Kalin Salamanca MD Primary Care Provider [phone] Social History Tobacco Use Types Packs/Day Years [...] age to complete this topic Insurance Medicare [facility] Medicare [facility] Care Teams Regional Loss Prevention Manager Relationship Specialty Start Date End Date Kalin Salamanca MD [address] [place] [address] [address] [place], [place] PCP - General Internal Medicine 12/16/21
--- OUTSIDE RECORDS SUMMARY | 2025-05-16 07:45 | XMS_ITS | Encounter Summary ---
Author Organization [facility] Address [address] [place] [address] Phone Care Team Providers Care Rigging Loft Mechanic Name Role Phone Kalin Salamanca MD Primary Care Provider Jean Carlos Steele MD Unavailable [phone] Encounter Details Date Type Department Care Team (Late st Contact Info) Description 07/28/2022 Procedure Pass Echo Lab [address] [place] [address] Social History Tobacco Use Types Packs/Day Years [...] Care Team (Late st Contact Info) Description 11/05/2025 12:45 PM EDT Office Visit [facility] [address] [place] [address] 3rd Floor, [address] [place] [address] Jean Carlos Ghotra DO [address] [facility] [address] [place] [id number] documented as of this encounter Visit Diagnoses Not on filedocumented in this encounter Care Teams Rigging Loft Mechanic Relationship Specialty Start Date End Date Kalin Salamanca MD [address] [place] [address] [facility] [place]es [place] [address] PCP - General 04/15/17 Jean Carlos Steele MD [address] [place] [address] Dr Stewart, [place] [address] [email or web address] Historical LMR Provider 04/15/17 documented as of this encounter Additional Source Comments The information contained in this document represents components of the legal health record. It is not the complete legal health record.[facility]
--- OUTSIDE RECORDS SUMMARY | 2025-05-16 07:45 | XMS_ITS | Encounter Summary ---
Author Organization [facility] Address [address] [place] [address] [address] [place] [address] Phone Care Team Providers Care Counseling Services Director Name Role Phone Kalin Salamanca MD Primary Care Provider Jean Carlos Steele MD Unavailable [phone] Encounter Details Date Type Department Care Team (Late st Contact Info) Description 05/01/2025 Orders Only [facility] [address] Floor, [address] [place] [address] Provider, MD Zach [address] [place], [place] [id number] Social History Tobacco Use Types Packs/Day Years [...] Description 11/05/2025 12:45 PM EDT Office Visit [facility] [address] Floor, [address] [place] [address] Jean Carlos Ghotra, [address] [facility] [address] [place] [address] [email or web address] documented as of this encounter Procedures Procedure Name Priority Date/Time Associated Diagnosis Comments OUTSIDE LAB Routine 05/01/2025 3:13 PM EST documented in this encounter Results * Outside Lab (Non-MGB) (05/01/2025 3:13 PM EST) us Historical Provider LAB BLOOD BKR ORDERABLES Final Result documented in this encounter Visit Diagnoses Not on filedocumented in this encounter Care Teams Counseling Services Director Relationship Specialty Start Date End Date Kalin Salamanca MD [address] [place] [address] [address] [place] [address] PCP - General 04/15/17 Jean Carlos Steele MD [address] [place] [address] [address] [place] [address] [email or web address] Historical LMR Provider 04/15/17 documented as of this encounter Additional Source Comments The information contained in this document represents components of the legal health record. It is not the complete legal health record.[facility]
--- OUTSIDE RECORDS SUMMARY | 2025-05-16 07:45 | XMS_ITS | Encounter Summary ---
Author Organization [facility] Address [address] [place] [address] [address] [place] [address] Phone Care Team Providers Care Paper Reel Operator Name Role Phone Kalin Salamanca MD Primary Care Provider Jean Carlos Steele MD Unavailable [phone] Encounter Details Date Type Department Care Team (Late st Contact Info) Description 04/13/2024 Procedure Pass Echo Lab [address] [place] [address] Social History Tobacco Use Types Packs/Day Years [...] Description 11/05/2025 12:45 PM EDT Office Visit [facility] [address] Floor, [address] [place] [address] Jean Carlos Ghotra, DO [address] [address] [email or web address] documented as of this encounter Visit Diagnoses Not on filedocumented in this encounter Care Teams Paper Reel Operator Relationship Specialty Start Date End Date Kalin Salamanca MD [address] [place] [address] [place] [address] PCP - General 04/15/17 Jean Carlos Steele MD [address] [place] [address] [place] [address] [email or web address] Historical LMR Provider 04/15/17 documented as of this encounter Additional Source Comments The information contained in this document represents components of the legal health record. It is not the complete legal health record.[facility]
== END 2025-05-15 13:56 | disposition home or self-care (01) ==
LOC: HO.HMGCLDS 13:55
PROVIDERS: PCP Physician Assistant; Visit Provider Physician Assistant
DX: R30.0 Dysuria (principal)
CPT/HCPCS: 81001; 87086; 87088; 87186

== ENCOUNTER 2025-06-08 12:45 | Outpatient (REF) | payer MEDICARE, SELFPAY | END 2025-06-08 12:46 | disposition home or self-care (01) | LOC: HO.LAB 12:45 | PROVIDERS: PCP Physician Assistant; Visit Provider Urology | DX: N39.0 Urinary tract infection, site not specified (principal); E11.9 Type 2 diabetes mellitus without complications | CPT/HCPCS: 51798; 81003; 87086; 87088; 87186; 99202 ==

== ENCOUNTER 2025-06-08 12:45 | Outpatient (AMB) | payer MEDICARE, SELFPAY ==
--- NOTE | 2025-06-08 13:43 | MHC.OFFVIS ---
Intake Visit Reasons: Recurrent UTIs/Urinary frequency (set(UA+PVR) Intake Note: New patient presents today for initial visit for recurrent UTI's/urinary frequency Urology Medication:None Blood Thinner:Aspirin Antibiotic Allergies:None PVR:0ml Allergies egg (Egg) Allergy (Mild, Verified 06/08/25 13:44) RASH Sulfa (Sulfonamide Antibiotics) Allergy (Unknown, Verified 06/08/25 13:44) N/V TACHYCARDIC environmental allergies Adverse Reaction (Verified 06/08/25 13:44) Cough HPI Comments Details: 06/08/25--History of Present Illness The patient is a 80 year old female presenting for an evaluation of recurrent UTIs. [facility] Diabetes- CoMorbidity. She reports a history of frequent UTIs, with the most concerning event occurring in March when she experienced what she and a friend described as a seizure . On the day of the seizure, she felt confused in the morning but did not recognize it at the time. The episode occurred while she was out shopping, and she was transported by ambulance to the [facility] emergency room, where she remained for approximately 24 hours and was treated with antibiotics. Since the UTI in March, the patient reports that her urinary symptoms have never fully resolved and she feels as though she constantly has a UTI. Her current symptoms include discomfort and a pressure-like sensation during urination, which subsides afterward. She also notes new-onset nocturia, waking every three hours to urinate, a change from her baseline of once per night. Her last course of antibiotics was a few weeks ago. Results - Urinalysis (today): leukocytes, blood and protein present. 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 Father No problems noted. 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 Cognitive needs: Yes (walker) Hearing needs: No Vision needs: Yes (rx glasses) Review of Systems Const All systems reviewed & are unremarkable except as noted in HPI and below Reports no additional complaints Eyes Reports no additional complaints ENT Reports no additional complaints Card Reports no additional complaints Resp Reports no additional complaints GI Reports no additional complaints Reports as per HPI Musc Reports no additional complaints Skin/Breast Reports system reviewed and no additional complaints, except as documented Neuro Reports no additional complaints Psych Reports no additional complaints Endo Reports no additional complaints Edgard/Lymph Reports no additional complaints Aller/Immun Reports no additional complaints Physical Exam Const General: cooperative, healthy appearing and no acute distress Orientation/consciousness: patient oriented x3 HEENT Head: Yes normal to inspection, Yes normocephalic and Yes atraumatic Eyes Conjunctivae: conjunctivae normal Neck Neck: Yes normal visual inspection and Yes trachea midline Chest Chest palpation & inspection: normal inspection of the chest Resp Effort & Inspection: normal respiratory effort Cardio Rate: regular rate GI Inspection: Yes normal to inspection Neuro General: patient oriented x3 Psych Appearance: grossly normal Office Procedures Post Void Residual Post Residual Void Post Void Residual (PVR): 0 [id number] Void Residual by ultrasound Results AMB Urinalysis, Automated UA Leukoctes 500 Breezy/uL Last Edit by Sonia Frank on 06/08/25 16:25 UA Nitrite Negative Last Edit by Sonia Frank on 06/08/25 16:25 UA Urobilinogen 0.2 mg/dL Last Edit by Sonia Frank on 06/08/25 16:25 UA Protein 30 mg/dL Last Edit by Sonia Frank on 06/08/25 16:25 UA pH 6.0 Last Edit by Sonia Frank on 06/08/25 16:25 UA Blood 25 Dionicio/uL Last Edit by Sonia Frank on 06/08/25 16:25 UA Specific Butler 1.015 Last Edit by Sonia Frank on 06/08/25 16:25 UA Ketone Negative Last Edit by Sonia Frank on 06/08/25 16:25 UA Bilirubin 0 mg/dL Last Edit by Sonia Frank on 06/08/25 16:25 UA Glucose 0 mg/dL Last Edit by Sonia Frank on 06/08/25 16:25 Results Reviewed Results Reviewed: Laboratory Last Values Urine pH (Auto) 6.0 06/08/25 15:53 Specific Butler (Auto) 1.015 06/08/25 15:53 Urine Protein (Auto) 30 mg/dL 06/08/25 15:53 Glucose (UA)(Auto) 0 mg/dL 06/08/25 15:53 Urine Ketones (Auto) Negative 06/08/25 15:53 Urine Blood (Auto) 25 Dionicio/uL 06/08/25 15:53 Urine Nitrite (Auto) Negative 06/08/25 15:53 Urine Bilirubin (Auto) 0 mg/dL 06/08/25 15:53 Urine Urobilinogen (Auto) 0.2 mg/dL 06/08/25 15:53 Leukocyte Esterase (Auto) 500 Breezy/uL 06/08/25 15:53 Collected: 05/15/25-UNK Status: COMP Req#: [id number] Received: 05/15/25096 Source: [facility] Sp Desc: Clean Cat Subm Dr: Dorothea Li Ordered: Urine Culture Procedure Result Verified Urine Culture Final 05/17/25-5265 Organism 1 Escherichia coli Quant > 100,000 cfu/mL E coli M.I.C. RX --------- --- Ampicillin >=32 R Cefazolin (Urine) 4 S Cefepime <=0.12 S Ceftriaxone <=0.25 S Ciprofloxacin <=0.06 S Gentamicin <=1 S Nitrofurantoin <=16 S Trimethoprim/Sulfamethoxazole >=320 R Assessment & Plan Assessment & Plan (1) Frequent UTI: Code(s): N39.0 - Urinary tract infection, site not specified Category: Medical (2) Diabetes: Code(s): E11.9 - Type 2 diabetes mellitus without complications Category: Medical Plan Plan Recurrent Urinary Tract Infections - The patient presents with persistent symptoms of a UTI, and her current urinalysis is positive for hematuria and proteinuria. - A urine sample will be sent for culture today to identify any active infection. - The patient is scheduled to travel to [place] this Wednesday; if the culture is positive, she will be started on antibiotics before she leaves. - The office will contact the patient with the results by noon on Wednesday; she has been instructed to call if she has not heard back by then. - The patient has a filled prescription for Cipro provided by her PCP, and she was instructed to take it with her to [place] and start the medication if her urinary symptoms worsen while there. - A renal and bladder ultrasound and an in-office cystoscopy will be scheduled for after she returns from her trip to evaluate for underlying causes of her recurrent infections, such as kidney stones or bladder abnormalities. - If the workup is negative, a long-term daily prophylactic antibiotic may be considered to control the recurrent episodes. Orders: Orders AMB Urinalysis Automated 06/08/25 Z13.9 - Encounter for screening, unspecified AMB Post Void Residual by ultrasound 06/08/25 N39.0 - Urinary tract infection, site not specified Urine Culture 06/08/25 N39.0 - Urinary tract infection, site not specified Coding Level of Care Code New Pt Level 4 (94397) Diagnoses Frequent UTI N39.0 Diabetes E11.9 CPT Codes Post Residual Void - PVR CPT Code: 22471-Qxsi Void Residual by ultrasound ([id number])
--- OUTSIDE RECORDS SUMMARY | 2025-06-08 18:20 | XMS_ITS | Patient Health Record ---
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, Congenital (754.61) Active confirmed Problem Ingrowing nail (545620766) Ingrowing Nail (703.0) Active confirmed Plan Of Treatment Pending Test Test Name Order Date X ray : Foot, left 2V 04/20/2013 [id number] NAIL, 1-01/09/2013 [id number] NAIL, -04/20/2013 [id number] NAIL, -5 04/14/2012 [id number] NAIL, -07/14/2012 [id number] NAIL, -10/17/2012 [id number] NAIL, 1-5 08/21/2013 [id number] Plate 10/17/201294867,A9128-QYJ TENDON SHEATH/LIGAMENT 1 50,[id number] TENDON SHEATH/LIGAMENT 1 07/18/2012 Insurance Providers Payer Name Payer Address Payer Phone Subscriber Number Group Number Insured Name Patient Relationship to Insured Coverage Start Date Coverage End Date Medicare National Govt [facility] [address] [place] [address] [id number] Pati Drummond Self - patient is the insured 1 [employer] Blue [employer] [address] [place] [address] [id number] DestinchristinaPati davies Self - patient is the [...] Reason Date(Month/Year) Patient went [place] [facility] [place] irregular hea rt beat. 07/2012
--- OUTSIDE RECORDS SUMMARY | 2025-06-08 18:20 | XMS_ITS | Patient Health Record ---
Author Organization [facility] Address [address] [place] [address] Care Team Providers Care Ballistics Professor Name Role Phone Jadyn (RETIRED) Kalin LINARES Primary Care Provide Prashanth [place] [phone] Allergies Allergen (clinical drug ingredient) Drug/Non Drug Allergy documented on EMR Reaction Allergy Type Onset Date Status eggs (uncoded) Unknown Allergy Activ e Sulfa Unknown Drug Allergy Active Reason For Referral No Information Medications Medication SIG (Take, Route, Frequency, Duration) Notes Start Date End Date Status Metoprolol Succinate ER 25 MG Tablet Extended Release 24 Hour 1 tablet Orally Once a day Active Multivitamin & Mineral 1 tablet 1 tablet Orally once a day Active Aspirin 81 MG Tablet 1 tablet Orally Onc e a day Active Hyder-3 650 Capsule 1 capsule Orally Onc e a day Active Osteo Bi-Flex Regular Strength Active Atorvastatin Calcium 80 MG Tablet 1 tablet Orally Once a day Active Zolpidem Tartrate 5 MG Tablet 1 tablet at bedtime Orally Once a day Active Omeprazole 20 MG Capsule Delayed Release 1 capsule Orally Once a day Active Baby Aspirin 81 mg tablet 1 tablet orall y once a day Active Social History Tobacco Use: Social History Observation Description Date Details (start date - stop date) Never Smoker NA - NA Social History Drugs/Alcohol: Social Info Question Answer Notes Alcohol Screen Did you have a drink containing alcohol in the past year? Yes How often did you have a drink containing alcohol in the past year? 2 to 4 times a month (2 points) How many drinks did you have on a typical day when you were drinking in the past year? 5 or 6 drinks (2 points) How often did you have 6 or more drinks on one occasion in the past year? Never (0 point) Points 4 Interpretation Positive Tobacco Use: Social Info Question Answer Notes Tobacco Use/Smoking Patient is a nonsmoker Additional Details Category Social Info Options Details Miscellaneous: Marital status: single Occupation: retired Section Notes: Nonsmoker; no sig alcohol Problems Problem Type SNOMED Code ICD Code Onset Dates Problem Status W/U Status Risk Notes Problem Screening for malignant neoplasm of colon (201514350) Encounter for screening for malignant neoplasm of colon (Z12.11) Active confirmed Problem Long-term current use of aspirin (00128959215380 3) Aspirin long-term use (Z79.82) Active confirmed Problem Pre-procedure evaluation check (403892098) Pre-procedural examination (Z01.818) Active confirmed Plan Of Treatment Future Test Test Name Order Date COLONOSCOPY 12/15/2016 Insurance Providers Payer Name Payer Address Payer Phone Subscriber Number Group Number Insured Name Patient Relationship to Insured Coverage Start Date Coverage End Date MEDICARE OF [place] [address] [place] [address] [id number] MELODYMADDYVALENTINE JAMES Self - patient is the insured [employer] ATT[employer] CLAIMS [address] [place] [phone] [id number] MELODYMADDYVALENTINE JAMES Self - patient is the insured Medical (General) History Medical History History ICD Code 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 Ruchi Ortega 20 02 Rotator Cuff left - Dr. Bansk 08/21/19 03 Torn cartilage -arthroscopic on left kne e -Dr. Banks 03/08/2003 Torn Cartilage- arthroscopic right knee- dr. Banks 02/03/2007 4V-CABG Dr. [facility]ano[facility] 05/22/2015
== END 2025-06-08 16:01 | disposition home or self-care (01) ==
LOC: HO.HUSH 12:45
PROVIDERS: PCP Physician Assistant; Visit Provider Urology
DX: Z13.9 Encounter for screening, unspecified (principal)